=== PATIENT | male | born 1975 | race Caucasian/White ===

== ENCOUNTER 2016-09-10 09:03 | Emergency (ER) | payer SELFPAY ==
[~2016-09-10] VITALS: Ht 188 cm; Wt 107.1 kg
[~2016-09-10 09:03] MED LIST: CLIN150 PO; ULTR50TA PO
[2016-09-10 09:09] VITALS: BP 168/95; PULSE 66; RESP 18; TEMP 98; O2SAT 100
--- NOTE | 2016-09-10 09:29 | PD ---
HPI Chief Complaint: General Weakness Time Seen by Provider: 09:24 Travel History International Travel<30 days: No Contact w/Intl Traveler<30days: No Traveled to known affect area: No History of Present Illness HPI This 41-year-old male complaining of swelling of his feet. He says it developed over the last couple of days. This isn't the last 2 weeks or so he noted that he gets very tired easily and short of breath with exertion and he has a history of hemophilia with less than 1% factor. He gives himself factor one to 5 times at home. He has not had any recent bleeding. He has had a bleeding ulcer in the past. He has been checking his stools and does not think he's been leaving now. He has a history of hepatitis C. He has not had any chest pain. He does smoke. He was treated for an abscess of his tooth and had some bleeding from that site a week ago. PFSH Past Medical History Blood Disorders: Yes (hemophilia B) Social History Alcohol Use: Yes Tobacco Use: Yes (1 PPD) Substance Use: No Allergies-Medications (Allergen,Severity, Reaction): Coded Allergies: Amoxicillin (Verified Allergy, Severe, Hives, 09/10/16) Aspirin (Verified Allergy, Severe, 09/10/16) HEMOPHILIAC Reported Meds & Prescriptions Reported Meds & Active Scripts Active Reported [benfix] 3,000-5,000 IV DIRECTED Review of Systems General / Constitutional: No: Fever, Chills Eyes: No: Diploplia HENT: No: Headaches Cardiovascular: Positive: Edema, No: Chest Pain or Discomfort Respiratory: Positive: Shortness of Breath, No: Cough Gastrointestinal: No: Nausea, Vomiting Genitourinary: No: Urgency, Frequency Musculoskeletal: No: Myalgias, Arthralgias Neurologic: Positive: Weakness, No: Syncope Endocrine: No: Heat Intolerance Physical Exam Narrative GENERAL: Well-developed male SKIN: Warm and dry. HEAD: Atraumatic. Normocephalic. EYES: Pupils equal and round. No scleral icterus. No injection or drainage. ENT: No nasal bleeding or discharge. Mucous membranes pink and moist. NECK: Trachea midline. No JVD. CARDIOVASCULAR: Regular rate and rhythm. No murmur appreciated. RESPIRATORY: No accessory muscle use. Clear to auscultation. Breath sounds equal bilaterally. GASTROINTESTINAL: Abdomen soft, non-tender, nondistended. Hepatic and splenic margins not palpable. MUSCULOSKELETAL: No obvious deformities. No clubbing. No cyanosis. Bilateral pedal edema. NEUROLOGICAL: Awake and alert. No obvious cranial nerve deficits. Motor grossly within normal limits. Normal speech. PSYCHIATRIC: Appropriate mood and affect; insight and judgment normal. Data Data Last Documented VS Vital Signs Date Time Temp Pulse Resp B/P Pulse Ox O2 Delivery O2 Flow Rate FiO2 09/10/16 10:53 60 18 127/85 98 Room Air 09/10/16 09:09 98.0 Orders Electrocardiogram (09/10/16 09:24) Complete Blood Count With Diff (09/10/16:24) Comprehensive Metabolic Panel (09/10/16:24) B-Type Natriuretic Peptide (09/10/16:24) Urinalysis - C+S If Indicated (09/10/16 09:24) Chest, Single Ap (09/10/16 09:24) Labs Laboratory Tests Test 09/10/16 09/10/16 09:55 10:05 White Blood Count 6.2 TH/MM3 Red Blood Count 4.08 MIL/MM3 Hemoglobin 12.3 GM/DL Hematocrit 36.5 % Mean Corpuscular Volume 89.3 FL Mean Corpuscular Hemoglobin 30.2 PG Mean Corpuscular Hemoglobin 33.8 % Concent Red Cell Distribution Width 12.3 % Platelet Count 188 TH/MM3 Mean Platelet Volume 8.9 FL Neutrophils (%) (Auto) 48.8 % Lymphocytes (%) (Auto) 35.5 % Monocytes (%) (Auto) 11.0 % Eosinophils (%) (Auto) 4.2 % Basophils (%) (Auto) 0.5 % Neutrophils # (Auto) 3.0 TH/MM3 Lymphocytes # (Auto) 2.2 TH/MM3 Monocytes # (Auto) 0.7 TH/MM3 Eosinophils # (Auto) 0.3 TH/MM3 Basophils # (Auto) 0.0 TH/MM3 CBC Comment DIFF FINAL Differential Comment Sodium Level 144 MEQ/L Potassium Level 3.9 MEQ/L Chloride Level 104 MEQ/L Carbon Dioxide Level 31.3 MEQ/L Anion Gap 9 MEQ/L Blood Urea Nitrogen 6 MG/DL Creatinine 0.69 MG/DL Estimat Glomerular Filtration 128 ML/MIN Rate Random Glucose 123 MG/DL Calcium Level 8.1 MG/DL Total Bilirubin 0.3 MG/DL Aspartate Amino Transf 62 U/L (AST/SGOT) Alanine Aminotransferase 64 U/L (ALT/SGPT) Alkaline Phosphatase 105 U/L B-Type Natriuretic Peptide 318 PG/ML Total Protein 7.1 GM/DL Albumin 3.0 GM/DL Urine Collection Type CLEAN CATCH Urine Color STRAW Urine Turbidity CLEAR Urine pH 6.0 Urine Specific [place] 1.006 Urine Protein NEG mg/dL Urine Glucose (UA) NEG mg/dL Urine Ketones NEG mg/dL Urine Occult Blood NEG Urine Nitrite NEG Urine Bilirubin NEG Urine Leukocyte Esterase NEG Urine Squamous Epithelial 0-5 /hpf Cells Urine Amorphous Sediment FEW Microscopic Urinalysis Comment CULT NOT INDICATED Urine Collection Time 1005 MDM Medical Decision Making Medical Screen Exam Complete: Yes Emergency Medical Condition: Yes Medical Record Reviewed: Yes Differential Diagnosis Differential includes CHF, dependent edema, nephrotic syndrome, cirrhosis Narrative Course Chest x-ray shows borderline heart size but the lungs are clear. His BNP is 300. EKG shows normal sinus rhythm. Urine is negative for protein. He is albumin is low at 3.0 this may be part of the explanation. This could be secondary to his hepatitis C area he'll be prescribed hydrochlorothiazide 25 mg daily has been advised to keep his legs elevated Diagnosis Primary Impression: Pedal edema Additional Impression: Hypoalbuminemia Scripts Hydrochlorothiazide 25 Mg Tab25 Mg PO DAILY #30 TAB Ref 0 Prov:Baldomero Bush MD 09/10/16 Disposition: 01 DISCHARGE HOME Condition: Stable Baldomero Bush MD Sep 10, 2016 09:29
[2016-09-10] MEDS ORDERED: [UNRECOGNIZED DRUG - OTHER] IV (09:47)
[2016-09-10 10:02] LABS: BASOPHIL % 0.5 % (0.0-2.0); EOSINOPHIL # 0.3 TH/MM3 (0-0.4); EOSINOPHIL % 4.2 % (0.0-4.0); HEMATOCRIT 36.5 % (39.0-51.0); HEMO FLAGS DIFF FINAL; LYMPH % 35.5 % (9.0-44.0); LYMPHOCYTE # 2.2 TH/MM3 (1.0-4.8); MEAN CELL VOLUME 89.3 FL (80.0-100.0); MEAN CORPUSCULAR HEMOGLOBIN 30.2 PG (27.0-34.0); MEAN CORPUSCULAR HGB CONC 33.8 % (32.0-36.0); NEUT % 48.8 % (16.0-70.0); PLATELET COUNT 188 TH/MM3 (150-450); RED BLOOD COUNT 4.08 MIL/MM3 (4.50-5.90); RED CELL DISTRIBUTION WIDTH 12.3 % (11.6-17.2); WHITE BLOOD COUNT 6.2 TH/MM3 (4.0-11.0)
[2016-09-10 10:10] LABS: CHLORIDE 104 MEQ/L (98-107); POTASSIUM 3.9 MEQ/L (3.5-5.1); SODIUM (NA) 144 MEQ/L (136-145)
[2016-09-10 10:14] LABS: ANION GAP 9 MEQ/L (5-15); BICARBONATE 31.3 MEQ/L (21.0-32.0); BLOOD UREA NITROGEN 6 MG/DL (7-18)
[2016-09-10 10:17] LABS: ALT (GPT) 64 U/L (12-78); AST (GOT) 62 U/L (15-37); GLOMERULAR FILTRATION RATE 128 ML/MIN (>89)
[2016-09-10 10:17] LABS: BLOOD, URINE NEG (NEG); GLUCOSE,URINE NEG (NEG); KETONE, URINE NEG (NEG); NITRITE,URINE NEG (NEG)
[2016-09-10 10:19] LABS: TOTAL BILIRUBIN ADULT 0.3 MG/DL (0.2-1.0)
[2016-09-10 10:20] LABS: ALKALINE PHOSPHATASE 105 U/L (45-117)
[2016-09-10 10:21] LABS: METHOD OF COLLECTION CLEAN CATCH; URINE COLOR STRAW (YELLW/STRAW)
[2016-09-10 10:22] LABS: COMMENT (UR) CULT NOT INDICATED; CULTURE IF INDICATED CULT NOT INDICATED; SQUAMOUS EPITHELIAL CELL URINE 0-5 /hpf (0-5)
--- NOTE | 2016-09-10 10:32 | RADHPO ---
EXAM DATE/TIME: 09/10/2016 09:58 [facility] COMPARISON: No previous studies available for comparison. INDICATIONS: Short of breath, bilateral feet swelling. MEDICAL HISTORY: Hemophilia SURGICAL HISTORY: None. ENCOUNTER: Initial ACUITY: 2 days PAIN SCORE: 0/10 LOCATION: Bilateral chest FINDINGS: The heart is top normal in size. The pulmonary vascularity pattern is normal. The lungs are clear. CONCLUSION: 1. No acute cardiopulmonary disease. Harsha Cameron MD on September 10, 2016 at 10:22 Board Certified Radiologist. This report was verified electronically.
[2016-09-10 10:53] VITALS: BP 127/85; PULSE 60; RESP 18; O2SAT 98
[2016-09-10] MEDS ORDERED: HYDR25TA5 PO (11:00)
--- NOTE | 2016-09-11 13:57 | EKG ---
Date Performed: 09/10/2016 Time Performed: 09:24:18 PTAGE: 41 years EKG: Sinus bradycardia Prolonged QT interval Borderline ECG NO PREVIOUS TRACING DOCTOR: Carlos Manuel Caceres Interpretating Date/Time 09/11/2016 13:55:46
== END 2016-09-10 11:14 | disposition home or self-care (01) ==
LOC: PHED 09:03
DX: R60.0 Localized edema (principal); E88.09 Other disorders of plasma-protein metabolism, not elsewhere classified; R00.1 Bradycardia, unspecified; R06.02 Shortness of breath; R53.1 Weakness; B19.20 Unspecified viral hepatitis C without hepatic coma; D67 Hereditary factor IX deficiency; F17.210 Nicotine dependence, cigarettes, uncomplicated
CPT/HCPCS: 71010; 80053; 81001; 83880; 85025; 93005

== ENCOUNTER 2016-12-24 15:56 | Emergency (ER) | payer SELFPAY ==
[~2016-12-24] VITALS: Ht 188 cm; Wt 103.0 kg
[~2016-12-24 15:56] MED LIST changes: -CLIN150 PO; +HYDR25TA5 PO; -ULTR50TA PO; +[UNRECOGNIZED DRUG - OTHER] IV
[2016-12-24 16:01] VITALS: BP 162/121; PULSE 100; RESP 16; TEMP 98.6; O2SAT 98
--- NOTE | 2016-12-24 16:14 | PD ---
HPI Chief Complaint: Pain: Acute or Chronic Time Seen by Provider: 16:13 Travel History International Travel<30 days: No Contact w/Intl Traveler<30days: No Traveled to known affect area: No PFSH Past Medical History Blood Disorders: Yes (hemophilia B) Hepatitis: Yes (hep c) Past Surgical History Other Surgery: Yes (right knee, skin abscess removed to back) Social History Alcohol Use: No (denies) Tobacco Use: Yes (1 PPD) Substance Use: No Allergies-Medications (Allergen,Severity, Reaction): Coded Allergies: Amoxicillin (Verified Allergy, Severe, Hives, 12/24/16) Aspirin (Verified Allergy, Severe, 12/24/16) HEMOPHILIAC Reported Meds & Prescriptions Reported Meds & Active Scripts Active Hydrochlorothiazide 25 Mg Tab 25 Mg PO DAILY Reported [benfix] 3,000-5,000 IV DIRECTED Data Data Last Documented VS Vital Signs Date Time Temp Pulse Resp B/P Pulse Ox O2 Delivery O2 Flow Rate FiO2 12/24/16 16:01 98.6 100 16 162/121 98 Micha Gandhi Dec 24, 2016 16:13
[2016-12-24] MEDS ORDERED: FACTOR IX RECOMBINANT 2,000 UNIT VIAL IV ONE (16:30)
[2016-12-24] MEDS ORDERED: [UNRECOGNIZED DRUG - OTHER] IV (16:34)
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
[2016-12-24 18:25] VITALS: BP 171/106; PULSE 85; RESP 16; O2SAT 98
[2016-12-24] MEDS ORDERED: HYDROmorphone HCL PF 2 MG/ML VIAL IV PUSH ONE (18:30)
[2016-12-24] MEDS ORDERED: ONDANSETRON HCL 4 MG/2 ML VIAL IV PUSH ONE (18:30)
[2016-12-24 18:33] VITALS: BP 153/103; PULSE 78; RESP 16; O2SAT 98
[2016-12-24 18:40] VITALS: BP 162/104; PULSE 78; RESP 16; O2SAT 98
[2016-12-24 19:37] VITALS: BP 146/87
[2016-12-24 19:39] VITALS: RESP 16
== END 2016-12-24 19:37 | disposition home or self-care (01) ==
LOC: PHEFT 15:56
DX: D67 Hereditary factor IX deficiency (principal); R58 Hemorrhage, not elsewhere classified; F17.210 Nicotine dependence, cigarettes, uncomplicated
CPT/HCPCS: 96374; 96375; 99283; J1170; J2405; J7195

== ENCOUNTER 2017-02-11 11:01 | Emergency (ER) | payer SELFPAY ==
[~2017-02-11] VITALS: Ht 188 cm; Wt 105.0 kg
[~2017-02-11 11:01] MED LIST changes: -HYDR25TA5 PO
[2017-02-11 11:06] VITALS: BP 157/100; PULSE 68; RESP 18; TEMP 97.7; O2SAT 99
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
[2017-02-11] MEDS ORDERED: FACTOR IX RECOMBINANT 2,000 UNIT VIAL IV ONE (12:45)
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
[2017-02-11] MEDS ORDERED: MORPHINE SULFATE 4 MG/ML INJ IV PUSH ONE (14:45)
[2017-02-11 15:10] VITALS: BP 137/72; PULSE 59; RESP 14; O2SAT 96
== END 2017-02-11 16:45 | disposition home or self-care (01) ==
LOC: PHEFT 11:01
DX: S80.01XA Contusion of right knee, initial encounter (principal); D67 Hereditary factor IX deficiency; B19.20 Unspecified viral hepatitis C without hepatic coma; V18.0XXA Pedal cycle driver injured in noncollision transport accident in nontraffic accident, initial encounter; Y93.55 Activity, bike riding; Y92.9 Unspecified place or not applicable; Y99.8 Other external cause status
CPT/HCPCS: 73564; 96374; 96375; 99284; J2270; J7195

== ENCOUNTER 2017-02-24 16:11 | Emergency (ER) | payer SELFPAY ==
[~2017-02-24] VITALS: Ht 188 cm; Wt 106.0 kg
[2017-02-24 16:14] VITALS: BP 144/99; PULSE 70; RESP 16; TEMP 97.5; O2SAT 100
[2017-02-24] MEDS ORDERED: FACTOR IX RECOMBINANT 2,000 UNIT VIAL IV ONE (16:30)
[2017-02-24] MEDS ORDERED: MORPHINE SULFATE 4 MG/ML INJ IV PUSH ONE (16:30)
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
[2017-02-24 17:30] VITALS: BP 140/88; PULSE 63; RESP 16; O2SAT 96
[2017-02-24 18:23] VITALS: BP 149/98; PULSE 64; RESP 16; O2SAT 97
[2017-02-24] MEDS ORDERED: SODIUM CHLORIDE 0.9% FLUSH 10 ML FLUSH IVF PRN (19:00)
[2017-02-24 19:03] LABS: AUTOMATED NEUTROPHIL # 2.8 TH/MM3 (1.8-7.7); BASOPHIL # 0.1 TH/MM3 (0-0.2); BASOPHIL % 0.9 % (0.0-2.0); EOSINOPHIL # 0.2 TH/MM3 (0-0.4); EOSINOPHIL % 3.2 % (0.0-4.0); HEMATOCRIT 42.6 % (39.0-51.0); HEMO FLAGS DIFF FINAL; LYMPH % 43.1 % (9.0-44.0); LYMPHOCYTE # 2.9 TH/MM3 (1.0-4.8); MEAN CELL VOLUME 88.8 FL (80.0-100.0); MEAN CORPUSCULAR HEMOGLOBIN 29.4 PG (27.0-34.0); MEAN CORPUSCULAR HGB CONC 33.1 % (32.0-36.0); MONO % 12.8 % (0.0-8.0); PLATELET COUNT 166 TH/MM3 (150-450); RED BLOOD COUNT 4.79 MIL/MM3 (4.50-5.90); WHITE BLOOD COUNT 6.9 TH/MM3 (4.0-11.0)
[2017-02-24] MEDS ORDERED: HYDR-3533 PO (19:12)
[2017-02-24 19:13] LABS: POTASSIUM 4.2 MEQ/L (3.5-5.1)
[2017-02-24 19:16] LABS: BICARBONATE 31.1 MEQ/L (21.0-32.0)
[2017-02-24 19:20] LABS: APTT (PATIENT) 65.1 SEC (24.3-30.1); INTERNATIONAL NORMALIZED RATIO 1.1 RATIO; PROTHROMBIN TIME - PATIENT 11.7 SEC (9.8-11.6)
[2017-02-24 19:29] VITALS: BP 119/68
== END 2017-02-24 19:31 | disposition home or self-care (01) ==
LOC: PHEFT 16:11
DX: S80.12XA Contusion of left lower leg, initial encounter (principal); D67 Hereditary factor IX deficiency; W22.8XXA Striking against or struck by other objects, initial encounter
CPT/HCPCS: 20950; 80048; 85025; 85610; 85730; 96374; 96375; 99284; J2270; J7195

== ENCOUNTER 2017-05-16 13:49 | Emergency (ER) | payer SELFPAY ==
[~2017-05-16 13:49] MED LIST changes: +HYDR-3533 PO; -[UNRECOGNIZED DRUG - OTHER] IV
[2017-05-16 14:01] VITALS: BP 206/100; PULSE 40; RESP 20; TEMP 98.5; O2SAT 98
[2017-05-16 14:47] VITALS: BP 186/107; PULSE 62; RESP 18; O2SAT 98
[2017-05-16] MEDS ORDERED: FACTOR IX RECOMBINANT 2,000 UNIT VIAL IV ONE (15:00)
--- NOTE | 2017-05-16 15:07 | PD ---
HPI Chief Complaint: Musculoskeletal Complaint Time Seen by Provider: 14:42 Travel History International Travel<30 days: No Contact w/Intl Traveler<30days: No Traveled to known affect area: No History of Present Illness HPI This is a 41-year-old male who presents to the emergency department with a history of hemophilia B having stubbed his left great toe on a stair prior to arrival. He has a lot of pain at the joint the great toe, constant, moderate severity with some associated swelling. He doesn't carry factor with him. He doesn't think he broke his toe but has a lot of pain in the joint itself. 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) ) Diminished Hearing: No Hepatitis: Yes (C) Influenza Vaccination: No Past Surgical History Other Surgery: Yes (right knee, skin abscess removed to back) Social History Alcohol Use: No Tobacco Use: Yes (1 PPD) Substance Use: No Allergies-Medications (Allergen,Severity, Reaction): Coded Allergies: amoxicillin (Unverified Allergy, Severe, Hives, 04/16/17) aspirin (Unverified Adverse Reaction, Severe, Has hemophilia, 04/16/17) Reported Meds & Prescriptions Reported Meds & Active Scripts Active Review of Systems Except as stated in HPI: all other systems reviewed are Neg Physical Exam Narrative GENERAL:Well appearing, no acute distress SKIN: Focused skin assessment warm and dry. HEAD: Atraumatic. Normocephalic. EYES: Pupils equal and round. No injection or drainage. ENT: Moist mucous membranes NECK: Trachea midline. CARDIOVASCULAR: Regular rate and rhythm. No murmur appreciated. Normal capillary refill of the left great toe RESPIRATORY: Clear to auscultation. Breath sounds equal bilaterally. GASTROINTESTINAL: Abdomen soft, non-tender, nondistended. MUSCULOSKELETAL: Pain with movement at the interphalangeal joint of the left great toe with some swelling at the joint NEUROLOGICAL: Awake and alert. No obvious cranial nerve deficits. Moving all extremities. PSYCHIATRIC: Appropriate mood and affect; insight and judgment normal. Data Data Last Documented VS Vital Signs Date Time Temp Pulse Resp B/P (MAP) Pulse Ox O2 Delivery O2 Flow Rate FiO2 05/16/17 14:47 62 18 186/107 (133) 98 Room Air 05/16/17 14:01 98.5 Orders Orders Factor Ix (Recombinant) Inj (Benefix Inj (05/16/17 15:00) Acetamin-Hydrocod 325-5 Mg (Rich[place] 5-325 (05/16/17 15:30) MDM Medical Decision Making Medical Screen Exam Complete: Yes Emergency Medical Condition: Yes Interpretation(s) Afebrile, bradycardic, hypertensive Differential Diagnosis Hemarthrosis Narrative Course This is a 41-year-old male who presents to the emergency department with a history of hemophilia B having injured his left great toe. He has pain in his joint. The toe is well perfused. Patient was given his normal dose of factor IX. On reexam the toe continues to appear well perfused. I think Think he is appropriate for discharge. 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 Med/Other Pt SpecificInfo: No Change to Meds Disposition: 01 DISCHARGE HOME Condition: Stable Gabriela Vo MD May 16, 2017 15:07
[2017-05-16] MEDS ORDERED: ACETAMINOPHEN/HYDROcodone 325 MG/5 MG TAB PO ONE (15:30)
[2017-05-16 15:36] VITALS: BP 147/96; PULSE 54; RESP 16; O2SAT 98
[2017-05-16] MEDS ORDERED: HYDR-3533 PO (15:48)
[2017-05-16 16:00] VITALS: RESP 16
== END 2017-05-16 16:01 | disposition home or self-care (01) ==
LOC: PHED 13:49
DX: D67 Hereditary factor IX deficiency (principal); F17.200 Nicotine dependence, unspecified, uncomplicated
CPT/HCPCS: 96374; 99284; J7195

== ENCOUNTER 2017-06-01 09:30 | Inpatient (IN) | payer SELFPAY ==
[~2017-06-01] VITALS: Ht 188 cm; Wt 106.9 kg
[2017-06-01] VITALS (7 sets, daily range): BP systolic 137–159; BP diastolic 83–101; PULSE 55–81; RESP 16–18; TEMP 96.1–97.4; O2SAT 95–98
[2017-06-01] MEDS ORDERED: FACTOR IX IV ONE (10:45)
[2017-06-01] MEDS ORDERED: [UNRECOGNIZED DRUG - OTHER] IV ONE (10:45)
--- NOTE | 2017-06-01 10:57 | PD ---
HPI Chief Complaint: Musculoskeletal Complaint Time Seen by Provider: 10:32 Travel History International Travel<30 days: No Contact w/Intl Traveler<30days: No Traveled to known affect area: No History of Present Illness HPI 42-year-old male who states he does not have a local solvent mixer for factor on him resents with left elbow swelling since chest today when he was helping his neighbor move. He states the swelling has gotten worse and the pain got worse so he elected to come here. He denies any other complaint or significant trauma. He states in the past he's had 7000 units of factor IX when he gets this. Quality is swollen. Severity is progressive. 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) ) Diminished Hearing: No Hepatitis: Yes (C) Influenza Vaccination: No Past Surgical History Other Surgery: Yes (right knee, skin abscess removed to back) Social History Alcohol Use: No Tobacco Use: Yes (1 PPD) Substance Use: No Allergies-Medications (Allergen,Severity, Reaction): Coded Allergies: amoxicillin (Unverified Allergy, Severe, Hives, 04/16/17) aspirin (Unverified Adverse Reaction, Severe, Has hemophilia, 04/16/17) Reported Meds & Prescriptions Reported Meds & Active Scripts Active Lortab (Hydrocodone-Acetaminophen) 5-325 Mg Tab 1 Tab PO Q6H PRN Review of Systems Except as stated in HPI: all other systems reviewed are Neg Physical Exam Narrative GENERAL: Well-nourished, well-developed patient. SKIN: Warm and dry. HEAD: Normocephalic and atraumatic. EYES: No injection or drainage. ENT: No nasal drainage noted. NECK: Supple, trachea midline. CARDIOVASCULAR: Regular rate and rhythm RESPIRATORY: Breath sounds equal bilaterally. No accessory muscle use. GASTROINTESTINAL: Abdomen soft, non-tender, nondistended. EXTREMITIES: Pain with palpation of of left elbow with moderate size effusion without overlying cellulitis, no pain with other joints , neurovascularly intact , no lacerations over, compartments soft. NEUROLOGICAL: Awake and alert. Motor and sensory grossly within normal limits. Normal speech. Data Data Last Documented VS Vital Signs Date Time Temp Pulse Resp B/P (MAP) Pulse Ox O2 Delivery O2 Flow Rate FiO2 06/01/17 11:38 16 06/01/17 11:20 Room Air 06/01/17 11:15 67 97 06/01/17 09:37 97.4 Orders Orders Complete Blood Count With Diff (06/01/17 10:38) Basic Metabolic Panel (Bmp) (06/01/17 10:38) Act Partial Throm Time (Ptt) (06/01/17 10:38) Prothrombin Time / Inr (Pt) (06/01/17 10:38) Iv Access Insert/Monitor (06/01/17 10:38) Ecg Monitoring (06/01/17 10:38) Oximetry (06/01/17 10:38) Factor Ix (Human) Inj (Alphanine Sd Inj) (06/01/17 10:45) Morphine Inj (Morphine Inj) (06/01/17 11:15) Factor Ix (Recombinant) Inj (Benefix Inj (06/01/17 11:15) Elbow, Limited (Ap&Lat) (06/01/17 ) Ct Elbow W/O Contrast (06/01/17 ) Morphine Inj (Morphine Inj) (06/01/17 13:15) Admit Order (Ed Use Only) (06/01/17 13:16) Labs Laboratory Tests Test 06/01/17 10:57 White Blood Count 8.3 TH/MM3 Red Blood Count 4.83 MIL/MM3 Hemoglobin 14.2 GM/DL Hematocrit 42.5 % Mean Corpuscular Volume 87.9 FL Mean Corpuscular Hemoglobin 29.5 PG Mean Corpuscular Hemoglobin Concent 33.5 % Red Cell Distribution Width 13.8 % Platelet Count 173 TH/MM3 Mean Platelet Volume 9.3 FL Neutrophils (%) (Auto) 43.0 % Lymphocytes (%) (Auto) 41.4 % Monocytes (%) (Auto) 10.7 % Eosinophils (%) (Auto) 4.4 % Basophils (%) (Auto) 0.5 % Neutrophils # (Auto) 3.5 TH/MM3 Lymphocytes # (Auto) 3.4 TH/MM3 Monocytes # (Auto) 0.9 TH/MM3 Eosinophils # (Auto) 0.4 TH/MM3 Basophils # (Auto) 0.0 TH/MM3 CBC Comment DIFF FINAL Differential Comment Prothrombin Time 11.8 SEC Prothromb Time International Ratio 1.1 RATIO Activated Partial Thromboplast Time 65.5 SEC Blood Urea Nitrogen 14 MG/DL Creatinine 0.78 MG/DL Random Glucose 127 MG/DL Calcium Level 8.8 MG/DL Sodium Level 136 MEQ/L Potassium Level 3.8 MEQ/L Chloride Level 101 MEQ/L Carbon Dioxide Level 28.4 MEQ/L Anion Gap 7 MEQ/L Estimat Glomerular Filtration Rate 110 ML/MIN MDM Medical Decision Making Medical Screen Exam Complete: Yes Emergency Medical Condition: Yes Medical Record Reviewed: Yes (past history confirmed) Interpretation(s) CBC & BMP Diagram 06/01/17 10:57 Calcium Level 8.8 Last 24 hours Impressions Elbow X-Ray 06/01/17 0000 Signed Impressions: Service Date/Time: Saturday, June 01, 2017 12:08 - CONCLUSION: 1. Joint effusion with questionable radial head fracture. Please see above. 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
[2017-06-01 11:01] LABS: AUTOMATED NEUTROPHIL # 3.5 TH/MM3 (1.8-7.7); BASOPHIL % 0.5 % (0.0-2.0); EOSINOPHIL # 0.4 TH/MM3 (0-0.4); EOSINOPHIL % 4.4 % (0.0-4.0); HEMATOCRIT 42.5 % (39.0-51.0); HEMO FLAGS DIFF FINAL; LYMPH % 41.4 % (9.0-44.0); LYMPHOCYTE # 3.4 TH/MM3 (1.0-4.8); MEAN CELL VOLUME 87.9 FL (80.0-100.0); MEAN CORPUSCULAR HEMOGLOBIN 29.5 PG (27.0-34.0); MEAN CORPUSCULAR HGB CONC 33.5 % (32.0-36.0); MONO % 10.7 % (0.0-8.0); PLATELET COUNT 173 TH/MM3 (150-450); RED BLOOD COUNT 4.83 MIL/MM3 (4.50-5.90); RED CELL DISTRIBUTION WIDTH 13.8 % (11.6-17.2); WHITE BLOOD COUNT 8.3 TH/MM3 (4.0-11.0)
[2017-06-01 11:11] LABS: POTASSIUM 3.8 MEQ/L (3.5-5.1)
[2017-06-01 11:14] LABS: BICARBONATE 28.4 MEQ/L (21.0-32.0)
[2017-06-01] MEDS ORDERED: FACTOR IX RECOMBINANT 2,000 UNIT VIAL IV ONE (11:15)
[2017-06-01] MEDS ORDERED: MORPHINE SULFATE 4 MG/ML INJ IV PUSH ONE ×2 (11:15→13:15)
[2017-06-01 11:29] LABS: APTT (PATIENT) 65.5 SEC (24.3-30.1); INTERNATIONAL NORMALIZED RATIO 1.1 RATIO; PROTHROMBIN TIME - PATIENT 11.8 SEC (9.8-11.6)
--- NOTE | 2017-06-01 12:20 | RADRPT ---
EXAM DATE/TIME: 06/01/2017 12:08 [facility] COMPARISON: KNEE RIGHT COMPLETE (4VWS), February 11, 2017, 12:12. INDICATIONS : Pain in left elbow. MEDICAL HISTORY : None. SURGICAL HISTORY : None. ENCOUNTER: Initial ACUITY: 1 day PAIN SCORE: 10/10 LOCATION: Left Elbow FINDINGS: The exam demonstrates a moderate sized joint effusion. Subtle lucency through the radial head. Exam w ould raise concern for an occult radial head fracture. This is only seen in the single projection. CT imaging for more definitive assessment could be performed CONCLUSION: 1. Joint effusion with questionable radial head fracture. Please see above. Kumar Saleh MD on June 01, 2017 at 12:17 Board Certified Radiologist. This report was verified electronically.
--- NOTE | 2017-06-01 13:30 | RADRPT ---
EXAM DATE/TIME: 06/01/2017 12:55 [facility] COMPARISON: ELBOW LEFT LIMITED (AP & LAT), June 01, 2017, 12:08. INDICATIONS : Swelling. RADIATION DOSE: 12.97 CTDIvol (mGy) MEDICAL HISTORY : Hemophelia SURGICAL HISTORY : ENCOUNTER: Initial ACUITY: 1 day PAIN SCALE: 8/10 LOCATION: Left elbow TECHNIQUE: Volumetric scanning of the elbow was performed. Using automated exposure control and adjustment of t he mA and/or kV according to patient size, radiation dose was kept as low as reasonably achievable to obtain optimal diagnostic quality images. DICOM format image data is available electronically for r eview and comparison. FINDINGS: BONES: The osseous structures demonstrate normal alignment without evidence of acute fracture. There is a sm all millimeter osseous fragment identified along the volar aspect of the joint at the anterior aspect of the distal humerus. The other side is not seen. This is seen adjacent to the radial aspect of the joint. JOINTS: No evidence of joint narrowing or effusion. SOFT TISSUES: Muscles, tendons and neurovascular structures are grossly unremarkable. No evidence of mass, organize d fluid collection, or foreign body. CONCLUSION: Small free fragment measuring 3 mm identified within the volar radial aspect of the joint adjacent to the distal aspect of the humerus.. Kaykay Madrigal MD on June 01, 2017 at 13:21 Board Certified Radiologist. This report was verified electronically.
[2017-06-01] MEDS ORDERED: SODIUM CHLORIDE 0.9% FLUSH 10 ML FLUSH IV FLUSH PRN (13:45)
[2017-06-01] MEDS ORDERED: NALOXONE HCL 0.4 MG/ML AMP IV PUSH PRN (13:45)
[2017-06-01] MEDS ORDERED: SENNOSIDES 8.6 MG TAB PO PRN (13:45)
[2017-06-01] MEDS ORDERED: ACETAMINOPHEN/HYDROcodone 325 MG/5 MG TAB PO PRN (13:45)
[2017-06-01] MEDS ORDERED: ONDANSETRON HCL 4 MG/2 ML VIAL IVP PRN (13:45)
[2017-06-01] MEDS ORDERED: ACETAMINOPHEN/HYDROcodone 325 MG/10 MG TAB PO PRN (13:45)
--- NOTE | 2017-06-01 14:59 | HHI.HP ---
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 Alcala is a 42-year-old male. He has a history of hemophilia B. He also has hepatitis C secondary to transfusions when he was younger. He reports that he has problems with small joint effusions about every 1 to 3 months. His last large joint effusion was approximately 1.5 years ago at his left knee. She has had numerous large joint effusions in the past. Yesterday he helped a friend move furniture. He says by the end of the night she noticed a little bit of stiffness and swelling, but by this morning that had become quite prominent and painful. This feels like his previous hemarthrosis joints. In the past she has needed transfusion with BeneFix. X-ray showed evidence of effusion, CT does not show evidence of effusion. CT does show a 3 mm bony fragment, but based on history without trauma this is unlikely fracture. Patient denies any fevers. Review of Systems Constitutional: DENIES: Diaphoretic episodes, Fatigue, Fever, Chills Eyes: DENIES: Blurred vision, Diplopia, Eye inflammation Ears, nose, mouth, throat: DENIES: Tinnitus, Hearing loss, Vertigo Respiratory: DENIES: Apneas, Cough, Wheezing, Shortness of breath Cardiovascular: DENIES: Chest pain, Palpitations, Syncope Gastrointestinal: DENIES: Abdominal pain, Black stools, Bloody stools Musculoskeletal: COMPLAINS OF: Joint pain, Stiffness, Joint Swelling Integumentary: DENIES: Abnormal pigmentation, Nail changes, Pruritus, Rash Hematologic/lymphatic: DENIES: Bruising, Lymphadenopathy Immunologic/allergic: DENIES: Eczema, Urticaria Neurologic: DENIES: Abnormal gait, Headache, Paresthesias Psychiatric: DENIES: Anxiety, Confusion, Hallucinations Past Family Social History Past Medical History Hepatitis C Hemophilia B Past Surgical History Procedures related to hemarthrosis Reported Medications Reported Meds & Active Scripts Active Lortab (Hydrocodone-Acetaminophen) 5-325 Mg Tab 1 Tab PO Q6H PRN Allergies: Coded Allergies: amoxicillin (Unverified Allergy, Severe, Hives, 04/16/17) aspirin (Unverified Adverse Reaction, Severe, Has hemophilia, 04/16/17) Family History Nonspecified cancer in father Hypertension in mother Social History Patient smokes 1 pack per day No alcohol use No illicit drug abuse Physical Exam Vital Signs Vital Signs Date Time Temp Pulse Resp B/P (MAP) Pulse Ox O2 Delivery O2 Flow Rate FiO2 06/01/17 13:18 55 17 137/93 (108) 97 Room Air 06/01/17 11:38 16 06/01/17 11:20 Room Air 06/01/17 11:15 67 16 143/92 (109) 97 Room Air 06/01/17 09:37 97.4 81 16 157/101 (119) 96 Room Air Physical Exam GENERAL: NAD, A&Ox3 HEAD: Normocephalic. NECK: Supple, trachea midline. No lymphadenopathy. EYES: No scleral icterus. No injection or drainage. CARDIOVASCULAR: Regular rate and rhythm without murmurs, gallops, or rubs. RESPIRATORY: Breath sounds equal bilaterally. No accessory muscle use. GASTROINTESTINAL: Abdomen soft, non-tender, nondistended. MUSCULOSKELETAL: No cyanosis, or edema. Tender left elbow with limited range of motion. Some increase in swelling of left elbow compared to right. No skin discoloration. SKIN: Warm and dry. NEURO: No focal neurological deficitis. Laboratory Laboratory Tests Test 06/01/17 10:57 White Blood Count 8.3 Red Blood Count 4.83 Hemoglobin 14.2 Hematocrit 42.5 Mean Corpuscular Volume 87.9 Mean Corpuscular Hemoglobin 29.5 Mean Corpuscular Hemoglobin Concent 33.5 Red Cell Distribution Width 13.8 Platelet Count 173 Mean Platelet Volume 9.3 Neutrophils (%) (Auto) 43.0 Lymphocytes (%) (Auto) 41.4 Monocytes (%) (Auto) 10.7 Eosinophils (%) (Auto) 4.4 Basophils (%) (Auto) 0.5 Neutrophils # (Auto) 3.5 Lymphocytes # (Auto) 3.4 Monocytes # (Auto) 0.9 Eosinophils # (Auto) 0.4 Basophils # (Auto) 0.0 CBC Comment DIFF FINAL Differential Comment Prothrombin Time 11.8 Prothromb Time International Ratio 1.1 Activated Partial Thromboplast Time 65.5 Blood Urea Nitrogen 14 Creatinine 0.78 Random Glucose 127 Calcium Level 8.8 Sodium Level 136 Potassium Level 3.8 Chloride Level 101 Carbon Dioxide Level 28.4 Anion Gap 7 Estimat Glomerular Filtration Rate 110 Result Diagram: 06/01/17 1057 06/01/17 1057 Caprini VTE Risk Assessment Caprini VTE Risk Assessment: No/Low Risk (score <= 1) Caprini Risk Assessment Model Point Value = 1 Point Value = 2 Point Value = 3 Point Value = 5 Age 41-60 Minor surgery BMI > 25 kg/m2 Swollen legs Varicose veins or History of unexplained or recurrent spontaneous Oral contraceptives or hormone replacement Sepsis (< 1 month) Serious lung disease, including pneumonia (< 1 month) Abnormal pulmonary function Acute myocardial infarction Congestive heart failure (< 1 month) History of inflammatory bowel disease Medical patient at bed rest Age 61-74 Arthroscopic surgery Major open surgery (> 45 min) Laparoscopic surgery (> 45 min) Malignancy Confined to bed (> 72 hours) Immobilizing plaster cast Central venous access Age >= 75 History of VTE Family history of VTE Factor V Leiden Prothrombin [id number] Lupus anticoagulant Anticardiolipin antibodies Elevated serum homocysteine Heparin-induced thrombocytopenia Other congenital or acquired thrombophilia Stroke (< 1 month) Elective arthroplasty Hip, pelvis, or leg fracture Acute spinal cord injury (< 1 month) Prophylaxis Regimen Total Risk Factor Score Risk Level Prophylaxis Regimen 0-1 Low Early ambulation 2 Moderate Order ONE of the following: *Sequential Compression Device (SCD) *Heparin 5000 units SQ BID 3-4 Higher Order ONE of the following medications: *Heparin 5000 units SQ TID *Enoxaparin/Lovenox 40 mg SQ daily (WT < 150 kg, CrCl > 30 mL/min) *Enoxaparin/Lovenox 30 mg SQ daily (WT < 150 kg, CrCl > 10-29 mL/min) *Enoxaparin/Lovenox 30 mg SQ BID (WT < 150 kg, CrCl > 30 mL/min) AND/OR *Sequential Compression Device (SCD) 5 or more Highest Order ONE of the following medications: *Heparin 5000 units SQ TID (Preferred with Epidurals) *Enoxaparin/Lovenox 40 mg SQ daily (WT < 150 kg, CrCl > 30 mL/min) *Enoxaparin/Lovenox 30 mg SQ daily (WT < 150 kg, CrCl > 10-29 mL/min) *Enoxaparin/Lovenox 30 mg SQ BID (WT < 150 kg, CrCl > 30 mL/min) AND *Sequential Compression Device (SCD) Assessment and Plan Problem List: (1) 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 Status: Acute (2) Hemarthrosis involving elbow joint ICD Code: M25.029 - Hemarthrosis, unspecified elbow Status: Acute Assessment and Plan Assessment and plan 42-year-old male with hemophilia B admitted for suspected left elbow hemarthrosis Suspected left elbow hemarthrosis Left elbow pain Hemophilia B Admit and monitor for any progression Hematology consulted Orthopedics consulted Follow CBC As needed pain treatments Icepack to affected joint Hepatitis C Standard precautions DVT prophylaxis SCDs Problem Qualifiers (1) Hemarthrosis involving elbow joint: Qualified Codes: M25.022 - Hemarthrosis, left elbow Kumar Saldana MD Jun 01, 2017 14:59
[2017-06-01] MEDS ORDERED: oxyCODONE/ACETAMINOPHEN 5 MG/325 MG TAB PO PRN (18:15)
[2017-06-01] MEDS: HYDROmorphone HCL PF 1 MG/ML VIAL IV PUSH PRN ×2 (18:40→23:24)
[2017-06-01] MEDS: NICOTINE 21 MG/24 HR PATCH T-DERMAL SCH (18:40)
[2017-06-01] MEDS: SODIUM CHLORIDE 0.9% FLUSH 10 ML FLUSH IV FLUSH SCH (20:33)
[2017-06-01] MEDS: DOCUSATE SODIUM 50 MG/SENNA 8.6 MG TAB PO SCH (20:33)
[2017-06-01] MEDS: oxyCODONE/ACETAMINOPHEN 10 MG/325 MG TAB PO PRN (20:36)
--- NOTE | 2017-06-01 23:53 | PD.ONC.PN ---
Subjective Subjective Remarks Consult note Dictated Objective Data Date Time Temp Pulse Resp B/P (MAP) Pulse Ox O2 Delivery O2 Flow Rate FiO2 06/01/17 20:00 96.7 56 18 138/83 (101) 95 06/01/17 18:40 96.1 62 18 141/97 (112) 96 06/01/17 17:05 62 159/99 (119) 97 06/01/17 15:15 62 18 157/98 (117) 98 Room Air 06/01/17 13:19 16 06/01/17 13:18 55 17 137/93 (108) 97 Room Air 06/01/17 11:38 16 06/01/17 11:20 Room Air 06/01/17 11:15 67 16 143/92 (109) 97 Room Air 06/01/17 09:37 97.4 81 16 157/101 (119) 96 Room Air Result Diagram: 06/01/17 1057 06/01/17 1057 Laboratory Results Laboratory Tests Test 06/01/17 10:57 White Blood Count 8.3 TH/MM3 Red Blood Count 4.83 MIL/MM3 Hemoglobin 14.2 GM/DL Hematocrit 42.5 % Mean Corpuscular Volume 87.9 FL Mean Corpuscular Hemoglobin 29.5 PG Mean Corpuscular Hemoglobin Concent 33.5 % Red Cell Distribution Width 13.8 % Platelet Count 173 TH/MM3 Mean Platelet Volume 9.3 FL Neutrophils (%) (Auto) 43.0 % Lymphocytes (%) (Auto) 41.4 % Monocytes (%) (Auto) 10.7 % Eosinophils (%) (Auto) 4.4 % Basophils (%) (Auto) 0.5 % Neutrophils # (Auto) 3.5 TH/MM3 Lymphocytes # (Auto) 3.4 TH/MM3 Monocytes # (Auto) 0.9 TH/MM3 Eosinophils # (Auto) 0.4 TH/MM3 Basophils # (Auto) 0.0 TH/MM3 CBC Comment DIFF FINAL Differential Comment Prothrombin Time 11.8 SEC Prothromb Time International Ratio 1.1 RATIO Activated Partial Thromboplast Time 65.5 SEC Blood Urea Nitrogen 14 MG/DL Creatinine 0.78 MG/DL Random Glucose 127 MG/DL Calcium Level 8.8 MG/DL Sodium Level 136 MEQ/L Potassium Level 3.8 MEQ/L Chloride Level 101 MEQ/L Carbon Dioxide Level 28.4 MEQ/L Anion Gap 7 MEQ/L Estimat Glomerular Filtration Rate 110 ML/MIN Imaging Studies Last 24 hours Impressions Elbow X-Ray 06/01/17 0000 Signed Impressions: Service Date/Time: Thursday, June 01, 2017 12:08 - CONCLUSION: 1. Joint effusion with questionable radial head fracture. Please see above. Kumar Saleh MD Administered Medications Medications (Trade) Dose Ordered Sig/[place] Route PRN Reason Start Time Stop Time Status Last Admin Dose Admin Sodium Chloride (NS Flush) 2 ml BID IV FLUSH 06/01/17 21:00 06/01/17 20:33 Senna/Docusate Sodium (Lindy-Colace) 1 tab BID PO 06/01/17 21:00 06/01/17 20:33 Nicotine (Habitrol 21 Mg Patch.24 Hr) 1 patch DAILY T-DERMAL 06/01/17 18:30 06/01/17 18:40 Oxycodone/ Acetaminophen (Percocet 10-325 Mg) 1 tab Q4H PRN PO Pain 7 to 10 06/01/17 18:15 06/01/17 20:36 Hydromorphone HCl (Dilaudid Pf Inj) 0.5 mg Q4H PRN IV PUSH Breakthrough Pain 06/01/17 18:15 06/01/17 23:24 Objective Remarks GENERAL: nad SKIN: Warm and dry. HEAD: Normocephalic. EYES: No scleral icterus. No injection or drainage. NECK: Supple, trachea midline. No JVD or lymphadenopathy. LYMPHATIC: No adenopathy. CARDIOVASCULAR: Regular rate and rhythm without murmurs. RESPIRATORY: Breath sounds equal bilaterally. No accessory muscle use. GASTROINTESTINAL: Abdomen soft, non-tender, nondistended. EXTREMITIES: swollen elbow MUSCULOSKELETAL: Adequate muscle tone. NEUROLOGICAL: No obvious focal deficit. Awake, alert, and oriented x3. PSYCHIATRIC: Appropriate mood and affect; insight and judgment normal. 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 MD Jun 01, 2017 23:53
[2017-06-02] VITALS: BP 132/87; PULSE 56; RESP 18; TEMP 97.1; O2SAT 95
[2017-06-02] MEDS: oxyCODONE/ACETAMINOPHEN 10 MG/325 MG TAB PO PRN ×3 (00:54→09:08)
[2017-06-02] MEDS: HYDROmorphone HCL PF 1 MG/ML VIAL IV PUSH PRN ×5 (03:31→20:35)
[2017-06-02 05:51] VITALS: BP 128/86; PULSE 56; RESP 18; TEMP 96.3; O2SAT 96
[2017-06-02] MEDS: REMOVE OLD PATCH T-DERMAL SCH (07:57)
[2017-06-02] MEDS: SODIUM CHLORIDE 0.9% FLUSH 10 ML FLUSH IV FLUSH SCH ×2 (07:57→20:38)
[2017-06-02] MEDS: NICOTINE 21 MG/24 HR PATCH T-DERMAL SCH (07:57)
[2017-06-02 08:00] VITALS: BP 136/97; PULSE 50; RESP 18; TEMP 97.7; O2SAT 98
[2017-06-02] MEDS: DOCUSATE SODIUM 50 MG/SENNA 8.6 MG TAB PO SCH ×2 (08:29→20:38)
--- NOTE | 2017-06-02 08:32 | PD.ORT.PN ---
Subjective Subjective Remarks Left elbow bleed secondary to hemophilia Range of Motion Left elbow 0/55/65 degrees Right elbow 0/5/140 degrees Objective Vitals Vital Signs Date Time Temp Pulse Resp B/P (MAP) Pulse Ox O2 Delivery O2 Flow Rate FiO2 06/02/17 05:51 96.3 56 18 128/86 (100) 96 06/02/17 00:00 97.1 56 18 132/87 (102) 95 06/01/17 20:00 96.7 56 18 138/83 (101) 95 06/01/17 18:40 96.1 62 18 141/97 (112) 96 06/01/17 17:05 62 159/99 (119) 97 06/01/17 15:15 62 18 157/98 (117) 98 Room Air 06/01/17 13:19 16 06/01/17 13:18 55 17 137/93 (108) 97 Room Air 06/01/17 11:38 16 06/01/17 11:20 Room Air 06/01/17 11:15 67 16 143/92 (109) 97 Room Air 06/01/17 09:37 97.4 81 16 157/101 (119) 96 Room Air I/O 06/01/17 06/01/17 06/01/17 06/02/17 06/02/17 06/02/17 07:00 15:00 23:00 07:00 15:00 23:00 Intake Total 240 ml Balance 240 ml Intake Oral 240 ml # Voids 3 Result Diagram: 06/01/17 1057 06/01/17 1057 Other Results Laboratory Tests Test 06/01/17 10:57 Prothromb Time International Ratio 1.1 RATIO Prothrombin Time 11.8 SEC (9.8-11.6) Assessment & Plan Problem List: (1) Hemarthrosis involving elbow joint ICD Codes: M25.029 - Hemarthrosis, unspecified elbow Status: Acute Qualifiers: Qualified Codes: M25.022 - Hemarthrosis, left elbow Assessment and Plan Left Elbow hemarthrosis secondary to hemophilia No obvious acute fracture based on history and review of xrays Plan: Medical management to help with clotting Ice to elbow Patient to begin gentle range of motion exercises when the pain comes under better control He states that he has been through this many times before and does not require a therapist I will sign off at this time Ambrosio Walls MD Jun 02, 2017 08:32
--- NOTE | 2017-06-02 08:55 | MB ---
cc: JAYCE CHINO DATE OF CONSULTATION: 06/01/2017 REASON FOR CONSULTATION: Patient with a history of hemophilia who presents with elbow swelling. HISTORY OF PRESENT ILLNESS: This is a 42-year-old male who has a history of hemophilia B, who has had history of hemarthrosis in the past. He also has a history of Hepatitis C due to recurrent blood transfusions. He presents to the emergency department with left knee swelling. He develops the swelling with spontaneous effusions in his joints every one to three months. He has been treated with Factor IX in the past. He states that he was helping a neighbor move furniture yesterday. Subsequently he noticed stiffness and swelling which became painful. He presented to the emergency department. He had upper extremity CT of the left arm. There was a small free fragment measuring 3 mm identified in the volar radicle aspect of the joint adjacent to the distal aspect of the humerus. He also had x-ray of the right knee which showed that all osseous structures are intact and there was no significant joint effusion. An x-ray of the left elbow showed joint effusion with questionable right head fracture. I spoke with the emergency department physician, Dr. Singh, and the patient was given Factor IX injection at 7000 units x1. The patient usually received this dose when he develops hemarthrosis. He denies any other symptoms such as headaches or blurry vision, chest pain, shortness of breath, abdominal pain. No bright red blood per rectum or melena. REVIEW OF SYSTEMS A comprehensive 14-point review of systems was completed which is negative except as described in HPI. PAST MEDICAL HISTORY Hemophilia B. Hepatitis C. PAST SURGICAL HISTORY Orthopedic interventions due to hemarthrosis. MEDICATIONS: 1. Colace 1 tablet p.o. b.i.d. 2. Percocet 5/225 p.o. q.4 hours p.r.n. 3. Dilaudid 0.5 mg IV q.4 hours p.r.n. 4. Zofran 4 mg IV q.6 hours p.r.n. ALLERGIES ASPIRIN AMOXICILLIN FAMILY HISTORY: Family history was reviewed and is significant for hemophilia. SOCIAL HISTORY He smokes one-pack per day. No alcohol abuse or drug use. PHYSICAL EXAMINATION: Vital signs: Blood pressure is 138/83, pulse in the 50s, temperature is 96.7. General: No apparent distress. Alert and oriented x3. HEENT: Pupils are equal, round, react to light. EOMI. No thrush, no oral lesion. Neck: Supple. No JVD, no bruits. No lymphadenopathy. Chest: Chest is clear to auscultation bilaterally. Cardiac: S1-S2 regular rate and rhythm. Abdomen: Soft, nontender, nondistended. Bowel sounds are present. Extremities: Left elbow mild swelling. No discoloration, no erythema, no cyanosis. Good bilateral pulses upper and lower extremities 2+. Good capillary refill. Left elbow and right knee is somewhat tender. Skin: Without any petechiae, lesion or bruises. No focal no focal deficits. Psychiatric: Mood and affect is appropriate. LABORATORY DATA WBC 8.3, hemoglobin 14.2, platelet count 173. Serum chemistries show sodium of 136, potassium 3.8, chloride 101, CO2 28.4, BUN 14, GFR is 110. Coags PT is 11.8, INR is 1.1, PTT 65.5. ASSESSMENT/PLAN This is 42-year-old male with a history of hemophilia B and hepatitis C who was admitted with left elbow swelling. 1. Left elbow hemarthrosis. I agree with admitting this patient in the hospital for observation. He has been given Factor IX, 7000 units x1. I agree with orthopedic evaluation. Monitor CBC closely. If his elbow swelling or knee swelling worsens, we will have to give him additional Factor IX. Further recommendations will be made based on the clinical course. 2. History of hepatitis. Thank you for allowing me to participate in the care of this patient. I will continue to follow this patient along. MD FRANCISCO Scales/ELIAS /7:52 AM /8:35 AM ROBERT
[2017-06-02 09:54] LABS: AUTOMATED NEUTROPHIL # 2.5 TH/MM3 (1.8-7.7); BASOPHIL % 0.6 % (0.0-2.0); EOSINOPHIL # 0.3 TH/MM3 (0-0.4); EOSINOPHIL % 4.7 % (0.0-4.0); HEMATOCRIT 42.6 % (39.0-51.0); HEMO FLAGS DIFF FINAL; LYMPH % 46.7 % (9.0-44.0); LYMPHOCYTE # 2.9 TH/MM3 (1.0-4.8); MEAN CORPUSCULAR HEMOGLOBIN 30.1 PG (27.0-34.0); MEAN CORPUSCULAR HGB CONC 34.2 % (32.0-36.0); PLATELET COUNT 147 TH/MM3 (150-450); RED BLOOD COUNT 4.84 MIL/MM3 (4.50-5.90); RED CELL DISTRIBUTION WIDTH 13.9 % (11.6-17.2); WHITE BLOOD COUNT 6.3 TH/MM3 (4.0-11.0)
--- NOTE | 2017-06-02 09:55 | MB ---
cc: ANITA DAVISON M.D. DATE OF CONSULTATION: 06/02/2017 REASON FOR CONSULTATION Evaluate left elbow bleed secondary to hemophilia with question of fracture on CT scan. HISTORY OF PRESENT ILLNESS Titi Alcala is a 42-year-old male with a known history of hemophilia B, who has had multiple bleeds in small joints and large joints throughout his life. He has required infusion of clotting factors in the past. He states that he was helping a friend move furniture on 05/31/2017 and this was followed by worsening of stiffness and swelling in the elbow which he tried to treat with icing, with significant increase in the pain, he presented to [facility] and subsequently was transferred to [facility]. He had plain x-rays which were negative except for effusion and he had a CT scan that questioned the possibility of a fracture and consultation was requested with the undersigned. PAST MEDICAL HISTORY The patient's past medical history is significant for: 1. Hepatitis C. 2. Past history of multiple hemarthrosis secondary to hemophilia. PAST SURGICAL HISTORY None. MEDICATION Regular medications: Lortab. ALLERGIES AMOXICILLIN, ASPIRIN. SOCIAL HISTORY Social history is positive for daily tobacco use one-pack per day. Denies drug use. No alcohol use. PHYSICAL EXAMINATION The patient is alert, oriented, appropriate. His right upper extremity has nontender full range of motion shoulder, elbow, wrist with elbow range of motion 0/5/145 degrees. Left elbow shows a range of motion of 0/55/65 with tenderness on the extremes of motion. He basically has 10 degrees of motion of the left elbow. He has full motion of the wrist and the elbow and his supination and pronation is only moderately limited. His pulses are intact and sensation is intact. 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 His lower extremity is not involved. His skin is benign. He does have the swelling about the elbow and tenderness to direct palpation but no erythema. IMAGING STUDIES X-rays and CT scan are reviewed and there is a small bony dudley of bone which could represent capsular avulsion. He does not have an acute traumatic injury but rather just the over use of the furniture and therefore, this is not believed to be acute fracture. ASSESSMENT Left elbow acute hemarthrosis secondary to hemophilia B. MEDICAL DECISION MAKING His condition was discussed and the options of treatment were discussed. Recommendation is to proceed with medical management, ice pack to the elbow. I did talk to him about the option of attempting aspiration of the elbow but he states that this has been tried in the past and only made things worse, more bleeding. We talked also about once the bleeding is under control, then working on gentle range of motion, improving his range of motion and he states that he feels like he is well versed in this, says he has been through it many times before in many of his other joints. We talked about the option of supervised physical therapy and he does not believe that is necessary. I personally discussed with the nurse getting some ice to put around his elbow as this has not been done since his admission. Otherwise, I do not believe I have anything else to add at this time and I will therefore sign off. All the patient's questions were answered. MD BARTOLOME Rajan/BASIL /8:32 AM /9:37 AM
[2017-06-02 10:18] LABS: ANION GAP 8 MEQ/L (5-15); AST (GOT) 36 U/L (15-37); BICARBONATE 27.5 MEQ/L (21.0-32.0); BLOOD UREA NITROGEN 9 MG/DL (7-18); CHLORIDE 103 MEQ/L (98-107); GLOMERULAR FILTRATION RATE 100 ML/MIN (>89); SODIUM (NA) 138 MEQ/L (136-145)
--- NOTE | 2017-06-02 10:21 | PD.ONC.PN ---
Subjective Subjective Remarks Afebrile overnight. patient resting in bed in nad. Objective Data Date Time Temp Pulse Resp B/P (MAP) Pulse Ox O2 Delivery O2 Flow Rate FiO2 06/02/17 08:00 97.7 50 18 136/97 (110) 98 06/02/17 05:51 96.3 56 18 128/86 (100) 96 06/02/17 00:00 97.1 56 18 132/87 (102) 95 06/01/17 20:00 96.7 56 18 138/83 (101) 95 06/01/17 18:40 96.1 62 18 141/97 (112) 96 06/01/17 17:05 62 159/99 (119) 97 06/01/17 15:15 62 18 157/98 (117) 98 Room Air 06/01/17 13:19 16 06/01/17 13:18 55 17 137/93 (108) 97 Room Air 06/01/17 11:38 16 06/01/17 11:20 Room Air 06/01/17 11:15 67 16 143/92 (109) 97 Room Air 06/02/17 06/02/17 06/02/17 07:00 15:00 23:00 Intake Total 240 ml Balance 240 ml Result Diagram: 06/02/17 0923 06/01/17 1057 Laboratory Results Laboratory Tests Test 06/01/17 10:57 06/02/17 09:23 White Blood Count 8.3 TH/MM3 6.3 TH/MM3 Red Blood Count 4.83 MIL/MM3 4.84 MIL/MM3 Hemoglobin 14.2 GM/DL 14.6 GM/DL Hematocrit 42.5 % 42.6 % Mean Corpuscular Volume 87.9 FL 88.0 FL Mean Corpuscular Hemoglobin 29.5 PG 30.1 PG Mean Corpuscular Hemoglobin Concent 33.5 % 34.2 % Red Cell Distribution Width 13.8 % 13.9 % Platelet Count 173 TH/MM3 147 TH/MM3 Mean Platelet Volume 9.3 FL 9.8 FL Neutrophils (%) (Auto) 43.0 % 39.0 % Lymphocytes (%) (Auto) 41.4 % 46.7 % Monocytes (%) (Auto) 10.7 % 9.0 % Eosinophils (%) (Auto) 4.4 % 4.7 % Basophils (%) (Auto) 0.5 % 0.6 % Neutrophils # (Auto) 3.5 TH/MM3 2.5 TH/MM3 Lymphocytes # (Auto) 3.4 TH/MM3 2.9 TH/MM3 Monocytes # (Auto) 0.9 TH/MM3 0.6 TH/MM3 Eosinophils # (Auto) 0.4 TH/MM3 0.3 TH/MM3 Basophils # (Auto) 0.0 TH/MM3 0.0 TH/MM3 CBC Comment DIFF FINAL DIFF FINAL Differential Comment Prothrombin Time 11.8 SEC Prothromb Time International Ratio 1.1 RATIO Activated Partial Thromboplast Time 65.5 SEC Blood Urea Nitrogen 14 MG/DL Creatinine 0.78 MG/DL Random Glucose 127 MG/DL Calcium Level 8.8 MG/DL Sodium Level 136 MEQ/L Potassium Level 3.8 MEQ/L Chloride Level 101 MEQ/L Carbon Dioxide Level 28.4 MEQ/L Anion Gap 7 MEQ/L Estimat Glomerular Filtration Rate 110 ML/MIN Administered Medications Medications (Trade) Dose Ordered Sig/Hamlet Route PRN Reason Start Time Stop Time Status Last Admin Dose Admin Sodium Chloride (NS Flush) 2 ml BID IV FLUSH 06/01/17 21:00 06/02/17 07:57 Senna/Docusate Sodium (Lindy-Colace) 1 tab BID PO 06/01/17 21:00 06/01/17 20:33 Nicotine (Habitrol 21 Mg Patch.24 Hr) 1 patch DAILY T-DERMAL 06/01/17 18:30 06/02/17 07:57 Miscellaneous Information 1 DAILY T-DERMAL 06/02/17 09:00 06/02/17 07:57 Objective Remarks GENERAL: Middle aged male sitting up in bed in [facility]. SKIN: Warm and dry. HEAD: Normocephalic. EYES: No injection or drainage. NECK: Supple, trachea midline. CARDIOVASCULAR: Regular rate and rhythm RESPIRATORY: Breath sounds equal bilaterally. No accessory muscle use. GASTROINTESTINAL: Abdomen soft, non-tender, nondistended. EXTREMITIES: No cyanosis. left elbow swollen and fixed in flexed position. able to move about 5degrees in flexion or extension but complains of pain with movement beyond that. distal fingers warm and well perfused. no bruising visible. NEUROLOGICAL: No obvious focal deficit. Awake, alert, and oriented x3. 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 --has been treated with Factor IX in the past. Assessment 42y/o male with a history of hemophilia admitted with left elbow swelling. h/o Hemophilia B. Hepatitis C. Plan 1. monitor clinically. ice to left elbow 2. Factor IX injections as needed 3. Dilaudid 1mg IV q 4 hours for pain as needed 4. obtain Factor IX activity level as baseline 5. check coags today. Attending Statement The exam, history, and the medical decision-making described in the above note were completed with the assistance of the mid-level provider. I reviewed and agree with the findings presented. I attest that I had a [id number] encounter with the patient on the same day, and personally performed and documented my assessment and findings in the medical record. Pain management elbow swelling about the same Factor IX level pending X-ray left elbow tomorrow Will give additional factor replacement today d/w rn o/n events reviewed Problem Qualifiers (1) Hemarthrosis involving elbow joint: Qualified Codes: M25.022 - Hemarthrosis, left elbow Caitlin Erickson Jun 02, 2017 10:21 Carroll Ventura MD Jun 02, 2017 11:50
[2017-06-02 10:23] LABS: ALKALINE PHOSPHATASE 104 U/L (45-117); ALT (GPT) 50 U/L (12-78); TOTAL BILIRUBIN ADULT 0.3 MG/DL (0.2-1.0)
--- NOTE | 2017-06-02 10:36 | HHI.PR ---
Subjective Remarks Patient reports persistent left elbow pain. No fever or chills. Elbow swelling is about the same per his account. Not increased in size. Objective Vitals Vital Signs Date Time Temp Pulse Resp B/P (MAP) Pulse Ox O2 Delivery O2 Flow Rate FiO2 06/02/17 08:00 97.7 50 18 136/97 (110) 98 06/02/17 05:51 96.3 56 18 128/86 (100) 96 06/02/17 00:00 97.1 56 18 132/87 (102) 95 06/01/17 20:00 96.7 56 18 138/83 (101) 95 06/01/17 18:40 96.1 62 18 141/97 (112) 96 06/01/17 17:05 62 159/99 (119) 97 06/01/17 15:15 62 18 157/98 (117) 98 Room Air 06/01/17 13:19 16 06/01/17 13:18 55 17 137/93 (108) 97 Room Air 06/01/17 11:38 16 06/01/17 11:20 Room Air 06/01/17 11:15 67 16 143/92 (109) 97 Room Air I/O 06/01/17 06/01/17 06/01/17 06/02/17 06/02/17 06/02/17 07:00 15:00 23:00 07:00 15:00 23:00 Intake Total 240 ml Balance 240 ml Intake Oral 240 ml # Voids 3 Result Diagram: 06/02/1792206/02/17922 Objective Remarks GENERAL: This is a well-nourished, well-developed patient, in no apparent distress. CARDIOVASCULAR: Normal rate and regular rhythm without murmurs, gallops, or rubs. RESPIRATORY: Good respiratory efforts. Breath sounds equal and clear to auscultation bilaterally. GASTROINTESTINAL: Abdomen soft, non-tender, non-distended. Normal active bowel sounds MUSCULOSKELETAL: Apparent large effusion involving the left elbow joint. Very difficult exam as he is very painful with minimal range of motion. Neurovascularly intact at the fingers. NEURO: Alert & Oriented x4 to person, place, time, situation. Moves all ext x4 PSYCH: Appropriate mood and affect. 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 Left elbow hemarthrosis: There is a questionable small fracture on imaging. He has been seen by orthopedics who advised conservative measures with pain control , physical therapy, and ice. - Hematology following. Status post 1 dose of factor IX. - H&H stable. Continue to monitor closely. Patient offered formal physical therapy but he declined this. States he has had multiple episodes of joint hemarthrosis in the past and they usually resolve with factor IX and he does his own physical therapy. Hemophilia B: - Hematology following as above. Factor IX infusion as needed per hematology. GI prophylaxis: Stool softener PRN constipation. Problem Qualifiers (1) Hemarthrosis involving elbow joint: Qualified Codes: M25.022 - Hemarthrosis, left elbow Brigitte Lee MD Jun 02, 2017 10:36
[2017-06-02 12:00] VITALS: BP 134/80; PULSE 52; RESP 18; TEMP 97.1; O2SAT 97
[2017-06-02 13:15] LABS: PROTHROMBIN TIME - PATIENT 10.7 SEC (9.8-11.6)
[2017-06-02] MEDS: oxyCODONE/ACETAMINOPHEN 5 MG/325 MG TAB PO PRN ×3 (14:47→22:36)
[2017-06-02 16:00] VITALS: BP 139/87; PULSE 53; RESP 18; TEMP 97.8; O2SAT 98
[2017-06-02 20:35] VITALS: BP 150/103; PULSE 49; RESP 17; TEMP 96.4; O2SAT 98
[2017-06-02] MEDS ORDERED: FACTOR IX IV ONE (22:00)
[2017-06-02] MEDS ORDERED: [UNRECOGNIZED DRUG - OTHER] IV ONE (22:00)
[2017-06-02] MEDS ORDERED: FACTOR IX RECOMBINANT 2,000 UNIT VIAL IV ONE (22:15)
[2017-06-03] VITALS (7 sets, daily range): BP systolic 145–175; BP diastolic 88–115; PULSE 47–54; RESP 16–18; TEMP 96–96.6; O2SAT 98–100
[2017-06-03] MEDS: HYDROmorphone HCL PF 1 MG/ML VIAL IV PUSH PRN ×6 (00:38→21:41)
[2017-06-03] MEDS: oxyCODONE/ACETAMINOPHEN 5 MG/325 MG TAB PO PRN ×6 (02:34→23:00)
[2017-06-03] MEDS: NICOTINE 21 MG/24 HR PATCH T-DERMAL SCH (09:10)
[2017-06-03] MEDS: REMOVE OLD PATCH T-DERMAL SCH (09:10)
[2017-06-03] MEDS: DOCUSATE SODIUM 50 MG/SENNA 8.6 MG TAB PO SCH ×2 (09:14→21:41)
[2017-06-03] MEDS: SODIUM CHLORIDE 0.9% FLUSH 10 ML FLUSH IV FLUSH SCH ×2 (09:14→21:41)
[2017-06-03 10:08] LABS: AUTOMATED NEUTROPHIL # 2.8 TH/MM3 (1.8-7.7); BASOPHIL # 0.1 TH/MM3 (0-0.2); BASOPHIL % 0.9 % (0.0-2.0); EOSINOPHIL # 0.3 TH/MM3 (0-0.4); EOSINOPHIL % 4.5 % (0.0-4.0); HEMATOCRIT 46.5 % (39.0-51.0); HEMO FLAGS DIFF FINAL; LYMPH % 40.4 % (9.0-44.0); LYMPHOCYTE # 2.5 TH/MM3 (1.0-4.8); MEAN CELL VOLUME 87.8 FL (80.0-100.0); MEAN CORPUSCULAR HEMOGLOBIN 29.3 PG (27.0-34.0); MEAN CORPUSCULAR HGB CONC 33.4 % (32.0-36.0); MONO % 8.3 % (0.0-8.0); NEUT % 45.9 % (16.0-70.0); PLATELET COUNT 156 TH/MM3 (150-450); RED CELL DISTRIBUTION WIDTH 14.1 % (11.6-17.2); WHITE BLOOD COUNT 6.2 TH/MM3 (4.0-11.0)
--- NOTE | 2017-06-03 10:25 | RADRPT ---
EXAM DATE/TIME: 06/03/2017 09:44 [place] COMPARISON: No previous studies available for comparison. INDICATIONS : Left elbow pain and swelling. MEDICAL HISTORY : Hemophelia SURGICAL HISTORY : None. ENCOUNTER: Subsequent ACUITY: 3 days PAIN SCORE: 8/10 LOCATION: Left Elbow FINDINGS: Multiple view examination of the left elbow demonstrates no soft tissue swelling, joint effusion, or fracture. Small exostosis in the distal humerus. The osseous structures are in normal alignment. [place] mineralization is normal. CONCLUSION: 1. Probable small distal humeral exostosis. 2. No acute fracture or dislocation. Hollis Bhatt MD on June 03, 2017 at 10:20 Board Certified Radiologist. This report was verified electronically.
--- NOTE | 2017-06-03 10:27 | HHI.PR ---
Subjective Remarks Patient reports elbow stiffness and pain is slightly improved. Still have very limited ROM. He believes he needs a couple more doses of Factor IX. States usually it takes a few days for improvement. Objective Vitals Vital Signs Date Time Temp Pulse Resp B/P (MAP) Pulse Ox O2 Delivery O2 Flow Rate FiO2 06/03/17 09:14 16 06/03/17 08:00 96.5 54 16 175/115 (135) 100 06/03/17 04:35 96.1 54 17 154/101 (118) 99 06/03/17 00:35 96.6 47 18 155/104 (121) 98 06/02/17 20:35 96.4 49 17 150/103 (119) 98 06/02/17 16:00 97.8 53 18 139/87 (104) 98 06/02/17 12:00 97.1 52 18 134/80 (98) 97 I/O 06/02/17 06/02/17 06/02/17 06/03/17 06/03/17 06/03/17 07:00 15:00 23:00 07:00 15:00 23:00 Intake Total 240 ml 1440 ml 902 ml Balance 240 ml 1440 ml 902 ml Intake Oral 240 ml 1440 ml 902 ml # Voids 3 4 3 # Bowel Movements 1 Result Diagram: 06/03/17 0955 06/02/17 0923 Objective Remarks GENERAL: This is a well-nourished, well-developed patient, in no apparent distress. CARDIOVASCULAR: Normal rate and regular rhythm without murmurs, gallops, or rubs. RESPIRATORY: Good respiratory efforts. Breath sounds equal and clear to auscultation bilaterally. GASTROINTESTINAL: Abdomen soft, non-tender, non-distended. Normal active bowel sounds MUSCULOSKELETAL: Apparent large effusion involving the left elbow joint. Very difficult exam as he is very painful with minimal range of motion. Neurovascularly intact at the fingers. NEURO: Alert & Oriented x4 to person, place, time, situation. Moves all ext x4 PSYCH: Appropriate mood and affect. 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 Left elbow hemarthrosis: There is a questionable small fracture on imaging. He has been seen by orthopedics who advised conservative measures with pain control , physical therapy, and ice. - Hematology following. Ongoing Factor IX replacement per Hematology. - H&H stable. Continue to monitor. Patient offered formal physical therapy but he declined this. States he has had multiple episodes of joint hemarthrosis in the past and they usually resolve with factor IX and he does his own physical therapy. Hemophilia B: - Hematology following as above. Factor IX infusion as needed per hematology. GI prophylaxis: Stool softener PRN constipation. Problem Qualifiers (1) Hemarthrosis involving elbow joint: Qualified Codes: M25.022 - Hemarthrosis, left elbow Brigitte Lee MD Jun 03, 2017 10:27
--- NOTE | 2017-06-03 11:09 | PD.ONC.PN ---
Subjective Subjective Remarks Afebrile overnight. continuing to have pain in left elbow. states he has noticed some improvement. believes he needs more factor support tonight. Objective Data Date Time Temp Pulse Resp B/P (MAP) Pulse Ox O2 Delivery O2 Flow Rate FiO2 06/03/17 10:22 16 06/03/17 09:14 16 06/03/17 08:00 96.5 54 16 175/115 (135) 100 06/03/17 04:35 96.1 54 17 154/101 (118) 99 06/03/17 00:35 96.6 47 18 155/104 (121) 98 06/02/17 20:35 96.4 49 17 150/103 (119) 98 06/02/17 16:00 97.8 53 18 139/87 (104) 98 06/02/17 12:00 97.1 52 18 134/80 (98) 97 06/03/17 06/03/17 06/03/17 07:00 15:00 23:00 Intake Total 902 ml Balance 902 ml Result Diagram: 06/03/1755 06/02/17 0923 Laboratory Results Laboratory Tests Test 06/02/17 12:25 06/03/17 09:55 Prothrombin Time 10.7 SEC Prothromb Time International Ratio 1.0 RATIO Activated Partial Thromboplast Time 34.0 SEC White Blood Count 6.2 TH/MM3 Red Blood Count 5.30 MIL/MM3 Hemoglobin 15.5 GM/DL Hematocrit 46.5 % Mean Corpuscular Volume 87.8 FL Mean Corpuscular Hemoglobin 29.3 PG Mean Corpuscular Hemoglobin Concent 33.4 % Red Cell Distribution Width 14.1 % Platelet Count 156 TH/MM3 Mean Platelet Volume 9.4 FL Neutrophils (%) (Auto) 45.9 % Lymphocytes (%) (Auto) 40.4 % Monocytes (%) (Auto) 8.3 % Eosinophils (%) (Auto) 4.5 % Basophils (%) (Auto) 0.9 % Neutrophils # (Auto) 2.8 TH/MM3 Lymphocytes # (Auto) 2.5 TH/MM3 Monocytes # (Auto) 0.5 TH/MM3 Eosinophils # (Auto) 0.3 TH/MM3 Basophils # (Auto) 0.1 TH/MM3 CBC Comment DIFF FINAL Differential Comment Administered Medications Medications (Trade) Dose Ordered Sig/Hamlet Route PRN Reason Start Time Stop Time Status Last Admin Dose Admin Sodium Chloride (NS Flush) 2 ml BID IV FLUSH 06/01/17 21:00 06/03/17 09:14 Senna/Docusate Sodium (Lindy-Colace) 1 tab BID PO 06/01/17 21:00 06/01/17 20:33 Nicotine (Habitrol 21 Mg Patch.24 Hr) 1 patch DAILY T-DERMAL 06/01/17 18:30 06/03/17 09:10 Miscellaneous Information 1 DAILY T-DERMAL 06/02/17 09:00 06/03/17 09:10 Hydromorphone HCl (Dilaudid Pf Inj) 1 mg Q4H PRN IV PUSH Breakthrough Pain 06/02/17 10:15 06/03/17 09:10 Oxycodone/ Acetaminophen (Percocet 5-325 Mg) 1 tab Q4H PRN PO PAIN SCALE 1-10 06/02/17 14:45 06/03/17 10:22 Objective Remarks GENERAL: Middle aged male sitting up in bed in [facility]. SKIN: Warm and dry. HEAD: Normocephalic. EYES: No injection or drainage. NECK: Supple, trachea midline. CARDIOVASCULAR: Regular rate and rhythm RESPIRATORY: Breath sounds equal bilaterally. No accessory muscle use. GASTROINTESTINAL: Abdomen soft, non-tender, nondistended. EXTREMITIES: No cyanosis. left elbow is swollen and with limited ROM. able to flex/extend maybe 5degrees more than yesterday. NEUROLOGICAL: awake and alert, normal speech. moving all extremities. 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 --has been treated with Factor IX in the past. Assessment 42y/o male with a history of hemophilia admitted with left elbow swelling. h/o Hemophilia B. Hepatitis C. Plan 1. continue pain management 2. Factor IX injections PRN 3. supportive care Attending Statement The exam, history, and the medical decision-making described in the above note were completed with the assistance of the mid-level provider. I reviewed and agree with the findings presented. I attest that I had a [id number] encounter with the patient on the same day, and personally performed and documented my assessment and findings in the medical record. elbow swelling persists pain better controlled will give an additional 7000 units of recombinant Factor IX replacement Hb stable supportive care apply ice to the elbow d/w rn o/n events reviewed Problem Qualifiers (1) Hemarthrosis involving elbow joint: Qualified Codes: M25.022 - Hemarthrosis, left elbow Caitlin Erickson Jun 03, 2017 11:09 Carroll Ventura MD Jun 03, 2017 21:52
[2017-06-03] MEDS ORDERED: FACTOR IX RECOMBINANT 2,000 UNIT VIAL IV ONE (22:00)
[2017-06-04 00:30] VITALS: BP 136/105; PULSE 50; RESP 18; TEMP 96.9; O2SAT 97
[2017-06-04] MEDS: HYDROmorphone HCL PF 1 MG/ML VIAL IV PUSH PRN ×5 (03:22→21:27)
[2017-06-04 04:35] VITALS: BP 132/103; PULSE 55; RESP 17; TEMP 96.9; O2SAT 98
[2017-06-04] MEDS: oxyCODONE/ACETAMINOPHEN 5 MG/325 MG TAB PO PRN ×5 (06:51→22:56)
[2017-06-04 07:59] LABS: APTT (PATIENT) 31.4 SEC (24.3-30.1)
[2017-06-04 08:00] VITALS: BP 144/111; PULSE 53; RESP 16; TEMP 96.7; O2SAT 97
[2017-06-04] MEDS: NICOTINE 21 MG/24 HR PATCH T-DERMAL SCH (08:22)
[2017-06-04] MEDS: REMOVE OLD PATCH T-DERMAL SCH (08:22)
[2017-06-04] MEDS: DOCUSATE SODIUM 50 MG/SENNA 8.6 MG TAB PO SCH ×2 (08:24→21:23)
[2017-06-04] MEDS: SODIUM CHLORIDE 0.9% FLUSH 10 ML FLUSH IV FLUSH SCH ×2 (08:28→21:27)
--- NOTE | 2017-06-04 10:40 | HHI.PR ---
Subjective Remarks Patient reports left elbow pain is better. Better range of motion. He is hoping he will be able to go home tomorrow Objective Vitals Vital Signs Date Time Temp Pulse Resp B/P (MAP) Pulse Ox O2 Delivery O2 Flow Rate FiO2 06/04/17 08:27 16 06/04/17 08:00 96.7 53 16 144/111 (122) 97 06/04/17 04:35 96.9 55 17 132/103 (113) 98 06/04/17 03:52 16 06/04/17 00:30 96.9 50 18 136/105 (115) 97 06/03/17 20:45 96.0 51 18 145/105 (118) 99 06/03/17 17:36 147/88 (107) Automatic Cuff 06/03/17 16:00 96.3 51 18 148/105 (119) 99 06/03/17 12:00 96.3 52 16 152/109 (123) 99 I/O 06/03/17 06/03/17 06/03/17 06/04/17 06/04/17 06/04/17 07:00 15:00 23:00 07:00 15:00 23:00 Intake Total 902 ml 960 ml 906 ml Balance 902 ml 960 ml 906 ml Intake Oral 902 ml 960 ml 906 ml # Voids 3 3 2 # Bowel Movements 0 Result Diagram: 06/03/17 0955 06/02/17 0923 Objective Remarks GENERAL: This is a well-nourished, well-developed patient, in no apparent distress. CARDIOVASCULAR: Normal rate and regular rhythm without murmurs, gallops, or rubs. RESPIRATORY: Good respiratory efforts. Breath sounds equal and clear to auscultation bilaterally. GASTROINTESTINAL: Abdomen soft, non-tender, non-distended. Normal active bowel sounds MUSCULOSKELETAL: Effusion involving the left elbow joint. curing oven tender to palpation but range of motion improved. Neurovascularly intact at the fingers. NEURO: Alert & Oriented x4 to person, place, time, situation. Moves all ext x4 PSYCH: Appropriate mood and affect. 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 Left elbow hemarthrosis: There is a questionable small fracture on imaging. He has been seen by orthopedics who advised conservative measures with pain control , physical therapy, and ice. - Hematology following. Ongoing Factor IX replacement per Hematology. - H&H stable. Continue to monitor. Patient offered formal physical therapy but he declined this. States he has had multiple episodes of joint hemarthrosis in the past and they usually resolve with factor IX and he does his own physical therapy. - Improving. Hemophilia B: - Hematology following as above. Factor IX infusion as needed per hematology. GI prophylaxis: Stool softener PRN constipation. Discharge Planning Possible discharge tomorrow if okay with hematology. Problem Qualifiers (1) Hemarthrosis involving elbow joint: Qualified Codes: M25.022 - Hemarthrosis, left elbow Brigitte Lee MD Jun 04, 2017 10:40
[2017-06-04 13:00] VITALS: BP 156/116; PULSE 56; RESP 16; TEMP 96.5; O2SAT 96
--- NOTE | 2017-06-04 13:16 | PD.ONC.PN ---
Subjective Subjective Remarks Afebrile overnight. Patient resting in bed. States his elbow feels about 50% better. Hoping to get more factor support tonight and then go home tomorrow. Objective Data Date Time Temp Pulse Resp B/P (MAP) Pulse Ox O2 Delivery O2 Flow Rate FiO2 06/04/17 13:00 96.5 56 16 156/116 (129) 96 06/04/17 12:37 16 06/04/17 10:59 16 06/04/17 08:00 96.7 53 16 144/111 (122) 97 06/04/17 04:35 96.9 55 17 132/103 (113) 98 06/04/17 00:30 96.9 50 18 136/105 (115) 97 06/03/17 20:45 96.0 51 18 145/105 (118) 99 06/03/17 17:36 147/88 (107) Automatic Cuff 06/03/17 16:00 96.3 51 18 148/105 (119) 99 06/04/17 06/04/17 06/04/17 07:00 15:00 23:00 Intake Total 906 ml 800 ml Balance 906 ml 800 ml Result Diagram: 06/03/17 0955 06/02/17 0923 Laboratory Results Laboratory Tests Test 06/04/17 07:22 Activated Partial Thromboplast Time 31.4 SEC Administered Medications Medications (Trade) Dose Ordered Sig/Hamlet Route PRN Reason Start Time Stop Time Status Last Admin Dose Admin Sodium Chloride (NS Flush) 2 ml BID IV FLUSH 06/01/17 21:00 06/04/17 08:28 Senna/Docusate Sodium (Lindy-Colace) 1 tab BID PO 06/01/17 21:00 06/04/17 08:24 Nicotine (Habitrol 21 Mg Patch.24 Hr) 1 patch DAILY T-DERMAL 06/01/17 18:30 06/04/17 08:22 Miscellaneous Information 1 DAILY T-DERMAL 06/02/17 09:00 06/04/17 08:22 Hydromorphone HCl (Dilaudid Pf Inj) 1 mg Q4H PRN IV PUSH Breakthrough Pain 06/02/17 10:15 06/04/17 12:32 Oxycodone/ Acetaminophen (Percocet 5-325 Mg) 1 tab Q4H PRN PO PAIN SCALE 1-10 06/02/17 14:45 06/04/17 10:59 Objective Remarks GENERAL: Middle aged male upright in bed in nad. SKIN: Warm and dry. HEAD: Normocephalic. EYES: No injection or drainage. NECK: Supple, trachea midline. CARDIOVASCULAR: Regular rate and rhythm RESPIRATORY: Breath sounds equal bilaterally. No accessory muscle use. GASTROINTESTINAL: Abdomen soft, non-tender, nondistended. EXTREMITIES: No cyanosis. left elbow less swollen. ROM improved about 5 degrees. NEUROLOGICAL: awake and alert, moving extremities. normal speech. 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 --has been treated with Factor IX in the past. Assessment 42y/o male with a history of hemophilia admitted with left elbow swelling. h/o Hemophilia B. Hepatitis C. Plan 1. monitor PTT 2. Factor IX injections as needed 3. possible d/c tomorrow Attending Statement The exam, history, and the medical decision-making described in the above note were completed with the assistance of the mid-level provider. I reviewed and agree with the findings presented. I attest that I had a [id number] encounter with the patient on the same day, and personally performed and documented my assessment and findings in the medical record. Hemophilia B with hemarthrosis of elbow joint swelling is reduced stiffness persists but significantly better Additional 7000 units of recombinant factor IX will be given Factor IX activity levels still pending d/w rn o/n events reviewed Problem Qualifiers (1) Hemarthrosis involving elbow joint: Qualified Codes: M25.022 - Hemarthrosis, left elbow Caitlin Erickson Jun 04, 2017 13:16 Carroll Ventura MD Jun 04, 2017 20:21
[2017-06-04 16:00] VITALS: BP 141/95; PULSE 59; RESP 14; TEMP 98.2; O2SAT 98
[2017-06-04 20:00] VITALS: BP 128/90; PULSE 58; RESP 18; TEMP 97.3; O2SAT 97
[2017-06-04] MEDS ORDERED: FACTOR IX RECOMBINANT 2,000 UNIT VIAL IV ONE (21:00)
[2017-06-05 00:45] VITALS: BP 145/92; PULSE 50; RESP 17; TEMP 97.5; O2SAT 97
[2017-06-05] MEDS: HYDROmorphone HCL PF 1 MG/ML VIAL IV PUSH PRN ×3 (02:17→11:31)
[2017-06-05] MEDS: oxyCODONE/ACETAMINOPHEN 5 MG/325 MG TAB PO PRN ×3 (04:08→13:31)
[2017-06-05 04:40] VITALS: BP 137/91; PULSE 46; RESP 18; TEMP 96.3; O2SAT 98
[2017-06-05 08:00] VITALS: BP 148/87; PULSE 62; RESP 16; TEMP 96.8; O2SAT 97
[2017-06-05 08:08] LABS: APTT (PATIENT) 31.3 SEC (24.3-30.1)
[2017-06-05] MEDS: REMOVE OLD PATCH T-DERMAL SCH (09:00)
[2017-06-05] MEDS: NICOTINE 21 MG/24 HR PATCH T-DERMAL SCH (09:27)
[2017-06-05] MEDS: DOCUSATE SODIUM 50 MG/SENNA 8.6 MG TAB PO SCH (09:27)
[2017-06-05] MEDS: SODIUM CHLORIDE 0.9% FLUSH 10 ML FLUSH IV FLUSH SCH (09:28)
[2017-06-05] MEDS ORDERED: HYDR-3533 PO (10:40)
--- NOTE | 2017-06-05 10:40 | HHI.DCPOC ---
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 Avoid second hand smoke Call the 24-hour hour crisis hotline for domestic abuse at Brigitte Lee MD Jun 05, 2017 10:40
--- NOTE | 2017-06-05 10:41 | HHI.DS ---
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 Alcala is a 42-year-old male. He has a history of hemophilia B. He also has hepatitis C secondary to transfusions when he was younger. He reports that he has problems with small joint effusions about every 1 to 3 months. His last large joint effusion was approximately 1.5 years ago at his left knee. She has had numerous large joint effusions in the past. Yesterday he helped a friend move furniture. He says by the end of the night she noticed a little bit of stiffness and swelling, but by this morning that had become quite prominent and painful. This feels like his previous hemarthrosis joints. In the past she has needed transfusion with BeneFix. X-ray showed evidence of effusion, CT does not show evidence of effusion. CT does show a 3 mm bony fragment, but based on history without trauma this is unlikely fracture. Patient denies any fevers. CBC/BMP: 06/03/17 0955 06/02/17 0923 Significant Findings Laboratory Tests Test 06/02/17 12:25 06/03/17 09:55 06/04/17 07:22 06/05/17 07:38 Activated Partial Thromboplast Time 34.0 SEC (24.3-30.1) 31.4 SEC (24.3-30.1) 31.3 SEC (24.3-30.1) Monocytes (%) (Auto) 8.3 % (0.0-8.0) Eosinophils (%) (Auto) 4.5 % (0.0-4.0) Imaging Last Impressions Elbow X-Ray 06/03/17 0600 Signed Impressions: Service Date/Time: Saturday, June 03, 2017 09:44 - CONCLUSION: 1. Probable small distal humeral exostosis. 2. No acute fracture or dislocation. Hollis Bhatt MD Upper Extremity CT 06/01/17 0000 Signed Impressions: Service Date/Time: Thursday, June 01, 2017 12:55 - CONCLUSION: Small free fragment measuring 3 mm identified within the volar radial aspect of the joint adjacent to the distal aspect of the humerus.. Kaykay Madrigal MD PE at Discharge GENERAL: This is a well-nourished, well-developed patient, in no apparent distress. CARDIOVASCULAR: Normal rate and regular rhythm without murmurs, gallops, or rubs. RESPIRATORY: Good respiratory efforts. Breath sounds equal and clear to auscultation bilaterally. GASTROINTESTINAL: Abdomen soft, non-tender, non-distended. Normal active bowel sounds MUSCULOSKELETAL: Effusion involving the left elbow joint. backing in machine tender to palpation but range of motion improved. Neurovascularly intact at the fingers. NEURO: Alert & Oriented x4 to person, place, time, situation. Moves all ext x4 PSYCH: Appropriate mood and affect. Pt update on day of discharge Patient reports is feeling much better. Better range of motion of the elbow. Pain is controlled. Hospital Course 42-year-old male with hemophilia be admitted for left elbow hemarthrosis. Evaluation and treatment course detailed below: Left elbow hemarthrosis: There is a questionable small fracture on imaging. He has been seen by orthopedics who advised conservative measures with pain control , physical therapy, and ice. - Hematology followed the patient and he received Factor IX replacement per Hematology. - H&H remained stable. The patient has had multiple previous similar joint effusion. He was discharged home to continue with progressive range of motion. He is advised to follow-up outpatient with crm functional analyst. Hemophilia B: - Hematology followed as above. Patient received multiple factor IX replacement per hematology. He is advised to follow-up outpatient. Pt Condition on Discharge: Good Discharge Disposition: Discharge Home Discharge Time: <= 30 minutes Discharge Instructions DIET: Follow Instructions for: As Tolerated, No Restrictions Activities you can perform: Regular-No Restrictions Follow up Referrals: PCP Follow-up Continued Medications: Hydrocodone-Acetaminophen (Lortab) 5-325 Mg Tab 1 TAB PO Q6H PRN for PAIN, #20 TAB 0 Refills (This prescription has been renewed ) Brigitte Lee MD Jun 05, 2017 10:41
--- NOTE | 2017-06-05 11:51 | PD.ONC.PN ---
Subjective Subjective Remarks Afebrile overnight. Patient resting in room. States elbow is improved. Much better range of motion. Wants to go home. Objective Data Date Time Temp Pulse Resp B/P (MAP) Pulse Ox O2 Delivery O2 Flow Rate FiO2 06/05/17 10:30 16 06/05/17 08:00 96.8 62 16 148/87 (107) 97 06/05/17 07:17 16 06/05/17 04:40 96.3 46 18 137/91 (106) 98 06/05/17 00:45 97.5 50 17 145/92 (109) 97 06/04/17 20:00 97.3 58 18 128/90 (103) 97 06/04/17 16:00 98.2 59 14 141/95 (110) 98 06/04/17 13:00 96.5 56 16 156/116 (129) 96 06/05/17 06/05/17 06/05/17 07:00 15:00 23:00 Intake Total 666 ml Balance 666 ml Result Diagram: 06/03/1795406/02/1723 Laboratory Results Laboratory Tests Test 06/05/17 07:38 Activated Partial Thromboplast Time 31.3 SEC Administered Medications Medications (Trade) Dose Ordered Sig/Hamlet Route PRN Reason Start Time Stop Time Status Last Admin Dose Admin Sodium Chloride (NS Flush) 2 ml BID IV FLUSH 06/01/17 21:00 06/05/17 09:28 Senna/Docusate Sodium (Lindy-Colace) 1 tab BID PO 06/01/17 21:00 06/05/17 09:27 Nicotine (Habitrol 21 Mg Patch.24 Hr) 1 patch DAILY T-DERMAL 06/01/17 18:30 06/05/17 09:27 Miscellaneous Information 1 DAILY T-DERMAL 06/02/17 09:00 06/05/17 09:00 Hydromorphone HCl (Dilaudid Pf Inj) 1 mg Q4H PRN IV PUSH Breakthrough Pain 06/02/17 10:15 06/05/17 11:31 Oxycodone/ Acetaminophen (Percocet 5-325 Mg) 1 tab Q4H PRN PO PAIN SCALE 1-10 06/02/17 14:45 06/05/17 09:28 Objective Remarks GENERAL: Middle aged male upright in bed in nad. SKIN: Warm and dry. HEAD: Normocephalic. EYES: No injection or drainage. NECK: Supple, trachea midline. CARDIOVASCULAR: Regular rate and rhythm RESPIRATORY: Breath sounds equal bilaterally. No accessory muscle use. GASTROINTESTINAL: Abdomen soft, non-tender, nondistended. EXTREMITIES: No cyanosis. left elbow improved. less swelling. now able to extend about 170 degrees NEUROLOGICAL: awake and alert, normal speech. moving all extremities. 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 --has been treated with Factor IX in the past. Assessment 42y/o male with a history of hemophilia admitted with left elbow swelling. h/o Hemophilia B. Hepatitis C. Plan 1. monitor clinically for bleeding 2. recommend follow up with a inspector motor vehicles outpatient once discharged Attending Statement The exam, history, and the medical decision-making described in the above note were completed with the assistance of the mid-level provider. I reviewed and agree with the findings presented. I attest that I had a [id number] encounter with the patient on the same day, and personally performed and documented my assessment and findings in the medical record. Problem Qualifiers (1) Hemarthrosis involving elbow joint: Qualified Codes: M25.022 - Hemarthrosis, left elbow Caitlin Erickson Jun 05, 2017 11:51 Carroll Ventura MD Jun 24, 2017 20:53
[2017-06-05 12:00] VITALS: BP 128/87; PULSE 79; RESP 18; TEMP 96.5; O2SAT 97
== END 2017-06-05 13:53 | disposition home or self-care (01) | DRG 553 ==
LOC: PHED 09:30 → INTOOBSV 13:17 → PHEDA 13:17 → HOCB 17:51 → OBSVTOIN 06-03 10:27
PROVIDERS: ADMIT Family Medicine; ATTEND Family Medicine
DX: M25.022 Hemarthrosis, left elbow (principal); D67 Hereditary factor IX deficiency; B19.20 Unspecified viral hepatitis C without hepatic coma; F17.210 Nicotine dependence, cigarettes, uncomplicated
CPT/HCPCS: 73070; 73080; 73200; 80048; 80053; 85025; 85250; 85610; 85730; 96374; 96375; 96376; G0378; J1170; J2270; J7195

== ENCOUNTER 2018-01-02 10:00 | Emergency (ER) | payer SELFPAY ==
[2018-01-02 10:05] VITALS: BP 192/110; PULSE 91; RESP 16; TEMP 97.5; O2SAT 100
--- NOTE | 2018-01-02 10:48 | PD ---
HPI Chief Complaint: Bleeding Time Seen by Provider: 10:19 Travel History International Travel<30 days: No Contact w/Intl Traveler<30days: No Traveled to known affect area: No History of Present Illness HPI 42yo M with PMH of hemophilia B here with c/o bleeding from his tongue after he accidentally bit his tongue 2 days ago. Said it is still bleeding and he would wake up with blood clots in his mouth. Denies any other injuries. Denies any fever, chest pain, sob, n/v, abdominal pain, focal weakness or numbness. 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) ) Cancer: No Cardiovascular Problems: No Diminished Hearing: No Endocrine: No Gastrointestinal Disorders: Yes (HEPATITIS C) GERD: Yes Genitourinary: No Hepatitis: Yes (C) Immune Disorder: No Musculoskeletal: No Neurologic: No Psychiatric: No Reproductive: No Respiratory: No Past Surgical History Other Surgery: Yes (right knee, skin abscess removed to back) Social History Alcohol Use: No Tobacco Use: Yes (1 PPD) Substance Use: Yes (OCCASIONAL MARIJUANA) Allergies-Medications (Allergen,Severity, Reaction): Coded Allergies: amoxicillin (Unverified Allergy, Severe, Hives, 04/16/17) aspirin (Unverified Adverse Reaction, Severe, Has hemophilia, 04/16/17) Reported Meds & Prescriptions Reported Meds & Active Scripts Active Review of Systems Except as stated in HPI: all other systems reviewed are Neg Physical Exam Narrative GENERAL: 42yo M not in distress. SKIN: Focused skin assessment warm/dry. HEAD: Atraumatic. Normocephalic. EYES: Pupils equal and round. No scleral icterus. No injection or drainage. ENT: No nasal bleeding or discharge. Mucous membranes pink and moist. NECK: Trachea midline. No JVD. MOUTH: +Oozing right tip of tongue from small laceration from bite. No blood in posterior pharynx. Uvula midline and patent. CARDIOVASCULAR: Regular rate and rhythm. No murmur appreciated. RESPIRATORY: No accessory muscle use. Clear to auscultation. Breath sounds equal bilaterally. GASTROINTESTINAL: Abdomen soft, non-tender, nondistended. MUSCULOSKELETAL: No obvious deformities. No clubbing. No cyanosis. No edema. NEUROLOGICAL: Awake and alert. No obvious cranial nerve deficits. Motor grossly within normal limits. Normal speech. PSYCHIATRIC: Appropriate mood and affect; insight and judgment normal. Data Data Last Documented VS Vital Signs Date Time Temp Pulse Resp B/P (MAP) Pulse Ox O2 Delivery O2 Flow Rate FiO2 01/02/18 13:11 46 18 124/82 (96) 01/02/18 10:05 97.5 100 Orders Orders Factor Ix (Recombinant) Inj (Benefix Inj (01/02/18 11:45) Ed Discharge Order (01/02/18 13:15) MDM Medical Decision Making Medical Screen Exam Complete: Yes Emergency Medical Condition: Yes Differential Diagnosis Minor but persistent bleeding in hemophiliac B patient Narrative Course 42yo M with hemophiliac B here with persistent bleeding after biting his tongue 2 days ago. I called pharmacy about factor IX but was told that we do not have any factor IX. Since bleeding is minor, will do topical TXA in the mean time. I receive a call back from pharmacy and he said there is factor IX and that he will put in the appropriate dose for me. I cancelled the TXA since we do have factor IX and I would prefer factor IX. Pt observed in the ED and bleeding has stopped. Will have pt return if worsening bleeding or it returns. Tongue wound will heal on its own, no repair needed. Pt was initially hypertensive with BP 192/110 but repeat BP is 124/82 and pt has no history of HTN. Will have pt follow up with primary care. Diagnosis Primary Impression: Tongue laceration Qualified Codes: S01.512A - Laceration without foreign body of oral cavity, initial encounter Patient Instructions: General Instructions Departure Forms: Tests/Procedures Additional Instructions: Please return to the ED if bleeding returns. Please follow up with [facility] for blood pressure monitoring. Med/Other Pt SpecificInfo: No Change to Meds Disposition: 01 DISCHARGE HOME Condition: Stable Rocío Rahman DO January 02, 2018 10:48
[2018-01-02] MEDS ORDERED: TRANEXAMIC ACID 650 MG TAB PO ONE (11:00)
[2018-01-02] MEDS ORDERED: FACTOR IX RECOMBINANT 2,000 UNIT VIAL IV ONE (11:45)
[2018-01-02 13:11] VITALS: BP 124/82; PULSE 46; RESP 18
[2018-01-06] MEDS ORDERED: [UNRECOGNIZED DRUG - CODE] IV (12:56)
[2018-01-06] MEDS ORDERED: [UNRECOGNIZED DRUG - CODE] (12:56)
== END 2018-01-02 14:42 | disposition home or self-care (01) ==
LOC: NEPD 10:00
DX: S01.512A Laceration without foreign body of oral cavity, initial encounter (principal); D67 Hereditary factor IX deficiency; F12.90 Cannabis use, unspecified, uncomplicated; F17.200 Nicotine dependence, unspecified, uncomplicated; X58.XXXA Exposure to other specified factors, initial encounter
CPT/HCPCS: 96374; 99284; J7195

== ENCOUNTER 2018-01-06 12:25 | Emergency (ER) | payer SELFPAY ==
[2018-01-06] MEDS ORDERED: LEVOFLOXACIN 750 MG TAB PO (14:00)
[2018-01-06] MEDS: diphenhydrAMINE HCL 50 MG/ML VIAL IV PUSH (15:43)
[2018-01-06] MEDS: FACTOR IX RECOMBINANT 2,000 UNIT VIAL IV (15:46)
== END 2018-01-06 16:45 | disposition home or self-care (01) ==
LOC: PHEFT 12:25
DX: S01.552A Open bite of oral cavity, initial encounter (principal); X58.XXXA Exposure to other specified factors, initial encounter; D67 Hereditary factor IX deficiency; B19.20 Unspecified viral hepatitis C without hepatic coma; K21.9 Gastro-esophageal reflux disease without esophagitis; F17.200 Nicotine dependence, unspecified, uncomplicated; F12.90 Cannabis use, unspecified, uncomplicated
CPT/HCPCS: 96374; 96375; 99284-25

== ENCOUNTER 2018-03-25 11:27 | Observation (INO) ==
--- NOTE | 2018-03-25 12:40 | ED ---
HPI General Chief Complaint: Extremity Injury, Lower Stated Complaint: Right knee swelling Time Seen by Provider: 03/25/18 11:57 Source: patient Mode of arrival: ambulatory Limitations: physical limitation History of Present Illness HPI Narrative: 42-year-old male complains of pain and swelling the right knee. Patient struck his right knee against an object this morning. Patient states that he has increasing pain and swelling the right knee since then. Patient states the pain is sharp pain localized to the right knee. Patient denies any pain radiation. Patient states that the pain is worse with movement of the right knee joint. On a scale from 1-10 the pain is a 10. Patient has history of hemophiliac B patient also has history of hepatitis C. Patient received factor IX transfusion in the past for joint hemarthrosis. Patient does not have a local oracle programmer analyst for follow-up. MD complaint: knee injury Onset (ago): hour(s) Injury: Right: knee Type of Injury: blunt Place: street/outdoors Severity: severe Severity scale (1-10): 10 Relieving factors: nothing Exacerbating factors: weight bearing and movement Context: direct blow Associated symptoms: swelling Other symptoms: none Treatments prior to arrival: other Related Data Home Medications Medication Instructions Recorded Confirmed coagulation factor IX (recomb) See Label Instructions .ROUTE 03/04/18 03/25/18 [BeneFIX] .COMPLEX PRN methadone 190 mg PO DAILY 03/04/18 03/25/18 Allergies Allergy/AdvReac Type Severity Reaction Status Date / Time amoxicillin Allergy Severe Hives Verified 03/25/18 11:41 aspirin AdvReac Severe Has Verified 03/25/18 11:43 hemophilia Review of Systems Except as stated in HPI: all other systems reviewed are negative PMFSH Social History Social History Substance History: Past History Second Hand Smoke Exposure: Yes Smoking Status: Current every day smoker Tobacco Type: Cigarettes How Often Do You Have a Drink Containing Alcohol: Never Recent Travel in [facility] within the Last 8 Weeks: No Recent Out of Country Travel within the Last 8 Weeks: No Immunization History Tetanus Immunization: Unsure Hx Influenza Vaccine This Season: No Exam Narrative Exam Narrative: GENERAL: Well-nourished, well-developed patient. SKIN: Focused skin assessment warm/dry. HEAD: Normocephalic. EYES: No scleral icterus. No injection or drainage. NECK: Supple, trachea midline. No JVD or lymphadenopathy. CARDIOVASCULAR: Regular rate and rhythm without murmurs, gallops, or rubs. RESPIRATORY: Breath sounds equal bilaterally. No accessory muscle use. GASTROINTESTINAL: Abdomen soft, non-tender, nondistended. MUSCULOSKELETAL: Patient has soft tissue swelling with a large effusion to the right knee joint. Limited range of motion of the right knee secondary to pain. Diffuse moderate tenderness over the right knee joint. The joint stable. BACK: Nontender without obvious deformity. No CVA tenderness. Course Initial Documented Vital Signs Temperature 98.6 F 03/25/18 11:36 Pulse Rate 94 H 03/25/18 11:36 Respiratory Rate 18 03/25/18 11:36 Blood Pressure 134/87 03/25/18 11:36 Pulse Oximetry 95 03/25/18 11:36 Last Documented Vital Signs Temperature 98.6 F 03/25/18 11:36 Pulse Rate 70 03/25/18 13:00 Respiratory Rate 16 03/25/18 13:00 Blood Pressure 116/75 03/25/18 13:00 Pulse Oximetry 97 03/25/18 13:00 Medical Decision Making MDM Narrative Medical decision making narrative: 42-year-old male with pain and swelling right knee joint. History of hemophiliac B. X-ray show a small joint effusion. I spoke with Dr. Broderick, on-call oracle programmer analyst. Advised patient to be admitted, factor IX transfusion, and consulting Dr. Fragoso for further management. BeneFIX 2000 units IV given. Differential Diagnosis Differential Diagnosis: Differential diagnosis including hemarthrosis, fracture , dislocation. Lab Data Lab results reviewed: Yes I reviewed the patient's lab results. Result diagrams: 03/25/18 12:15 03/25/18 12:15 Lab Results 03/25/18 03/25/18 03/25/18 Range/Units 12:15 12:15 12:15 CBC w Diff WBC (4.0-11.0) th/mm3 RBC (4.50-5.90) mil/mm3 Hgb (13.0-17.0) gm/dL Hct (39.0-51.0) % MCV (80.0-100.0) fL MCH (27.0-34.0) pg MCHC (32.0-36.0) % RDW (11.6-17.2) % Plt Count (150-450) th/mm3 MPV (7.0-11.0) fL Neut % (Auto) (16.0-70.0) % Lymph % (Auto) (9.0-44.0) % [place] % (Auto) (0.0-8.0) % Eos % (Auto) (0.0-4.0) % Baso % (Auto) (0.0-2.0) % Neut # (Auto) (1.8-7.7) th/mm3 Lymph # (Auto) (1.0-4.8) th/mm3 [place] # (Auto) (0.0-0.9) th/mm3 Eos # (Auto) (0.0-0.4) th/mm3 Baso # (Auto) (0.0-0.2) th/mm3 WBC Differential Differential Comment PT 11.7 H (9.8-11.6) sec INR 1.2 Ratio APTT 77.0 H (24.3-30.1) sec Sodium 135 L (136-145) meq/L Potassium 3.5 (3.5-5.1) meq/L Chloride 99 (98-107) meq/L Carbon Dioxide 30.2 (21.0-32.0) meq/L Anion Gap 6 (5-15) meq/L BUN 12 (7-18) mg/dL Creatinine 0.93 (0.60-1.30) mg/dL Estimated GFR Greater than 89 (>89) mL/min Random Glucose 102 (74-106) mg/dL Calcium 8.4 L (8.5-10.1) mg/dL Blood Type O Positive Blood Type Recheck Required Antibody Screen Negative 03/25/18 Range/Units 12:15 CBC w Diff Auto diff final WBC 8.8 (4.0-11.0) th/mm3 RBC 5.01 (4.50-5.90) mil/mm3 Hgb 15.4 (13.0-17.0) gm/dL Hct 46.2 (39.0-51.0) % MCV 92.2 (80.0-100.0) fL MCH 30.8 (27.0-34.0) pg MCHC 33.4 (32.0-36.0) % RDW 12.3 (11.6-17.2) % Plt Count 209 D (150-450) th/mm3 MPV 10.4 (7.0-11.0) fL Neut % (Auto) 51.6 (16.0-70.0) % Lymph % (Auto) 35.4 (9.0-44.0) % [place] % (Auto) 8.5 H (0.0-8.0) % Eos % (Auto) 1.8 (0.0-4.0) % Baso % (Auto) 2.7 H (0.0-2.0) % Neut # (Auto) 4.6 (1.8-7.7) th/mm3 Lymph # (Auto) 3.1 (1.0-4.8) th/mm3 [place] # (Auto) 0.7 (0.0-0.9) th/mm3 Eos # (Auto) 0.2 (0.0-0.4) th/mm3 Baso # (Auto) 0.2 (0.0-0.2) th/mm3 WBC Differential . Differential Comment . PT (9.8-11.6) sec INR Ratio APTT (24.3-30.1) sec Sodium (136-145) meq/L Potassium (3.5-5.1) meq/L Chloride (98-107) meq/L Carbon Dioxide (21.0-32.0) meq/L Anion Gap (5-15) meq/L BUN (7-18) mg/dL Creatinine (0.60-1.30) mg/dL Estimated GFR (>89) mL/min Random Glucose (74-106) mg/dL Calcium (8.5-10.1) mg/dL Blood Type Blood Type Recheck Antibody Screen Imaging Data Radiologist's impression: Knee X-Ray 03/25/18 12:08 CONCLUSION: 1. No acute fracture or joint dislocation. 2. Small joint effusion. 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
--- NOTE | 2018-03-25 12:41 | XR ---
EXAM DATE: 03/25/2018 12:37 PM EDT AGE/SEX: 42 years / Male INDICATIONS: Right knee pain post hitting on a table CLINICAL DATA: This is the patient's initial encounter. Patient reports that signs and symptoms have been present for 1 day and indicates a pain score of 4/10. MEDICAL/SURGICAL HISTORY: None. . Right knee scope. COMPARISON: No prior exams available for comparison. FINDINGS: Bony structures are intact and in normal alignment. Joints are intact without dislocation or signifi cant arthropathy. Osseous density is normal. Soft tissues are unremarkable. No radiopaque foreign bodies seen. There is a small joint effusion. CONCLUSION: 1. No acute fracture or joint dislocation. 2. Small joint effusion. Electronically signed by: Sammy Kellogg MD 03/25/2018 12:40 PM EDT
[2018-03-25 12:54] LABS: Chloride 99 meq/L (98-107); Potassium 3.5 meq/L (3.5-5.1); Sodium 135 meq/L (136-145)
[2018-03-25 12:55] LABS: Baso # (Auto) 0.2 th/mm3 (0.0-0.2); Baso % (Auto) 2.7 % (0.0-2.0); Eos # (Auto) 0.2 th/mm3 (0.0-0.4); Eos % (Auto) 1.8 % (0.0-4.0); Hematocrit 46.2 % (39.0-51.0); Hemoglobin 15.4 gm/dL (13.0-17.0); Lymph # (Auto) 3.1 th/mm3 (1.0-4.8); Lymph % (Auto) 35.4 % (9.0-44.0); Mean Corpuscular HGB Conc 33.4 % (32.0-36.0); Mean Corpuscular Hemoglobin 30.8 pg (27.0-34.0); Mean Corpuscular Volume 92.2 fL (80.0-100.0); Mean Platelet Volume 10.4 fL (7.0-11.0); Mono # (Auto) 0.7 th/mm3 (0.0-0.9); Mono % (Auto) 8.5 % (0.0-8.0); Neut # (Auto) 4.6 th/mm3 (1.8-7.7); Neut % (Auto) 51.6 % (16.0-70.0); Platelet Count 209 th/mm3 (150-450); Red Blood Count 5.01 mil/mm3 (4.50-5.90); Red Cell Distribution Width 12.3 % (11.6-17.2); White Blood Count 8.8 th/mm3 (4.0-11.0)
[2018-03-25 12:56] LABS: Calcium 8.4 mg/dL (8.5-10.1)
[2018-03-25 12:57] LABS: Anion Gap 6 meq/L (5-15); Blood Urea Nitrogen 12 mg/dL (7-18); Carbon Dioxide 30.2 meq/L (21.0-32.0); Glucose,Random 102 mg/dL (74-106)
[2018-03-25 13:00] LABS: Glomerular Filtration Rate Greater Than 89 mL/min (>89)
[2018-03-25 13:01] LABS: INR 1.2 Ratio; Prothrombin Time 11.7 sec (9.8-11.6)
[2018-03-25] MEDS ORDERED: FACTOR IX COMPLEX HUMAN 2000 UNIT IV.PUSH ONE ×2 (14:54→19:00)
[2018-03-25] MEDS ORDERED: COAGULATION FACTOR IX ONE (16:24)
--- NOTE | 2018-03-25 16:44 | P.HP ---
History of Present Illness Primary Care Physician: No Primary Care Physician History of Present Illness: 42-year-old male with a history of hemophilia type B (factor IX deficiency) and hepatitis C presents to the ER after he bumped his right knee this morning on a bus. Over time following his injury the knee became more more swollen and tender. It is currently exquisitely tender showing ecchymotic change consultant the kneecap. He reports he acquired hepatitis C as a child after undergoing multiple blood transfusions for his disorder. A few years ago he was receiving factor IX via IV at home for episodes such as this. But after becoming incarcerated he has lost his Medicaid benefits and can no longer afford to have this transfusion at home due to cast pay status. The factor IX transfusion is named BeneFIX. Review of Systems Constitutional: Denies anorexia, Denies body ache(s), Denies chills, Denies daytime sleepiness, Denies excessive sweating, Denies fatigue, Denies fever(s), Denies headache(s), Denies increased appetite, Denies lack of energy, Denies malaise, Denies night sweats, Denies weakness, Denies weight gain, Denies weight loss, Denies other Eyes: Denies blind spots, Denies blurry vision, Denies bulging eyes, Denies change in vision, Denies double vision, Denies discharge, Denies dry eyes, Denies floaters, Denies irritation, Denies itchy eyes, Denies loss of vision, Denies pain, Denies requires corrective lenses, Denies sensitivity to light, Denies other Ears, Nose, Mouth, and Throat: Denies abnormal hearing, Denies bleeding gums, Denies bad breath, Denies change in voice, Denies dental pain, Denies difficulty swallowing, Denies dizziness, Denies dry mouth, Denies ear discharge , Denies ear pain, Denies facial pain, Denies headache(s), Denies hearing loss, Denies hoarseness, Denies lip swelling, Denies nosebleed, Denies mouth lesions, Denies mouth pain, Denies nasal congestion, Denies nasal discharge, Denies nasal obstruction, Denies nasal trauma, Denies neck lump, Denies neck pain, Denies nose pain, Denies pain with swallowing, Denies poor balance, Denies post nasal drip, Denies ringing in the ears, Denies sinus pain, Denies sinus pressure , Denies sore throat, Denies throat swelling, Denies tongue swelling, Denies other Cardiovascular: Denies chest pain, Denies chest pain at rest, Denies chest pain with activity, Denies excessive sweating, Denies fainting, Denies fast heart rate, Denies foot swelling, Denies generalized swelling, Denies irregular heart rhythm, Denies leg pain with activity, Denies leg sores, Denies leg swelling, Denies lightheadedness, Denies radiating jaw, neck or arm pain, Denies rapid, pounding, or irregular heartbeat, Denies shortness of breath, Denies shortness of breath with activity, Denies shortness of breath when lying down, Denies shortness of breath causing sudden awakening, Denies slow heart rate, Denies other Respiratory: Denies change in phlegm color, Denies chest congestion, Denies cough, Denies coughing up blood, Denies excessive phlegm production, Denies pain on inspiration, Denies pain with cough, Denies shortness of breath, Denies shortness of breath with activity, Denies snoring, Denies stridor, Denies wheezing, Denies other Gastrointestinal: Denies abdominal pain, Denies belching, Denies black, tarry stools, Denies bloating, Denies bright, red blood in stools, Denies change in bowel habits, Denies constant urge to pass stool, Denies change in stools, Denies coffee ground vomit, Denies constipation, Denies cramping, Denies difficulty swallowing, Denies excessive passing of gas, Denies feeling full early, Denies heartburn, Denies incontinent of stools, Denies loose stools, Denies nausea, Denies pain with swallowing, Denies vomiting, Denies vomiting blood, Denies other Genitourinary: Denies blood in semen, Denies blood in urine, Denies decreased urination, Denies difficulty urinating, Denies difficulty with ejaculations, Denies erectile dysfunction, Denies genital lesions, Denies genital pain, Denies painful urination, Denies side pain, Denies frequent nighttime urination , Denies painful ejaculations, Denies penile discharge, Denies scrotal swelling , Denies testicle lump, Denies testicle pain, Denies urinary frequency, Denies urinary hesitancy, Denies urinary incontinence, Denies urinary urgency, Denies other Musculoskeletal: Reports joint pain, Reports joint swelling, Reports limited joint movement Skin/Breast: Denies acne, Denies bleeding lesions, Denies boil, Denies breast swelling, Denies breast skin changes, Denies breast pain, Denies breast lump, Denies change in breast shape, Denies change in hair, Denies change in skin color, Denies changing lesions, Denies dry skin, Denies excessive hair growth, Denies hair loss, Denies itching, Denies lesions, Denies nail changes, Denies new lesions, Denies nipple discharge, Denies non-healing lesions, Denies redness , Denies sensitivity to light, Denies rash, Denies skin pain, Denies skin ulcer , Denies sores, Denies stretch [place], Denies unusual bruising, Denies wounds, Denies yellowing of the skin, Denies other Neurologic: Denies abnormal hearing, Denies abnormal movements, Denies abnormal speech, Denies abnormal walking, Denies behavioral changes, Denies burning sensations, Denies confusion, Denies dizziness, Denies fainting, Denies frequent falls, Denies headache(s), Denies lack of coordination, Denies localized weakness, Denies loss of vision, Denies memory loss, Denies numbness, Denies other visual disturbances, Denies radiating pain, Denies restless legs, Denies convulsions, Denies seizure-like activity, Denies sensory deficit, Denies tingling, Denies tingling/numbness/burning sensations, Denies tremor(s), Denies unsteadiness, Denies weakness, Denies other PMFSH - History History Provided By: Patient - Medical History Medical History: Medical History (Last Reviewed 03/25/18 @ 11:48 by Becka Beckwith RN) Factor IX hemophilia Hemophilia Hepatitis C Upper back pain - Surgical History Surgical History: Surgical History (Last Reviewed 03/25/18 @ 11:48 by Becka Beckwith RN) History of arthroscopy of right knee - Tobacco History Second Hand Smoke Exposure: Yes Tobacco Use In Past 30 Days: Yes Smoking Status: Current every day smoker Tobacco Type: Cigarettes - Alcohol History How Often Do You Have a Drink Containing Alcohol: Never - Substance Use History Substance History: Past History - Travel History Recent Travel in the [place] Within the Last 8 Weeks: No Recent Travel Out of the Country Within the Last 8 Weeks: No - Immunization History Tetanus Immunization: Unsure Hx Influenza Vaccine This Season: No Medications and Allergies Active Medications: Active Medications Hydromorphone HCl (Dilaudid Pf Inj) 1 mg IV.PUSH Q4H PRN PRN Reason: BREAKTHROUGH PAIN Non-Formulary Medication (Methadone [Methadone]) 190 mg PO DAILY NASIR Non-Formulary Medication (Coagulation Factor Ix (Recomb) [Benefix]) 2,000 units .ROUTE .COMPLEX ONE Stop: 03/25/18 16:25 Sodium Chloride (Ns Flush) 2 ml IV.FLUSH PRN PRN PRN Reason: FLUSH AFTER USING IV ACCESS Allergies Allergy/AdvReac Type Severity Reaction Status Date / Time amoxicillin Allergy Severe Hives Verified 03/25/18 11:41 aspirin AdvReac Severe Has Verified 03/25/18 11:43 hemophilia Home Medications Medication Instructions Recorded Confirmed Type coagulation factor IX (recomb) See Label Instructions .ROUTE 03/04/18 03/25/18 History [BeneFIX] .COMPLEX PRN methadone 190 mg PO DAILY 03/04/18 03/25/18 History Exam Vital signs: Vital Signs 03/25/18 11:36 03/25/18 12:10 03/25/18 13:00 Temperature 98.6 F Pulse Rate 94 H 83 70 Respiratory Rate 18 16 Blood Pressure 134/87 116/75 Pulse Oximetry 95 97 03/25/18 16:02 Temperature Pulse Rate 65 Respiratory Rate 18 Blood Pressure 127/84 Pulse Oximetry 95 Intake & Output 03/24/18 03/25/18 03/25/18 18:59 06:59 18:59 Weight 100.5 kg Narrative: GENERAL: Alert and oriented 3, in pain due to right knee swelling SKIN: Warm and dry. HEAD: Atraumatic. Normocephalic. Poor dentition, fractured teeth EYES: Pupils equal and round. No scleral icterus. No injection or drainage. ENT: No nasal bleeding or discharge. Mucous membranes pink and moist. NECK: Trachea midline. No JVD. CARDIOVASCULAR: Regular rate and rhythm. RESPIRATORY: No accessory muscle use. Clear to auscultation. Breath sounds equal bilaterally. GASTROINTESTINAL: Abdomen soft, non-tender, nondistended. Hepatic and splenic margins not palpable. MUSCULOSKELETAL: Right knee is swollen and tender, reduced range of motion, evidence of hemarthrosis with small areas of ecchymosis around knee cap NEUROLOGICAL: Awake and alert. No obvious cranial nerve deficits. Motor grossly within normal limits. Five out of 5 muscle strength in the arms and legs. Normal speech. PSYCHIATRIC: Appropriate mood and affect; insight and judgment normal. Results - Labs CBC & Chem 7: 03/25/18 12:15 03/25/18 12:15 Labs: Laboratory Results - last 24 hr 03/25/18 03/25/18 03/25/18 12:15 12:15 12:15 CBC w Diff WBC RBC Hgb Hct MCV MCH MCHC RDW Plt Count MPV Neut % (Auto) Lymph % (Auto) [place] % (Auto) Eos % (Auto) Baso % (Auto) Neut # (Auto) Lymph # (Auto) [place] # (Auto) Eos # (Auto) Baso # (Auto) WBC Differential Differential Comment PT 11.7 H INR 1.2 APTT 77.0 H Sodium 135 L Potassium 3.5 Chloride 99 Carbon Dioxide 30.2 Anion Gap 6 BUN 12 Creatinine 0.93 Estimated GFR Greater than 89 Random Glucose 102 Calcium 8.4 L Blood Type O Positive Blood Type Recheck Required Antibody Screen Negative 03/25/18 12:15 CBC w Diff Auto diff final WBC 8.8 RBC 5.01 Hgb 15.4 Hct 46.2 MCV 92.2 MCH 30.8 MCHC 33.4 RDW 12.3 Plt Count 209 D MPV 10.4 Neut % (Auto) 51.6 Lymph % (Auto) 35.4 [place] % (Auto) 8.5 H Eos % (Auto) 1.8 Baso % (Auto) 2.7 H Neut # (Auto) 4.6 Lymph # (Auto) 3.1 [place] # (Auto) 0.7 Eos # (Auto) 0.2 Baso # (Auto) 0.2 WBC Differential . Differential Comment . PT INR APTT Sodium Potassium Chloride Carbon Dioxide Anion Gap BUN Creatinine Estimated GFR Random Glucose Calcium Blood Type Blood Type Recheck Antibody Screen - Imaging Impressions Knee X-Ray 03/25/18 12:08 CONCLUSION: 1. No acute fracture or joint dislocation. 2. Small joint effusion. Caprini VTE Risk Assessment Caprini VTE Risk Assessment: No/Low Risk (score <= 1) Caprini Risk Assessment Model: Point Value = 1 Point Value = 2 Point Value = 3 Point Value = 5 Age 41-60 Minor surgery BMI > 25 kg/m2 Swollen legs Varicose veins or History of unexplained or recurrent spontaneous Oral contraceptives or hormone replacement Sepsis (< 1 month) Serious lung disease, including pneumonia (< 1 month) Abnormal pulmonary function Acute myocardial infarction Congestive heart failure (< 1 month) History of inflammatory bowel disease Medical patient at bed rest Age 61-74 Arthroscopic surgery Major open surgery (> 45 min) Laparoscopic surgery (> 45 min) Malignancy Confined to bed (> 72 hours) Immobilizing plaster cast Central venous access Age >= 75 History of VTE Family history of VTE Factor V Leiden Prothrombin [id number] Lupus anticoagulant Anticardiolipin antibodies Elevated serum homocysteine Heparin-induced thrombocytopenia Other congenital or acquired thrombophilia Stroke (< 1 month) Elective arthroplasty Hip, pelvis, or leg fracture Acute spinal cord injury (< 1 month) Prophylaxis Regimen: Total Risk Factor Score Risk Level Prophylaxis Regimen 0-1 Low Early ambulation 2 Moderate Order ONE of the following: *Sequential Compression Device (SCD) *Heparin 5000 units SQ BID 3-4 Higher Order ONE of the following medications: *Heparin 5000 units SQ TID *Enoxaparin/Lovenox 40 mg SQ daily (WT < 150 kg, CrCl > 30 mL/min) *Enoxaparin/Lovenox 30 mg SQ daily (WT < 150 kg, CrCl > 10-29 mL/min) *Enoxaparin/Lovenox 30 mg SQ BID (WT < 150 kg, CrCl > 30 mL/min) AND/OR *Sequential Compression Device (SCD) 5 or more Highest Order ONE of the following medications: *Heparin 5000 units SQ TID (Preferred with Epidurals) *Enoxaparin/Lovenox 40 mg SQ daily (WT < 150 kg, CrCl > 30 mL/min) *Enoxaparin/Lovenox 30 mg SQ daily (WT < 150 kg, CrCl > 10-29 mL/min) *Enoxaparin/Lovenox 30 mg SQ BID (WT < 150 kg, CrCl > 30 mL/min) AND *Sequential Compression Device (SCD) Assessment and Plan - Plan Hemarthrosis secondary to hemophilia B Hit his knee on a bus chair with subsequent swelling and exquisite tenderness History of BeneFIX 2000 unit IV infusions, medication delivered this afternoon ER physician spoke with Dr. Schulz who offered to follow patient h/o Hep C Acquired during blood transfusions in the 80s for hemophilia Outpatient follow up Chronic pain Patient has been on multiple pain meds throughout his life and is currently on methadone 190 g daily p.o. Dilaudid for breakthrough pain DVT prophylaxis Chemoprophylaxis held due to hemophilia and current bleeding, hemarthrosis
[2018-03-25] MEDS ORDERED: HYDROmorphone PF Inj 1 MG/ML Ampul IV.PUSH PRN (17:00)
[2018-03-25] MEDS ORDERED: HYDROmorphone PF Inj 2 MG/ML Vial IV.PUSH PRN (17:00)
--- NOTE | 2018-03-25 18:13 | MB ---
cc: Mariya Fragoso MD, Ruby Anne E MD Doan,Ramirez Ventura,Carroll Shi MD DATE: 03/25/2018 REFERRING PHYSICIAN: Ramirez Denis CHIEF COMPLAINT: Dr. Ramirez Denis requests a consultation for Mr. Alcala regarding hemophilia B with trauma and hemarthrosis of the right knee. HISTORY OF PRESENT ILLNESS: Mr. Alcala is a 42-year-old man with history of severe hemophilia B. His mother is a carrier. He has a less than 1% Factor levels. He has spontaneous joint bleeds and muscle bleeds. As a child, he was treated by Gunnar Scales at [facility]. His diagnosis of hemophilia B severe was established there. He was on primary prophylaxis as a child. He has no insurance at present and no means of obtaining his factors over the last several years. He reports avoiding bleeding by not doing very much. There is a history of incarceration. He has lost his insurance. He was seen by Dr. Ventura on 06/01/2017 for an elbow bleed. He has not followed up in hematology clinic. He also has history of hepatitis C, untreated. His status of hepatitis C is not known. He denies any other bleeding. No melena or bright red blood per rectum. Denies any headaches. No fevers, chills or night sweats. He has no shortness of breath or bleeding gums. He does not use any prophylaxis at present. He has no factors at home. He hurt his right knee and developed swelling consistent with his joint bleed from severe hemophilia B. The rest of his review of systems is negative. PAST MEDICAL HISTORY: Hemophiliac arthropathy, right knee target joint, severe hemophilia B, chronic active hepatitis C. PAST SURGICAL HISTORY: Right knee arthroscopic surgery. FAMILY HISTORY: Mother has carrier for hemophilia B. No other family members with hemophilia. He has a son that is unaffected. SOCIAL HISTORY: He smokes a pack a day. Denies any alcohol or illicit drug use. ALLERGIES: ASPIRIN AND AMOXICILLIN. CURRENT MEDICATIONS: 1. Methadone 190 mg daily. 2. Hydromorphone for breakthrough. 3. Nicotine patch. PHYSICAL EXAMINATION: VITAL SIGNS: Temperature afebrile, heart rate 65, respiratory rate 18, blood pressure 127/84, saturation 98%. GENERAL: Mr. Alcala is a well-developed, well-nourished man who looks his stated age. HEENT: His pupils are round, reactive to light and accommodation. Oropharynx with poor dentition. NECK: Supple. LUNGS: Clear. CARDIOVASCULAR: Reveals a normal rate and rhythm. ABDOMEN: Benign. LOWER EXTREMITIES: Lower extremity with mild swelling of the right knee joint, small amount of effusion. The left knee is negative. Good pulses bilaterally. No other signs of bleeding. Relatively good joints with preserved function. LABORATORY DATA: CBC is normal. PTT is prolonged 77 seconds. PT 11.7 seconds. Renal function is normal. Mr. Alcala's renal function is normal. Past Factor IX activity level 21% from 06/21/2017. This is a random draw. ASSESSMENT AND PLAN: Mr. Alcala is a 42-year-old man with severe hemophilia A by history. He was diagnosed and treated at [facility] as a child. He was on primary prophylaxis until adulthood. He is on demand therapy; however, he has no factor. We discussed the risk and benefit of Benefix. This is a factor he used as a child. He has never been exposed to the extended half life of factor IX products. We discussed plan to treat him acutely for the right knee hemophiliac arthropathy. I recommend elevation, ice and rest. Defer any orthopedic evaluation. I anticipate recovery with resolution of the joint bleed. In light of the severity of joint bleed, he will need a second dose in the morning. He is encouraged to followup with patient assistance application. He would be best served in an outpatient clinic. He may followup with Dr. Ventura or myself upon discharge. We can assist him with establishing on demand therapy with a long-acting factor IX products. Trough Factor IX activity level will be drawn in the morning prior to his next dose. His baseline factor dose is approximately 7000 units. We have a limited supply of benefix. He has received 2000 units already. I have ordered an additional 4 units. We will monitor his response. We will correct him to approximately 80%. He will continue treatment with another 6000 units in the morning. Pharmacy has available approximately 8000 units in the whole hospital. Mr. Alcala's questions were answered to his satisfaction. His case was discussed with the primary team. MD SAHRA Moore , 05:46 PM , 06:12 PM
[2018-03-25] MEDS: HYDROmorphone PF Inj 2 MG/ML Vial IV.PUSH PRN (21:06)
[2018-03-26] MEDS: HYDROmorphone PF Inj 2 MG/ML Vial IV.PUSH PRN ×6 (01:10→20:54)
[2018-03-26] MEDS ORDERED: FACTOR IX COMPLEX HUMAN 2000 UNIT IV.PUSH ONE (07:00)
[2018-03-26] MEDS: Methadone 10 MG Tablet PO SCH (08:09)
--- NOTE | 2018-03-26 13:46 | P.PN ---
Subjective Interval history: Patient states that he has had an increase in swelling of his right knee. He states pain is better controlled now that he has 2 mg of Dilaudid instead of 1. He is grateful for his care for the involvement of his central supply clerk. Physical Exam Vital signs: Vital Signs 03/25/18 16:02 03/25/18 20:00 03/26/18 00:00 Temperature 97 F L 97.1 F L Pulse Rate 65 68 64 Respiratory Rate 18 20 20 Blood Pressure 127/84 129/87 125/85 Pulse Oximetry 95 95 97 03/26/18 08:00 03/26/18 11:54 Temperature 97.5 F L 96.8 F L Pulse Rate 65 68 Respiratory Rate 18 18 Blood Pressure 139/86 151/67 H Pulse Oximetry 97 99 Intake & Output 03/25/18 03/26/18 03/26/18 18:59 06:59 18:59 Intake Total 220 / 220 320 / 320 Output Total 800 / 800 Balance 220 / 220 -480 / -480 Weight 101.5 kg 101.9 kg Intake: Oral 220 / 220 320 / 320 Output: Urine 800 / 800 Other: Weight On Admission 101.5 kg Narrative: GENERAL: Alert and oriented 3, no acute distress SKIN: Warm and dry. HEAD: Normocephalic. EYES: No scleral icterus. No injection or drainage. NECK: Supple, trachea midline. No JVD or lymphadenopathy. CARDIOVASCULAR: Regular rate and rhythm without murmurs, gallops, or rubs. RESPIRATORY: Breath sounds equal bilaterally. No accessory muscle use. GASTROINTESTINAL: Abdomen soft, non-tender, nondistended. MUSCULOSKELETAL: Right knee is swollen with reduced range of motion, redness, no warmth, ecchymosis is dissipated BACK: Nontender without obvious deformity. No CVA tenderness. Results - Labs CBC & Chem 7: 03/25/18 12:15 03/25/18 12:15 Laboratory Results - last 24 hr 03/25/18 12:15 Blood Type O Positive Blood Type Recheck Required Antibody Screen Negative Assessment and Plan - Plan Hemarthrosis secondary to hemophilia B Hit his knee on a bus chair with subsequent swelling and exquisite tenderness History of BeneFIX 2000 unit IV infusions, medication delivered this afternoon Patient will receive an additional 6000 units of BeneFIX infusion today Appreciate consult by Dr. Schulz, hematology h/o Hep C Acquired during blood transfusions in the 80s for hemophilia Outpatient follow up, we discussed option for cure with p.o. medication that is currently available Chronic pain Patient has been on multiple pain meds throughout his life and is currently on methadone 190 g daily p.o. Continue Dilaudid for breakthrough pain DVT prophylaxis Chemoprophylaxis held due to hemophilia and current bleeding, hemarthrosis
--- NOTE | 2018-03-27 00:51 | P.PNONC ---
Subjective Interval history: right knee still swollen received Beneifix 6000 units today \received 2000 unts last night additional Benefix not available in the hospital Factor IX levels pending pain under control Objective Vital Signs/Intake & Output: Vital Signs 03/26/18 08:00 03/26/18 11:54 03/26/18 16:00 Temperature 97.5 F L 96.8 F L 97.2 F L Pulse Rate 65 68 62 Respiratory Rate 18 18 18 Blood Pressure 139/86 151/67 H 131/87 Pulse Oximetry 97 99 95 03/26/18 20:00 03/27/18 00:00 Temperature 98.5 F 98.5 F Pulse Rate 74 65 Respiratory Rate 20 20 Blood Pressure 145/94 H 135/85 Pulse Oximetry 99 96 Intake & Output 03/26/18 03/26/18 03/27/18 06:59 18:59 06:59 Intake Total 320 / 320 Output Total 800 / 800 Balance -480 / -480 Weight 101.9 kg Intake: Oral 320 / 320 Output: Urine 800 / 800 Other: Date of Last Bowel Movement 03/25/18 Result Diagrams: 03/25/18 12:15 03/25/18 12:15 Laboratory Results: Vital Signs Temp Pulse Resp BP Pulse Ox 03/27/18 00:00 98.5 F 65 20 135/85 96 03/26/18 20:00 98.5 F 74 20 145/94 H 99 03/26/18 16:00 97.2 F L 62 18 131/87 95 03/26/18 11:54 96.8 F L 68 18 151/67 H 99 03/26/18 08:00 97.5 F L 65 18 139/86 97 Intake and Output 03/26/18 03/26/18 03/27/18 14:59 22:59 06:59 Other: Date of Last Bowel Movement 03/25/18 Laboratory Results - last 48 hr 03/25/18 03/25/18 03/25/18 12:15 12:15 12:15 CBC w Diff WBC RBC Hgb Hct MCV MCH MCHC RDW Plt Count MPV Neut % (Auto) Lymph % (Auto) [place] % (Auto) Eos % (Auto) Baso % (Auto) Neut # (Auto) Lymph # (Auto) [place] # (Auto) Eos # (Auto) Baso # (Auto) WBC Differential Differential Comment PT 11.7 H INR 1.2 APTT 77.0 H Sodium 135 L Potassium 3.5 Chloride 99 Carbon Dioxide 30.2 Anion Gap 6 BUN 12 Creatinine 0.93 Estimated GFR Greater than 89 Random Glucose 102 Calcium 8.4 L Blood Type O Positive Blood Type Recheck Required Antibody Screen Negative 03/25/18 12:15 CBC w Diff Auto diff final WBC 8.8 RBC 5.01 Hgb 15.4 Hct 46.2 MCV 92.2 MCH 30.8 MCHC 33.4 RDW 12.3 Plt Count 209 D MPV 10.4 Neut % (Auto) 51.6 Lymph % (Auto) 35.4 [place] % (Auto) 8.5 H Eos % (Auto) 1.8 Baso % (Auto) 2.7 H Neut # (Auto) 4.6 Lymph # (Auto) 3.1 [place] # (Auto) 0.7 Eos # (Auto) 0.2 Baso # (Auto) 0.2 WBC Differential . Differential Comment . PT INR APTT Sodium Potassium Chloride Carbon Dioxide Anion Gap BUN Creatinine Estimated GFR Random Glucose Calcium Blood Type Blood Type Recheck Antibody Screen Medications: Active Medications Generic Name Dose Route Start Last Admin Trade Name Freq PRN Reason Stop Dose Admin Hydromorphone HCl 2 mg 03/26/18 09:00 03/26/18 20:54 Dilaudid Pf Inj IV.PUSH 2 mg Q4H PRN Administration BREAKTHROUGH PAIN Methadone HCl 190 mg 03/26/18 09:00 03/26/18 08:09 Dolophine PO 190 mg DAILY NASIR Administration Nicotine 1 patch 03/25/18 18:00 03/26/18 08:08 Habitrol 21 Mg Patch.24 Hr T-DERMAL 1 patch DAILY NASIR Administration Objective Remarks: GENERAL: Well-nourished, well-developed patient. SKIN: Warm and dry. NECK: Supple, trachea midline. No JVD or lymphadenopathy. LYMPHATIC: No adenopathy. CARDIOVASCULAR: Regular rate and rhythm without murmurs. RESPIRATORY: Breath sounds equal bilaterally. No accessory muscle use. GASTROINTESTINAL: Abdomen soft, non-tender, nondistended. EXTREMITIES: right knee swelling, wrapped in cooling wrap MUSCULOSKELETAL: Adequate muscle tone. NEUROLOGICAL: No obvious focal deficit. Awake, alert, and oriented x3. PSYCHIATRIC: Appropriate mood and affect; insight and judgment normal. 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 Hemarthrosis with Hx of Hemophilia B - Has hx of less leoncio 1% activity, utilizes on-demand therapy. does not have an established cruise agent due to insurance issues. used to see Dr. Scales at [facility]. - Received a total of 7000 units. (6000 units given this am) - Factor IX activity level pending - Pharmacy to obtain additional Benfix , may need additional treatment - Check cbc in am - elevate leg, apply ice - continue pain control.
[2018-03-27] MEDS: HYDROmorphone PF Inj 2 MG/ML Vial IV.PUSH PRN ×4 (01:07→12:31)
[2018-03-27] MEDS: Methadone 10 MG Tablet PO SCH (08:52)
--- NOTE | 2018-03-27 13:39 | P.PNIM ---
Subjective Interval history: Patient seen and evaluated in follow-up for hemarthrosis. Patient with known hemophilia. Previously followed up at [facility] no new complaints today. Pain controlled on methadone until Physical Exam Vital signs: Vital Signs 03/26/18 16:00 03/26/18 20:00 03/27/18 00:00 Temperature 97.2 F L 98.5 F 98.5 F Pulse Rate 62 74 65 Respiratory Rate 18 20 20 Blood Pressure 131/87 145/94 H 135/85 Pulse Oximetry 95 99 96 03/27/18 07:35 03/27/18 09:25 03/27/18 11:43 Temperature 98 F 97.8 F Pulse Rate 62 67 Respiratory Rate 20 20 20 Blood Pressure 135/87 131/82 Pulse Oximetry 94 L 96 03/27/18 12:16 Temperature Pulse Rate Respiratory Rate 20 Blood Pressure Pulse Oximetry Intake & Output 03/26/18 03/27/18 03/27/18 18:59 06:59 18:59 Intake Total 300 / 300 60 / 60 Output Total 825 / 825 Balance -525 / -525 60 / 60 Weight 111.1 kg Intake: Oral 300 / 300 60 / 60 Output: Urine 825 / 825 Other: # Voids 1 Date of Last Bowel Movement 03/25/18 03/25/18 Narrative: GENERAL: Patient calm resting and without complaints SKIN: Warm and dry. No rashes or ecchymotic injuries EYES: Pupils equal and round. No scleral icterus. No injection or drainage. ENT: External ear exam normal. No acute nasal bleeding or discharge. Mucous membranes pink and moist. CARDIOVASCULAR: Regular rate and rhythm. No murmurs gallops or rubs appreciated RESPIRATORY: Good air flow and effort without accessory muscle use. Clear to auscultation. Breath sounds equal bilaterally. GASTROINTESTINAL: Abdomen soft, non-tender, nondistended. Hepatic and splenic margins not palpable. MUSCULOSKELETAL: Right knee iced, tender, otherwise other extremities without clubbing, cyanosis, or edema. No obvious deformities. NEUROLOGICAL: Awake and alert. No obvious cranial nerve deficits. Motor grossly within normal limits. Five out of 5 muscle strength in the arms and legs. Normal speech. 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
[2018-03-27] MEDS ORDERED: Acetaminophen 500 MG Tablet PO PRN (14:08)
[2018-03-27 14:22] LABS: Mean Corpuscular HGB Conc 33.4 % (32.0-36.0); Mean Platelet Volume 10.3 fL (7.0-11.0); Platelet Count 189 th/mm3 (150-450); Red Cell Distribution Width 12.1 % (11.6-17.2); White Blood Count 7.4 th/mm3 (4.0-11.0)
[2018-03-27 14:31] LABS: Chloride 101 meq/L (98-107); Sodium 137 meq/L (136-145)
[2018-03-27 14:34] LABS: Calcium 8.8 mg/dL (8.5-10.1)
[2018-03-27 14:35] LABS: Albumin 3.2 g/dL (3.4-5.0); Anion Gap 5 meq/L (5-15); Blood Urea Nitrogen 12 mg/dL (7-18); Carbon Dioxide 30.6 meq/L (21.0-32.0); Glucose,Random 106 mg/dL (74-106)
[2018-03-27 14:38] LABS: Alanine Aminotransferase 95 U/L (12-78); Aspartate Aminotransferase 92 U/L (15-37); Glomerular Filtration Rate Greater Than 89 mL/min (>89)
[2018-03-27 14:40] LABS: Total Protein 7.4 g/dL (6.4-8.2)
[2018-03-27 14:41] LABS: Alkaline Phosphatase 128 U/L (45-117)
--- NOTE | 2018-03-27 19:39 | P.PNONC ---
Subjective Interval history: Resting in bed. Reports that knee is improving slightly since hospital admission, however is still not back to his baseline. Objective Vital Signs/Intake & Output: Vital Signs 03/26/18 20:00 03/27/18 00:00 03/27/18 07:35 Temperature 98.5 F 98.5 F 98 F Pulse Rate 74 65 62 Respiratory Rate 20 20 20 Blood Pressure 145/94 H 135/85 135/87 Pulse Oximetry 99 96 94 L 03/27/18 09:25 03/27/18 11:43 03/27/18 12:16 Temperature 97.8 F Pulse Rate 67 Respiratory Rate 20 20 20 Blood Pressure 131/82 Pulse Oximetry 96 03/27/18 14:17 03/27/18 15:28 Temperature 98.3 F Pulse Rate 62 Respiratory Rate 20 20 Blood Pressure 132/85 Pulse Oximetry 95 Intake & Output 03/27/18 03/27/18 03/28/18 06:59 18:59 06:59 Intake Total 300 / 300 1140 / 1140 Output Total 825 / 825 1800 / 1800 Balance -525 / -525 -660 / -660 Weight 111.1 kg Intake: Oral 300 / 300 1140 / 1140 Output: Urine 825 / 825 1800 / 1800 Other: # Voids 1 Date of Last Bowel Movement 03/25/18 03/25/18 Result Diagrams: 03/27/18 13:59 03/27/18 13:59 Laboratory Results: Laboratory Results - last 24 hr 03/27/18 03/27/18 13:59 13:59 WBC 7.4 RBC 5.00 Hgb 15.0 Hct 45.0 MCV 90.0 MCH 30.0 MCHC 33.4 RDW 12.1 Plt Count 189 MPV 10.3 Sodium 137 Potassium 4.0 Chloride 101 Carbon Dioxide 30.6 Anion Gap 5 BUN 12 Creatinine 0.71 Estimated GFR Greater than 89 Random Glucose 106 Calcium 8.8 Total Bilirubin 0.4 AST 92 H ALT 95 H Alkaline Phosphatase 128 H Total Protein 7.4 Albumin 3.2 L Medications: Active Medications Generic Name Dose Route Start Last Admin Trade Name Freq PRN Reason Stop Dose Admin Methadone HCl 190 mg 03/26/18 09:00 03/27/18 08:52 Dolophine PO 190 mg DAILY NASIR Administration Nicotine 1 patch 03/25/18 18:00 03/27/18 08:54 Habitrol 21 Mg Patch.24 Hr T-DERMAL 1 patch DAILY NASIR Administration Objective Remarks: GENERAL: Well-nourished, well-developed patient. SKIN: Warm and dry. HEAD: Normocephalic. EYES: No scleral icterus. No injection or drainage. NECK: Supple, trachea midline. No JVD or lymphadenopathy. LYMPHATIC: No adenopathy. CARDIOVASCULAR: Regular rate and rhythm without murmurs. RESPIRATORY: Breath sounds equal bilaterally. No accessory muscle use. GASTROINTESTINAL: Abdomen soft, non-tender, nondistended. EXTREMITIES: No cyanosis, or edema. MUSCULOSKELETAL: right knee with ice pack and ki bandage wrapping. NEUROLOGICAL: No obvious focal deficit. Awake, alert, and oriented x3. PSYCHIATRIC: Appropriate mood and affect; insight and judgment normal. 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 He has received Benefix on 03/25 (2 doses of 2000 units) and 03/26 (one dose of 6000 units) initial factor ( level is pending. Will give repeat dose of benefix 2000 units. Discussed with pharmacy. 2. Hemophilia B: history of severe hemophilia. Previously followed with physician at [facility]. He has been unable to follow up due to insurance issues. Will need to have close follow up in oncolopgy clinic with Dr. Fragoso on hospital discharge.
[2018-03-27] MEDS ORDERED: FACTOR IX COMPLEX HUMAN 2000 UNIT IV.PUSH ONE (22:00)
[2018-03-28] MEDS: Methadone 10 MG Tablet PO SCH (08:22)
--- NOTE | 2018-03-28 11:52 | P.PNIM ---
Subjective Interval history: Patient seen and evaluated in follow-up for right knee hemarthrosis with patient known hemophilia B status. No new events overnight. Physical Exam Vital signs: Vital Signs 03/27/18 12:16 03/27/18 14:17 03/27/18 15:28 Temperature 98.3 F Pulse Rate 62 Respiratory Rate 20 20 20 Blood Pressure 132/85 Pulse Oximetry 95 03/27/18 20:00 03/28/18 00:00 03/28/18 04:00 Temperature 96.9 F L 97.6 F 96.8 F L Pulse Rate 74 67 53 L Respiratory Rate 20 20 20 Blood Pressure 123/91 H 151/96 H 128/86 Pulse Oximetry 96 97 97 03/28/18 08:00 03/28/18 08:52 Temperature 96.4 F L Pulse Rate 60 Respiratory Rate 16 18 Blood Pressure 144/96 H Pulse Oximetry 98 Intake & Output 03/27/18 03/28/18 03/28/18 18:59 06:59 18:59 Intake Total 1140 / 1140 600 / 600 300 / 300 Output Total 1800 / 1800 725 / 725 Balance -660 / -660 -125 / -125 300 / 300 Weight 111.7 kg Intake: Oral 1140 / 1140 600 / 600 300 / 300 Output: Urine 1800 / 1800 725 / 725 Other: # Voids 1 1 Date of Last Bowel Movement 03/25/18 03/28/18 # Bowel Movements 1 Narrative: GENERAL: Patient calm resting and without complaints SKIN: Warm and dry. No rashes or ecchymotic injuries EYES: Pupils equal and round. No scleral icterus. No injection or drainage. ENT: External ear exam normal. No acute nasal bleeding or discharge. Mucous membranes pink and moist. CARDIOVASCULAR: Regular rate and rhythm. No murmurs gallops or rubs appreciated RESPIRATORY: Good air flow and effort without accessory muscle use. Clear to auscultation. Breath sounds equal bilaterally. GASTROINTESTINAL: Abdomen soft, non-tender, nondistended. Hepatic and splenic margins not palpable. MUSCULOSKELETAL: Right knee iced, tender, otherwise other extremities without clubbing, cyanosis, or edema. No obvious deformities. NEUROLOGICAL: Awake and alert. No obvious cranial nerve deficits. Motor grossly within normal limits. Five out of 5 muscle strength in the arms and legs. Normal speech. Results - Labs CBC & Chem 7: 03/27/18 13:59 03/27/18 13:59 Laboratory Results - last 24 hr 03/27/18 03/27/18 13:59 13:59 WBC 7.4 RBC 5.00 Hgb 15.0 Hct 45.0 MCV 90.0 MCH 30.0 MCHC 33.4 RDW 12.1 Plt Count 189 MPV 10.3 Sodium 137 Potassium 4.0 Chloride 101 Carbon Dioxide 30.6 Anion Gap 5 BUN 12 Creatinine 0.71 Estimated GFR Greater than 89 Random Glucose 106 Calcium 8.8 Total Bilirubin 0.4 AST 92 H ALT 95 H Alkaline Phosphatase 128 H Total Protein 7.4 Albumin 3.2 L Assessment and Plan - Assessment (1) Hemarthrosis Code(s): M25.00 - Hemarthrosis, unspecified joint Status: Acute Plan: Continue current treatment plan, hematology following secondary to hemophilia B (2) Hemophilia B in male 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
--- NOTE | 2018-03-28 17:26 | P.PNONC ---
Subjective Interval history: Patient seen and examined, vital signs, labs, medications reviewed. Factor IX dosing schedule also reviewed. Subjective; patient reports continued pain and swelling of the right knee. He tells me he thinks the bleeding continues. Objective Vital Signs/Intake & Output: Vital Signs 03/27/18 20:00 03/28/18 00:00 03/28/18 04:00 Temperature 96.9 F L 97.6 F 96.8 F L Pulse Rate 74 67 53 L Respiratory Rate 20 20 20 Blood Pressure 123/91 H 151/96 H 128/86 Pulse Oximetry 96 97 97 03/28/18 08:00 03/28/18 08:52 03/28/18 12:00 Temperature 96.4 F L 97.1 F L Pulse Rate 60 59 L Respiratory Rate 16 18 17 Blood Pressure 144/96 H 134/91 H Pulse Oximetry 98 96 Intake & Output 03/27/18 03/28/18 03/28/18 18:59 06:59 18:59 Intake Total 1140 / 1140 600 / 600 300 / 300 Output Total 1800 / 1800 725 / 725 Balance -660 / -660 -125 / -125 300 / 300 Weight 111.7 kg Intake: Oral 1140 / 1140 600 / 600 300 / 300 Output: Urine 1800 / 1800 725 / 725 Other: # Voids 1 1 Date of Last Bowel Movement 03/25/18 03/28/18 # Bowel Movements 1 Result Diagrams: 03/27/18 13:59 03/27/18 13:59 Medications: Active Medications Generic Name Dose Route Start Last Admin Trade Name Freq PRN Reason Stop Dose Admin Methadone HCl 190 mg 03/26/18 09:00 03/28/18 08:22 Dolophine PO 190 mg DAILY NASIR Administration Nicotine 1 patch 03/25/18 18:00 03/28/18 08:22 Habitrol 21 Mg Patch.24 Hr T-DERMAL 1 patch DAILY NASIR Administration Objective Remarks: GENERAL: Young man, sitting up in bed, appears to be no acute distress, he is awake, alert and oriented.. SKIN: Warm and dry. Scattered bruising over the upper extremity. HEAD: Normocephalic. EYES: No scleral icterus. No injection or drainage. NECK: Supple, trachea midline. No JVD or lymphadenopathy. LYMPHATIC: No adenopathy. CARDIOVASCULAR: Regular rate and rhythm without murmurs. RESPIRATORY: Breath sounds equal bilaterally. No accessory muscle use. GASTROINTESTINAL: Abdomen soft, non-tender, nondistended. EXTREMITIES: Right knee is bandaged, has a cool compressive pack on the right knee. MUSCULOSKELETAL: Adequate muscle tone. NEUROLOGICAL: No obvious focal deficit. Awake, alert, and oriented x3. PSYCHIATRIC: Appropriate mood and affect; insight and judgment normal. 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 His mother tells me that at the age of 5 he developed a factor IX inhibitor and required bypassing agents. She tells me the inhibitor spontaneously resolved when he was about 8 years old. The patient had been on regular factor replacement until he lost his insurance, she tells me he got "in trouble "lost his insurance about 5 years ago. 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 Prior to this admission he bumped his right knee on a table and since then has had swelling and pain. Over the course of this hospitalization he has received BeneFIX dosing ranging from 6000 units 2000 units almost on a daily basis. 1. 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 He has received Benefix on 03/25 (2 doses of 2000 units) and 03/26 (one dose of 6000 units) initial factor ( level is pending. Will give repeat dose of benefix 2000 units. Spoke to the pharmacist in the [place] pharmacy at 5:23 PM, I have ordered BeneFIX 6000 units 1 tonight. Pharmacist has informed me the medication will be sent in from [facility] in [facility] and this may not be available until 7 PM. I will reevaluate the patient on 03/29/2018 to determine if he needs additional dosing. Subjectively; patient thinks he is getting a little bit better but still feels the bleeding continues. 2. Hemophilia B: history of severe hemophilia. Previously followed with physician at [facility]. He has been unable to follow up due to insurance issues. Will need to have close follow up in [facility] with Dr. Fragoso on hospital discharge.
[2018-03-28] MEDS ORDERED: FACTOR IX COMPLEX HUMAN 2000 UNIT IV.PUSH ONE (20:00)
--- NOTE | 2018-03-29 08:21 | P.PNONC ---
Subjective Interval history: Patient seen and examined, vital signs, labs, medications and overnight events reviewed. Patient received BeneFIX infusion last night, he tells me his right knee feels much improved. He tells me he feels close to being ready to go home, he thinks 1 additional dose of BeneFIX will help him. He is requesting crutches to help him ambulate. He also knows to contact our office early on in the week to establish outpatient follow-up. Objective Vital Signs/Intake & Output: Vital Signs 03/28/18 08:52 03/28/18 12:00 03/28/18 16:00 Temperature 97.1 F L 97.2 F L Pulse Rate 59 L 71 Respiratory Rate 18 17 17 Blood Pressure 134/91 H 137/91 H Pulse Oximetry 96 96 03/28/18 20:00 03/29/18 00:00 03/29/18 04:00 Temperature 97.4 F L 96.4 F L 96 F L Pulse Rate 62 54 L 52 L Respiratory Rate 20 20 18 Blood Pressure 132/86 135/93 H 107/63 Pulse Oximetry 98 97 96 Intake & Output 03/28/18 03/29/18 03/29/18 18:59 06:59 18:59 Intake Total 300 / 300 360 / 360 Output Total 175 / 175 Balance 300 / 300 185 / 185 Weight 112 kg Intake: Oral 300 / 300 360 / 360 Output: Urine 175 / 175 Other: # Voids 1 2 Date of Last Bowel Movement 03/28/18 # Bowel Movements 1 Result Diagrams: 03/27/18 13:59 03/27/18 13:59 Medications: Active Medications Generic Name Dose Route Start Last Admin Trade Name Marcia PRN Reason Stop Dose Admin Methadone HCl 190 mg 03/26/18 09:00 03/28/18 08:22 Dolophine PO 190 mg DAILY NASIR Administration Nicotine 1 patch 03/25/18 18:00 03/28/18 08:22 Habitrol 21 Mg Patch.24 Hr T-DERMAL 1 patch DAILY NASIR Administration Objective Remarks: GENERAL: Young man, sitting up in bed, appears to be no acute distress, he has finished eating breakfast.. SKIN: Warm and dry. HEAD: Normocephalic. EYES: No scleral icterus. No injection or drainage. NECK: Supple, trachea midline. No JVD or lymphadenopathy. LYMPHATIC: No adenopathy. CARDIOVASCULAR: Regular rate and rhythm without murmurs. RESPIRATORY: Breath sounds equal bilaterally. No accessory muscle use. GASTROINTESTINAL: Abdomen soft, non-tender, nondistended. EXTREMITIES: No cyanosis, or edema. MUSCULOSKELETAL: Right knee slightly swollen, slightly tender, in a circulating cooling pack, improved joint range of motion of the right knee. NEUROLOGICAL: No obvious focal deficit. Awake, alert, and oriented x3. PSYCHIATRIC: Appropriate mood and affect; insight and judgment normal. 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 His mother tells me that at the age of 5 he developed a factor IX inhibitor and required bypassing agents. She tells me the inhibitor spontaneously resolved when he was about 8 years old. The patient had been on regular factor replacement until he lost his insurance, she tells me he got "in trouble "lost his insurance about 5 years ago. Since then he has not been able to follow-up with a [employer] and has not had the insurance to cover the cost of factor replacement therapy. Prior to this admission he bumped his right knee on a table and since then has had swelling and pain. Over the course of this hospitalization he has received BeneFIX dosing ranging from 6000 units 2000 units almost on a daily basis. 1. Hemophilia B, factor IX level less than 1%. Had previously been on regular factor replacement but due to loss of insurance he had not been able to infuse factor. Had minor trauma to the right knee and subsequent hemarthrosis. Has been in the hospital receiving intravenous factor IX replacement. Clinically improved over the past 24 hours, he feels well enough to go home later today. He is requesting 1 additional dose of BeneFIX prior to being discharged. He is also requested crutches which I have ordered. Infuse BeneFIX 2000 units IV 1. Ordered. Crutches also ordered. Clear for discharge from hematology standpoint once he receives BeneFIX infusion today. Patient is to contact oncology office to establish outpatient follow-up with Dr. Fragoso.
[2018-03-29] MEDS: Methadone 10 MG Tablet PO SCH (08:27)
--- NOTE | 2018-03-29 12:15 | P.DS ---
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 Over time following his injury the knee became more more swollen and tender. It is currently exquisitely tender showing ecchymotic roll changer the kneecap. He reports he acquired hepatitis C as a child after undergoing multiple blood transfusions for his disorder. A few years ago he was receiving factor IX via IV at home for episodes such as this. But after becoming incarcerated he has lost his Medicaid benefits and can no longer afford to have this transfusion at home due to cast pay status. The factor IX transfusion is named BeneFIX. 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 Patient did improve and was discharged home. He was seen in consultation by hematology services recommended for outpatient follow-up which he had lacked since his insurance status changed. - Time Spent with Patient Total time spent providing and/or coordinating discharge services: Less than 30 minutes - Quality: VTE Deep Vein Thrombosis/Pulmonary Embolism Present on Admission: No Exam Vital signs: Vital Signs 03/28/18 16:00 03/28/18 20:00 03/29/18 00:00 Temperature 97.2 F L 97.4 F L 96.4 F L Pulse Rate 71 62 54 L Respiratory Rate 17 20 20 Blood Pressure 137/91 H 132/86 135/93 H Pulse Oximetry 96 98 97 03/29/18 04:00 03/29/18 08:00 Temperature 96 F L 97.2 F L Pulse Rate 52 L 68 Respiratory Rate 18 20 Blood Pressure 107/63 133/89 Pulse Oximetry 96 Intake & Output 03/28/18 03/29/18 03/29/18 18:59 06:59 18:59 Intake Total 300 / 300 360 / 360 Output Total 175 / 175 Balance 300 / 300 185 / 185 Weight 112 kg Intake: Oral 300 / 300 360 / 360 Output: Urine 175 / 175 Other: # Voids 1 2 Date of Last Bowel Movement 03/28/18 # Bowel Movements 1 Narrative: GENERAL: Patient calm resting and without complaints SKIN: Warm and dry. No rashes or ecchymotic injuries EYES: Pupils equal and round. No scleral icterus. No injection or drainage. ENT: External ear exam normal. No acute nasal bleeding or discharge. Mucous membranes pink and moist. CARDIOVASCULAR: Regular rate and rhythm. No murmurs gallops or rubs appreciated RESPIRATORY: Good air flow and effort without accessory muscle use. Clear to auscultation. Breath sounds equal bilaterally. GASTROINTESTINAL: Abdomen soft, non-tender, nondistended. Hepatic and splenic margins not palpable. MUSCULOSKELETAL: Right knee decreased swelling, other 3 extremities without clubbing, cyanosis, or edema. No obvious deformities. NEUROLOGICAL: Awake and alert. No obvious cranial nerve deficits. Motor grossly within normal limits. Five out of 5 muscle strength in the arms and legs. Normal speech. Results Procedures completed during hospitalization: None - Impressions ITS Impressions Knee X-Ray 03/25/18 12:08 CONCLUSION: 1. No acute fracture or joint dislocation. 2. Small joint effusion. Discharge Plan - Discharge Disposition Patient Disposition: 01 Discharge Home - Discharge Condition Condition: Stable - Discharge Order Discharge Orders: Discharge Order (Routine); Ordered 03/29/18 Ordered By: Leticia Childress - Discharge Details Anticipated Discharge Date: 03/29/18 Discharge Comment: after therapy completed - Physicians Team Primary Care Provider: Primary Care Physici,No Attending Provider: Leticia Childress Other Providers: Mariya Fragoso MD
[2018-03-29] MEDS ORDERED: FACTOR IX COMPLEX HUMAN 2000 UNIT IV.PUSH ONE (12:30)
== END 2018-03-29 13:03 | disposition home or self-care (01) ==
LOC: PHEDA 11:27 → PHED 11:27 → PH3 11:27
PROVIDERS: ADMIT Hospitalist; ATTEND Hospitalist

== ENCOUNTER 2018-04-08 16:29 | Inpatient (IN) ==
[2018-04-08] MEDS ORDERED: HYDROmorphone PF Inj 1 MG/ML Ampul IV.PUSH ONE (16:54)
[2018-04-08 17:20] LABS: Hematocrit 49.9 % (39.0-51.0); Hemoglobin 16.8 gm/dL (13.0-17.0); Mean Corpuscular HGB Conc 33.7 % (32.0-36.0); Mean Corpuscular Hemoglobin 30.6 pg (27.0-34.0); Mean Corpuscular Volume 90.9 fL (80.0-100.0); Mean Platelet Volume 9.8 fL (7.0-11.0); Platelet Count 223 th/mm3 (150-450); Red Blood Count 5.49 mil/mm3 (4.50-5.90); Red Cell Distribution Width 12.5 % (11.6-17.2); White Blood Count 15.2 th/mm3 (4.0-11.0)
[2018-04-08 17:28] LABS: Chloride 98 meq/L (98-107); Potassium 3.5 meq/L (3.5-5.1); Sodium 136 meq/L (136-145)
[2018-04-08 17:33] LABS: Activated Partial Thrombo Time 32.4 sec (24.3-30.1); INR 1.1 Ratio; Prothrombin Time 11.5 sec (9.8-11.6)
[2018-04-08 17:37] LABS: Alanine Aminotransferase 81 U/L (12-78); Albumin 4.2 g/dL (3.4-5.0); Anion Gap 9 meq/L (5-15); Aspartate Aminotransferase 73 U/L (15-37); Blood Urea Nitrogen 12 mg/dL (7-18); Calcium 9.9 mg/dL (8.5-10.1); Carbon Dioxide 28.7 meq/L (21.0-32.0); Glomerular Filtration Rate 67 mL/min (>89); Glucose,Random 140 mg/dL (74-106)
[2018-04-08] MEDS ORDERED: Vancomycin Inj 1,500 MG in Sodium Chlor 0.9% Inj 500 ML IV.SIG ONE (17:42)
[2018-04-08] MEDS ORDERED: HYDROmorphone PF Inj 2 MG/ML Vial IV.PUSH ONE ×3 (17:45→21:53)
[2018-04-08 17:48] LABS: Lymphocytes 24 % (9-44); Monocytes 11 % (0-8); RBC Morphology Normal (Normal)
[2018-04-08 17:49] LABS: Platelet Estimate Normal (Normal); Platelet Morphology Normal (Normal)
[2018-04-08 17:59] LABS: Alkaline Phosphatase 103 U/L (45-117); Total Protein 9.4 g/dL (6.4-8.2)
[2018-04-08 18:09] LABS: Bilirubin,Urine Negative (Negative); Clarity,Urine Clear (Clear); Glucose,Urine (UA) Negative (Negative); Leukocyte Esterase,Urine Trace (Negative); Nitrite,Urine Positive (Negative)
[2018-04-08 18:10] LABS: Color,Urine Orange (Yellw/Straw)
[2018-04-08 18:18] LABS: Hyaline Casts,Urine 0-3 /lpf (0-3)
[2018-04-08 18:48] LABS: Amphetamine Screen,Urine Neg (Neg); Barbiturate Screen,Urine Neg (Neg)
[2018-04-08 18:49] LABS: Cannabinoid Screen,Urine Pos (Neg); Cocaine Screen,Urine Neg (Neg)
[2018-04-08 18:58] LABS: Opiate Screen,Urine Neg (Neg)
--- NOTE | 2018-04-08 19:11 | ED ---
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 He was seen here 2 days ago with a complaint of right elbow pain and swelling. Hemarthrosis in the past effectively responded to BeneFIX and he received BeneFIX two days prior in the ED and he has no elbow related complaints today. During that evaluation however the patient developed pain in the lower thoracic back fairly abruptly. He had not experienced similar pain previously. Patient became somewhat restless and after multiple doses of IV hydromorphone the pain was controlled. Imaging was added on and blood work at that time was grossly unremarkable. There was no fecal or urinary incontinence or numbness or tingling in the saddle distribution. Patient remained ambulatory throughout his stay then. He returns today with urinary retention and severe lower thoracic back pain. Inability to urinate first noted yesterday evening and has been constant since. Laying flat worsens pain. No LOC or headache. No numbness/ tingling/weakness. Complaint: other (inability to urinate) Onset (ago): day(s) (1) Duration: constant Location: abdomen (pelvis distribution) Severity: moderate Relieving factors: none Exacerbating factors: movement other (hx hemophilia) Related Data Home Medications Medication Instructions Recorded Confirmed methadone 190 mg PO DAILY 04/08/18 04/08/18 Allergies Allergy/AdvReac Type Severity Reaction Status Date / Time amoxicillin Allergy Severe Hives Verified 04/08/18 16:39 aspirin AdvReac Severe Has Verified 04/08/18 16:39 hemophilia Review of Systems ROS: all other systems reviewed are negative (unless otherwise documented in HPI ) PMFSH Social History Social History Substance History: No History of Abuse Second Hand Smoke Exposure: Yes Smoking Status: Current every day smoker Tobacco Type: Cigarettes How Often Do You Have a Drink Containing Alcohol: Never Recent Travel in [facility] within the Last 8 Weeks: No Recent Out of Country Travel within the Last 8 Weeks: No Exam Narrative Exam Narrative: GENERAL: 42-year-old male, well-nourished well-developed, moderate distress secondary to pain SKIN: Focused skin assessment warm/dry. HEAD: Atraumatic. Normocephalic. EYES: Pupils equal and round. No scleral icterus. No injection or drainage. ENT: No nasal bleeding or discharge. Mucous membranes pink and moist. NECK: Trachea midline. No JVD. CARDIOVASCULAR: Regular rate and rhythm. No murmur appreciated. RESPIRATORY: No accessory muscle use. Clear to auscultation. Breath sounds equal bilaterally. GASTROINTESTINAL: There is suprapubic fullness consistent with retained urine. MUSCULOSKELETAL: There is tenderness in the parathoracic musculature. There is no focal spinal tenderness. The patient is ambulatory. No gross deformity. No evidence of hemarthrosis. NEUROLOGICAL: The patient is ambulatory here. Lower extremity motor function active is normal. PSYCHIATRIC: Appropriate mood and affect; insight and judgment normal. Course Initial Documented Vital Signs Temperature 98.2 F 04/08/18 16:36 Pulse Rate 75 04/08/18 16:36 Respiratory Rate 20 04/08/18 16:36 Blood Pressure 178/95 H 04/08/18 16:36 Pulse Oximetry 97 04/08/18 16:36 Last Documented Vital Signs Temperature 99.4 F 04/13/18 04:00 Pulse Rate 53 L 04/13/18 04:00 Respiratory Rate 18 04/13/18 09:30 Blood Pressure 147/82 H 04/13/18 04:00 Pulse Oximetry 96 04/13/18 07:00 Critical Care Time Critical Care Time: Yes Total Critical Care Time: 45 Attestation: Aggregate critical care time was 45 minutes. Time to perform other separately billable procedures was not included in the critical care time. My time did not include minutes spent treating any other patients simultaneously or on activities that did not directly contribute to the patient's treatment. The services I provided to this patient were to treat and/or prevent clinically significant deterioration that could result in: [Permanent disability and or -] I provided critical care services requiring my management, as noted below: Chart data review, documentation time, medication orders and management, vital sign assessments/reviewing monitor data, ordering and reviewing lab tests, ordering and interpreting/reviewing x-rays and diagnostic studies, care of the patient and discussion of the patient with the admitting physicians. Case discussed in detail with neurosurgeon Dr. Varela, employee development specialist Dr. Marroquin, transferred emergently, benefix ordered and blood bank called to ensure its transfusion beau Sign Out Sign Out Data: Patient Sign Out occurred on 04/08/18 at 19:05. Patient's care was discussed, and care was transferred from Kumar Black MD to Allen Perez. 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 He was seen here 2 days ago with a complaint of right elbow pain and swelling. Hemarthrosis in the past effectively responded to BeneFIX and he received BeneFIX then and he has no elbow related complaints today. During that evaluation however the patient developed pain in the lower thoracic back fairly abruptly. He had not experienced similar pain previously. Patient became somewhat restless and after multiple doses of IV hydromorphone the pain was controlled. Imaging was added on and blood work at that time was grossly unremarkable. There was no fecal urinary incontinence or numbness or tingling in the saddle distribution. Patient remained ambulatory throughout his stay then. He returns today with urinary retention and severe lower thoracic back pain. On exam the tenderness is in the parathoracic musculature bilaterally. Patient remains ambulatory there is no focal neurologic deficit. We see a leukocytosis which is new and there is a mild elevation in CRP. UTI is also present. Rocephin and Vanco started. Blood cultures drawn. MR studies of the cervical thoracic and lumbar spine ordered with and without contrast. There is concern for epidural abscess, hematoma or a nonspecific cord compromise. The patient has required multiple doses of IV hydromorphone here. He takes 190 mg of methadone daily. He has been taking his methadone over the past few days as he normally does. Disposition pending MR imaging with low threshold to admit per your discretion. Call me if you have any questions. Thank you Last updated by Kumar Black MD at 04/08/18 18:51 Post-Handoff Eval: On evaluation and interpretation of the CBC there is leukocytosis of 15,000 normal platelet count no anemia currently a manual differential is pending... At 2035 after reviewing the differential there was no left shift, therefore this leukocytosis is most likely reactive in nature rather than secondary to an infection. Patient's coagulation has some APTT that is slightly elevated at 32 but this is expected with the patient's baseline disease Electrolytes are within normal limits with the exception of a slightly elevated random glucose of 140, there is also slight elevation of the C-reactive protein not truly significant based on value as it is only 0.31. LFTs AST of 73 ALT of 81 but with normal alk phos. On review CT abdomen pelvis done and read by radiologist on April 06 just 2 days ago it was read as no acute findings, 1.5 cm left adrenal adenoma, small fat-containing umbilical hernia, no bowel obstruction free fluid or free air. Tox screen is positive for marijuana and benzo use Currently the patient is awaiting his MRI of spine---at 0: MRI cervical spine read as entire intact cervical spinal epidural hematoma minimal degenerative changes no foraminal or spinal stenosis per radiology report MRI thoracic read by radiologist as a mass present in the anterior aspect of the epidural space from T5-T9 masses 0.8 x 1.6 cm in greatest transaxial dimension and 8.8 cm in length there is associated moderate severity spinal stenosis. MRI lumbar a reported by radiologist as intact lumbar spine no epidural hematoma mild degenerative changes at L3-L4 L4-L5 as described. Discharge Plan Discharge Disposition Patient Disposition: 30 Still Patient Discharge Condition Condition: Fair Discharge Details Diagnosis: Factor IX hemophilia, Epidural hematoma Physicians Team ED Provider: Allen Perez Primary Care Provider: Primary Care Patricia Vicente Attending Provider: Chiki Sierra Other Providers: Jassi Varela ; Mariya Fragoso Status ED Status: Left Department Discharge Information Discharge Date/Time: 04/08/18 23:31 Medical Decision Making Lab Data Lab results reviewed: Yes I reviewed the patient's lab results. Result diagrams: 04/13/18 04:15 04/13/18 04:15 Lab Results 04/08/18 04/08/18 04/08/18 Range/Units 17:05 17:05 17:05 CBC w Diff Manual diff required WBC 15.2 H (4.0-11.0) th/mm3 RBC 5.49 (4.50-5.90) mil/mm3 Hgb 16.8 (13.0-17.0) gm/dL Hct 49.9 (39.0-51.0) % MCV 90.9 (80.0-100.0) fL MCH 30.6 (27.0-34.0) pg MCHC 33.7 (32.0-36.0) % RDW 12.5 (11.6-17.2) % Plt Count 223 D (150-450) th/mm3 MPV 9.8 (7.0-11.0) fL Neut % (Auto) (16.0-70.0) % Lymph % (Auto) (9.0-44.0) % [place] % (Auto) (0.0-8.0) % Eos % (Auto) (0.0-4.0) % Baso % (Auto) (0.0-2.0) % Neut # (Auto) (1.8-7.7) th/mm3 Lymph # (Auto) (1.0-4.8) th/mm3 [place] # (Auto) (0.0-0.9) th/mm3 Eos # (Auto) (0.0-0.4) th/mm3 Baso # (Auto) (0.0-0.2) th/mm3 WBC Differential Manual diff final Seg Neuts % (Manual) 63 (16-70) % Lymphocytes % (Manual) 24 (9-44) % Monocytes % (Manual) 11 H (0-8) % Basophils % (Manual) 2 (0-2) % Abs Neuts (Manual) 9.6 H (1.8-7.7) th/mm3 Differential Comment . Platelet Estimate Normal (Normal) Platelet Morphology Normal (Normal) RBC Morphology Normal (Normal) ESR (0-15) mm/hr PT (9.8-11.6) sec INR Ratio APTT (24.3-30.1) sec Factor Inhibitor Screen Puncture Site Patient Temperature O2 Saturation (90-100) % ABG pH (7.380-7.420) ABG pCO2 (38-42) mmHg ABG pO2 (61-120) mmHG ABG HCO3 (22-26) mmol/L ABG O2 Content (12.0-20.0) Vol % ABG Base Excess (-2-2) mmol/L ABG Methemoglobin (0-2) % Hemoglobin (12.0-16.0) G/DL Carboxyhemoglobin (0-4) % O2 Delivery Device Vent Setting Inspired O2 % Critical Value Sodium 136 (136-145) meq/L Potassium 3.5 (3.5-5.1) meq/L Chloride 98 (98-107) meq/L Carbon Dioxide 28.7 (21.0-32.0) meq/L Anion Gap 9 (5-15) meq/L BUN 12 (7-18) mg/dL Creatinine 1.20 (0.60-1.30) mg/dL Estimated GFR 67 L (>89) mL/min Random Glucose 140 H (74-106) mg/dL Calcium 9.9 (8.5-10.1) mg/dL Phosphorus (2.5-4.9) mg/dL Magnesium (1.5-2.5) mg/dL Total Bilirubin 1.2 H (0.2-1.0) mg/dL Direct Bilirubin (0.0-0.2) mg/dL Indirect Bilirubin (0.0-0.8) mg/dL AST 73 H (15-37) U/L ALT 81 H (12-78) U/L Alkaline Phosphatase 103 (45-117) U/L C-Reactive Protein 0.31 H (0.00-0.30) mg/dL Total Protein 9.4 H (6.4-8.2) g/dL Albumin 4.2 (3.4-5.0) g/dL Urine Color (Yellw/Straw) Urine Clarity (Clear) Urine pH (5.0-8.5) Ur Specific [place] (1.002-1.035) Urine Protein (Neg-Trace) mg/dL Urine Glucose (UA) (Negative) mg/dL Urine Ketones (Negative) mg/dL Urine Occult Blood (Negative) Urine Nitrate (Negative) Urine Bilirubin (Negative) Urine Urobilinogen (Less than 2) mg/dL Ur Leukocyte Esterase (Negative) Urine RBC (0-3) /hpf Urine WBC (0-5) /hpf Hyaline Casts (0-3) /lpf Micro UA Comment Urine Culture Comments Nasal Screen MRSA (PCR) (Negative) Urine Opiates Screen (Neg) Ur Barbiturates Screen (Neg) Ur Amphetamines Screen (Neg) U Benzodiazepines Scrn (Neg) Urine Cocaine Screen (Neg) U Cannabinoids Screen (Neg) Blood Type Blood Type Recheck Antibody Screen MTS Gel Crossmatch 04/08/18 04/08/18 04/08/18 Range/Units 17:05 18:06 18:06 CBC w Diff WBC (4.0-11.0) th/mm3 RBC (4.50-5.90) mil/mm3 Hgb (13.0-17.0) gm/dL Hct (39.0-51.0) % MCV (80.0-100.0) fL MCH (27.0-34.0) pg MCHC (32.0-36.0) % RDW (11.6-17.2) % Plt Count (150-450) th/mm3 MPV (7.0-11.0) fL Neut % (Auto) (16.0-70.0) % Lymph % (Auto) (9.0-44.0) % [place] % (Auto) (0.0-8.0) % Eos % (Auto) (0.0-4.0) % Baso % (Auto) (0.0-2.0) % Neut # (Auto) (1.8-7.7) th/mm3 Lymph # (Auto) (1.0-4.8) th/mm3 [place] # (Auto) (0.0-0.9) th/mm3 Eos # (Auto) (0.0-0.4) th/mm3 Baso # (Auto) (0.0-0.2) th/mm3 WBC Differential Seg Neuts % (Manual) (16-70) % Lymphocytes % (Manual) (9-44) % Monocytes % (Manual) (0-8) % Basophils % (Manual) (0-2) % Abs Neuts (Manual) (1.8-7.7) th/mm3 Differential Comment Platelet Estimate (Normal) Platelet Morphology (Normal) RBC Morphology (Normal) ESR (0-15) mm/hr PT 11.5 (9.8-11.6) sec INR 1.1 Ratio APTT 32.4 H (24.3-30.1) sec Factor Inhibitor Screen Puncture Site Patient Temperature O2 Saturation (90-100) % ABG pH (7.380-7.420) ABG pCO2 (38-42) mmHg ABG pO2 (61-120) mmHG ABG HCO3 (22-26) mmol/L ABG O2 Content (12.0-20.0) Vol % ABG Base Excess (-2-2) mmol/L ABG Methemoglobin (0-2) % Hemoglobin (12.0-16.0) G/DL Carboxyhemoglobin (0-4) % O2 Delivery Device Vent Setting Inspired O2 % Critical Value Sodium (136-145) meq/L Potassium (3.5-5.1) meq/L Chloride (98-107) meq/L Carbon Dioxide (21.0-32.0) meq/L Anion Gap (5-15) meq/L BUN (7-18) mg/dL Creatinine (0.60-1.30) mg/dL Estimated GFR (>89) mL/min Random Glucose (74-106) mg/dL Calcium (8.5-10.1) mg/dL Phosphorus (2.5-4.9) mg/dL Magnesium (1.5-2.5) mg/dL Total Bilirubin (0.2-1.0) mg/dL Direct Bilirubin (0.0-0.2) mg/dL Indirect Bilirubin (0.0-0.8) mg/dL AST (15-37) U/L ALT (12-78) U/L Alkaline Phosphatase (45-117) U/L C-Reactive Protein (0.00-0.30) mg/dL Total Protein (6.4-8.2) g/dL Albumin (3.4-5.0) g/dL Urine Color [place] H (Yellw/Straw) Urine Clarity Clear (Clear) Urine pH 6.0 (5.0-8.5) Ur Specific [place] 1.010 (1.002-1.035) Urine Protein 30 H (Neg-Trace) mg/dL Urine Glucose (UA) Negative (Negative) mg/dL Urine Ketones Negative (Negative) mg/dL Urine Occult Blood Negative (Negative) Urine Nitrate Positive H (Negative) Urine Bilirubin Negative (Negative) Urine Urobilinogen 1.0 (Less than 2) mg/dL Ur Leukocyte Esterase Trace H (Negative) Urine RBC 4-15 H (0-3) /hpf Urine WBC 6-8 H (0-5) /hpf Hyaline Casts 0-3 (0-3) /lpf Micro UA Comment Culture indicated Urine Culture Comments Culture indicated Nasal Screen MRSA (PCR) (Negative) Urine Opiates Screen Neg (Neg) Ur Barbiturates Screen Neg (Neg) Ur Amphetamines Screen Neg (Neg) U Benzodiazepines Scrn Pos H (Neg) Urine Cocaine Screen Neg (Neg) U Cannabinoids Screen Pos H (Neg) Blood Type Blood Type Recheck Antibody Screen MTS Gel Crossmatch 04/08/18 04/09/18 04/09/18 Range/Units 22:25 00:08 01:45 CBC w Diff WBC (4.0-11.0) th/mm3 RBC (4.50-5.90) mil/mm3 Hgb (13.0-17.0) gm/dL Hct (39.0-51.0) % MCV (80.0-100.0) fL MCH (27.0-34.0) pg MCHC (32.0-36.0) % RDW (11.6-17.2) % Plt Count (150-450) th/mm3 MPV (7.0-11.0) fL Neut % (Auto) (16.0-70.0) % Lymph % (Auto) (9.0-44.0) % [place] % (Auto) (0.0-8.0) % Eos % (Auto) (0.0-4.0) % Baso % (Auto) (0.0-2.0) % Neut # (Auto) (1.8-7.7) th/mm3 Lymph # (Auto) (1.0-4.8) th/mm3 [place] # (Auto) (0.0-0.9) th/mm3 Eos # (Auto) (0.0-0.4) th/mm3 Baso # (Auto) (0.0-0.2) th/mm3 WBC Differential Seg Neuts % (Manual) (16-70) % Lymphocytes % (Manual) (9-44) % Monocytes % (Manual) (0-8) % Basophils % (Manual) (0-2) % Abs Neuts (Manual) (1.8-7.7) th/mm3 Differential Comment Platelet Estimate (Normal) Platelet Morphology (Normal) RBC Morphology (Normal) ESR 4 (0-15) mm/hr PT 12.0 H (9.8-11.6) sec INR 1.2 Ratio APTT 28.5 (24.3-30.1) sec Factor Inhibitor Screen Puncture Site Patient Temperature O2 Saturation (90-100) % ABG pH (7.380-7.420) ABG pCO2 (38-42) mmHg ABG pO2 (61-120) mmHG ABG HCO3 (22-26) mmol/L ABG O2 Content (12.0-20.0) Vol % ABG Base Excess (-2-2) mmol/L ABG Methemoglobin (0-2) % Hemoglobin (12.0-16.0) G/DL Carboxyhemoglobin (0-4) % O2 Delivery Device Vent Setting Inspired O2 % Critical Value Sodium (136-145) meq/L Potassium (3.5-5.1) meq/L Chloride (98-107) meq/L Carbon Dioxide (21.0-32.0) meq/L Anion Gap (5-15) meq/L BUN (7-18) mg/dL Creatinine (0.60-1.30) mg/dL Estimated GFR (>89) mL/min Random Glucose (74-106) mg/dL Calcium (8.5-10.1) mg/dL Phosphorus (2.5-4.9) mg/dL Magnesium (1.5-2.5) mg/dL Total Bilirubin (0.2-1.0) mg/dL Direct Bilirubin (0.0-0.2) mg/dL Indirect Bilirubin (0.0-0.8) mg/dL AST (15-37) U/L ALT (12-78) U/L Alkaline Phosphatase (45-117) U/L C-Reactive Protein (0.00-0.30) mg/dL Total Protein (6.4-8.2) g/dL Albumin (3.4-5.0) g/dL Urine Color (Yellw/Straw) Urine Clarity (Clear) Urine pH (5.0-8.5) Ur Specific [place] (1.002-1.035) Urine Protein (Neg-Trace) mg/dL Urine Glucose (UA) (Negative) mg/dL Urine Ketones (Negative) mg/dL Urine Occult Blood (Negative) Urine Nitrate (Negative) Urine Bilirubin (Negative) Urine Urobilinogen (Less than 2) mg/dL Ur Leukocyte Esterase (Negative) Urine RBC (0-3) /hpf Urine WBC (0-5) /hpf Hyaline Casts (0-3) /lpf Micro UA Comment Urine Culture Comments Nasal Screen MRSA (PCR) Not detected (Negative) Urine Opiates Screen (Neg) Ur Barbiturates Screen (Neg) Ur Amphetamines Screen (Neg) U Benzodiazepines Scrn (Neg) Urine Cocaine Screen (Neg) U Cannabinoids Screen (Neg) Blood Type Blood Type Recheck Antibody Screen MTS Gel Crossmatch 04/09/18 04/09/18 04/09/18 Range/Units 01:45 01:45 14:23 CBC w Diff WBC 12.0 H (4.0-11.0) th/mm3 RBC 5.05 (4.50-5.90) mil/mm3 Hgb 15.6 (13.0-17.0) gm/dL Hct 45.4 (39.0-51.0) % MCV 89.9 (80.0-100.0) fL MCH 30.8 (27.0-34.0) pg MCHC 34.3 (32.0-36.0) % RDW 13.4 (11.6-17.2) % Plt Count 179 (150-450) th/mm3 MPV 9.9 (7.0-11.0) fL Neut % (Auto) 61.1 (16.0-70.0) % Lymph % (Auto) 27.1 (9.0-44.0) % [place] % (Auto) 10.7 H (0.0-8.0) % Eos % (Auto) 0.2 (0.0-4.0) % Baso % (Auto) 0.9 (0.0-2.0) % Neut # (Auto) 7.4 (1.8-7.7) th/mm3 Lymph # (Auto) 3.3 (1.0-4.8) th/mm3 [place] # (Auto) 1.3 H (0.0-0.9) th/mm3 Eos # (Auto) 0.0 (0.0-0.4) th/mm3 Baso # (Auto) 0.1 (0.0-0.2) th/mm3 WBC Differential . Seg Neuts % (Manual) (16-70) % Lymphocytes % (Manual) (9-44) % Monocytes % (Manual) (0-8) % Basophils % (Manual) (0-2) % Abs Neuts (Manual) (1.8-7.7) th/mm3 Differential Comment Auto diff final Platelet Estimate (Normal) Platelet Morphology (Normal) RBC Morphology (Normal) ESR (0-15) mm/hr PT (9.8-11.6) sec INR Ratio APTT (24.3-30.1) sec Factor Inhibitor Screen Puncture Site Art line Patient Temperature 98.6 O2 Saturation 96 (90-100) % ABG pH 7.47 H (7.380-7.420) ABG pCO2 32 L (38-42) mmHg ABG pO2 206 H (61-120) mmHG ABG HCO3 23 (22-26) mmol/L ABG O2 Content 17.4 (12.0-20.0) Vol % ABG Base Excess 0.0 (-2-2) mmol/L ABG Methemoglobin 1.5 (0-2) % Hemoglobin 12.5 (12.0-16.0) G/DL Carboxyhemoglobin 1.5 (0-4) % O2 Delivery Device Ventilator Vent Setting See or chart Inspired O2 50 % Critical Value No Sodium 141 (136-145) meq/L Potassium 3.2 L (3.5-5.1) meq/L Chloride 105 (98-107) meq/L Carbon Dioxide 28.0 (21.0-32.0) meq/L Anion Gap 8 (5-15) meq/L BUN 12 (7-18) mg/dL Creatinine 0.99 (0.60-1.30) mg/dL Estimated GFR 84 L (>89) mL/min Random Glucose 100 (74-106) mg/dL Calcium 9.3 (8.5-10.1) mg/dL Phosphorus 2.8 (2.5-4.9) mg/dL Magnesium 1.6 (1.5-2.5) mg/dL Total Bilirubin 1.7 H (0.2-1.0) mg/dL Direct Bilirubin (0.0-0.2) mg/dL Indirect Bilirubin (0.0-0.8) mg/dL AST 67 H (15-37) U/L ALT 70 (12-78) U/L Alkaline Phosphatase 88 (45-117) U/L C-Reactive Protein (0.00-0.30) mg/dL Total Protein 8.2 D (6.4-8.2) g/dL Albumin 3.7 (3.4-5.0) g/dL Urine Color (Yellw/Straw) Urine Clarity (Clear) Urine pH (5.0-8.5) Ur Specific [place] (1.002-1.035) Urine Protein (Neg-Trace) mg/dL Urine Glucose (UA) (Negative) mg/dL Urine Ketones (Negative) mg/dL Urine Occult Blood (Negative) Urine Nitrate (Negative) Urine Bilirubin (Negative) Urine Urobilinogen (Less than 2) mg/dL Ur Leukocyte Esterase (Negative) Urine RBC (0-3) /hpf Urine WBC (0-5) /hpf Hyaline Casts (0-3) /lpf Micro UA Comment Urine Culture Comments Nasal Screen MRSA (PCR) (Negative) Urine Opiates Screen (Neg) Ur Barbiturates Screen (Neg) Ur Amphetamines Screen (Neg) U Benzodiazepines Scrn (Neg) Urine Cocaine Screen (Neg) U Cannabinoids Screen (Neg) Blood Type Blood Type Recheck Antibody Screen MTS Gel Crossmatch 04/09/18 04/09/18 04/10/18 Range/Units 14:32 18:50 06:22 CBC w Diff WBC (4.0-11.0) th/mm3 RBC (4.50-5.90) mil/mm3 Hgb (13.0-17.0) gm/dL Hct (39.0-51.0) % MCV (80.0-100.0) fL MCH (27.0-34.0) pg MCHC (32.0-36.0) % RDW (11.6-17.2) % Plt Count (150-450) th/mm3 MPV (7.0-11.0) fL Neut % (Auto) (16.0-70.0) % Lymph % (Auto) (9.0-44.0) % [place] % (Auto) (0.0-8.0) % Eos % (Auto) (0.0-4.0) % Baso % (Auto) (0.0-2.0) % Neut # (Auto) (1.8-7.7) th/mm3 Lymph # (Auto) (1.0-4.8) th/mm3 [place] # (Auto) (0.0-0.9) th/mm3 Eos # (Auto) (0.0-0.4) th/mm3 Baso # (Auto) (0.0-0.2) th/mm3 WBC Differential Seg Neuts % (Manual) (16-70) % Lymphocytes % (Manual) (9-44) % Monocytes % (Manual) (0-8) % Basophils % (Manual) (0-2) % Abs Neuts (Manual) (1.8-7.7) th/mm3 Differential Comment Platelet Estimate (Normal) Platelet Morphology (Normal) RBC Morphology (Normal) ESR (0-15) mm/hr PT (9.8-11.6) sec INR Ratio APTT (24.3-30.1) sec Factor Inhibitor Screen Puncture Site Patient Temperature O2 Saturation (90-100) % ABG pH (7.380-7.420) ABG pCO2 (38-42) mmHg ABG pO2 (61-120) mmHG ABG HCO3 (22-26) mmol/L ABG O2 Content (12.0-20.0) Vol % ABG Base Excess (-2-2) mmol/L ABG Methemoglobin (0-2) % Hemoglobin (12.0-16.0) G/DL Carboxyhemoglobin (0-4) % O2 Delivery Device Vent Setting Inspired O2 % Critical Value Sodium (136-145) meq/L Potassium 3.9 (3.5-5.1) meq/L Chloride (98-107) meq/L Carbon Dioxide (21.0-32.0) meq/L Anion Gap (5-15) meq/L BUN (7-18) mg/dL Creatinine (0.60-1.30) mg/dL Estimated GFR (>89) mL/min Random Glucose (74-106) mg/dL Calcium (8.5-10.1) mg/dL Phosphorus (2.5-4.9) mg/dL Magnesium (1.5-2.5) mg/dL Total Bilirubin (0.2-1.0) mg/dL Direct Bilirubin (0.0-0.2) mg/dL Indirect Bilirubin (0.0-0.8) mg/dL AST (15-37) U/L ALT (12-78) U/L Alkaline Phosphatase (45-117) U/L C-Reactive Protein (0.00-0.30) mg/dL Total Protein (6.4-8.2) g/dL Albumin (3.4-5.0) g/dL Urine Color (Yellw/Straw) Urine Clarity (Clear) Urine pH (5.0-8.5) Ur Specific [place] (1.002-1.035) Urine Protein (Neg-Trace) mg/dL Urine Glucose (UA) (Negative) mg/dL Urine Ketones (Negative) mg/dL Urine Occult Blood (Negative) Urine Nitrate (Negative) Urine Bilirubin (Negative) Urine Urobilinogen (Less than 2) mg/dL Ur Leukocyte Esterase (Negative) Urine RBC (0-3) /hpf Urine WBC (0-5) /hpf Hyaline Casts (0-3) /lpf Micro UA Comment Urine Culture Comments Nasal Screen MRSA (PCR) (Negative) Urine Opiates Screen (Neg) Ur Barbiturates Screen (Neg) Ur Amphetamines Screen (Neg) U Benzodiazepines Scrn (Neg) Urine Cocaine Screen (Neg) U Cannabinoids Screen (Neg) Blood Type O Positive Blood Type Recheck Not needed Antibody Screen Negative MTS Gel Crossmatch See Detail 04/10/18 04/10/18 04/11/18 Range/Units 06:22 06:22 15:17 CBC w Diff WBC 11.1 H 9.5 (4.0-11.0) th/mm3 RBC 3.44 L 3.46 L (4.50-5.90) mil/mm3 Hgb 10.8 L D 11.1 L (13.0-17.0) gm/dL Hct 31.3 L 31.0 L (39.0-51.0) % MCV 90.8 89.5 (80.0-100.0) fL MCH 31.3 32.0 (27.0-34.0) pg MCHC 34.5 35.7 (32.0-36.0) % RDW 13.1 13.2 (11.6-17.2) % Plt Count 126 L 141 L (150-450) th/mm3 MPV 10.4 10.4 (7.0-11.0) fL Neut % (Auto) 67.4 57.1 (16.0-70.0) % Lymph % (Auto) 20.3 28.4 (9.0-44.0) % [place] % (Auto) 12.0 H 12.9 H (0.0-8.0) % Eos % (Auto) 0.1 1.2 (0.0-4.0) % Baso % (Auto) 0.2 0.4 (0.0-2.0) % Neut # (Auto) 7.5 5.4 (1.8-7.7) th/mm3 Lymph # (Auto) 2.2 2.7 (1.0-4.8) th/mm3 [place] # (Auto) 1.3 H 1.2 H (0.0-0.9) th/mm3 Eos # (Auto) 0.0 0.1 (0.0-0.4) th/mm3 Baso # (Auto) 0.0 0.0 (0.0-0.2) th/mm3 WBC Differential . . Seg Neuts % (Manual) (16-70) % Lymphocytes % (Manual) (9-44) % Monocytes % (Manual) (0-8) % Basophils % (Manual) (0-2) % Abs Neuts (Manual) (1.8-7.7) th/mm3 Differential Comment Auto diff final Auto diff final Platelet Estimate (Normal) Platelet Morphology (Normal) RBC Morphology (Normal) ESR (0-15) mm/hr PT (9.8-11.6) sec INR Ratio APTT (24.3-30.1) sec Factor Inhibitor Screen Puncture Site Patient Temperature O2 Saturation (90-100) % ABG pH (7.380-7.420) ABG pCO2 (38-42) mmHg ABG pO2 (61-120) mmHG ABG HCO3 (22-26) mmol/L ABG O2 Content (12.0-20.0) Vol % ABG Base Excess (-2-2) mmol/L ABG Methemoglobin (0-2) % Hemoglobin (12.0-16.0) G/DL Carboxyhemoglobin (0-4) % O2 Delivery Device Vent Setting Inspired O2 % Critical Value Sodium 137 (136-145) meq/L Potassium 3.8 (3.5-5.1) meq/L Chloride 102 (98-107) meq/L Carbon Dioxide 28.2 (21.0-32.0) meq/L Anion Gap 7 (5-15) meq/L BUN 12 (7-18) mg/dL Creatinine 0.70 (0.60-1.30) mg/dL Estimated GFR Greater than 89 (>89) mL/min Random Glucose 83 (74-106) mg/dL Calcium 8.1 L D (8.5-10.1) mg/dL Phosphorus (2.5-4.9) mg/dL Magnesium 1.9 (1.5-2.5) mg/dL Total Bilirubin 2.1 H (0.2-1.0) mg/dL Direct Bilirubin (0.0-0.2) mg/dL Indirect Bilirubin (0.0-0.8) mg/dL AST 63 H (15-37) U/L ALT 57 (12-78) U/L Alkaline Phosphatase 62 (45-117) U/L C-Reactive Protein (0.00-0.30) mg/dL Total Protein 6.1 L D (6.4-8.2) g/dL Albumin 2.9 L D (3.4-5.0) g/dL Urine Color (Yellw/Straw) Urine Clarity (Clear) Urine pH (5.0-8.5) Ur Specific [place] (1.002-1.035) Urine Protein (Neg-Trace) mg/dL Urine Glucose (UA) (Negative) mg/dL Urine Ketones (Negative) mg/dL Urine Occult Blood (Negative) Urine Nitrate (Negative) Urine Bilirubin (Negative) Urine Urobilinogen (Less than 2) mg/dL Ur Leukocyte Esterase (Negative) Urine RBC (0-3) /hpf Urine WBC (0-5) /hpf Hyaline Casts (0-3) /lpf Micro UA Comment Urine Culture Comments Nasal Screen MRSA (PCR) (Negative) Urine Opiates Screen (Neg) Ur Barbiturates Screen (Neg) Ur Amphetamines Screen (Neg) U Benzodiazepines Scrn (Neg) Urine Cocaine Screen (Neg) U Cannabinoids Screen (Neg) Blood Type Blood Type Recheck Antibody Screen MTS Gel Crossmatch 04/13/18 04/13/18 Range/Units 04:15 04:15 CBC w Diff WBC 8.5 (4.0-11.0) th/mm3 RBC 3.46 L (4.50-5.90) mil/mm3 Hgb 11.0 L (13.0-17.0) gm/dL Hct 31.5 L (39.0-51.0) % MCV 90.9 (80.0-100.0) fL MCH 31.7 (27.0-34.0) pg MCHC 34.8 (32.0-36.0) % RDW 13.0 (11.6-17.2) % Plt Count 152 (150-450) th/mm3 MPV 10.5 (7.0-11.0) fL Neut % (Auto) 58.1 (16.0-70.0) % Lymph % (Auto) 26.0 (9.0-44.0) % [place] % (Auto) 11.9 H (0.0-8.0) % Eos % (Auto) 3.3 (0.0-4.0) % Baso % (Auto) 0.7 (0.0-2.0) % Neut # (Auto) 4.9 (1.8-7.7) th/mm3 Lymph # (Auto) 2.2 (1.0-4.8) th/mm3 [place] # (Auto) 1.0 H (0.0-0.9) th/mm3 Eos # (Auto) 0.3 (0.0-0.4) th/mm3 Baso # (Auto) 0.1 (0.0-0.2) th/mm3 WBC Differential . Seg Neuts % (Manual) (16-70) % Lymphocytes % (Manual) (9-44) % Monocytes % (Manual) (0-8) % Basophils % (Manual) (0-2) % Abs Neuts (Manual) (1.8-7.7) th/mm3 Differential Comment Auto diff final Platelet Estimate (Normal) Platelet Morphology (Normal) RBC Morphology (Normal) ESR (0-15) mm/hr PT (9.8-11.6) sec INR Ratio APTT (24.3-30.1) sec Factor Inhibitor Screen Puncture Site Patient Temperature O2 Saturation (90-100) % ABG pH (7.380-7.420) ABG pCO2 (38-42) mmHg ABG pO2 (61-120) mmHG ABG HCO3 (22-26) mmol/L ABG O2 Content (12.0-20.0) Vol % ABG Base Excess (-2-2) mmol/L ABG Methemoglobin (0-2) % Hemoglobin (12.0-16.0) G/DL Carboxyhemoglobin (0-4) % O2 Delivery Device Vent Setting Inspired O2 % Critical Value Sodium 137 (136-145) meq/L Potassium 4.0 (3.5-5.1) meq/L Chloride 103 (98-107) meq/L Carbon Dioxide 26.2 (21.0-32.0) meq/L Anion Gap 8 (5-15) meq/L BUN 16 (7-18) mg/dL Creatinine 0.88 (0.60-1.30) mg/dL Estimated GFR Greater than 89 (>89) mL/min Random Glucose 87 (74-106) mg/dL Calcium 8.3 L (8.5-10.1) mg/dL Phosphorus (2.5-4.9) mg/dL Magnesium 1.8 (1.5-2.5) mg/dL Total Bilirubin 0.8 (0.2-1.0) mg/dL Direct Bilirubin 0.4 H (0.0-0.2) mg/dL Indirect Bilirubin 0.4 (0.0-0.8) mg/dL AST 154 H (15-37) U/L ALT 111 H (12-78) U/L Alkaline Phosphatase 70 (45-117) U/L C-Reactive Protein (0.00-0.30) mg/dL Total Protein 6.7 D (6.4-8.2) g/dL Albumin 2.8 L (3.4-5.0) g/dL Urine Color (Yellw/Straw) Urine Clarity (Clear) Urine pH (5.0-8.5) Ur Specific [place] (1.002-1.035) Urine Protein (Neg-Trace) mg/dL Urine Glucose (UA) (Negative) mg/dL Urine Ketones (Negative) mg/dL Urine Occult Blood (Negative) Urine Nitrate (Negative) Urine Bilirubin (Negative) Urine Urobilinogen (Less than 2) mg/dL Ur Leukocyte Esterase (Negative) Urine RBC (0-3) /hpf Urine WBC (0-5) /hpf Hyaline Casts (0-3) /lpf Micro UA Comment Urine Culture Comments Nasal Screen MRSA (PCR) (Negative) Urine Opiates Screen (Neg) Ur Barbiturates Screen (Neg) Ur Amphetamines Screen (Neg) U Benzodiazepines Scrn (Neg) Urine Cocaine Screen (Neg) U Cannabinoids Screen (Neg) Blood Type Blood Type Recheck Antibody Screen MTS Gel Crossmatch Imaging Data My impression: Please note that the time stamp is when the MRI was ordered. Radiologist's impression: Cervical Spine MRI 04/08/18 17:31 CONCLUSION: 1. Intact cervical spine. No epidural hematoma. 2. Minimal degenerative changes. No foraminal or spinal stenosis. Lumbar Spine MRI 04/08/18 17:31 CONCLUSION: 1. Intact lumbar spine. No epidural hematoma. 2. Mild degenerative changes at L3/L4 and L4/L5 as described. Thoracic Spine MRI 04/08/18 17:32 CONCLUSION: Elongated mass in the anterior aspect of the epidural space from T5 to T9 as described and most likely an acute or subacute epidural hematoma. There is moderate spinal stenosis without cord compression or cord signal abnormality. Thoracic Spine X-Ray 04/09/18 00:00 CONCLUSION: Limited localization study as described. Chest X-Ray 04/10/18 06:00 CONCLUSION: Clear lungs.
[2018-04-08] MEDS ORDERED: levoFLOXacin 750 MG Tablet PO ONE (19:12)
[2018-04-08] MEDS ORDERED: Gadobutrol PF 10 MMOL/10 ML Vial (for RAD) IV.SIG ONE (20:01)
--- NOTE | 2018-04-08 21:24 | MR ---
EXAM DATE: 04/08/2018 8:40 PM EDT AGE/SEX: 42 years / Male INDICATIONS: Hematoma. CLINICAL DATA: This is the patient's initial encounter. Patient reports that signs and symptoms have been present for 4 - 6 days and indicates a pain score of 10/10. MEDICAL/SURGICAL HISTORY: . Hemophiliac B-9 . Rt knee sx. COMPARISON: No prior exams available for comparison. TECHNIQUE: Multiplanar, multisequence MRI examination of the lumbar spine was performed without and with 10 ml Gadavist (gadobutrol) contrast as a single exam dose. FINDINGS: The most caudal-appearing lumbar vertebra is numbered as L5. Vertebra: Subcentimeter hemangioma L1 vertebral body. Homogeneous signal otherwise. Normal alignmen t. Conus: Normal level and configuration. Post Contrast: No abnormal areas of contrast enhancement are seen. T12-L1: The thecal sac has a normal diameter. No evidence of disc bulge or protrusion. The neural foramina are patent bilaterally. L1-L2: The thecal sac has a normal diameter. No evidence of disc bulge or protrusion. The neural foramina are patent bilaterally. L2-L3: The thecal sac has a normal diameter. No evidence of disc bulge or protrusion. The neural foramina are patent bilaterally. L3-L4: The disc is slightly desiccated. No significant loss of height. There is bulging of the disc annulus and mild bilateral facet osteoarthritis. Mild foraminal encroachment on the right. L4-L5: The disc is desiccated and has mild loss of height. Small, broad/diffuse but especially left paracentral and foraminal disc protrusion present. There is mild bilateral facet osteoarthritis. The re is mild left foraminal stenosis. L5-S1: The thecal sac has a normal diameter. No evidence of disc bulge or protrusion. The neural foramina are patent bilaterally. No abnormal enhancement. CONCLUSION: 1. Intact lumbar spine. No epidural hematoma. 2. Mild degenerative changes at L3/L4 and L4/L5 as described. Electronically signed by: Anatoly Whiting MD 04/08/2018 9:22 PM EDT
--- NOTE | 2018-04-08 21:25 | MR ---
EXAM DATE: 04/08/2018 8:37 PM EDT AGE/SEX: 42 years / Male INDICATIONS: Hematoma. CLINICAL DATA: This is the patient's initial encounter. Patient reports that signs and symptoms have been present for 4 - 6 days and indicates a pain score of 10/10. MEDICAL/SURGICAL HISTORY: . Hemophiliac B-9 . Right knee sx. COMPARISON: . TECHNIQUE: Multiplanar, multisequence MRI examination of the cervical spine was performed without an d with 10 ml Gadavist (gadobutrol) contrast as a single exam dose. FINDINGS: Vertebrae: Normal vertebral body height. Homogeneous marrow signal. Alignment: Normal. Cord: Normal configuration and signal. Post Fossa: The cerebellar tonsils are normal in position. Post Contrast: No abnormal areas of enhancement are seen. C2-C3: The thecal sac has a normal configuration. There is no evidence of disc herniation or spinal canal stenosis. The neural foramina are patent bilaterally. C3-C4: The thecal sac has a normal configuration. There is no evidence of disc herniation or spinal canal stenosis. The neural foramina are patent bilaterally. C4-C5: The disc is mildly desiccated. No significant loss of height. There is mild uncovertebral and facet osteoarthritis, mostly on the left. C5-C6: The thecal sac has a normal configuration. There is no evidence of disc herniation or spinal canal stenosis. The neural foramina are patent bilaterally. C6-C7: The thecal sac has a normal configuration. There is no evidence of disc herniation or spinal canal stenosis. The neural foramina are patent bilaterally. C7-T1: No epidural impressions seen. CONCLUSION: 1. Intact cervical spine. No epidural hematoma. 2. Minimal degenerative changes. No foraminal or spinal stenosis. Electronically signed by: Anatoly Whiting MD 04/08/2018 9:24 PM EDT
--- NOTE | 2018-04-08 21:30 | MR ---
EXAM DATE: 04/08/2018 8:44 PM EDT AGE/SEX: 42 years / Male INDICATIONS: Hematoma. CLINICAL DATA: This is the patient's initial encounter. Patient reports that signs and symptoms have been present for 4 - 6 days and indicates a pain score of 10/10. MEDICAL/SURGICAL HISTORY: . Hemophiliac B-9 . Rt knee sx. COMPARISON: . TECHNIQUE: Multiplanar, multisequence MRI of the thoracic spine was performed without and with 10 ml Gadavist (gadobutrol) contrast as a single exam dose. FINDINGS: There is a mass present in the anterior aspect of the epidural space from T5 to T9. The mass is appro ximately 0.8 x 1.6 cm in greatest transaxial dimension and 8.8 cm in length. There is associated mode rate severity spinal stenosis. The thecal sac is attenuated but there is some fat in the epidural spa ce posterior to the cord. No cord signal abnormality is demonstrated. No fractures or subluxations of the thoracic spine. No significant disc space narrowing. No bulges or protrusions are demonstrated. There is no foraminal stenosis throughout. CONCLUSION: Elongated mass in the anterior aspect of the epidural space from T5 to T9 as described an d most likely an acute or subacute epidural hematoma. There is moderate spinal stenosis without cord compression or cord signal abnormality. Electronically signed by: Anatoly Whiting MD 04/08/2018 9:28 PM EDT
[2018-04-08] MEDS ORDERED: FACTOR IX COMPLEX HUMAN 2000 UNIT IV.PUSH ONE (21:44)
--- NOTE | 2018-04-08 23:02 | P.HPCC ---
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 Hemarthrosis in the past effectively responded to BeneFIX and he received BeneFIX then and he has no elbow related complaints today. During that evaluation however the patient developed pain in the lower thoracic back fairly abruptly. He had not experienced similar pain previously. Patient became somewhat restless and after multiple doses of IV hydromorphone the pain was controlled. Imaging was added on and blood work at that time was grossly unremarkable. There was no fecal urinary incontinence or numbness or tingling in the saddle distribution. Patient remained ambulatory throughout his stay then. He returns today with urinary retention and severe lower thoracic back pain. Patient still remains ambulatory and there is no focal neurologic deficit. MR studies of the cervical thoracic and lumbar spine shows subacute/acute epidural hematoma. Patient has received broad-spectrum antibiotics in the emergency department due to leukocytosis, and is receiving factor IX infusion now. Neurosurgery was consulted by ED attending and recommended to admit patient to [facility] at the [facility]. Inpatient Certification: I certify that the inpatient services were ordered in accordance with Medicare regulations governing the order. This includes certification that hospital inpatient services are reasonable and necessary and in the case of services not specified as inpatient-only under 42 CFR 419.22(n), that they are appropriately provided as inpatient services in accordance to with the 2-midnight benchmark under 43 CFR 412.3(e) Review of Systems All other systems reviewed negative except as stated in [facility] - History History Provided By: Patient - Medical History Medical History: Medical History (Last Reviewed 04/08/18 @ 16:49 by Lisa Yuan RN) Upper back pain (Acute) Hepatitis C (Acute) Factor IX hemophilia (Acute) Hemophilia (Acute) - Surgical History Surgical History: Surgical History (Last Reviewed 04/08/18 @ 16:49 by Lisa Yuan RN) History of arthroscopy of right knee (Acute) - Tobacco History Second Hand Smoke Exposure: Yes Tobacco Use In Past 30 Days: Yes Smoking Status: Heavy tobacco smoker Tobacco Type: Cigarettes - Alcohol History How Often Do You Have a Drink Containing Alcohol: Never - Substance Use History Substance History: Past History - Travel History Recent Travel in the [place] Within the Last 8 Weeks: No Recent Travel Out of the Country Within the Last 8 Weeks: No - Immunization History Tetanus Immunization: Unsure Hx Influenza Vaccine This Season: No Medications and Allergies Active Medications: Active Medications Sodium Chloride (Ns Flush) 2 ml IV.FLUSH PRN PRN PRN Reason: FLUSH AFTER USING IV ACCESS Last Admin: 04/08/18 22:12 Dose: 2 ml Active Medications Acetaminophen (Tylenol) 650 mg PO Q6H PRN PRN Reason: PAIN 1-10 AND/OR FEVER >101F Al Hydroxide/Mg Hydroxide (Milk Of Magnesia Liq) 30 ml PO Q12H PRN PRN Reason: Mild Constipation Albuterol (Duoneb Neb (Prn)) 1 ampul NEB Q2HR NEB PRN PRN Reason: WHEEZING Bisacodyl (Dulcolax Supp) 10 mg RECTAL DAILY PRN PRN Reason: SEVERE CONSITIPATION Chlorhexidine Gluconate (Chlorhexidine 2% Cloth) 3 pack TOPICAL DAILY@0400 NASIR Stop: 04/14/18 03:59 Chlorhexidine Gluconate (Chlorhexidine 2% Cloth) 3 pack TOPICAL DAILY@0400 PRN PRN Reason: Extra cloth needed Stop: 04/14/18 03:59 Famotidine (Pepcid Pf Inj) 20 mg IV.PUSH Q12HR [facility] Hydromorphone HCl (Dilaudid Pf Inj) 2 mg IV.PUSH Q4H PRN PRN Reason: pain 8-10 Sodium Chloride (Ns Inj) 1,000 mls @ 84 mls/hr IV.CONT .[id number] [facility] Last Admin: 04/09/18 00:30 Dose: 84 mls/hr Labetalol HCl (Trandate Inj) 10 mg IV.PUSH Q3H PRN PRN Reason: SBP>160, DBP> 90 Lactulose (Lactulose Liq) 30 ml PO DAILY PRN PRN Reason: SEVERE CONSITIPATION Methadone HCl (Dolophine) 190 mg PO DAILY [facility] Metoclopramide HCl (Reglan Inj) 5 mg IV.PUSH Q6HR NASIR; Protocol Last Admin: 04/09/18 00:30 Dose: 5 mg Morphine Sulfate (Morphine Inj) 2 mg IV.PUSH Q2H PRN PRN Reason: PAIN SCALE 6 TO 10 Ondansetron HCl (Zofran Inj) 4 mg IV.PUSH Q6H PRN PRN Reason: NAUSEA OR VOMITING Senna/Docusate Sodium (Lindy-Colace) 1 tab PO BID NASIR Sennosides (Senokot) 17.2 mg PO Q12H PRN PRN Reason: Moderate Constipation Sodium Chloride (Ns Flush) 2 ml IV.FLUSH BID NASIR Sodium Chloride (Ns Flush) 2 ml IV.FLUSH PRN PRN PRN Reason: FLUSH AFTER USING IV ACCESS Temazepam (Restoril) 15 mg PO HS PRN PRN Reason: INSOMNIA Allergies Allergy/AdvReac Type Severity Reaction Status Date / Time amoxicillin Allergy Severe Hives Verified 04/08/18 16:39 aspirin AdvReac Severe Has Verified 04/08/18 16:39 hemophilia Home Medications Medication Instructions Recorded Confirmed Type methadone 190 mg PO DAILY 04/08/18 04/08/18 History Results - Labs CBC & Chem 7: 04/08/18 17:05 04/08/18 17:05 Labs: Short CBC 04/08/18 Range/Units 17:05 WBC 15.2 H (4.0-11.0) th/mm3 Hgb 16.8 (13.0-17.0) gm/dL Hct 49.9 (39.0-51.0) % Plt Count 223 D (150-450) th/mm3 BMP 04/08/18 17:05 Sodium 136 Potassium 3.5 Chloride 98 Carbon Dioxide 28.7 BUN 12 Creatinine 1.20 Calcium 9.9 Liver Function 04/08/18 Range/Units 17:05 Total Bilirubin 1.2 H (0.2-1.0) mg/dL AST 73 H (15-37) U/L ALT 81 H (12-78) U/L Alkaline Phosphatase 103 (45-117) U/L Albumin 4.2 (3.4-5.0) g/dL Urine 04/08/18 Range/Units 18:06 Urine Color [place] H (Yellw/Straw) Urine Clarity Clear (Clear) Urine pH 6.0 (5.0-8.5) Ur Specific [place] 1.010 (1.002-1.035) Urine Protein 30 H (Neg-Trace) mg/dL Urine Glucose (UA) Negative (Negative) mg/dL - Imaging Impressions Cervical Spine MRI 04/08/18 17:31 CONCLUSION: 1. Intact cervical spine. No epidural hematoma. 2. Minimal degenerative changes. No foraminal or spinal stenosis. Lumbar Spine MRI 04/08/18 17:31 CONCLUSION: 1. Intact lumbar spine. No epidural hematoma. 2. Mild degenerative changes at L3/L4 and L4/L5 as described. Thoracic Spine MRI 04/08/18 17:32 CONCLUSION: Elongated mass in the anterior aspect of the epidural space from T5 to T9 as described and most likely an acute or subacute epidural hematoma. There is moderate spinal stenosis without cord compression or cord signal abnormality. Exam Vital signs: Vital Signs 04/08/18 16:36 04/08/18 20:45 04/08/18 22:02 Temperature 98.2 F 98.0 F Pulse Rate 75 63 Respiratory Rate 20 18 Blood Pressure 178/95 H 156/100 H Pulse Oximetry 97 96 96 04/08/18 22:28 Temperature 99.1 F Pulse Rate 67 Respiratory Rate Blood Pressure 170/97 H Pulse Oximetry 98 Intake & Output 04/08/18 04/08/18 04/09/18 06:59 18:59 06:59 Weight 100.2 kg - Constitutional severe distress - Routine HEENT Exam Head: Present: normocephalic, atraumatic Eye: Present: PERRL ENT: Present: mucous membranes moist - Routine Neck Exam Present: supple, full ROM. Absent: JVD, carotid bruit - Routine Respiratory Exam Absent: accessory muscle use, rhonchi, stridor, wheezes - Routine Cardiovascular Exam Present: RRR, S1, S2, irregular rhythm - Routine Abdominal Exam Present: soft, normoactive bowel sounds. Absent: tenderness, distended - Routine Extremities Exam Present: clubbing, edema. Absent: cyanosis - Routine Skin Exam Present: intact. Absent: cyanosis, erythema - Routine Neurological Exam Present: alert, oriented X3, normal reflexes On exam the tenderness is in the parathoracic musculature bilaterally. Septic Shock Reassessment Septic shock perfusion: reassessment completed Caprini VTE Risk Assessment Caprini VTE Risk Assessment: Moderate/High Risk (score >= 2) VTE Pharmacological Exception Reason: Hemorrhage Caprini Risk Assessment Model: Point Value = 1 Point Value = 2 Point Value = 3 Point Value = 5 Age 41-60 Minor surgery BMI > 25 kg/m2 Swollen legs Varicose veins or History of unexplained or recurrent spontaneous Oral contraceptives or hormone replacement Sepsis (< 1 month) Serious lung disease, including pneumonia (< 1 month) Abnormal pulmonary function Acute myocardial infarction Congestive heart failure (< 1 month) History of inflammatory bowel disease Medical patient at bed rest Age 61-74 Arthroscopic surgery Major open surgery (> 45 min) Laparoscopic surgery (> 45 min) Malignancy Confined to bed (> 72 hours) Immobilizing plaster cast Central venous access Age >= 75 History of VTE Family history of VTE Factor V Leiden Prothrombin [id number] Lupus anticoagulant Anticardiolipin antibodies Elevated serum homocysteine Heparin-induced thrombocytopenia Other congenital or acquired thrombophilia Stroke (< 1 month) Elective arthroplasty Hip, pelvis, or leg fracture Acute spinal cord injury (< 1 month) Prophylaxis Regimen: Total Risk Factor Score Risk Level Prophylaxis Regimen 0-1 Low Early ambulation 2 Moderate Order ONE of the following: *Sequential Compression Device (SCD) *Heparin 5000 units SQ BID 3-4 Higher Order ONE of the following medications: *Heparin 5000 units SQ TID *Enoxaparin/Lovenox 40 mg SQ daily (WT < 150 kg, CrCl > 30 mL/min) *Enoxaparin/Lovenox 30 mg SQ daily (WT < 150 kg, CrCl > 10-29 mL/min) *Enoxaparin/Lovenox 30 mg SQ BID (WT < 150 kg, CrCl > 30 mL/min) AND/OR *Sequential Compression Device (SCD) 5 or more Highest Order ONE of the following medications: *Heparin 5000 units SQ TID (Preferred with Epidurals) *Enoxaparin/Lovenox 40 mg SQ daily (WT < 150 kg, CrCl > 30 mL/min) *Enoxaparin/Lovenox 30 mg SQ daily (WT < 150 kg, CrCl > 10-29 mL/min) *Enoxaparin/Lovenox 30 mg SQ BID (WT < 150 kg, CrCl > 30 mL/min) AND *Sequential Compression Device (SCD) Assessment and Plan - Assessment and Plan Plan: Spinal epidural hematoma -Underlying hemophilia B -Factor IX per pharmacy dosing -Rocephin/vancomycin due to leukocytosis and low-grade fever -Follow-up blood cultures -Neurosurgical consultation -Hematology consultation Hemophilia B -Factor IX infusion -Further per hematology Leukocytosis -Broad-spectrum antibiotic -High risk for epidural abscess formation in hematoma -Follow-up blood cultures Acute renal failure -Dehydration -Aggressive IV fluid resuscitation -Strict I's and O's -Monitor trend -Electrolyte replacement per ICU protocol Critical Care: The total critical care time was 35 minutes. Time to perform other separately billable procedures was not included in the critical care time.
[2018-04-08] MEDS ORDERED: Temazepam 15 MG Capsule PO PRN (23:50)
[2018-04-08] MEDS ORDERED: Bisacodyl 10 MG Supp RECTAL PRN (23:50)
[2018-04-08] MEDS ORDERED: Acetaminophen 325 MG Tablet PO PRN (23:50)
[2018-04-09] MEDS: Sod Chloride 0.9% Inj 1,000 ML IV.CONT SCH ×2 (00:30→17:23)
[2018-04-09] MEDS: HYDROmorphone PF Inj 2 MG/ML Vial IV.PUSH PRN ×7 (00:59→22:55)
[2018-04-09 02:20] LABS: Baso # (Auto) 0.1 th/mm3 (0.0-0.2); Baso % (Auto) 0.9 % (0.0-2.0); Eos % (Auto) 0.2 % (0.0-4.0); Hematocrit 45.4 % (39.0-51.0); Hemoglobin 15.6 gm/dL (13.0-17.0); Lymph # (Auto) 3.3 th/mm3 (1.0-4.8); Lymph % (Auto) 27.1 % (9.0-44.0); Mean Corpuscular HGB Conc 34.3 % (32.0-36.0); Mean Corpuscular Hemoglobin 30.8 pg (27.0-34.0); Mean Corpuscular Volume 89.9 fL (80.0-100.0); Mean Platelet Volume 9.9 fL (7.0-11.0); Mono # (Auto) 1.3 th/mm3 (0.0-0.9); Mono % (Auto) 10.7 % (0.0-8.0); Neut # (Auto) 7.4 th/mm3 (1.8-7.7); Neut % (Auto) 61.1 % (16.0-70.0); Platelet Count 179 th/mm3 (150-450); Red Blood Count 5.05 mil/mm3 (4.50-5.90); Red Cell Distribution Width 13.4 % (11.6-17.2)
[2018-04-09 02:32] LABS: Activated Partial Thrombo Time 28.5 sec (24.3-30.1); INR 1.2 Ratio
[2018-04-09 02:36] LABS: Alanine Aminotransferase 70 U/L (12-78); Albumin 3.7 g/dL (3.4-5.0); Anion Gap 8 meq/L (5-15); Aspartate Aminotransferase 67 U/L (15-37); Blood Urea Nitrogen 12 mg/dL (7-18); Calcium 9.3 mg/dL (8.5-10.1); Chloride 105 meq/L (98-107); Glomerular Filtration Rate 84 mL/min (>89); Glucose,Random 100 mg/dL (74-106); Magnesium 1.6 mg/dL (1.5-2.5); Phosphorus 2.8 mg/dL (2.5-4.9); Potassium 3.2 meq/L (3.5-5.1); Sodium 141 meq/L (136-145)
[2018-04-09 02:38] LABS: Alkaline Phosphatase 88 U/L (45-117); Total Protein 8.2 g/dL (6.4-8.2)
[2018-04-09] MEDS: Morphine Inj 4 MG/ML Vial IV.PUSH PRN ×2 (02:42→07:51)
[2018-04-09] MEDS ORDERED: Chlorhexidine Gluconate 2% 1 Pack (2 Cloths) TOPICAL PRN (04:00)
[2018-04-09] MEDS: Chlorhexidine Gluconate 2% 1 Pack (2 Cloths) TOPICAL SCH (05:20)
[2018-04-09] MEDS: [UNRECOGNIZED DRUG - OTHER] IV.PUSH SCH ×2 (05:29→11:01)
[2018-04-09] MEDS: Senna/Docusate Sodium 8.6/50 MG Tablet PO SCH ×3 (08:58→21:29)
[2018-04-09] MEDS: Famotidine PF Inj 20 MG/2 ML Vial IV.PUSH SCH ×2 (08:58→21:30)
[2018-04-09] MEDS: Labetalol HCl Inj 100 MG/20 ML Vial IV.PUSH PRN (08:59)
[2018-04-09] MEDS ORDERED: Potassium Chlor 40 mEq Premix 40 MEQ/100 ML PIGGYBACK IV.SIG PRN ×2 (09:00)
[2018-04-09] MEDS ORDERED: Potassium Phosphate Inj 30 MMOL in Sodium Chlor 0.9% Inj 250 ML IV.SIG PRN (09:00)
[2018-04-09] MEDS ORDERED: Potassium Chloride 25 MEQ Effervescent Tablet PO PRN (09:00)
[2018-04-09] MEDS ORDERED: Magnesium Oxide 400 MG Tablet PO PRN (09:00)
[2018-04-09] MEDS ORDERED: Magnesium Sulfate Inj 4 GM in Sodium Chlor 0.9% Inj 92 ML IV.SIG PRN (09:00)
[2018-04-09] MEDS ORDERED: Potassium Phosphate 500 MG Soluble Tablet PO PRN ×2 (09:00)
[2018-04-09] MEDS ORDERED: Sodium Phosphate Inj 30 MMOL in Sodium Chlor 0.9% Inj 250 ML IV.SIG PRN (09:00)
[2018-04-09] MEDS ORDERED: Magnesium Sulfate Inj 2 GM in Sodium Chlor 0.9% Inj 96 ML IV.SIG PRN (09:00)
[2018-04-09] MEDS ORDERED: Potassium Chlor 20 mEq Premix 20 MEQ/100 ML PIGGYBACK IV.SIG PRN ×2 (09:00)
--- NOTE | 2018-04-09 09:02 | P.PNCC ---
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 Hemarthrosis in the past effectively responded to BeneFIX and he received BeneFIX then and he has no elbow related complaints today. During that evaluation however the patient developed pain in the lower thoracic back fairly abruptly. He had not experienced similar pain previously. Patient became somewhat restless and after multiple doses of IV hydromorphone the pain was controlled. Imaging was added on and blood work at that time was grossly unremarkable. There was no fecal urinary incontinence or numbness or tingling in the saddle distribution. Patient remained ambulatory throughout his stay then. He returns today with urinary retention and severe lower thoracic back pain. Patient still remains ambulatory and there is no focal neurologic deficit. MR studies of the cervical thoracic and lumbar spine shows subacute/acute epidural hematoma. Patient has received broad-spectrum antibiotics in the emergency department due to leukocytosis, and is receiving factor IX infusion now. Neurosurgery was consulted by ED attending and recommended to admit patient to [facility] at the [facility]. SUBJ 04/09/18: Patient lying in bed still complains about back pain in the thoracic region. LE power 4/5, Knee jerk brisk on Left side. Also patient has urinary retention for last few days. I discussed clinical concern of spinal cord compression with Dr. Varela. He will plan for emergency surgical decompression of ventral thoracic epidural hematoma. Received factor IX infusion. Hematology consult is pending at this time, but I discussed with electrical linesworker Dr. Fragoso. Patient received 3000 units of factor IX today a.m. at 5, give additional 3000 unit now immediately prior to surgery Objective Vital Signs / I&O: Vital Signs 04/08/18 16:36 04/08/18 20:45 04/08/18 22:02 Temperature 98.2 F 98.0 F Pulse Rate 75 63 Respiratory Rate 20 18 Blood Pressure 178/95 H 156/100 H Pulse Oximetry 97 96 96 04/08/18 22:28 04/09/18 00:00 04/09/18 01:52 Temperature 99.1 F 99.6 F Pulse Rate 67 80 Respiratory Rate 35 H 12 Blood Pressure 170/97 H 206/95 H Pulse Oximetry 98 95 04/09/18 02:00 04/09/18 04:00 04/09/18 04:20 Temperature 98.4 F Pulse Rate 54 L 56 L Respiratory Rate 13 14 Blood Pressure 156/97 H Pulse Oximetry 97 04/09/18 06:00 04/09/18 06:38 04/09/18 08:06 Temperature Pulse Rate 52 L Respiratory Rate 15 Blood Pressure Pulse Oximetry 97 Intake & Output 04/08/18 04/09/18 04/09/18 18:59 06:59 18:59 Output Total 1750 / 1750 Balance -1750 / -1750 Weight 100.2 kg 99.2 kg Output: Urine Amount (Catheter) 1750 / 1750 Indwelling Urethral Catheter 1750 / 175 Result Diagrams: 04/09/18 01:45 04/09/18 01:45 Objective Remarks: - Constitutional Mild distress due to back pain - Routine HEENT Exam Head: normocephalic, atraumatic Eye: PERRL ENT: Mucous membranes moist - Routine Neck Exam Supple, full ROM. No JVD, carotid bruit - Routine Respiratory Exam No accessory muscle use, rhonchi, stridor, wheezes - Routine Cardiovascular Exam RRR, S1, S2, no murmur - Routine Abdominal Exam Soft, normoactive bowel sounds. Tenderness, distended - Routine Extremities Exam Clubbing, edema. No cyanosis - Routine Skin Exam Intact. Absent: cyanosis, erythema - Routine Neurological Exam Present: alert, oriented X3, 4/5 power bilateral LE. Knee jerk brisk on L side Tenderness is in the parathoracic musculature bilaterally. Assessment and Plan - Assessment and Plan Plan: NEURO: Acute Spinal cord compression Thoracic spinal epidural hematoma -4/5 lower extremity strength with brisk knee jerk on the left side, urinary retention -Concern for acute spinal cord compression, discussed with Dr. Varela -OR emergently for spinal cord decompression -Underlying hemophilia B, received 3000 units factor IX today give additional 2000 units stat -Discussed with Dr. Fragoso -Pain controlled now with IV Dilaudid as needed -Hold all p.o. opiates and methadone RESP: -DuoNeb PRN, aggressive pulmonary toilet CVS: -Continue maintenance IV fluids -Target systolic blood pressure 140-160 to ensure spinal cord perfusion HEME: Hemophilia B -Factor IX infusion -Further recs per hematology/Dr. Fragoso : Acute renal failure -Dehydration -Aggressive IV fluid resuscitation -Strict I's and O's -Monitor trend -Electrolyte replacement per ICU protocol GI: -NPO, IV Famotidine ID: Leukocytosis -Broad-spectrum antibiotic -High risk for epidural abscess formation in hematoma -Follow-up blood cultures ENDO: Hypokalemia -Electrolyte replacement per protocol PROPH: -SCDs/Gerry. IV famotidine -Chemical DVT prophylaxis is contraindicated Critical Care: The total critical care time was 35 minutes. Time to perform other separately billable procedures was not included in the critical care time. Code Status: Full
[2018-04-09] MEDS: Methadone 10 MG Tablet PO SCH (09:27)
[2018-04-09] MEDS ORDERED: FACTOR IX COMPLEX HUMAN 2000 UNIT IV.PUSH ONE ×2 (10:15→14:15)
[2018-04-09] MEDS ORDERED: Propofol Inj 500 MG/50 ML Vial ONE (10:57)
--- NOTE | 2018-04-09 11:21 | P.CONNS ---
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 States that approximately 5 days ago he developed rapid onset of pain in the midthoracic region with radiation around the chest wall. He states the pain became progressively worse over the past few days. He states he presented to the emergency room a couple days ago. He returned yesterday afternoon due to persistent pain and some difficulty with urination. He states he has not had any numbness or weakness in the lower extremities or difficulty with bowel control. No saddle anesthesia. No pain weakness numbness in the upper extremities. He has a chronic area of numbness over the left lower abdomen. No spasms in the lower extremities reported. Patient discussed with emergency room physician on the evening of 04/08/2018 and undersigned was advised that the patient had no lower extremity neurologic deficit and no bowel or bladder dysfunction. Patient has no complaint of headache blurred vision. No neck pain. Review of Systems Constitutional: Denies chills, Denies fever(s), Denies headache(s) Eyes: Denies blurry vision Cardiovascular: Reports chest pain (Chest wall discomfort), Denies shortness of breath with activity Respiratory: Denies shortness of breath Gastrointestinal: Denies abdominal pain Genitourinary: Reports difficulty urinating Musculoskeletal: Reports joint pain, Denies abnormal walking, Denies back pain Neurologic: Denies dizziness, Denies localized weakness, Denies loss of vision Hematologic/Lymphatic: Reports easy bleeding PMFSH - History History Provided By: Patient - Medical History Medical History: Medical History (Last Reviewed 04/09/18 @ 07:50 by Chiki Box) Upper back pain (Acute) Hepatitis C (Acute) Factor IX hemophilia (Acute) Hemophilia (Acute) - Surgical History Surgical History: Surgical History (Last Reviewed 04/09/18 @ 07:50 by Chiki Box) History of arthroscopy of right knee (Acute) - Tobacco History Second Hand Smoke Exposure: Yes Tobacco Use In Past 30 Days: Yes Smoking Status: Current every day smoker Tobacco Type: Cigarettes - Alcohol History How Often Do You Have a Drink Containing Alcohol: Never - Substance Use History Substance History: No History of Abuse - Travel History Recent Travel in the [place] Within the Last 8 Weeks: No Recent Travel Out of the Country Within the Last 8 Weeks: No - Immunization History Tetanus Immunization: Unsure Hx Influenza Vaccine This Season: No Medications and Allergies Active Medications: Active Medications Acetaminophen (Tylenol) 650 mg PO Q6H PRN PRN Reason: PAIN 1-10 AND/OR FEVER >101F Al Hydroxide/Mg Hydroxide (Milk Of Eber Liq) 30 ml PO Q12H PRN PRN Reason: Mild Constipation Albuterol (Duoneb Neb (Prn)) 1 ampul NEB Q2HR NEB PRN PRN Reason: WHEEZING Bisacodyl (Dulcolax Supp) 10 mg RECTAL DAILY PRN PRN Reason: SEVERE CONSITIPATION Chlorhexidine Gluconate (Chlorhexidine 2% Cloth) 3 pack TOPICAL DAILY@0400 [facility] Stop: 04/14/18 03:59 Last Admin: 04/09/18 05:20 Dose: 3 pack Chlorhexidine Gluconate (Chlorhexidine 2% Cloth) 3 pack TOPICAL DAILY@0400 PRN PRN Reason: Extra cloth needed Stop: 04/14/18 03:59 Factor IX Complex Human (Benefix Inj) 6,000 unit IV.PUSH Q12HR [facility] Stop: 04/10/18 08:54 Famotidine (Pepcid Pf Inj) 20 mg IV.PUSH Q12HR [facility] Last Admin: 04/09/18 08:58 Dose: 20 mg Hydromorphone HCl (Dilaudid Pf Inj) 2 mg IV.PUSH Q4H PRN PRN Reason: pain 8-10 Last Admin: 04/09/18 08:57 Dose: 2 mg Sodium Chloride (Ns Inj) 1,000 mls @ 84 mls/hr IV.CONT .[id number] [facility] Last Admin: 04/09/18 00:30 Dose: 84 mls/hr Magnesium Sulfate Inj 4 gm/ (Sodium Chloride) 100 mls @ 50 mls/hr IV.SIG UNSCH PRN PRN Reason: For Magnesium 0.9 - 1.1 mg/dL Potassium Chloride (Kcl 40 Meq Premix Inj) 40 meq in 100 mls @ 25 mls/hr IV.SIG Q2H PRN PRN Reason: For Potassium 2.8 - 3.2 mEq/L Potassium Chloride (Kcl 20 Meq Premix Inj) 20 meq in 100 mls @ 50 mls/hr IV.SIG Q2H PRN PRN Reason: For Potassium 3.3 - 3.5 mEq/L Potassium Chloride (Kcl 40 Meq Premix Inj) 40 meq in 100 mls @ 25 mls/hr IV.SIG UNSCH PRN PRN Reason: For Potassium 3.3 - 3.5 mEq/L Potassium Chloride (Kcl 20 Meq Premix Inj) 20 meq in 100 mls @ 50 mls/hr IV.SIG Q2H PRN PRN Reason: For Potassium 2.8 - 3.2 mEq/L Potassium Phosphate 30 mmol/ (Sodium Chloride) 260 mls @ 42 mls/hr IV.SIG UNSCH PRN PRN Reason: SEE LABEL COMMENTS Sodium Phosphate 30 mmol/ (Sodium Chloride) 260 mls @ 42 mls/hr IV.SIG UNSCH PRN PRN Reason: For Phosphorus < 2.5 mg/dL Magnesium Sulfate Inj 2 gm/ (Sodium Chloride) 100 mls @ 50 mls/hr IV.SIG UNSCH PRN PRN Reason: For Magnesium 1.2 - 1.6 mg/dL Potassium Chloride (Kcl 10 Meq Premix Inj) 10 meq in 100 mls @ 100 mls/hr IV.SIG Q1H [facility] Stop: 04/09/18 19:14 Labetalol HCl (Trandate Inj) 10 mg IV.PUSH Q3H PRN PRN Reason: SBP>160, DBP> 90 Last Admin: 04/09/18 08:59 Dose: 10 mg Lactulose (Lactulose Liq) 30 ml PO DAILY PRN PRN Reason: SEVERE CONSITIPATION Magnesium Oxide (Mag-Ox) 800 mg PO UNSCH PRN PRN Reason: For Magnesium 1.2 - 1.6 mg/dL Methadone HCl (Dolophine) 190 mg PO DAILY [facility] Last Admin: 04/09/18 09:27 Dose: 190 mg Metoclopramide HCl (Reglan Inj) 5 mg IV.PUSH Q6HR NASIR; Protocol Last Admin: 04/09/18 05:20 Dose: 5 mg Morphine Sulfate (Morphine Inj) 2 mg IV.PUSH Q2H PRN PRN Reason: PAIN SCALE 6 TO 10 Last Admin: 04/09/18 07:51 Dose: 2 mg Nicotine (Habitrol 14 Mg Patch.24 Hr) 1 patch T-DERMAL DAILY [facility] Ondansetron HCl (Zofran Inj) 4 mg IV.PUSH Q6H PRN PRN Reason: NAUSEA OR VOMITING Potassium Bicarb/Potassium Chloride (K-Lyte Cl Eff) 50 meq PO UNSCH PRN PRN Reason: For Potassium 3.3 - 3.5 mEq/L Potassium Phosphate (K-Phos Original) 2,000 mg PO Q4H PRN PRN Reason: Phosphorus Less Than 2.5 mg/dL Potassium Phosphate (K-Phos Original) 2,000 mg PO UNSCH PRN PRN Reason: SEE LABEL COMMENTS Senna/Docusate Sodium (Lindy-Colace) 1 tab PO BID [facility] Last Admin: 04/09/18 08:58 Dose: 1 tab Sennosides (Senokot) 17.2 mg PO Q12H PRN PRN Reason: Moderate Constipation Sodium Chloride (Ns Flush) 2 ml IV.FLUSH BID [facility] Last Admin: 04/09/18 08:59 Dose: Not Given Sodium Chloride (Ns Flush) 2 ml IV.FLUSH PRN PRN PRN Reason: FLUSH AFTER USING IV ACCESS Temazepam (Restoril) 15 mg PO HS PRN PRN Reason: INSOMNIA Last Admin: 04/09/18 01:24 Dose: 15 mg Allergies Allergy/AdvReac Type Severity Reaction Status Date / Time amoxicillin Allergy Severe Hives Verified 04/08/18 16:39 aspirin AdvReac Severe Has Verified 04/08/18 16:39 hemophilia Home Medications Medication Instructions Recorded Confirmed Type methadone 190 mg PO DAILY 04/08/18 04/08/18 History Exam Vital signs: Vital Signs 04/08/18 16:36 04/08/18 20:45 04/08/18 22:02 Temperature 98.2 F 98.0 F Pulse Rate 75 63 Respiratory Rate 20 18 Blood Pressure 178/95 H 156/100 H Pulse Oximetry 97 96 96 04/08/18 22:28 04/09/18 00:00 04/09/18 01:52 Temperature 99.1 F 99.6 F Pulse Rate 67 80 Respiratory Rate 35 H 12 Blood Pressure 170/97 H 206/95 H Pulse Oximetry 98 95 04/09/18 02:00 04/09/18 04:00 04/09/18 04:20 Temperature 98.4 F Pulse Rate 54 L 56 L Respiratory Rate 13 14 Blood Pressure 156/97 H Pulse Oximetry 97 04/09/18 06:00 04/09/18 06:38 04/09/18 08:06 Temperature Pulse Rate 52 L Respiratory Rate 15 Blood Pressure Pulse Oximetry 97 Intake & Output 04/08/18 04/09/18 04/09/18 18:59 06:59 18:59 Output Total 1750 / 1750 Balance -1750 / -1750 Weight 100.2 kg 99.2 kg Output: Urine Amount (Catheter) 1750 / 1750 Indwelling Urethral Catheter 1750 / 1750 Narrative: GENERAL: This is a well-nourished, well-developed patient, no apparent distress. SKIN: No abrasions, contusion, rash noted. Skin warm and dry. HEAD: Atraumatic. Normocephalic. No temporal or scalp tenderness. EYES: Sclerae are clear and nonicteric ENT: No facial edema or ecchymosis. No periorbital edema. NECK: Trachea midline. No cervical spine tenderness. CARDIOVASCULAR: Regular rate and rhythm RESPIRATORY: Clear, nonlabored GASTROINTESTINAL: Abdomen soft, non-tender, nondistended. No hepato-splenomegaly , or palpable masses. No guarding. MUSCULOSKELETAL: Extremities without cyanosis, or edema. No joint tenderness, or edema noted. No calf tenderness. Dorsalis pedis pulses 2+ bilateral NEUROLOGICAL: Awake and alert Oriented X 3 Speech is clear Conversant and appropriate Follow simple commands well Answers questions appropriately Reasonable judgment and insight Recent and remote memory are intact No evidence of anxiety or depression Pupils are equal and reactive to accommodation. Extra-ocular movements, visual shepard to confrontation, facial sensorimotor, tongue, palate, sternocleidomastoid testing, hearing to finger rub testing, and bilateral shoulder shrug are all intact. Sensation is intact to light touch in all extremities Strength normal major flexion and extension groups all extremities. He has some shaking in this extremity with proximal lower extremity motor testing, with complaint of thoracic region pain with this movement, but with encouragement is able to maintain 5/5 strength in the lower extremity major flexion-extension groups. Reflexes 2 right 3 left patellar, 1 right and left Achilles. Jourdan's absent bilaterally No ankle clonus Plantar responses flexor bilateral Fine motor movements intact upper extremities Results - Laboratory Findings CBC and BMP: 04/09/18 01:45 04/09/18 01:45 Abnormal lab findings: Abnormal Labs 04/08/18 04/08/18 04/08/18 17:05 17:05 17:05 WBC 15.2 H Coleman % (Auto) Coleman # (Auto) Monocytes % (Manual) 11 H Abs Neuts (Manual) 9.6 H PT APTT Potassium Estimated GFR 67 L Random Glucose 140 H Total Bilirubin 1.2 H AST 73 H ALT 81 H C-Reactive Protein 0.31 H Total Protein 9.4 H Urine Color Urine Protein Urine Nitrate Ur Leukocyte Esterase Urine RBC Urine WBC U Benzodiazepines Scrn U Cannabinoids Screen 04/08/18 04/08/18 04/08/18 17:05 18:06 18:06 WBC Coleman % (Auto) Coleman # (Auto) Monocytes % (Manual) Abs Neuts (Manual) PT APTT 32.4 H Potassium Estimated GFR Random Glucose Total Bilirubin AST ALT C-Reactive Protein Total Protein Urine Color [place] H Urine Protein 30 H Urine Nitrate Positive H Ur Leukocyte Esterase Trace H Urine RBC 4-15 H Urine WBC 6-8 H U Benzodiazepines Scrn Pos H U Cannabinoids Screen Pos H 04/09/18 04/09/18 04/09/18 01:45 01:45 01:45 WBC 12.0 H Coleman % (Auto) 10.7 H Coleman # (Auto) 1.3 H Monocytes % (Manual) Abs Neuts (Manual) PT 12.0 H APTT Potassium 3.2 L Estimated GFR 84 L Random Glucose Total Bilirubin 1.7 H AST 67 H ALT C-Reactive Protein Total Protein Urine Color Urine Protein Urine Nitrate Ur Leukocyte Esterase Urine RBC Urine WBC U Benzodiazepines Scrn U Cannabinoids Screen - Diagnostic Findings Additional findings: 04/08/2018 MRI thoracic spine reveals findings consistent with ventral epidural hematoma at the T4-T8 levels with posterior displacement of the cord. There appears to be mild to moderate anterior cord compression. Assessment and Plan - Plan Impression: 1. 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 Plan: Findings were discussed with the patient. It is advised that he proceed to surgery for evacuation of the ventral epidural hematoma. Risks of the surgical procedure have been fully discussed during the risk of anesthesia, infection, spinal fluid leak, spinal cord damage, pain weakness numbness paralysis, loss of bowel or bladder function, recurrent hematoma. Possibility of needing section of thoracic nerve roots for evacuation of the hematoma as well as possible costotransversectomy for adequate access to the hematoma has been discussed with possibility of requiring posterior fusion with instrumentation. Consents reviewed with the patient signed and witnessed. All questions answered. He appears to understand the above and wishes to proceed with surgery..
[2018-04-09] MEDS ORDERED: Thrombin Topical Soln 5,000 UNIT Vial TOPICAL ONE (11:29)
[2018-04-09] MEDS ORDERED: Lidocaine 1%/Epinephrine 1:100,000 Inj 20 ML Vial ONE ×2 (11:29→12:48)
[2018-04-09] MEDS ORDERED: Gelatin Size 100 Topical Foam ONE (11:29)
[2018-04-09] MEDS ORDERED: Clindamycin Inj 600 MG/4 ML Vial ONE (11:29)
[2018-04-09] MEDS ORDERED: Ketamine Inj 500 MG/10 ML Vial ONE (11:47)
[2018-04-09] MEDS ORDERED: Lidocaine PF 1% Inj 5 ML Syringe INFILTRATN ONE (12:00)
[2018-04-09] MEDS ORDERED: Succinylcholine Inj 100 MG/5 ML Syringe IV.PUSH ONE (12:00)
[2018-04-09] MEDS ORDERED: Phenylephrine/NS 1000 MCG/10ML Syringe IV.PUSH ONE (12:00)
[2018-04-09] MEDS ORDERED: Glycopyrrolate Inj 1 MG/5 ML Syringe IV.PUSH ONE (12:00)
[2018-04-09 14:40] LABS: ABG PCO2 32 mmHg (38-42); ABG PO2 206 mmHG (61-120)
[2018-04-09] MEDS ORDERED: fentaNYL Citrate Inj 100 MCG/2 ML Ampul ONE (16:00)
[2018-04-09] MEDS ORDERED: *morphine SULFATE 4 MG/ML PERIprocedure ONLY ONE (16:03)
[2018-04-09] MEDS ORDERED: HYDROmorphone PF Inj 2 MG/ML Vial ONE ×3 (16:13→17:34)
--- NOTE | 2018-04-09 16:54 | XR ---
EXAM DATE: 04/09/2018 3:56 PM EDT AGE/SEX: 42 years / Male INDICATIONS: Level localization T4 to T7 for laminectomy for epidural hematoma. CLINICAL DATA: This is the patient's subsequent encounter. Patient reports that signs and symptoms h ave been present for 3 days and indicates a pain score of Nonresponsive. MEDICAL/SURGICAL HISTORY: None. None. COMPARISON: No prior exams available for comparison. FINDINGS: Single coned-down view of the upper thoracic spine was obtained intraoperatively. This demonstrates a n endotracheal tube in place. There is a metal probe in place projected over the T4-5 interspace. The re is a metal clamp projected over the T4 vertebral body. CONCLUSION: Limited localization study as described. Electronically signed by: Chiki Lazcano MD 04/09/2018 4:53 PM EDT
[2018-04-09] MEDS ORDERED: Bisacodyl 10 MG Supp RECTAL PRN (17:11)
[2018-04-09] MEDS: Potassium Chlor 10 mEq Premix 10 MEQ/100 ML PIGGYBACK IV.SIG SCH ×5 (17:30→20:07)
--- NOTE | 2018-04-09 17:34 | P.OP ---
Date of procedure: 04/09/18 Procedure: Left T4 through 7 complete , and right T4 through 7 partial decompressive laminectomy, evacuation spontaneous epidural hematoma Anesthesia: JACOBA Surgeon: Jassi Varela MD Mold Breaker: Fernando Romero Estimated blood loss (mL): 1,800 Pathology: none sent Operation and Findings: Indications: 42-year-old male with hemophilia with 5 days of thoracic pain. Developed bladder dysfunction. 718. Preoperative imaging study reveals probable epidural hematoma ventral to thecal sac at the T4-8 levels. Findings: Ventral liquefied epidural hematoma T4-8 levels. Procedure in detail: The patient was brought into the operating room and general endotracheal anesthesia induced without difficulty. COREY hose and sequential compression devices were placed. Lines were established by anesthesia. The patient was positioned on the concentric Red table with the side bolsters and all extremities appropriately padded. Appropriate time-out procedure was performed with all personnel present and in agreement. The intraoperative C-arm in AP and lateral views was used to carefully determine the T4, T5, T6, T7, and T8 levels 1% Xylocaine with epinephrine was used for local infiltration over the incision site which was made at the midline T4-T8 level. The incision was carried sharply down to the lumbodorsal fascia which was incised adjacent to the spinous processes on the left side. Ornelas elevator was used for subperiosteal elevation of paraspinous musculature and fascia away from the lamina and spinous process of T4, T5, T6, T7, T8 on the left side. Initial exposure was limited to release of the muscles and ligaments on the left side in order to reduce intraoperative and postoperative bleeding. The deep self-retaining retractor was placed. The appropriate levels were verified with intraoperative C-arm. Microscope was moved into place and used for the remainder of the procedure including the closure. At the T4 through T7 level starting on the left side and then working across the midline to the opposite side, the TPS drill with a 5 mm bone bur followed by the 4 mm john bur was used to remove the entire left lamina and ventral aspect of the right lamina at these levels, along with a moderate amount of the bilateral medial facet, taking care not to disrupt the integrity of the facet or pars intra-articularis. The ligamentum flavum at each level was elevated away from the thecal sac with the thin ligament dissector and resected with the 15 blade knife and the Kerrison rongeur . Epidural adipose tissue was gently elevated away from the thecal sac. Copious bleeding from the epidural venous plexus was controlled with a bipolar forceps and temporary application of small amounts of Gelfoam and thrombin as well as FloSeal. Control of the bleeding along the epidural space was very difficult. This was discussed with hematology intraoperatively, and additional factor IX was administered. Moderate amount of liquefied epidural hematoma was evacuated from the ventral aspect of the thecal sac. Epidural veins and adipose tissue at the ventral epidural space were carefully cauterized with the bipolar. There was no significant bleeding at the time of closure. The thecal sac and spinal canal appeared well decompressed at the end of the procedure. The ventral epidural space towards the T8 level was directly visualized and probed with the thin nerve block and there was not felt to be any residual hematoma in this region. No spinal fluid leakage was encountered. A 7 mm Red-Bejarano drain [address] at the operative site and brought out through an incision in the mid and upper thoracic region and secured to the skin with nylon suture and attached to a bulb suction. The closure was performed with 0 Vicryl interrupted for the deep and superficial fascia, with 3-0 Vicryl interrupted subcutaneous closure, and 4-0 Vicryl running subcuticular closure. A dressing of sterile Mastisol, Steri- Strips, and Primapore was placed. The patient was taken to recovery room in stable condition. All counts were correct at the end of the case. Estimated blood loss was 1800 cc.
[2018-04-09] MEDS ORDERED: FACTOR IX COMPLEX HUMAN 2000 UNIT IV.PUSH SCH (21:00)
--- NOTE | 2018-04-09 21:24 | MB ---
cc: Mariya Fragoso MD, Daniel C MD DATE: 04/09/2018 REFERRING PHYSICIAN: Dr. Kumar Black CHIEF COMPLAINT: Dr. Black requests a consultation for Mr. Alcala regarding back pain associated with epidural hematoma in a severe hemophilia B patient. HISTORY OF PRESENT ILLNESS: Mr. 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 His baseline factor IX activity level is less than 1%. He was diagnosed by Dr. Elias at [facility]. He has had a history of inhibitors as a child. He was incarcerated and does not have insurance at present. He has not been under the care of rod buster after moving to the [facility]. He is well known for an inpatient consultation on 03/25/2018, when he presented with unprovoked right knee hemarthrosis. He reports that his knee is a target joint. He had significant pain and swelling of the right knee. He is well known from inpatient consultation for a trauma to the right knee. He subsequently developed a significant right joint bleed. He has no factors at home. He was admitted to the hospital and was started on BeneFIX. His symptoms improved. He was actually with resolution of the hemarthrosis after multiple factor product replacement. He was subsequently discharged home. He was advised to followup in the outpatient setting. He reports calling our oncology clinic once in followup. He did not have an appointment. He presented with back pain symptoms and on the morning of his presentation could not urinate. He was seen in the hospital by Dr. Kumar Black. He complained initially of his right elbow bruising secondary to trauma. He reported having back pain them which turn to severe back pain. He was seen at 1450. He developed worsening of the back pain in a course of 2-3 hours. At 1700, radiographic findings, showed the cervical spine intact, with no epidural hematoma. The lumbar spine was intact, with no epidural hematoma. The thoracic spine showed a mass approximately 0.8 x 1.6 cm and 8.8 cm in length, associated with severe spinal stenosis. This is most likely an acute to subacute epidural hematoma that appeared to manifest itself during his ER evaluation. His first dose of BeneFIX was ordered at 2144 on 04/08/2018. He was given 6000 units administered at 04/09/2018 at 0036 hours. He reports no benefit from the factor infusion. In the morning, post his admission to the hospital, he could not urinate. He received another 3000 units at 500 a.m. By 1100 a.m., because of lack of improvement in his neurologic symptoms, take up supervisor and neurosurgery have decided to take him in for decompression. Prior to his surgery, he was given another 3000 units of factor IX. Intraoperative, he was given a third 3000 units of factor IX. He had a total of 9000 units of BeneFIX administered between 500 a.m. and 1400. Postoperatively, his drains are bloody. He has complained of back pain. He has resolution of the hemarthrosis of the right knee and the right elbow. The case was discussed with pharmacy to keep his factor IX replacement going. He has a dose tonight at 2100. PAST MEDICAL HISTORY: Hemophilia arthropathy, right knee target joint, epidural hematoma, severe hemophilia B, chronic active hepatitis C, chronic pain. PAST SURGICAL HISTORY: Right knee arthroscopic surgery, decompression surgery. FAMILY HISTORY: Mother is a carrier for hemophilia B, with baseline factor IX activity level in the 20% range. SOCIAL HISTORY: He smokes a pack a day. Denies any alcohol, illicit drug use. ALLERGIES: ASPIRIN AND AMOXICILLIN. MEDICATIONS: Current medications includes BeneFix, chlorhexidine, Dilaudid, methadone 190 mg daily, Dulcolax, albuterol, nicotine, potassium chloride, lactulose, magnesium oxide, morphine, fentanyl, Lindy-Colace, Restoril, Zofran p.r.n., labetalol p.r.n. PHYSICAL EXAMINATION: VITAL SIGNS: Temperature 97.5, heart rate 64, respiratory rate 12, blood pressure 130/83, saturation 99%. GENERAL: Mr. Alcala is a well-developed, well-nourished, heavyset man with poor dentition. HEENT: His pupils are round, reactive to light and accommodation. He is uncomfortable from his recent back surgeries. Oropharynx is dry. NECK: Supple. LUNGS: Clear anteriorly. CARDIOVASCULAR: Reveals normal rate and rhythm. ABDOMEN: Large and benign. EXTREMITIES: With osteoarthritic joints/changes from hemarthrosis. Good pulses. LABORATORY DATA: Hemoglobin 15.6, platelet count is normal. White blood cell count is 12.0. PT 12.0, PTT 28.5 after BeneFIX. RADIOGRAPHIC EVALUATION: Described above. ASSESSMENT AND PLAN: Mr. 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 He has had a history of inhibitor as a child. He has had no inhibitor recently. He responded to his factor IX dose and his recent admission to the hospital. We discussed the need to continue his dose of BeneFIX every 12 hours given his epidural hematoma and recent decompression surgery. He is able to move his legs. He is suffering from back pain. Defer to primary team for management of that. We discussed checking for an inhibitor. Given that his PTT corrects with infusion of BeneFIX, it is unlikely that he has an inhibitor. We will monitor closely his factor IX activity level in order to dose his treatment better. The case was discussed with pharmacy. We need to have readily available factor IX products for him without cessation in the next 3-7 days in light of his recent neurologic surgery. I discussed with Mr. Alcala and his mother present at the consultation the need to establish him in an outpatient setting. He has had very spontaneous bleeding. Now, recently, his right knee, his elbow and now epidural hematoma. He would benefit from secondary prophylaxis with the long-acting factor IX product. His questions were answered to his satisfaction. We will monitor closely for bleeding. MD AMERICA Moore/LORY , 08:24 PM , 08:41 PM ROBERT
[2018-04-09] MEDS: [UNRECOGNIZED DRUG - MIXTURE] IV.PUSH SCH (21:28)
--- NOTE | 2018-04-09 22:17 | ECG ---
Date Performed: 04/09/2018 Time Performed: 00:09:06 PTAGE: 42 years EKG: Sinus rhythm with bigeminal PVCs. Lead(s) unsuitable for analysis: V5 Extensive ST-T changes may be due to myocar dial ischemia Abnormal ECG PREVIOUS TRACING : 09/10/2016 09.24 Compared to previous tracing, PVCs are new DOCTOR: Fan Ochoa Interpretating Date/Time 04/09/2018 22:13:26
[2018-04-10] MEDS: Sod Chloride 0.9% Inj 1,000 ML IV.CONT SCH ×2 (00:29→12:25)
[2018-04-10] MEDS: HYDROmorphone PF Inj 2 MG/ML Vial IV.PUSH PRN ×12 (00:48→23:56)
[2018-04-10] MEDS: Chlorhexidine Gluconate 2% 1 Pack (2 Cloths) TOPICAL SCH (05:26)
--- NOTE | 2018-04-10 05:27 | XR ---
EXAM DATE: 04/10/2018 4:53 AM EDT AGE/SEX: 42 years / Male INDICATIONS: Short of breath. CLINICAL DATA: This is the patient's subsequent encounter. Patient reports that signs and symptoms h ave been present for 1 week and indicates a pain score of 0/10. MEDICAL/SURGICAL HISTORY: Hepatitis C. hemophilia . None. COMPARISON: HPO, CHEST 1V SINGLE AP, 03/04/2018. . FINDINGS: Midline skin adam, and presumed enteric tube identified and the tip terminates overlying the expec vicente location of the distal esophagus. Lungs are clear. Cardiomegaly. CONCLUSION: Clear lungs. Electronically signed by: Gunnar Thompson MD 04/10/2018 5:26 AM EDT
[2018-04-10 08:06] LABS: Baso % (Auto) 0.2 % (0.0-2.0); Eos % (Auto) 0.1 % (0.0-4.0); Hematocrit 31.3 % (39.0-51.0); Hemoglobin 10.8 gm/dL (13.0-17.0); Lymph # (Auto) 2.2 th/mm3 (1.0-4.8); Lymph % (Auto) 20.3 % (9.0-44.0); Mean Corpuscular HGB Conc 34.5 % (32.0-36.0); Mean Corpuscular Hemoglobin 31.3 pg (27.0-34.0); Mean Corpuscular Volume 90.8 fL (80.0-100.0); Mean Platelet Volume 10.4 fL (7.0-11.0); Mono # (Auto) 1.3 th/mm3 (0.0-0.9); Neut # (Auto) 7.5 th/mm3 (1.8-7.7); Neut % (Auto) 67.4 % (16.0-70.0); Platelet Count 126 th/mm3 (150-450); Red Blood Count 3.44 mil/mm3 (4.50-5.90); Red Cell Distribution Width 13.1 % (11.6-17.2); White Blood Count 11.1 th/mm3 (4.0-11.0)
[2018-04-10 08:34] LABS: Alanine Aminotransferase 57 U/L (12-78); Albumin 2.9 g/dL (3.4-5.0); Alkaline Phosphatase 62 U/L (45-117); Anion Gap 7 meq/L (5-15); Aspartate Aminotransferase 63 U/L (15-37); Blood Urea Nitrogen 12 mg/dL (7-18); Calcium 8.1 mg/dL (8.5-10.1); Carbon Dioxide 28.2 meq/L (21.0-32.0); Chloride 102 meq/L (98-107); Glomerular Filtration Rate Greater Than 89 mL/min (>89); Glucose,Random 83 mg/dL (74-106); Magnesium 1.9 mg/dL (1.5-2.5); Potassium 3.8 meq/L (3.5-5.1); Sodium 137 meq/L (136-145); Total Protein 6.1 g/dL (6.4-8.2)
--- NOTE | 2018-04-10 08:44 | P.PNCC ---
Subjective Subjective Remarks/Hospital Course: 42-year-old male with hemophilia B was seen at [facility] 2 days ago with a complaint of right elbow pain and swelling. Hemarthrosis in the past effectively responded to BeneFIX and he received BeneFIX then and he has no elbow related complaints today. During that evaluation however the patient developed pain in the lower thoracic back fairly abruptly. He had not experienced similar pain previously. Patient became somewhat restless and after multiple doses of IV hydromorphone the pain was controlled. Imaging was added on and blood work at that time was grossly unremarkable. There was no fecal urinary incontinence or numbness or tingling in the saddle distribution. Patient remained ambulatory throughout his stay then. He returns today with urinary retention and severe lower thoracic back pain. Patient still remains ambulatory and there is no focal neurologic deficit. MR studies of the cervical thoracic and lumbar spine shows subacute/acute epidural hematoma. Patient has received broad-spectrum antibiotics in the emergency department due to leukocytosis, and is receiving factor IX infusion now. Neurosurgery was consulted by ED attending and recommended to admit patient to [facility] at the [facility]. SUBJ 04/09/18: Patient lying in bed still complains about back pain in the thoracic region. LE power 4/5, Knee jerk brisk on Left side. Also patient has urinary retention for last few days. I discussed clinical concern of spinal cord compression with Dr. Varela. He will plan for emergency surgical decompression of ventral thoracic epidural hematoma. Received factor IX infusion. Hematology consult is pending at this time, but I discussed with grounds foreman Dr. Fragoso. Patient received 3000 units of factor IX today a.m. at 5, give additional 3000 unit now immediately prior to surgery 04/10/18: Patient underwent left T4 through 7 complete , and right T4 through 7 partial decompressive laminectomy, and evacuation spontaneous epidural hematoma for spinal cord compression. Intraoperatively difficulty controlling bleeding due to hemophilia. Hematology was consulted additional factor IX administered in the OR. Objective Vital Signs / I&O: Vital Signs 04/09/18 15:48 04/09/18 16:00 04/09/18 16:15 Temperature 97.3 F L Pulse Rate 69 70 64 Respiratory Rate 12 14 14 Blood Pressure 116/65 122/68 125/74 Pulse Oximetry 96 98 97 04/09/18 16:30 04/09/18 16:45 04/09/18 17:00 Temperature 97.5 F L Pulse Rate 59 L 56 L 58 L Respiratory Rate 14 11 L 12 Blood Pressure 124/76 126/78 125/79 Pulse Oximetry 99 97 99 04/09/18 17:30 04/09/18 19:00 04/09/18 20:00 Temperature 97.2 F L 97.2 F L Pulse Rate 64 61 61 Respiratory Rate 12 19 19 Blood Pressure 130/83 167/81 H 167/81 H Pulse Oximetry 99 98 98 04/09/18 21:44 04/09/18 22:54 04/10/18 00:00 Temperature 98.5 F Pulse Rate 56 L Respiratory Rate 20 26 H 13 Blood Pressure 138/70 Pulse Oximetry 96 04/10/18 00:28 04/10/18 01:47 04/10/18 03:43 Temperature Pulse Rate Respiratory Rate 13 29 H 29 H Blood Pressure Pulse Oximetry 04/10/18 04:00 04/10/18 04:53 04/10/18 07:48 Temperature 97.6 F Pulse Rate 61 62 Respiratory Rate 16 18 13 Blood Pressure 158/103 H Pulse Oximetry 97 Intake & Output 04/09/18 04/10/18 04/10/18 18:59 06:59 18:59 Intake Total 4300 / 4300 1035 / 1035 1100 / 1100 Output Total 3195 / 3195 2280 / 2280 Balance 1105 / 1105 -1245 / -1245 1100 / 1100 Weight 103.6 kg Intake: IV 1035 / 1035 1100 / 1100 NS + KCl 20 mEq Inj 1,000 ML @ 1000 / 1000 100 mls/hr IV.CONT .Q10H [facility] Rx #:[id number] NS Inj 1,000 ML @ 84 mls/hr IV. 1000 / 1000 CONT .[id number] [facility] Rx#:[id number] BeneFIX Inj 6,000 UNIT In Bag/ 35 / 35 Syringe 1 EACH @ 70 mls/hr IV. PUSH Q12H [facility] Rx#:[id number] Anesthesia Amount 4300 / 4300 Output: Stool 0 / 0 Estimated Blood Loss 1800 / 1800 Urine Amount (Catheter) 1350 / 1350 2200 / 2200 Indwelling Urethral Catheter 1350 / 1350 2200 / 2200 Wound Drainage 45 / 45 80 / 80 # 1 Upper Back JOSE Drain 30 / 30 50 / 50 # 2 Lower Back JOSE Drain 15 / 15 30 / 30 Result Diagrams: 04/10/18 06:22 04/10/18 06:22 Objective Remarks: - Constitutional Mild distress due to back pain, otherwise doing better - Routine HEENT Exam Head: normocephalic, atraumatic Eye: PERRL ENT: Mucous membranes moist - Routine Neck Exam Supple, full ROM. No JVD, carotid bruit - Routine Respiratory Exam No accessory muscle use, rhonchi, stridor, wheezes - Routine Cardiovascular Exam RRR, S1, S2, no murmur - Routine Abdominal Exam Soft, normoactive bowel sounds. Tenderness, distended. Diaz in place - Routine Extremities Exam Clubbing, edema. No cyanosis - Routine Skin Exam Intact. No cyanosis, erythema - Routine Neurological Exam Present: alert, oriented X3, 4/5 power bilateral LE. Knee jerk brisk on L side, normal on right. JOES drain x2 in the back with SS drainage Assessment and Plan - Assessment and Plan Plan: NEURO: Acute Spinal cord compression Thoracic spinal epidural hematoma -s/p Complete Left T4 - 7 complete , and partial right T4 through 7 decompressive laminectomy, evacuation spontaneous epidural hematoma -Intraoperative bleeding controlled with additional factor IX infusion. -Underlying hemophilia B, continue factor per Dr. Fragoso, check factor IX activity -Discussed with Dr. Fragoso -Pain controlled now with IV Dilaudid as needed -Confirmed methadone dose with the methadone clinic. We will see him today RESP: -DuoNeb PRN, aggressive pulmonary toilet CVS: -Continue maintenance IV fluids -Target systolic blood pressure 130-160 to ensure spinal cord perfusion HEME: Hemophilia B -Factor IX infusion as ordered per hematology -Check factor IX activity -Further recs per hematology/Dr. Fragoso : Acute renal failure -Aggressive IV fluid resuscitation -Strict I's and O's -Monitor trend -Electrolyte replacement per ICU protocol GI: -NPO, start diet when cleared by neurosurgery, IV Famotidine ID: Leukocytosis -Culture negative to date -High risk for epidural abscess formation in hematoma -Follow-up blood cultures ENDO: Hypokalemia -Electrolyte replacement per protocol PROPH: -SCDs/Gerry. IV famotidine -Chemical DVT prophylaxis is contraindicated Critical Care: Level 3 PT per N/S recs. Code Status: Full Discussed Condition With: Neurosurgery
[2018-04-10] MEDS: Methadone 10 MG Tablet PO SCH (09:14)
[2018-04-10] MEDS: Famotidine PF Inj 20 MG/2 ML Vial IV.PUSH SCH ×2 (09:15→20:36)
[2018-04-10] MEDS: Senna/Docusate Sodium 8.6/50 MG Tablet PO SCH ×4 (09:15→20:37)
[2018-04-10] MEDS: [UNRECOGNIZED DRUG - MIXTURE] IV.PUSH SCH ×2 (09:25→21:09)
--- NOTE | 2018-04-10 10:01 | P.PNONC ---
Subjective Interval history: Afebrile Patient resting in bed in no obvious distress States "I feel like I got kicked by a horse in my back" HYDRAMATIC SPECIALIST at bedside said no overt bleeding from drains Objective Vital Signs/Intake & Output: Vital Signs 04/09/18 15:48 04/09/18 16:00 04/09/18 16:15 Temperature 97.3 F L Pulse Rate 69 70 64 Respiratory Rate 12 14 14 Blood Pressure 116/65 122/68 125/74 Pulse Oximetry 96 98 97 04/09/18 16:30 04/09/18 16:45 04/09/18 17:00 Temperature 97.5 F L Pulse Rate 59 L 56 L 58 L Respiratory Rate 14 11 L 12 Blood Pressure 124/76 126/78 125/79 Pulse Oximetry 99 97 99 04/09/18 17:30 04/09/18 19:00 04/09/18 20:00 Temperature 97.2 F L 97.2 F L Pulse Rate 64 61 61 Respiratory Rate 12 19 19 Blood Pressure 130/83 167/81 H 167/81 H Pulse Oximetry 99 98 98 04/09/18 21:44 04/09/18 22:54 04/10/18 00:00 Temperature 98.5 F Pulse Rate 56 L Respiratory Rate 20 26 H 13 Blood Pressure 138/70 Pulse Oximetry 96 04/10/18 00:28 04/10/18 01:47 04/10/18 03:43 Temperature Pulse Rate Respiratory Rate 13 29 H 29 H Blood Pressure Pulse Oximetry 04/10/18 04:00 04/10/18 04:53 04/10/18 07:48 Temperature 97.6 F Pulse Rate 61 62 Respiratory Rate 16 18 13 Blood Pressure 158/103 H Pulse Oximetry 97 Intake & Output 04/09/18 04/10/18 04/10/18 18:59 06:59 18:59 Intake Total 4300 / 4300 1035 / 1035 1100 / 1100 Output Total 3195 / 3195 2280 / 2280 Balance 1105 / 1105 -1245 / -1245 1100 / 1100 Weight 228 lb 6.382 oz Intake: IV 1035 / 1035 1100 / 1100 NS + KCl 20 mEq Inj 1,000 ML @ 1000 / 1000 100 mls/hr IV.CONT .Q10H [facility] Rx #:[id number] NS Inj 1,000 ML @ 84 mls/hr IV. 1000 / 1000 CONT .[id number] [facility] Rx#:[id number] BeneFIX Inj 6,000 UNIT In Bag/ 35 / 35 Syringe 1 EACH @ 70 mls/hr IV. PUSH Q12H [facility] Rx#:[id number] Anesthesia Amount 4300 / 4300 Output: Stool 0 / 0 Estimated Blood Loss 1800 / 1800 Urine Amount (Catheter) 1350 / 1350 2200 / 2200 Indwelling Urethral Catheter 1350 / 1350 2200 / 2200 Wound Drainage 45 / 45 80 / 80 # 1 Upper Back JOSE Drain 30 50 / 50 # 2 Lower Back JOSE Drain Result Diagrams: 04/10/18 06:22 04/10/18 06:22 Laboratory Results: Laboratory Results - last 24 hr 04/09/18 04/09/18 04/09/18 14:23 14:32 18:50 WBC RBC Hgb Hct MCV MCH MCHC RDW Plt Count MPV Neut % (Auto) Lymph % (Auto) Mills % (Auto) Eos % (Auto) Baso % (Auto) Neut # (Auto) Lymph # (Auto) Mills # (Auto) Eos # (Auto) Baso # (Auto) WBC Differential Differential Comment Factor Inhibitor Screen Puncture Site Art line Patient Temperature 98.6 O2 Saturation 96 ABG pH 7.47 H ABG pCO2 32 L ABG pO2 206 H ABG HCO3 23 ABG O2 Content 17.4 ABG Base Excess 0.0 ABG Methemoglobin 1.5 Hemoglobin 12.5 Carboxyhemoglobin 1.5 O2 Delivery Device Ventilator Vent Setting See or chart Inspired O2 50 Critical Value No Sodium Potassium 3.9 Chloride Carbon Dioxide Anion Gap BUN Creatinine Estimated GFR Random Glucose Calcium Magnesium Total Bilirubin AST ALT Alkaline Phosphatase Total Protein Albumin Blood Type O Positive Blood Type Recheck Not needed Antibody Screen Negative MTS Gel Crossmatch See Detail 04/10/18 04/10/18 04/10/18 06:22 06:22 06:22 WBC 11.1 H RBC 3.44 L Hgb 10.8 L D Hct 31.3 L MCV 90.8 MCH 31.3 MCHC 34.5 RDW 13.1 Plt Count 126 L MPV 10.4 Neut % (Auto) 67.4 Lymph % (Auto) 20.3 Mills % (Auto) 12.0 H Eos % (Auto) 0.1 Baso % (Auto) 0.2 Neut # (Auto) 7.5 Lymph # (Auto) 2.2 Mills # (Auto) 1.3 H Eos # (Auto) 0.0 Baso # (Auto) 0.0 WBC Differential . Differential Comment Auto diff final Factor Inhibitor Screen Puncture Site Patient Temperature O2 Saturation ABG pH ABG pCO2 ABG pO2 ABG HCO3 ABG O2 Content ABG Base Excess ABG Methemoglobin Hemoglobin Carboxyhemoglobin O2 Delivery Device Vent Setting Inspired O2 Critical Value Sodium 137 Potassium 3.8 Chloride 102 Carbon Dioxide 28.2 Anion Gap 7 BUN 12 Creatinine 0.70 Estimated GFR Greater than 89 Random Glucose 83 Calcium 8.1 L D Magnesium 1.9 Total Bilirubin 2.1 H AST 63 H ALT 57 Alkaline Phosphatase 62 Total Protein 6.1 L D Albumin 2.9 L D Blood Type Blood Type Recheck Antibody Screen MTS Gel Crossmatch Culture Results: Microbiology 04/08/18 18:06 Urine Culture - Final Catheterized Urine No growth in 48 hours 04/08/18 17:55 Aerobic Blood Culture - Preliminary Blood - Peripheral No growth in 1 day Anaerobic Blood Culture - Preliminary No growth in 1 day 04/08/18 18:00 Aerobic Blood Culture - Preliminary Blood - Peripheral No growth in 1 day Anaerobic Blood Culture - Preliminary No growth in 1 day Imaging Studies: Impressions Thoracic Spine X-Ray 04/09/18 00:00 CONCLUSION: Limited localization study as described. Chest X-Ray 04/10/18 06:00 CONCLUSION: Clear lungs. Medications: Active Medications Generic Name Dose Route Start Last Admin Trade Name Freq PRN Reason Stop Dose Admin Albuterol 1 ampul 04/08/18 23:50 04/10/18 04:50 Duoneb Neb (Prn) NEB 1 ampul Q2HR NEB PRN Administration WHEEZING Chlorhexidine Gluconate 3 pack 04/09/18 04:00 04/10/18 05:26 Chlorhexidine 2% Cloth TOPICAL 04/14/18 03:59 3 pack DAILY@0400 NASIR Administration Famotidine 20 mg 04/09/18 09:00 04/10/18 09:15 Pepcid Pf Inj IV.PUSH 20 mg Q12HR [facility] Administration Hydromorphone HCl 2 mg 04/09/18 20:19 04/10/18 06:33 Dilaudid Pf Inj IV.PUSH 2 mg Q2H PRN Administration pain 8-10 Hydromorphone HCl 2 mg 08/08/18 20:19 04/10/18 04:37 Dilaudid Pf Inj IV.PUSH 2 mg Q2H PRN Administration BREAKTHROUGH PAIN Sodium Chloride 1,000 mls @ 84 mls/hr 04/08/18 23:45 04/10/18 07:27 Ns Inj IV.CONT Infused .[id number] [facility] Infusion Potassium Chloride/Sodium Chloride 1,000 mls @ 100 mls/hr 04/09/18 17:15 05/20 03:49 Ns + Kcl 20 Meq Inj IV.CONT 100 mls/hr .Q10H [facility] Administration Factor IX Complex Human 6,000 35 mls @ 70 mls/hr 04/09/18 21:00 04/10/18 01: 47 unit/ Syringe/Bag IV.PUSH 04/12/18 09:29 Infused Q12H [facility] Infusion Labetalol HCl 10 mg 04/09/18 00:45 04/09/18 08:59 Trandate Inj IV.PUSH 10 mg Q3H PRN Administration SBP>160, DBP> 90 Methadone HCl 190 mg 04/09/18 09:00 04/10/18 09:14 Dolophine PO 190 mg DAILY NASIR Administration Metoclopramide HCl 5 mg 04/09/18 00:00 04/10/18 05:27 Reglan Inj IV.PUSH 5 mg Q6HR NASIR Administration Protocol Morphine Sulfate 2 mg 04/08/18 23:50 04/09/18 07:51 Morphine Inj IV.PUSH 2 mg Q2H PRN Administration PAIN SCALE 6 TO 10 Nicotine 1 patch 04/09/18 10:00 04/10/18 09:15 Habitrol 14 Mg Patch.24 Hr T-DERMAL 1 patch DAILY NASIR Administration Senna/Docusate Sodium 1 tab 04/09/18 09:00 04/10/18 09:15 Lindy-Colace PO 1 tab BID NASIR Administration Senna/Docusate Sodium 1 tab 04/09/18 21:00 04/10/18 09:15 Lindy-Colace PO Not Given BID NASIR Sodium Chloride 2 ml 04/09/18 09:00 04/10/18 09:15 Ns Flush IV.FLUSH 2 ml BID NASIR Administration Temazepam 15 mg 04/08/18 23:50 04/09/18 01:24 Restoril PO 15 mg HS PRN Administration INSOMNIA Objective Remarks: GENERAL: Young male resting in bed in no obvious distress SKIN: Warm and dry. 2 midline dressings to back dry and intact. Drains with moderate amount sanguinous fluid noted HEAD: Normocephalic. EYES: No scleral icterus. No injection or drainage. NECK: Supple, trachea midline. No JVD or lymphadenopathy. CARDIOVASCULAR: Regular rate and rhythm without murmurs. RESPIRATORY: Breath sounds equal bilaterally. No accessory muscle use. GASTROINTESTINAL: Abdomen soft, non-tender, nondistended. EXTREMITIES: No cyanosis, or edema. MUSCULOSKELETAL: Adequate muscle tone. NEUROLOGICAL: No obvious focal deficit. Awake, alert, and oriented x3. 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 His baseline factor IX activity is less than 1%. 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 Unfortunately he has no factors at home as he does not have insurance. Follow-up in our clinic has been difficult. He presented with back pain symptoms and trouble urinating. Thoracic spine MRI shows elongated mass in the anterior aspect of the epidural space from T5-T9 with moderate spinal stenosis. The patient had decompression surgery by Dr. Varela on 04/09. 1. Factor IX activity level is pending. We attempted to order an inhibitor screen however the patient has normal APTT levels. 2. Continue BeneFIX 6000 units every 12 hours. 3. Monitor CBC, monitor for bleeding. 4. Noted drop in hemoglobin after spinal decompression. Patient is normotensive. He is asymptomatic. Continue to watch. 5. Appreciate case management in getting patient insurance as he will need long -acting factor once discharged to prevent further unprovoked bleeds. - Attending Statement The exam, history, and the medical decision-making described in the above note were completed with the assistance of the mid-level provider. I reviewed and agree with the findings presented. I attest that I had a [id number] encounter with the patient on the same day, and personally performed and documented my assessment and findings in the medical record. Patient seen and examined. He has pain in the back. He reports some pain in his legs. He has a Diaz still in place. He feels that he could sense his bladder. Drains in the back are continuing to drain sanguinous fluid. He is receiving BeneFIX dose of 6000 units every 12 hours. We discussed giving her bolus dose approximately 8 hours after his last dose in order to enhance his hemostasis. A stat dose of BeneFIX 6000 units once is requested. Pharmacist was called. Patient's nurse was called. We will monitor clinically improvement in the output of the drain. We will continue to monitor his neurological function. He is factor replacement continues. Her goal ultimately is to keep them above 50%. It is difficult to manage he is C hemophilia since the factor IX activity level does not come back in a timely fashion to make clinical decisions. We have a factor reading of 28% recovery 12 hours after 6000 unit bolus once from a previous admission. He is encouraged to use ice as an adjunct to his pain and hemostasis. His questions were answered to his satisfaction.
[2018-04-10] MEDS ORDERED: FACTOR IX COMPLEX HUMAN 2000 UNIT IV.PUSH ONE (15:00)
--- NOTE | 2018-04-10 18:21 | P.PNNS ---
Subjective Interval history: Pt complains of incisional pain with pain radiating into the ribs right more than left. No numbness or paresthesias in chest or LEs. Pt wants to get oob. <Sherman Gandara - Last Filed: 04/10/18 18:15> Physical Exam Vital signs: Vital Signs 04/09/18 19:00 04/09/18 19:45 04/09/18 20:00 Temperature 97.2 F L 97.2 F L Pulse Rate 61 62 60 Respiratory Rate 19 22 26 H Blood Pressure 167/81 H 167/81 H Pulse Oximetry 98 99 97 04/09/18 20:15 04/09/18 20:30 04/09/18 21:00 Temperature Pulse Rate 58 L 60 54 L Respiratory Rate 19 20 37 H Blood Pressure 141/68 H 142/72 H 186/96 H Pulse Oximetry 97 98 97 04/09/18 21:26 04/09/18 21:44 04/09/18 22:00 Temperature Pulse Rate 56 L 53 L Respiratory Rate 44 H 20 35 H Blood Pressure 167/81 H 150/81 H Pulse Oximetry 98 97 04/09/18 22:54 04/09/18 23:00 04/10/18 00:00 Temperature 98.5 F Pulse Rate 65 58 L Respiratory Rate 26 H 24 14 Blood Pressure 163/101 H 138/70 Pulse Oximetry 98 96 04/10/18 00:02 04/10/18 00:28 04/10/18 01:00 Temperature Pulse Rate 62 58 L Respiratory Rate 16 13 14 Blood Pressure 138/70 139/67 Pulse Oximetry 97 98 04/10/18 01:47 04/10/18 02:00 04/10/18 03:00 Temperature Pulse Rate 56 L 58 L Respiratory Rate 29 H 16 24 Blood Pressure 144/75 H 129/76 Pulse Oximetry 97 96 04/10/18 03:43 04/10/18 04:00 04/10/18 04:53 Temperature 97.6 F Pulse Rate 60 62 Respiratory Rate 29 H 13 18 Blood Pressure 158/103 H Pulse Oximetry 96 04/10/18 05:00 04/10/18 06:00 04/10/18 07:00 Temperature Pulse Rate 58 L 59 L 57 L Respiratory Rate 14 13 19 Blood Pressure 131/74 139/73 155/84 H Pulse Oximetry 97 97 98 04/10/18 07:48 04/10/18 08:00 04/10/18 09:00 Temperature Pulse Rate 68 67 Respiratory Rate 13 30 H 24 Blood Pressure 159/79 H 197/88 H Pulse Oximetry 98 100 04/10/18 10:00 04/10/18 10:05 04/10/18 11:00 Temperature Pulse Rate 68 62 Respiratory Rate 25 H 15 17 Blood Pressure 184/101 H 179/122 H Pulse Oximetry 97 97 04/10/18 11:56 04/10/18 12:00 04/10/18 13:00 Temperature Pulse Rate 64 63 62 Respiratory Rate 10 L 11 L 15 Blood Pressure 151/97 H 148/85 H 132/88 Pulse Oximetry 97 96 97 04/10/18 14:00 04/10/18 15:00 04/10/18 18:03 Temperature Pulse Rate 71 61 Respiratory Rate 26 H 9 L 14 Blood Pressure 174/106 H 144/90 H Pulse Oximetry 98 96 Intake & Output 04/09/18 04/10/18 04/10/18 18:59 06:59 18:59 Intake Total 4300 / 4300 1035 / 1035 2135 / 2135 Output Total 3195 / 3195 2280 / 2280 Balance 1105 / 1105 -1245 / -1245 2134 / 2135 Weight 103.6 kg Intake: IV 1035 / 1035 2135 / 2135 NS + KCl 20 mEq Inj 1,000 ML @ 1000 / 1000 1000 / 1000 100 mls/hr IV.CONT .Q10H NASIR Rx #:[id number] NS Inj 1,000 ML @ 84 mls/hr IV. 1000 / 1000 CONT .[id number] NASIR Rx#:[id number] BeneFIX Inj 6,000 UNIT In Bag/ 35 / 35 35 / 35 Syringe 1 EACH @ 70 mls/hr IV. PUSH Q12H NASIR Rx#:[id number] Anesthesia Amount 4300 / 4300 Output: Stool 0 / 0 Estimated Blood Loss 1800 / 1800 Urine Amount (Catheter) 1350 / 1350 2200 / 2200 Indwelling Urethral Catheter 1350 / 1350 2200 / 2200 Wound Drainage 45 / 45 80 / 80 # 1 Upper Back JOSE Drain 30 / 30 50 / 50 # 2 Lower Back JOSE Drain 15 / 15 30 / 30 - Constitutional no acute distress, average body habitus - Routine HEENT Exam Head: Present: normocephalic, atraumatic Eye: Present: PERRL - Routine Neck Exam Present: trachea midline - Routine Respiratory Exam Present: CTA bilaterally. Absent: respiratory distress, rhonchi, wheezes - Routine Cardiovascular Exam Present: RRR, S1, S2. Absent: murmur - Routine Abdominal Exam Present: soft, normoactive bowel sounds. Absent: tenderness, distended - Routine Extremities Exam Absent: cyanosis - Routine Skin Exam Absent: cyanosis, erythema Comments: Thoracic incision bandage dry. Two JOSE drains in place draining well. - Routine Neurological Exam Present: alert, oriented X3, moving all extremities, normal speech. Absent: sensory deficit, motor deficit, altered mental status - Detailed Neurological Exam: Coma Scale Eye Opening: Spontaneous Verbal Response: Oriented Motor Response: Obey commands [place] Coma Scale Total: 15 - Routine Psychiatric Exam Present: normal affect, good insight, good judgment. Absent: agitated - Urinary Catheter Management Indwelling Urethral Catheter Cath placed during this visit: yes Reason for continuing: Acute urinary retention Insertion date: 04/08/18 Insertion time: 18:04 <Sherman Gandara - Last Filed: 04/10/18 18:15> Vital signs: Vital Signs 04/10/18 10:00 04/10/18 10:05 04/10/18 11:00 Temperature Pulse Rate 68 62 Respiratory Rate 25 H 15 17 Blood Pressure 184/101 H 179/122 H Pulse Oximetry 97 97 04/10/18 11:56 04/10/18 12:00 04/10/18 13:00 Temperature Pulse Rate 64 63 62 Respiratory Rate 10 L 14 15 Blood Pressure 151/97 H 148/85 H 132/88 Pulse Oximetry 97 96 97 04/10/18 14:00 04/10/18 15:00 04/10/18 16:00 Temperature 98.2 F Pulse Rate 71 61 59 L Respiratory Rate 26 H 9 L 10 L Blood Pressure 174/106 H 144/90 H 144/89 H Pulse Oximetry 98 96 97 04/10/18 17:00 04/10/18 18:00 04/10/18 18:03 Temperature Pulse Rate 55 L 65 Respiratory Rate 14 Blood Pressure 158/94 H 174/96 H Pulse Oximetry 98 98 04/10/18 19:00 04/10/18 19:27 04/10/18 20:00 Temperature 99 F Pulse Rate 65 60 Respiratory Rate 19 14 22 Blood Pressure 185/94 H 135/86 Pulse Oximetry 98 97 04/10/18 21:00 04/10/18 22:00 04/10/18 22:21 Temperature Pulse Rate 55 L 57 L Respiratory Rate 21 14 18 Blood Pressure 149/89 H 163/92 H Pulse Oximetry 97 97 04/10/18 23:00 04/10/18 23:47 04/11/18 00:00 Temperature 98.9 F Pulse Rate 60 63 Respiratory Rate 14 15 15 Blood Pressure 166/87 H Pulse Oximetry 92 L 97 04/11/18 00:04 04/11/18 01:00 04/11/18 01:01 Temperature Pulse Rate 61 64 64 Respiratory Rate 15 13 14 Blood Pressure 166/87 H 159/84 H Pulse Oximetry 94 L 97 96 04/11/18 01:02 04/11/18 02:00 04/11/18 02:15 Temperature Pulse Rate 62 Respiratory Rate 15 16 18 Blood Pressure Pulse Oximetry 94 L 04/11/18 02:56 04/11/18 03:00 04/11/18 03:56 Temperature Pulse Rate 56 L 56 L 58 L Respiratory Rate 17 14 15 Blood Pressure 155/99 H 167/99 H Pulse Oximetry 92 L 93 L 93 L 04/11/18 04:00 04/11/18 04:56 04/11/18 05:56 Temperature 99.0 F Pulse Rate 57 L 58 L 53 L Respiratory Rate 13 13 13 Blood Pressure 167/99 H 184/110 H 164/87 H Pulse Oximetry 95 96 94 L 04/11/18 07:56 04/11/18 07:57 04/11/18 08:00 Temperature 98.2 F 98.2 F Pulse Rate 54 L 54 L Respiratory Rate 15 14 15 Blood Pressure 170/90 H 170/90 H Pulse Oximetry 95 95 04/11/18 08:52 04/11/18 09:00 04/11/18 09:08 Temperature Pulse Rate 65 Respiratory Rate 16 20 Blood Pressure 189/90 H Pulse Oximetry 96 96 04/11/18 09:30 Temperature Pulse Rate Respiratory Rate Blood Pressure 152/96 H Pulse Oximetry 96 Intake & Output 04/10/18 04/11/18 04/11/18 18:59 06:59 18:59 Intake Total 2735 / 2735 1755 / 1755 1000 / 1000 Output Total 2260 / 2260 2370 / 2370 Balance 475 / 475 -615 / -615 1000 / 1000 Weight 102.3 kg Intake: IV 2135 / 2135 1035 / 1035 1000 / 1000 NS + KCl 20 mEq Inj 1,000 ML @ 1000 / 1000 1000 / 1000 1000 / 1000 100 mls/hr IV.CONT .Q10H NASRI Rx #:[id number] NS Inj 1,000 ML @ 84 mls/hr IV. 1000 / 1000 CONT .[id number] NASIR Rx#:[id number] BeneFIX Inj 6,000 UNIT In Bag/ 35 / 35 35 / 35 Syringe 1 EACH @ 70 mls/hr IV. 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 s/p Left T4 through 7 complete , and right T4 through 7 partial decompressive laminectomy, evacuation spontaneous epidural hematoma Plan: Continue with JOSE drains. PT oob Continue with pain control Continue with Diaz catheter secondary to neurogenic bladder. <Sherman Gandara - Last Filed: 04/10/18 18:15> - Attending Attestation The exam, history, and the medical decision-making described in the above note were completed with the assistance of the mid-level provider. I reviewed and agree with the findings presented. I attest that I had a [id number] encounter with the patient on the same day, and personally performed and documented my assessment and findings in the medical record. <Dhaval Davila - Last Filed: 04/11/18 09:33>
[2018-04-10] MEDS: Labetalol HCl Inj 100 MG/20 ML Vial IV.PUSH PRN (19:54)
[2018-04-11] MEDS: Sod Chloride 0.9% Inj 1,000 ML IV.CONT SCH ×3 (00:38→23:15)
[2018-04-11] MEDS: HYDROmorphone PF Inj 2 MG/ML Vial IV.PUSH PRN ×8 (01:10→22:08)
[2018-04-11] MEDS: Chlorhexidine Gluconate 2% 1 Pack (2 Cloths) TOPICAL SCH (04:19)
[2018-04-11] MEDS: Labetalol HCl Inj 100 MG/20 ML Vial IV.PUSH PRN (05:13)
[2018-04-11] MEDS: Methadone 10 MG Tablet PO SCH (08:11)
[2018-04-11] MEDS: Senna/Docusate Sodium 8.6/50 MG Tablet PO SCH ×4 (08:16→21:15)
[2018-04-11] MEDS: Famotidine PF Inj 20 MG/2 ML Vial IV.PUSH SCH ×2 (08:16→21:14)
[2018-04-11] MEDS: [UNRECOGNIZED DRUG - MIXTURE] IV.PUSH SCH ×2 (09:14→21:14)
--- NOTE | 2018-04-11 14:03 | P.PNCC ---
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 Hemarthrosis in the past effectively responded to BeneFIX and he received BeneFIX then and he has no elbow related complaints today. During that evaluation however the patient developed pain in the lower thoracic back fairly abruptly. He had not experienced similar pain previously. Patient became somewhat restless and after multiple doses of IV hydromorphone the pain was controlled. Imaging was added on and blood work at that time was grossly unremarkable. There was no fecal urinary incontinence or numbness or tingling in the saddle distribution. Patient remained ambulatory throughout his stay then. He returns today with urinary retention and severe lower thoracic back pain. Patient still remains ambulatory and there is no focal neurologic deficit. MR studies of the cervical thoracic and lumbar spine shows subacute/acute epidural hematoma. Patient has received broad-spectrum antibiotics in the emergency department due to leukocytosis, and is receiving factor IX infusion now. Neurosurgery was consulted by ED attending and recommended to admit patient to [facility]SC at the [facility]. SUBJ 04/09/18: Patient lying in bed still complains about back pain in the thoracic region. LE power 4/5, Knee jerk brisk on Left side. Also patient has urinary retention for last few days. I discussed clinical concern of spinal cord compression with Dr. Varela. He will plan for emergency surgical decompression of ventral thoracic epidural hematoma. Received factor IX infusion. Hematology consult is pending at this time, but I discussed with resource development manager Dr. Fragoso. Patient received 3000 units of factor IX today a.m. at 5, give additional 3000 unit now immediately prior to surgery 04/10/18: Patient underwent left T4 through 7 complete , and right T4 through 7 partial decompressive laminectomy, and evacuation spontaneous epidural hematoma for spinal cord compression. Intraoperatively difficulty controlling bleeding due to hemophilia. Hematology was consulted additional factor IX administered in the OR. 04/11: Alert awake and comfortable. Wiggles toes to command. Hemoglobin stable. Objective Vital Signs / I&O: Vital Signs 04/10/18 14:00 04/10/18 15:00 04/10/18 16:00 Temperature 98.2 F Pulse Rate 71 61 59 L Respiratory Rate 26 H 9 L 10 L Blood Pressure 174/106 H 144/90 H 144/89 H Pulse Oximetry 98 96 97 04/10/18 17:00 04/10/18 18:00 04/10/18 18:03 Temperature Pulse Rate 55 L 65 Respiratory Rate 14 Blood Pressure 158/94 H 174/96 H Pulse Oximetry 98 98 04/10/18 19:00 04/10/18 19:27 04/10/18 20:00 Temperature 99 F Pulse Rate 65 60 Respiratory Rate 19 14 22 Blood Pressure 185/94 H 135/86 Pulse Oximetry 98 97 04/10/18 21:00 04/10/18 22:00 04/10/18 22:21 Temperature Pulse Rate 55 L 57 L Respiratory Rate 21 14 18 Blood Pressure 149/89 H 163/92 H Pulse Oximetry 97 97 04/10/18 23:00 04/10/18 23:47 04/11/18 00:00 Temperature 98.9 F Pulse Rate 60 63 Respiratory Rate 14 15 15 Blood Pressure 166/87 H Pulse Oximetry 92 L 97 04/11/18 00:04 04/11/18 01:00 04/11/18 01:01 Temperature Pulse Rate 61 64 64 Respiratory Rate 15 13 14 Blood Pressure 166/87 H 159/84 H Pulse Oximetry 94 L 97 96 04/11/18 01:02 04/11/18 02:00 04/11/18 02:15 Temperature Pulse Rate 62 Respiratory Rate 15 16 18 Blood Pressure Pulse Oximetry 94 L 04/11/18 02:56 04/11/18 03:00 04/11/18 03:56 Temperature Pulse Rate 56 L 56 L 58 L Respiratory Rate 17 14 15 Blood Pressure 155/99 H 167/99 H Pulse Oximetry 92 L 93 L 93 L 04/11/18 04:00 04/11/18 04:56 04/11/18 05:56 Temperature 99.0 F Pulse Rate 57 L 58 L 53 L Respiratory Rate 13 13 13 Blood Pressure 167/99 H 184/110 H 164/87 H Pulse Oximetry 95 96 94 L 04/11/18 07:56 04/11/18 07:57 04/11/18 08:00 Temperature 98.2 F 98.2 F Pulse Rate 54 L 54 L Respiratory Rate 15 14 15 Blood Pressure 170/90 H 170/90 H Pulse Oximetry 95 95 04/11/18 08:52 04/11/18 09:00 08/10/18 09:08 Temperature Pulse Rate 65 Respiratory Rate 16 20 Blood Pressure 189/90 H Pulse Oximetry 96 96 04/11/18 09:30 04/11/18 11:00 04/11/18 12:00 Temperature 98.4 F Pulse Rate 56 L 55 L Respiratory Rate 11 L 16 Blood Pressure 152/96 H 126/82 125/80 Pulse Oximetry 96 93 L 96 04/11/18 12:54 Temperature Pulse Rate Respiratory Rate 16 Blood Pressure Pulse Oximetry Intake & Output 04/10/18 04/11/18 04/11/18 18:59 06:59 18:59 Intake Total 2735 / 2735 1755 / 1755 1035 / 1035 Output Total 2260 / 2260 2370 / 2370 Balance 475 / 475 -615 / -615 1035 / 1035 Weight 102.3 kg Intake: IV 2135 / 2135 1035 / 1035 1035 / 1035 NS + KCl 20 mEq Inj 1,000 ML @ 1000 / 1000 1000 / 1000 1000 / 1000 100 mls/hr IV.CONT .Q10H NASIR Rx #:[id number] NS Inj 1,000 ML @ 84 mls/hr IV. 1000 / 1000 CONT .[id number] NASIR Rx#:[id number] BeneFIX Inj 6,000 UNIT In Bag/ 35 / 35 35 / 35 35 / 35 Syringe 1 EACH @ 70 mls/hr IV. PUSH Q12H NASIR Rx#:[id number] Oral 600 / 600 720 / 720 Output: Urine Amount (Catheter) 2200 / 2200 2350 / 2350 Indwelling Urethral Catheter 2200 / 2200 2350 / 2350 Wound Drainage 60 / 60 20 / 20 # 1 Upper Back JOSE Drain 40 / 40 10 / 10 # 2 Lower Back JOSE Drain 20 / 20 10 10 Result Diagrams: 04/10/18 06:22 04/10/18 06:22 Objective Remarks: - Constitutional Some distress due to back pain, otherwise doing better - Routine HEENT Exam Head: normocephalic, atraumatic Eye: PERRL ENT: Mucous membranes moist - Routine Neck Exam Supple, full ROM. Airway widely patent. No JVD, carotid bruit - Routine Respiratory Exam Clear, comfortable respiratory pattern. No accessory muscle use, rhonchi, stridor, wheezes - Routine Cardiovascular Exam RRR, S1, S2, no murmur, no JVD. - Routine Abdominal Exam Soft, normoactive bowel sounds. Diaz in place - Routine Extremities Exam Clubbing, edema. Warm, well-perfused. No cyanosis - Routine Skin Exam Intact. No cyanosis, erythema - Routine Neurological Exam Present: alert, oriented X3, 4/5 power bilateral LE. Knee jerk brisk on L side, normal on right. JOSE drain x2 in the back with SS drainage Assessment and Plan - Assessment and Plan Plan: NEURO: Acute Spinal cord compression Thoracic spinal epidural hematoma -s/p Complete Left T4 - 7 complete , and partial right T4 through 7 decompressive laminectomy, evacuation spontaneous epidural hematoma -Intraoperative bleeding controlled with additional factor IX infusion. -Underlying hemophilia B, continue factor per Dr. Fragoso, check factor IX activity -Discussed with Dr. Fragoso -Pain controlled now with IV Dilaudid as needed -Confirmed methadone dose with the methadone clinic. We will see him today. RESP: -DuoNeb PRN, aggressive pulmonary toilet CVS: -Continue maintenance IV fluids -Target systolic blood pressure 130-160 to ensure spinal cord perfusion HEME: Hemophilia B -Factor IX infusion as ordered per hematology -Check factor IX activity -Further recs per hematology/Dr. Fragoso : Acute renal failure -Aggressive IV fluid resuscitation -Strict I's and O's -Monitor trend -Electrolyte replacement per ICU protocol GI: -NPO, start diet when cleared by neurosurgery, IV Famotidine ID: Leukocytosis -Culture negative to date -High risk for epidural abscess formation in hematoma -Follow-up blood cultures ENDO: Hypokalemia -Electrolyte replacement per protocol PROPH: -SCDs/Gerry. IV famotidine -Chemical DVT prophylaxis is contraindicated Overall impression: Stable hemodynamic and respiratory status following emergency decompression of the thoracic epidural hematoma. Transfer to floor when acceptable to the neurosurgery service.
--- NOTE | 2018-04-11 15:39 | P.PNONC ---
Subjective Interval history: Patient lying in bed, resting comfortably. In no acute distress. He states that his left leg feels weaker than the right, he reports there is no change in regards to this from yesterday. He does report that he was able to stand and move to the chair. He is able to move both feet and has normal strength bilaterally. He denies any numbness or tingling. He denies any bleeding. He does have pain at his surgical site. He reports that the neurosurgeon saw him prior to my arrival and stated that he would potentially be removing the upper drain tomorrow. Objective Vital Signs/Intake & Output: Vital Signs 04/10/18 16:00 04/10/18 17:00 04/10/18 18:00 Temperature 98.2 F Pulse Rate 59 L 55 L 65 Respiratory Rate 10 L Blood Pressure 144/89 H 158/94 H 174/96 H Pulse Oximetry 97 98 98 04/10/18 18:03 04/10/18 19:00 04/10/18 19:27 Temperature Pulse Rate 65 Respiratory Rate 14 19 14 Blood Pressure 185/94 H Pulse Oximetry 98 04/10/18 20:00 04/10/18 21:00 04/10/18 22:00 Temperature 99 F Pulse Rate 60 55 L 57 L Respiratory Rate 22 21 14 Blood Pressure 135/86 149/89 H 163/92 H Pulse Oximetry 97 97 97 04/10/18 22:21 04/10/18 23:00 04/10/18 23:47 Temperature Pulse Rate 60 Respiratory Rate 18 14 15 Blood Pressure Pulse Oximetry 92 L 04/11/18 00:00 04/11/18 00:04 04/11/18 01:00 Temperature 98.9 F Pulse Rate 63 61 64 Respiratory Rate 15 15 13 Blood Pressure 166/87 H 166/87 H Pulse Oximetry 97 94 L 97 04/11/18 01:01 04/11/18 01:02 04/11/18 02:00 Temperature Pulse Rate 64 62 Respiratory Rate 14 15 16 Blood Pressure 159/84 H Pulse Oximetry 96 94 L 04/11/18 02:15 04/11/18 02:56 04/11/18 03:00 Temperature Pulse Rate 56 L 56 L Respiratory Rate 18 17 14 Blood Pressure 155/99 H Pulse Oximetry 92 L 93 L 04/11/18 03:56 04/11/18 04:00 04/11/18 04:56 Temperature 99.0 F Pulse Rate 58 L 57 L 58 L Respiratory Rate 15 13 13 Blood Pressure 167/99 H 167/99 H 184/110 H Pulse Oximetry 93 L 95 96 04/11/18 05:56 04/11/18 07:56 04/11/18 07:57 Temperature 98.2 F Pulse Rate 53 L 54 L Respiratory Rate 13 15 14 Blood Pressure 164/87 H 170/90 H Pulse Oximetry 94 L 95 04/11/18 08:00 04/11/18 08:52 04/11/18 09:00 Temperature 98.2 F Pulse Rate 54 L 65 Respiratory Rate 15 16 20 Blood Pressure 170/90 H 189/90 H Pulse Oximetry 95 96 04/11/18 09:08 04/11/18 09:30 04/11/18 11:00 Temperature Pulse Rate 56 L Respiratory Rate 11 L Blood Pressure 152/96 H 126/82 Pulse Oximetry 96 96 93 L 04/11/18 12:00 04/11/18 12:54 Temperature 98.4 F Pulse Rate 55 L Respiratory Rate 16 16 Blood Pressure 125/80 Pulse Oximetry 96 Intake & Output 04/10/18 04/11/18 04/11/18 18:59 06:59 18:59 Intake Total 2735 / 2735 1755 / 1755 1035 / 1035 Output Total 2260 / 2260 2370 / 2370 Balance 475 / 475 -615 / -615 1035 / 1035 Weight 102.3 kg Intake: IV 2135 / 2135 1035 / 1035 1035 / 1035 NS + KCl 20 mEq Inj 1,000 ML @ 1000 / 1000 1000 / 1000 1000 / 1000 100 mls/hr IV.CONT .Q10H NASIR Rx #:[id number] NS Inj 1,000 ML @ 84 mls/hr IV. 1000 / 1000 CONT .[id number] NASIR Rx#:[id number] BeneFIX Inj 6,000 UNIT In Bag/ 35 / 35 35 / 35 35 / 35 Syringe 1 EACH @ 70 mls/hr IV. PUSH Q12H NASIR Rx#:[id number] Oral 600 / 600 720 / 720 Output: Urine Amount (Catheter) 2199 / 0 2350 / 2350 Indwelling Urethral Catheter 2199 / 2199 2350 / 2350 Wound Drainage 60 / 60 20 / 20 # 1 Upper Back JOSE Drain 40 / 40 # 2 Lower Back JOSE Drain 20 / 20 10 / 10 Result Diagrams: 04/11/18 15:17 04/10/18 06:22 Culture Results: Microbiology 04/08/18 17:55 Aerobic Blood Culture - Preliminary Blood - Peripheral No growth in 3 days Anaerobic Blood Culture - Preliminary No growth in 3 days 04/08/18 18:00 Aerobic Blood Culture - Preliminary Blood - Peripheral No growth in 3 days Anaerobic Blood Culture - Preliminary No growth in 3 days 04/08/18 18:06 Urine Culture - Final Catheterized Urine No growth in 48 hours Medications: Active Medications Generic Name Dose Route Start Last Admin Trade Name Freq PRN Reason Stop Dose Admin Albuterol 1 ampul 04/08/18 23:50 04/10/18 04:50 Duoneb Neb (Prn) NEB 1 ampul Q2HR NEB PRN Administration WHEEZING Chlorhexidine Gluconate 3 pack 04/09/18 04:00 04/11/18 04:19 Chlorhexidine 2% Cloth TOPICAL 04/14/18 03:59 Not Given DAILY@0400 NASIR Famotidine 20 mg 04/09/18 09:00 04/11/18 08:16 Pepcid Pf Inj IV.PUSH 20 mg Q12HR NASIR Administration Hydromorphone HCl 2 mg 04/09/18 20:19 04/11/18 12:38 Dilaudid Pf Inj IV.PUSH 2 mg Q2H PRN Administration pain 8-10 Hydromorphone HCl 2 mg 04/09/18 20:19 04/11/18 06:58 Dilaudid Pf Inj IV.PUSH 2 mg Q2H PRN Administration BREAKTHROUGH PAIN Sodium Chloride 1,000 mls @ 84 mls/hr 04/08/18 23:45 04/11/18 10:41 Ns Inj IV.CONT Not Given .[id number] NASIR Potassium Chloride/Sodium Chloride 1,000 mls @ 100 mls/hr 04/09/18 17:15 06/19 09:16 Ns + Kcl 20 Meq Inj IV.CONT 100 mls/hr .Q10H NASIR Administration Factor IX Complex Human 6,000 35 mls @ 70 mls/hr 04/09/18 21:00 04/11/18 10: 00 unit/ Syringe/Bag IV.PUSH 04/12/18 09:29 Infused Q12H NASIR Infusion Labetalol HCl 10 mg 04/09/18 00:45 04/11/18 05:13 Trandate Inj IV.PUSH 10 mg Q3H PRN Administration SBP>160, DBP> 90 Methadone HCl 190 mg 04/09/18 09:00 04/11/18 08:11 Dolophine PO 190 mg DAILY NASIR Administration Metoclopramide HCl 5 mg 04/09/18 00:00 04/11/18 12:37 Reglan Inj IV.PUSH 5 mg Q6HR NASIR Administration Protocol Morphine Sulfate 2 mg 04/08/18 23:50 04/09/18 07:51 Morphine Inj IV.PUSH 2 mg Q2H PRN Administration PAIN SCALE 6 TO 10 Nicotine 1 patch 04/09/18 10:00 04/11/18 08:16 Habitrol 14 Mg Patch.24 Hr T-DERMAL 1 patch DAILY NASIR Administration Senna/Docusate Sodium 1 tab 04/09/18 09:00 04/11/18 08:16 Lindy-Colace PO 1 tab BID NASIR Administration Senna/Docusate Sodium 1 tab 04/09/18 21:00 04/11/18 08:16 Lindy-Colace PO Not Given BID NASIR Sodium Chloride 2 ml 04/09/18 09:00 04/11/18 08:16 Ns Flush IV.FLUSH 2 ml BID NASIR Administration Temazepam 15 mg 04/08/18 23:50 04/09/18 01:24 Restoril PO 15 mg HS PRN Administration INSOMNIA Objective Remarks: GENERAL: Well-nourished, middle-aged male patient, resting comfortably in bed. In no acute distress. SKIN: Warm and dry. Dressings noted to upper medial & mid-medial back dry/ intact. Bilateral drains with sero-sanguinous fluid. HEAD: Normocephalic. EYES: No scleral icterus. No injection or drainage. PERRLA. NECK: Supple, trachea midline. CARDIOVASCULAR: Regular rate and rhythm without murmurs. RESPIRATORY: Breath sounds equal bilaterally. No accessory muscle use. GASTROINTESTINAL: Abdomen soft, non-tender, nondistended. EXTREMITIES: No cyanosis, or edema. MUSCULOSKELETAL: Adequate muscle tone. Moves all extremities, 5/5 strength in all extremities. NEUROLOGICAL: No obvious focal deficit. Awake, alert, and oriented x3. 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 His baseline factor IX activity is less than 1%. 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 Unfortunately he has no factors at home as he does not have insurance. Follow-up in our clinic has been difficult. He presented with back pain symptoms and trouble urinating. Thoracic spine MRI shows elongated mass in the anterior aspect of the epidural space from T5-T9 with moderate spinal stenosis. The patient had decompression surgery by Dr. Varela on 04/09. 1. Hemophilia B. Factor IX activity level is pending. 2. Continue BeneFIX 6000 units every 12 hours. 3. Monitor CBC, monitor for bleeding. 4. CBC pending today. Patient is normotensive. He is asymptomatic. 5. Case management to assist patient with insurance. Updated entry at [id number]. Spoke with the patient's nurse Brianna, she reports that the lab chris the CBC approximately 10 minutes ago. - Attending Statement The exam, history, and the medical decision-making described in the above note were completed with the assistance of the mid-level provider. I reviewed and agree with the findings presented. I attest that I had a [id number] encounter with the patient on the same day, and personally performed and documented my assessment and findings in the medical record. Hemoglobin increasing. Bleeding from the drain site more serous. Dressing pad bleeding have not increased beyond the outline. Discuss plan for drain removal in the morning. Recommend single dose of BeneFIX 4000 units IV push once immediately before any manipulation. Pharmacy was alerted of the BeneFIX need for the next several days. Continue basal twice daily dosing. No other signs of bleeding.
--- NOTE | 2018-04-11 15:39 | P.PNNS ---
Subjective Interval history: No acute events overnight. Mobilizing to a chair. Diaz remains in place. Physical Exam Vital signs: Vital Signs 04/10/18 16:00 04/10/18 17:00 04/10/18 18:00 Temperature 98.2 F Pulse Rate 59 L 55 L 65 Respiratory Rate 10 L Blood Pressure 144/89 H 158/94 H 174/96 H Pulse Oximetry 97 98 98 04/10/18 18:03 04/10/18 19:00 04/10/18 19:27 Temperature Pulse Rate 65 Respiratory Rate 14 19 14 Blood Pressure 185/94 H Pulse Oximetry 98 04/10/18 20:00 04/10/18 21:00 04/10/18 22:00 Temperature 99 F Pulse Rate 60 55 L 57 L Respiratory Rate 22 21 14 Blood Pressure 135/86 149/89 H 163/92 H Pulse Oximetry 97 97 97 04/10/18 22:21 04/10/18 23:00 04/10/18 23:47 Temperature Pulse Rate 60 Respiratory Rate 18 14 15 Blood Pressure Pulse Oximetry 92 L 04/11/18 00:00 04/11/18 00:04 04/11/18 01:00 Temperature 98.9 F Pulse Rate 63 61 64 Respiratory Rate 15 15 13 Blood Pressure 166/87 H 166/87 H Pulse Oximetry 97 94 L 97 04/11/18 01:01 04/11/18 01:02 04/11/18 02:00 Temperature Pulse Rate 64 62 Respiratory Rate 14 15 16 Blood Pressure 159/84 H Pulse Oximetry 96 94 L 04/11/18 02:15 04/11/18 02:56 04/11/18 03:00 Temperature Pulse Rate 56 L 56 L Respiratory Rate 18 17 14 Blood Pressure 155/99 H Pulse Oximetry 92 L 93 L 04/11/18 03:56 04/11/18 04:00 04/11/18 04:56 Temperature 99.0 F Pulse Rate 58 L 57 L 58 L Respiratory Rate 15 13 13 Blood Pressure 167/99 H 167/99 H 184/110 H Pulse Oximetry 93 L 95 96 04/11/18 05:56 04/11/18 07:56 04/11/18 07:57 Temperature 98.2 F Pulse Rate 53 L 54 L Respiratory Rate 13 15 14 Blood Pressure 164/87 H 170/90 H Pulse Oximetry 94 L 95 04/11/18 08:00 04/11/18 08:52 04/11/18 09:00 Temperature 98.2 F Pulse Rate 54 L 65 Respiratory Rate 15 16 20 Blood Pressure 170/90 H 189/90 H Pulse Oximetry 95 96 04/11/18 09:08 04/11/18 09:30 04/11/18 11:00 Temperature Pulse Rate 56 L Respiratory Rate 11 L Blood Pressure 152/96 H 126/82 Pulse Oximetry 96 96 93 L 04/11/18 12:00 04/11/18 12:54 Temperature 98.4 F Pulse Rate 55 L Respiratory Rate 16 16 Blood Pressure 125/80 Pulse Oximetry 96 Intake & Output 04/10/18 04/11/18 04/11/18 18:59 06:59 18:59 Intake Total 2735 / 2735 1755 / 1755 1035 / 1035 Output Total 2260 / 2260 2370 / 2370 Balance 475 / 475 -615 / -615 1035 / 1035 Weight 102.3 kg Intake: IV 2135 / 2135 1035 / 1035 1035 / 1035 NS + KCl 20 mEq Inj 1,000 ML @ 1000 / 1000 1000 / 1000 1000 / 1000 100 mls/hr IV.CONT .Q10H NASIR Rx #:[id number] NS Inj 1,000 ML @ 84 mls/hr IV. 1000 / 1000 CONT .[id number] NASIR Rx#:[id number] BeneFIX Inj 6,000 UNIT In Bag/ 35 / 35 35 / 35 35 / 35 Syringe 1 EACH @ 70 mls/hr IV. PUSH Q12H NASIR Rx#:[id number] Oral 600 / 600 720 / 720 Output: Urine Amount (Catheter) 2200 / 2200 2350 / 2350 Indwelling Urethral Catheter 2200 / 2200 2350 / 2350 Wound Drainage 60 / 60 20 / 20 # 1 Upper Back JOSE Drain 40 / 40 10 / 10 # 2 Lower Back JOSE Drain 20 / 20 10 / 10 Narrative: Opens eyes to voice Alert and oriented x3 Follows commands x4 5/5 strength throughout Two JOSE drains in place Dressing: small amount of ooze midline - Urinary Catheter Management Indwelling Urethral Catheter Cath placed during this visit: yes Reason for continuing: Acute urinary retention Insertion date: 04/08/18 Insertion time: 18:04 Assessment and Plan - Plan Impression: 1. 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 s/p Left T4 through 7 complete , and right T4 through 7 partial decompressive laminectomy, evacuation spontaneous epidural hematoma by Dr. Varela on 04/09/18. Plan: Continue with JOSE drains. Will remove lowest output JOSE drain tomorrow and take down dressing. Appreciate hematology recommendations and management. PT, OOB Continue with pain control. Continue with Diaz catheter secondary to neurogenic bladder. May consider discontinuing tomorrow and evaluating holiness of urinary function.
[2018-04-11 16:39] LABS: Baso % (Auto) 0.4 % (0.0-2.0); Eos # (Auto) 0.1 th/mm3 (0.0-0.4); Eos % (Auto) 1.2 % (0.0-4.0); Hemoglobin 11.1 gm/dL (13.0-17.0); Lymph # (Auto) 2.7 th/mm3 (1.0-4.8); Lymph % (Auto) 28.4 % (9.0-44.0); Mean Corpuscular HGB Conc 35.7 % (32.0-36.0); Mean Corpuscular Volume 89.5 fL (80.0-100.0); Mean Platelet Volume 10.4 fL (7.0-11.0); Mono # (Auto) 1.2 th/mm3 (0.0-0.9); Mono % (Auto) 12.9 % (0.0-8.0); Neut # (Auto) 5.4 th/mm3 (1.8-7.7); Neut % (Auto) 57.1 % (16.0-70.0); Platelet Count 141 th/mm3 (150-450); Red Blood Count 3.46 mil/mm3 (4.50-5.90); Red Cell Distribution Width 13.2 % (11.6-17.2); White Blood Count 9.5 th/mm3 (4.0-11.0)
[2018-04-12] MEDS: HYDROmorphone PF Inj 2 MG/ML Vial IV.PUSH PRN ×8 (00:16→22:58)
[2018-04-12] MEDS: Chlorhexidine Gluconate 2% 1 Pack (2 Cloths) TOPICAL SCH (03:07)
[2018-04-12] MEDS: Famotidine PF Inj 20 MG/2 ML Vial IV.PUSH SCH ×2 (09:20→20:24)
[2018-04-12] MEDS: Methadone 10 MG Tablet PO SCH (09:21)
[2018-04-12] MEDS: Senna/Docusate Sodium 8.6/50 MG Tablet PO SCH ×4 (09:22→20:24)
[2018-04-12] MEDS: [UNRECOGNIZED DRUG - MIXTURE] IV.PUSH SCH ×2 (09:22→21:01)
[2018-04-12] MEDS: FACTOR IX COMPLEX HUMAN 2000 UNIT IV.PUSH SCH (09:23)
--- NOTE | 2018-04-12 09:38 | P.PNNS ---
Subjective Interval history: No acute events overnight. States that he feels he can take deeper breaths this morning with less pain. Physical Exam Vital signs: Vital Signs 04/11/18 11:00 04/11/18 12:00 04/11/18 12:54 Temperature 98.4 F Pulse Rate 56 L 55 L Respiratory Rate 11 L 16 16 Blood Pressure 126/82 125/80 Pulse Oximetry 93 L 96 04/11/18 16:00 04/11/18 17:13 04/11/18 18:58 Temperature 99.0 F Pulse Rate 56 L Respiratory Rate 20 14 16 Blood Pressure 126/81 Pulse Oximetry 98 04/11/18 20:00 04/11/18 20:35 04/11/18 20:44 Temperature 98.8 F Pulse Rate 64 Respiratory Rate 14 22 Blood Pressure 144/84 H Pulse Oximetry 97 93 L 04/11/18 22:38 04/12/18 00:00 04/12/18 00:46 Temperature 99.6 F Pulse Rate 57 L Respiratory Rate 22 25 H 20 Blood Pressure 153/90 H Pulse Oximetry 95 04/12/18 03:02 04/12/18 04:00 04/12/18 05:01 Temperature 98.7 F Pulse Rate 50 L Respiratory Rate 20 17 18 Blood Pressure 140/90 Pulse Oximetry 94 L 04/12/18 07:00 Temperature Pulse Rate Respiratory Rate Blood Pressure Pulse Oximetry 96 Intake & Output 04/11/18 04/12/18 04/12/18 18:59 06:59 18:59 Intake Total 1685 / 1685 2530 / 2530 Output Total 1835 / 1835 1915 / 1915 Balance -150 / -150 615 / 615 Weight 101.7 kg Intake: IV 1035 / 1035 2029 / 2029 NS + KCl 20 mEq Inj 1,000 ML @ 1000 / 1000 2000 / 2000 100 mls/hr IV.CONT .Q10H NASIR Rx #:[id number] BeneFIX Inj 6,000 UNIT In Bag/ 35 / 35 30 / 30 Syringe 1 EACH @ 120 mls/hr IV. PUSH Q12H NASIR Rx#:[id number] Oral 650 / 650 500 / 500 Output: Stool 0 / 0 0 / 0 Urine Amount (Catheter) 1799 / 1799 1899 / 1899 Indwelling Urethral Catheter 1799 / 1799 1899 / 1899 Wound Drainage 35 / 15 / 15 # 1 Upper Back JOSE Drain 20 / 20 5 / 5 # 2 Lower Back JOSE Drain 10 / Narrative: Opens eyes to voice Alert and oriented x3 Follows commands x4 5/5 strength throughout Normal sensation Two JOSE drains in place Dressing: small amount of ooze midline on dressing - Urinary Catheter Management Indwelling Urethral Catheter Cath placed during this visit: yes Reason for continuing: Acute urinary retention Insertion date: 04/08/18 Insertion time: 18:04 Assessment and Plan - Assessment (1) Epidural hematoma Code(s): S06.4X9A - Epidural hemorrhage with loss of consciousness of unspecified duration, initial encounter Status: Acute - Plan Impression: 1. 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 s/p Left T4 through 7 complete , and right T4 through 7 partial decompressive laminectomy, evacuation spontaneous epidural hematoma by Dr. Varela on 04/09/18. Plan: Remove upper JOSE drain this morning immediately following factor IX replacement ( 10,000 units). Spoke with Dr. Fragoso, gum puller. Plan to continue remaining lower JOSE drain for another day or two, depending on output Appreciate hematology recommendations and management. PT, OOB. Goal to walk the hallways with PT today. Continue with pain control. Consider discontinuing martinez catheter today with q4h bladder scans and I/O catheterization PRN.
--- NOTE | 2018-04-12 13:51 | P.PNONC ---
Subjective Interval history: Doing well. Had one drain removed and had no bleeding problems. Has a drain remaining and there is no significant bleeding from the drain. Leg strength is excellent. Objective Vital Signs/Intake & Output: Vital Signs 04/11/18 16:00 04/11/18 17:13 04/11/18 18:58 Temperature 99.0 F Pulse Rate 56 L Respiratory Rate 20 14 16 Blood Pressure 126/81 Pulse Oximetry 98 04/11/18 20:00 04/11/18 20:35 04/11/18 20:44 Temperature 98.8 F Pulse Rate 64 Respiratory Rate 14 22 Blood Pressure 144/84 H Pulse Oximetry 97 93 L 04/11/18 22:38 04/12/18 00:00 04/12/18 00:46 Temperature 99.6 F Pulse Rate 57 L Respiratory Rate 22 25 H 20 Blood Pressure 153/90 H Pulse Oximetry 95 04/12/18 03:02 04/12/18 04:00 04/12/18 05:01 Temperature 98.7 F Pulse Rate 50 L Respiratory Rate 20 17 18 Blood Pressure 140/90 Pulse Oximetry 94 L 04/12/18 07:00 Temperature Pulse Rate Respiratory Rate Blood Pressure Pulse Oximetry 96 Intake & Output 04/11/18 04/12/18 04/12/18 18:59 06:59 18:59 Intake Total 1685 / 1685 2530 / 2530 Output Total 1835 / 1835 191 / 191 Balance -150 / -150 615 / 615 Weight 101.7 kg Intake: IV 1035 / 1035 2029 / 2029 NS + KCl 20 mEq Inj 1,000 ML @ 1000 / 1000 1999 / 1999 100 mls/hr IV.CONT .Q10H NASIR Rx #:[id number] BeneFIX Inj 6,000 UNIT In Bag/ 35 / 35 30 / 30 Syringe 1 EACH @ 120 mls/hr IV. PUSH Q12H NASIR Rx#:[id number] Oral 650 / 650 500 / 500 Other Output: Stool 0 / 0 0 / 0 Urine Amount (Catheter) 1799 Indwelling Urethral Catheter 1799 / 1899 Wound Drainage 35 / 35 # 1 Upper Back JOSE Drain / 5 / 5 # 2 Lower Back JOSE Drain Result Diagrams: 04/11/18 15:17 04/10/18 06:22 Laboratory Results: Laboratory Results - last 24 hr 04/09/18 04/11/18 14:32 15:17 WBC 9.5 RBC 3.46 L Hgb 11.1 L Hct 31.0 L MCV 89.5 MCH 32.0 MCHC 35.7 RDW 13.2 Plt Count 141 L MPV 10.4 Neut % (Auto) 57.1 Lymph % (Auto) 28.4 [place] % (Auto) 12.9 H Eos % (Auto) 1.2 Baso % (Auto) 0.4 Neut # (Auto) 5.4 Lymph # (Auto) 2.7 [place] # (Auto) 1.2 H Eos # (Auto) 0.1 Baso # (Auto) 0.0 WBC Differential . Differential Comment Auto diff final MTS Gel Crossmatch See Detail Culture Results: Microbiology 04/08/18 17:55 Aerobic Blood Culture - Preliminary Blood - Peripheral No growth in 4 days Anaerobic Blood Culture - Preliminary No growth in 4 days 04/08/18 18:00 Aerobic Blood Culture - Preliminary Blood - Peripheral No growth in 4 days Anaerobic Blood Culture - Preliminary No growth in 4 days 04/08/18 18:06 Urine Culture - Final Catheterized Urine No growth in 48 hours Medications: Active Medications Generic Name Dose Route Start Last Admin Trade Name Freq PRN Reason Stop Dose Admin Albuterol 1 ampul 04/08/18 23:50 04/10/18 04:50 Duoneb Neb (Prn) NEB 1 ampul Q2HR NEB PRN Administration WHEEZING Chlorhexidine Gluconate 3 pack 04/09/18 04:00 04/12/18 03:07 Chlorhexidine 2% Cloth TOPICAL 04/14/18 03:59 3 pack DAILY@0400 NASIR Administration Factor IX Complex Human 4,000 unit 04/12/18 09:00 04/12/18 09:23 Benefix Inj IV.PUSH 4,000 unit MEDICAL INSTRUMENT TECHNICIAN NASIR Administration Famotidine 20 mg 04/09/18 09:00 04/12/18 09:20 Pepcid Pf Inj IV.PUSH 20 mg Q12HR NASIR Administration Hydromorphone HCl 2 mg 04/09/18 20:19 04/12/18 07:03 Dilaudid Pf Inj IV.PUSH 2 mg Q2H PRN Administration pain 8-10 Hydromorphone HCl 2 mg 04/09/18 20:19 04/11/18 06:58 Dilaudid Pf Inj IV.PUSH 2 mg Q2H PRN Administration BREAKTHROUGH PAIN Sodium Chloride 1,000 mls @ 84 mls/hr 04/08/18 23:45 04/11/18 23:15 Ns Inj IV.CONT Not Given .[id number] NASIR Potassium Chloride/Sodium Chloride 1,000 mls @ 100 mls/hr 04/09/18 17:15 07/20 04:31 Ns + Kcl 20 Meq Inj IV.CONT 100 mls/hr .Q10H NASIR Administration Factor IX Complex Human 6,000 30 mls @ 120 mls/hr 04/11/18 21:00 04/12/18 09: 22 unit/ Syringe/Bag IV.PUSH 04/15/18 09:29 120 mls/hr Q12H NASIR Administration Labetalol HCl 10 mg 04/09/18 00:45 04/11/18 05:13 Trandate Inj IV.PUSH 10 mg Q3H PRN Administration SBP>160, DBP> 90 Methadone HCl 190 mg 04/09/18 09:00 04/12/18 09:21 Dolophine PO 190 mg DAILY NASIR Administration Metoclopramide HCl 5 mg 04/09/18 00:00 04/12/18 05:13 Reglan Inj IV.PUSH 5 mg Q6HR NASIR Administration Protocol Morphine Sulfate 2 mg 04/08/18 23:50 04/09/18 07:51 Morphine Inj IV.PUSH 2 mg Q2H PRN Administration PAIN SCALE 6 TO 10 Nicotine 1 patch 04/09/18 10:00 04/12/18 09:20 Habitrol 14 Mg Patch.24 Hr T-DERMAL 1 patch DAILY NASIR Administration Senna/Docusate Sodium 1 tab 04/09/18 09:00 04/12/18 09:22 Lindy-Colace PO 1 tab BID NASIR Administration Senna/Docusate Sodium 1 tab 04/09/18 21:00 04/11/18 21:15 Lindy-Colace PO Not Given BID NASIR Sodium Chloride 2 ml 04/09/18 09:00 04/12/18 09:20 Ns Flush IV.FLUSH 2 ml BID NASIR Administration Temazepam 15 mg 04/08/18 23:50 04/09/18 01:24 Restoril PO 15 mg HS PRN Administration INSOMNIA Objective Remarks: GENERAL: Well-nourished, well-developed patient. SKIN: Warm and dry. HEAD: Normocephalic. EYES: No scleral icterus. No injection or drainage. NECK: Supple, trachea midline. No JVD or lymphadenopathy. LYMPHATIC: No adenopathy. CARDIOVASCULAR: Regular rate and rhythm without murmurs. RESPIRATORY: Breath sounds equal bilaterally. No accessory muscle use. GASTROINTESTINAL: Abdomen soft, non-tender, nondistended. Has a drain in the back. Small amount of bloody fluid in the drain. I spoke with his nurse and there is no excessive bleeding. EXTREMITIES: No cyanosis, or edema. MUSCULOSKELETAL: Adequate muscle tone. NEUROLOGICAL: No obvious focal deficit. Awake, alert, and oriented x3. PSYCHIATRIC: Appropriate mood and affect; insight and judgment normal. 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 His baseline factor IX activity is less than 1%. 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 Unfortunately he has no factors at home as he does not have insurance. Follow-up in our clinic has been difficult. He presented with back pain symptoms and trouble urinating. Thoracic spine MRI shows elongated mass in the anterior aspect of the epidural space from T5-T9 with moderate spinal stenosis. The patient had decompression surgery by Dr. Varela on 04/09. 1. Hemophilia B. Factor IX activity level is pending. 2. Continue BeneFIX 6000 units every 12 hours. 3. Monitor CBC, monitor for bleeding. 4: Case management to assist patient with insurance. 5: The patient will continue to receive factor IX 6000 units every 12 hours. One hour prior to removal of the remaining drain on Saturday he should receive an additional 4000 units. We have contacted pharmacy and the BeneFIX is available
--- NOTE | 2018-04-12 13:55 | P.DIET ---
Nutritional Evaluation Type of nutrition evaluation: initial Nutrition screening: [facility] (Poor PO Intake) Subjective Subjective Comments: Improving trend in po intake reported. Objective - Diagnosis Spontaneous Epidural Hematoma (T5-T9 region) - Objective % IBW: 118 (IBW = 190#) Body Weight Used for Calculations: Actual (101.7 kg) Energy Needs - Lower Range (kCal/kg): 28 Energy Needs - Upper Range (kCal/kg): 32 Lower Limit kCal/kg (kCals): 2,848 Upper Limit kCal/kg (kCals): 3,254 Lower Limit Protein Factor (Grams per Kg): 1.2 Upper Limit Protein Factor (Grams per Kg): 1.6 Lower Protein Needs (Protein): 122 Upper Protein Needs (Protein): 163 Fluid Factor (ml/kg): 32 Estimated Fluid Needs (ml): 3,254 Dietitian Reviewed in Medical Record: Current diet, Curent medications, Intake & Output, Labs, Medical history Diet Order: Regular Objective Comments: Hx includes hemophilia factor IX deficiency Assessment Assessment: Pt is at high nutrition risk 2' to dx and reported po intake. He is s/p L T4-7 complete and R T4-7 partial decompressive laminectomy and evac of hematoma on (). He presents at 118% of his IBW with a BMI of 28.8. His po intake has slowly been improving since surgery. Will send Ensure Enlive for added nutrition and monitor supplement acceptance. Each 8 oz serving of Ensure Enlive provides 350 kcals and 20 gms protein. Recommendations: 1. Continue Regular diet 2. Ensure Enlive tid 3. Please record % of meal eaten in EMR (feeding assessment) Dietitian to Monitor: Lab values, Supplement acceptance, Intake & Output, Diet tolerance, PO Intake, Medical course
[2018-04-12] MEDS: Sod Chloride 0.9% Inj 1,000 ML IV.CONT SCH (14:57)
--- NOTE | 2018-04-12 15:15 | P.PNIM ---
Subjective Interval history: The patient says his pain is controlled with methadone for up to 7 hours and then the as needed medications work after that. He states that he has not had a bowel movement yet. He is starting to experience some abdominal discomfort. Discussed with nursing at the bedside. He said he had trouble breathing last night but that has not returned. Physical Exam Vital signs: Vital Signs 04/11/18 16:00 04/11/18 17:13 04/11/18 18:58 Temperature 99.0 F Pulse Rate 56 L Respiratory Rate 20 14 16 Blood Pressure 126/81 Pulse Oximetry 98 04/11/18 20:00 04/11/18 20:35 04/11/18 20:44 Temperature 98.8 F Pulse Rate 64 Respiratory Rate 14 22 Blood Pressure 144/84 H Pulse Oximetry 97 93 L 04/11/18 22:38 04/12/18 00:00 04/12/18 00:46 Temperature 99.6 F Pulse Rate 57 L Respiratory Rate 22 25 H 20 Blood Pressure 153/90 H Pulse Oximetry 95 04/12/18 03:02 04/12/18 04:00 04/12/18 05:01 Temperature 98.7 F Pulse Rate 50 L Respiratory Rate 20 17 18 Blood Pressure 140/90 Pulse Oximetry 94 L 04/12/18 07:00 Temperature Pulse Rate Respiratory Rate Blood Pressure Pulse Oximetry 96 Intake & Output 04/11/18 04/12/18 04/12/18 18:59 06:59 18:59 Intake Total 1685 / 1685 2530 / 2530 20 Output Total 1835 / 1835 1915 / 1915 Balance -150 / -150 615 / 615 20 Weight 101.7 kg Intake: IV 1035 / 1035 2029 / 2029 NS + KCl 20 mEq Inj 1,000 ML @ 1000 / 1000 2000 / 2000 100 mls/hr IV.CONT .Q10H NASIR Rx #:[id number] BeneFIX Inj 6,000 UNIT In Bag/ / 30 / 30 Syringe 1 EACH @ 120 mls/hr IV. PUSH Q12H NASIR Rx#:[id number] Oral 650 / 650 500 / 500 Other 20 20 Output: Stool 0 / 0 0 / 0 Urine Amount (Catheter) 1799 / 1799 190 / 1899 Indwelling Urethral Catheter 1799 / 1799 1899 / 1899 Wound Drainage # 1 Upper Back JOSE Drain 20 / 20 5 5 # 2 Lower Back JOSE Drain Narrative: GEN: Resting comfortably HEENT: NC, AT CARDIAC: RRR LUNGS: CTAB GI: Soft, ND, decreased bowel sounds, mild tenderness EXTREMITIES: No edema NEURO: Alert and oriented x3; Follows commands x4; 5/5 strength throughout; Normal sensation - Urinary Catheter Management Indwelling Urethral Catheter Cath placed during this visit: yes Reason for continuing: Acute urinary retention Insertion date: 04/08/18 Insertion time: 18:04 Results - Labs CBC & Chem 7: 04/11/18 15:17 04/10/18 06:22 Laboratory Results - last 24 hr 04/09/18 04/11/18 14:32 15:17 WBC 9.5 RBC 3.46 L Hgb 11.1 L Hct 31.0 L MCV 89.5 MCH 32.0 MCHC 35.7 RDW 13.2 Plt Count 141 L MPV 10.4 Neut % (Auto) 57.1 Lymph % (Auto) 28.4 [place] % (Auto) 12.9 H Eos % (Auto) 1.2 Baso % (Auto) 0.4 Neut # (Auto) 5.4 Lymph # (Auto) 2.7 [place] # (Auto) 1.2 H Eos # (Auto) 0.1 Baso # (Auto) 0.0 WBC Differential . Differential Comment Auto diff final MTS Gel Crossmatch See Detail Microbiology 04/08/18 17:55 Blood - Peripheral Aerobic Blood Culture - Preliminary No growth in 4 days 04/08/18 17:55 Blood - Peripheral Anaerobic Blood Culture - Preliminary No growth in 4 days 04/08/18 18:00 Blood - Peripheral Aerobic Blood Culture - Preliminary No growth in 4 days 04/08/18 18:00 Blood - Peripheral Anaerobic Blood Culture - Preliminary No growth in 4 days Assessment and Plan - Plan Acute Spinal cord compression Thoracic spinal epidural hematoma -s/p Complete Left T4 - 7 complete , and partial right T4 through 7 decompressive laminectomy, evacuation spontaneous epidural hematoma -Intraoperative bleeding controlled with additional factor IX infusion. -Underlying hemophilia B, continue factor IX per hematology -Pain controlled now with IV Dilaudid as needed -Confirmed methadone dose with the methadone clinic. HTN Well controlled at this time. -Continue maintenance IV fluids -Target systolic blood pressure 130-160 to ensure spinal cord perfusion Hemophilia B -Factor IX infusion as ordered per hematology -Check factor IX activity -Further recs per hematology/Dr. Fragoso Acute renal failure -Aggressive IV fluid resuscitation -Strict I's and O's -Monitor trend -Electrolyte replacement per ICU protocol GI Pt endorses constipation. - suppository ordered. Enema if needed. Leukocytosis -Culture negative to date -High risk for epidural abscess formation in hematoma -Follow-up blood cultures Hypokalemia -Electrolyte replacement per protocol PROPH: -SCDs/Gerry. IV famotidine -Chemical DVT prophylaxis is contraindicated
[2018-04-13] MEDS: HYDROmorphone PF Inj 2 MG/ML Vial IV.PUSH PRN ×9 (01:08→22:36)
[2018-04-13] MEDS: Chlorhexidine Gluconate 2% 1 Pack (2 Cloths) TOPICAL SCH (05:00)
[2018-04-13 05:32] LABS: Baso # (Auto) 0.1 th/mm3 (0.0-0.2); Baso % (Auto) 0.7 % (0.0-2.0); Eos # (Auto) 0.3 th/mm3 (0.0-0.4); Eos % (Auto) 3.3 % (0.0-4.0); Hematocrit 31.5 % (39.0-51.0); Lymph # (Auto) 2.2 th/mm3 (1.0-4.8); Mean Corpuscular HGB Conc 34.8 % (32.0-36.0); Mean Corpuscular Hemoglobin 31.7 pg (27.0-34.0); Mean Corpuscular Volume 90.9 fL (80.0-100.0); Mean Platelet Volume 10.5 fL (7.0-11.0); Mono % (Auto) 11.9 % (0.0-8.0); Neut # (Auto) 4.9 th/mm3 (1.8-7.7); Neut % (Auto) 58.1 % (16.0-70.0); Platelet Count 152 th/mm3 (150-450); Red Blood Count 3.46 mil/mm3 (4.50-5.90); White Blood Count 8.5 th/mm3 (4.0-11.0)
[2018-04-13 06:09] LABS: Alanine Aminotransferase 111 U/L (12-78); Albumin 2.8 g/dL (3.4-5.0); Alkaline Phosphatase 70 U/L (45-117); Anion Gap 8 meq/L (5-15); Aspartate Aminotransferase 154 U/L (15-37); Blood Urea Nitrogen 16 mg/dL (7-18); Calcium 8.3 mg/dL (8.5-10.1); Carbon Dioxide 26.2 meq/L (21.0-32.0); Chloride 103 meq/L (98-107); Glomerular Filtration Rate Greater Than 89 mL/min (>89); Glucose,Random 87 mg/dL (74-106); Magnesium 1.8 mg/dL (1.5-2.5); Sodium 137 meq/L (136-145); Total Protein 6.7 g/dL (6.4-8.2)
[2018-04-13] MEDS: Famotidine PF Inj 20 MG/2 ML Vial IV.PUSH SCH ×2 (08:07→20:31)
[2018-04-13] MEDS: Senna/Docusate Sodium 8.6/50 MG Tablet PO SCH ×3 (08:07→20:31)
[2018-04-13] MEDS: Methadone 10 MG Tablet PO SCH (08:08)
[2018-04-13] MEDS: [UNRECOGNIZED DRUG - MIXTURE] IV.PUSH SCH ×2 (09:58→20:30)
--- NOTE | 2018-04-13 12:16 | P.PNNS ---
Subjective Interval history: Diaz catheter removed. Requiring straight catheterization. Physical Exam Vital signs: Vital Signs 04/12/18 16:00 04/12/18 19:00 04/12/18 20:00 Temperature 99.3 F 99.1 F Pulse Rate 60 62 Respiratory Rate 12 15 20 Blood Pressure 146/95 H 151/78 H Pulse Oximetry 97 97 04/12/18 20:25 04/12/18 20:55 04/12/18 23:28 Temperature Pulse Rate Respiratory Rate 18 22 Blood Pressure Pulse Oximetry 96 04/13/18 00:00 04/13/18 04:00 04/13/18 07:00 Temperature 98.8 F 99.4 F Pulse Rate 55 L 53 L Respiratory Rate 15 17 Blood Pressure 117/61 147/82 H Pulse Oximetry 98 99 96 04/13/18 07:22 04/13/18 08:45 04/13/18 09:30 Temperature Pulse Rate Respiratory Rate 20 18 18 Blood Pressure Pulse Oximetry Intake & Output 04/12/18 04/13/18 04/13/18 18:59 06:59 18:59 Intake Total 1830 / 1830 1380 / 1380 580 / 580 Output Total 1230 / 1230 1630 / 1630 Balance 600 / 600 -250 / -250 580 / 580 Weight 101.8 kg Intake: IV 1030 / 1030 980 / 980 580 / 580 NS + KCl 20 mEq Inj 1,000 ML @ 1000 / 1000 950 / 950 550 / 550 100 mls/hr IV.CONT .Q10H NASIR Rx #:[id number] BeneFIX Inj 6,000 UNIT In Bag/ 30 / 30 30 / 30 30 / 30 Syringe 1 EACH @ 120 mls/hr IV. PUSH Q12H NASIR Rx#:[id number] Oral 780 / 780 400 / 400 Other 20 / 20 Output: Stool 0 / 0 Urine Amount (Catheter) 1225 / 1225 1600 / 1600 Indwelling Urethral Catheter 1225 / 1225 Straight 1600 / 1600 Wound Drainage 5 / 5 30 / 30 # 1 Upper Back JOSE Drain 5 / 5 # 2 Lower Back JOSE Drain 30 / 30 Other: # Bowel Movements 0 0 Narrative: Opens eyes spontaneously PERRL 5/5 strength throughout Normal sensation Incision: clean, dry, intact - Urinary Catheter Management Indwelling Urethral Catheter Cath placed during this visit: yes, but has since been removed by the nurse Reason for continuing: Acute urinary retention Insertion date: 04/08/18 Insertion time: 18:04 Removal date: 04/12/18 Removal time: 15:50 Straight Cath placed during this visit: yes, but has since been removed by the nurse Reason for continuing: Not indwelling catheter Insertion date: 04/13/18 Insertion time: 06:45 Removal date: 04/13/18 Removal time: 07:00 Assessment and Plan - Assessment (1) Epidural hematoma Code(s): S06.4X9A - Epidural hemorrhage with loss of consciousness of unspecified duration, initial encounter Status: Acute - Plan Impression: 1. 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 s/p Left T4 through 7 complete , and right T4 through 7 partial decompressive laminectomy, evacuation spontaneous epidural hematoma by Dr. Varela on 04/09/18. Plan: Remove lower JOSE drain tomorrow AM. Currently receiving factor IX replacement 6000 units Q12H. Per hematology recommendations, he should receive an additional 4000 units just prior to drain removal. Appreciate hematology recommendations and management. PT, OOB. Goal to walk the hallways with PT today. Continue with pain control. Diaz catheter removed 04/12/18. Q6H bladder scans. I/O catheterization PRN. Will continue I/O catheterization indefinitely for bladder training (concern for neurogenic bladder following thoracic epidural hematoma). Flomax ordered this AM. Ok to lay on incision. HLIV
--- NOTE | 2018-04-13 18:16 | P.PNIM ---
Subjective Interval history: The patient states that he is still constipated. He feels like he might have a bowel movement soon. He has not been having much sensation in his bladder and has been requiring straight catheterizations. He has been moving around. He says he has not worked with physical therapy today. Discussed with nursing at the bedside. Physical Exam Vital signs: Vital Signs 04/12/18 19:00 04/12/18 20:00 04/12/18 20:25 Temperature 99.1 F Pulse Rate 62 Respiratory Rate 15 20 Blood Pressure 151/78 H Pulse Oximetry 97 96 04/12/18 20:55 04/12/18 23:28 04/13/18 00:00 Temperature 98.8 F Pulse Rate 55 L Respiratory Rate 18 22 15 Blood Pressure 117/61 Pulse Oximetry 98 04/13/18 04:00 04/13/18 07:00 04/13/18 07:22 Temperature 99.4 F Pulse Rate 53 L Respiratory Rate 17 20 Blood Pressure 147/82 H Pulse Oximetry 99 96 04/13/18 08:00 04/13/18 08:45 04/13/18 09:30 Temperature 98.9 F Pulse Rate 54 L Respiratory Rate 14 18 18 Blood Pressure 141/84 H Pulse Oximetry 97 04/13/18 12:00 04/13/18 15:07 Temperature 98.5 F Pulse Rate 52 L Respiratory Rate 22 14 Blood Pressure 131/82 Pulse Oximetry 92 L Intake & Output 04/12/18 04/13/18 04/13/18 18:59 06:59 18:59 Intake Total 1830 / 1830 1380 / 1380 580 / 580 Output Total 1230 / 1230 1630 / 1630 1000 / 1000 Balance 600 / 600 -250 / -250 -420 / -420 Weight 101.8 kg Intake: IV 1030 / 1030 980 / 980 580 / 580 NS + KCl 20 mEq Inj 1,000 ML @ 1000 / 1000 950 / 950 550 / 550 100 mls/hr IV.CONT .Q10H NASIR Rx #:[id number] BeneFIX Inj 6,000 UNIT In Bag/ 30 / 30 30 / 30 30 / 30 Syringe 1 EACH @ 120 mls/hr IV. PUSH Q12H NASIR Rx#:[id number] Oral 780 / 780 400 / 400 Other 20 / 20 Output: Stool 0 / 0 Urine Amount (Catheter) 1225 / 1225 1600 / 1600 1000 / 1000 Indwelling Urethral Catheter 1225 / 1225 Straight 1600 / 1600 1000 / 1000 Wound Drainage 5 / 5 # 1 Upper Back JOSE Drain # 2 Lower Back JOSE Drain Other: # Bowel Movements 0 0 Narrative: GEN: Resting comfortably HEENT: NC, AT CARDIAC: RRR LUNGS: CTAB GI: Soft, ND, decreased bowel sounds, mild tenderness BACK: Incision appears clean and noninfected. Some tenderness to palpation. EXTREMITIES: No edema NEURO: Alert and oriented x3; Follows commands x4; 5/5 strength throughout; Normal sensation - Urinary Catheter Management Indwelling Urethral Catheter Cath placed during this visit: yes, but has since been removed by the nurse Reason for continuing: Acute urinary retention Insertion date: 04/08/18 Insertion time: 18:04 Removal date: 04/12/18 Removal time: 15:50 Straight Cath placed during this visit: yes, but has since been removed by the nurse Reason for continuing: Not indwelling catheter Insertion date: 04/13/18 Insertion time: 06:45 Removal date: 04/13/18 Removal time: 07:00 Results - Labs CBC & Chem 7: 04/13/18 04:15 04/13/18 04:15 Laboratory Results - last 24 hr 04/13/18 04/13/18 04:15 04:15 WBC 8.5 RBC 3.46 L Hgb 11.0 L Hct 31.5 L MCV 90.9 MCH 31.7 MCHC 34.8 RDW 13.0 Plt Count 152 MPV 10.5 Neut % (Auto) 58.1 Lymph % (Auto) 26.0 [place] % (Auto) 11.9 H Eos % (Auto) 3.3 Baso % (Auto) 0.7 Neut # (Auto) 4.9 Lymph # (Auto) 2.2 [place] # (Auto) 1.0 H Eos # (Auto) 0.3 Baso # (Auto) 0.1 WBC Differential . Differential Comment Auto diff final Sodium 137 Potassium 4.0 Chloride 103 Carbon Dioxide 26.2 Anion Gap 8 BUN 16 Creatinine 0.88 Estimated GFR Greater than 89 Random Glucose 87 Calcium 8.3 L Magnesium 1.8 Total Bilirubin 0.8 Direct Bilirubin 0.4 H Indirect Bilirubin 0.4 AST 154 H ALT 111 H Alkaline Phosphatase 70 Total Protein 6.7 D Albumin 2.8 L Microbiology 04/08/18 17:55 Blood - Peripheral Aerobic Blood Culture - Final No growth in 5 days 04/08/18 17:55 Blood - Peripheral Anaerobic Blood Culture - Final No growth in 5 days 04/08/18 18:00 Blood - Peripheral Aerobic Blood Culture - Final No growth in 5 days 04/08/18 18:00 Blood - Peripheral Anaerobic Blood Culture - Final No growth in 5 days Assessment and Plan - Plan Acute Spinal cord compression Thoracic spinal epidural hematoma -s/p Complete Left T4 - 7 complete , and partial right T4 through 7 decompressive laminectomy, evacuation spontaneous epidural hematoma -Intraoperative bleeding controlled with additional factor IX infusion. -Underlying hemophilia B, continue factor IX per hematology -Pain controlled now with IV Dilaudid as needed -Confirmed methadone dose with the methadone clinic. HTN Well controlled at this time. -Continue maintenance IV fluids -Target systolic blood pressure 130-160 to ensure spinal cord perfusion Hemophilia B -Factor IX infusion as ordered per hematology -Check factor IX activity -Further recs per hematology/Dr. Fragoso Acute renal failure S/p aggressive IV fluid resuscitation. -resolved. Urinary retention Concern for neurogenic bladder. -straight cath as needed. GI Pt endorses constipation. - suppository ordered. Enema if needed. Leukocytosis -Culture negative to date -High risk for epidural abscess formation in hematoma -Follow-up blood cultures Hypokalemia -Electrolyte replacement per protocol Elevated LFTs Unsure of etiology. -follow CMP. PROPH: -SCDs/Gerry. IV famotidine -Chemical DVT prophylaxis is contraindicated
[2018-04-14] MEDS: HYDROmorphone PF Inj 2 MG/ML Vial IV.PUSH PRN ×8 (01:29→21:55)
[2018-04-14 05:46] LABS: Baso % (Auto) 0.5 % (0.0-2.0); Eos # (Auto) 0.3 th/mm3 (0.0-0.4); Eos % (Auto) 3.4 % (0.0-4.0); Hematocrit 30.1 % (39.0-51.0); Hemoglobin 10.7 gm/dL (13.0-17.0); Lymph # (Auto) 2.6 th/mm3 (1.0-4.8); Lymph % (Auto) 26.6 % (9.0-44.0); Mean Corpuscular HGB Conc 35.6 % (32.0-36.0); Mean Corpuscular Hemoglobin 31.8 pg (27.0-34.0); Mean Corpuscular Volume 89.4 fL (80.0-100.0); Mean Platelet Volume 10.5 fL (7.0-11.0); Mono # (Auto) 1.1 th/mm3 (0.0-0.9); Neut # (Auto) 5.8 th/mm3 (1.8-7.7); Neut % (Auto) 58.5 % (16.0-70.0); Platelet Count 191 th/mm3 (150-450); Red Blood Count 3.37 mil/mm3 (4.50-5.90); Red Cell Distribution Width 13.3 % (11.6-17.2); White Blood Count 9.8 th/mm3 (4.0-11.0)
[2018-04-14 06:12] LABS: Anion Gap 11 meq/L (5-15); Aspartate Aminotransferase 154 U/L (15-37); Blood Urea Nitrogen 16 mg/dL (7-18); Calcium 8.3 mg/dL (8.5-10.1); Carbon Dioxide 25.9 meq/L (21.0-32.0); Chloride 99 meq/L (98-107); Glomerular Filtration Rate Greater Than 89 mL/min (>89); Glucose,Random 88 mg/dL (74-106); Potassium 3.7 meq/L (3.5-5.1); Sodium 136 meq/L (136-145)
[2018-04-14 06:16] LABS: Alanine Aminotransferase 132 U/L (12-78); Alkaline Phosphatase 80 U/L (45-117); Total Protein 6.9 g/dL (6.4-8.2)
[2018-04-14] MEDS: Senna/Docusate Sodium 8.6/50 MG Tablet PO SCH ×2 (09:30→20:07)
[2018-04-14] MEDS: Famotidine PF Inj 20 MG/2 ML Vial IV.PUSH SCH ×2 (09:31→20:07)
[2018-04-14] MEDS: Methadone 10 MG Tablet PO SCH (09:31)
[2018-04-14] MEDS: [UNRECOGNIZED DRUG - MIXTURE] IV.PUSH SCH ×2 (09:31→21:56)
--- NOTE | 2018-04-14 10:18 | P.PNONC ---
Subjective Interval history: Patient lying in bed, RN at the bedside administering medications. Patient states "I feel like I am healing" Still unable to urinate, per RN they are straight cathing every 6 hours. One drain remains to mid back region. Patient states neuro planning on removing today. The patient has 4000 units of BeneFIX sap bw consultant to be administered 1 hour prior to drain removal. Bilateral leg strength has returned. Patient reports being able to walk to the bathroom last night. Objective Vital Signs/Intake & Output: Vital Signs 04/13/18 12:00 04/13/18 14:00 04/13/18 15:07 Temperature 98.5 F Pulse Rate 52 L 80 Respiratory Rate 22 14 Blood Pressure 131/82 Pulse Oximetry 92 L 04/13/18 16:00 04/13/18 17:45 04/13/18 18:00 Temperature 98.6 F Pulse Rate 55 L 70 Respiratory Rate 32 H 18 Blood Pressure 106/58 L Pulse Oximetry 92 L 04/13/18 19:01 04/13/18 20:00 04/13/18 20:40 Temperature 99.1 F Pulse Rate 68 Respiratory Rate 20 14 Blood Pressure 117/65 Pulse Oximetry 96 96 04/13/18 21:00 04/13/18 23:06 04/14/18 00:00 Temperature 99.0 F Pulse Rate 66 Respiratory Rate 20 20 17 Blood Pressure 117/74 Pulse Oximetry 97 04/14/18 04:00 04/14/18 04:33 04/14/18 06:30 Temperature 98.6 F Pulse Rate 54 L Respiratory Rate 12 22 20 Blood Pressure 108/64 Pulse Oximetry 95 04/14/18 08:00 Temperature Pulse Rate Respiratory Rate Blood Pressure Pulse Oximetry 96 Intake & Output 04/13/18 04/14/18 04/14/18 18:59 06:59 18:59 Intake Total 1080 / 1080 630 / 630 Output Total 1415 / 1415 3455 / 3455 Balance -335 / -335 -2825 / -2825 Weight 99.1 kg Intake: IV 580 / 580 30 / 30 NS + KCl 20 mEq Inj 1,000 ML @ 550 / 550 0 / 0 100 mls/hr IV.CONT .Q10H NASIR Rx #:[id number] BeneFIX Inj 6,000 UNIT In Bag/ 30 / 30 30 / 30 Syringe 1 EACH @ 120 mls/hr IV. PUSH Q12H NASIR Rx#:[id number] Oral 500 / 500 600 / 600 Output: Estimated Blood Loss 1800 / 1800 Urine Amount (Catheter) 1400 / 1400 1650 / 1650 Straight 1400 / 1400 1650 / 1650 Wound Drainage # 2 Lower Back JOSE Drain Other: # Voids 2 Date of Last Bowel Movement 04/13/18 # Bowel Movements 0 1 Result Diagrams: 04/14/18 04:09 04/14/18 04:09 Laboratory Results: Laboratory Results - last 24 hr 04/14/18 04/14/18 04:09 04:09 WBC 9.8 RBC 3.37 L Hgb 10.7 L Hct 30.1 L MCV 89.4 MCH 31.8 MCHC 35.6 RDW 13.3 Plt Count 191 MPV 10.5 Neut % (Auto) 58.5 Lymph % (Auto) 26.6 [place] % (Auto) 11.0 H Eos % (Auto) 3.4 Baso % (Auto) 0.5 Neut # (Auto) 5.8 Lymph # (Auto) 2.6 [place] # (Auto) 1.1 H Eos # (Auto) 0.3 Baso # (Auto) 0.0 WBC Differential . Differential Comment Auto diff final Sodium 136 Potassium 3.7 Chloride 99 Carbon Dioxide 25.9 Anion Gap 11 BUN 16 Creatinine 0.70 Estimated GFR Greater than 89 Random Glucose 88 Calcium 8.3 L Total Bilirubin 0.6 AST 154 H ALT 132 H Alkaline Phosphatase 80 Total Protein 6.9 Albumin 3.0 L Culture Results: Microbiology 04/08/18 17:55 Aerobic Blood Culture - Final Blood - Peripheral No growth in 5 days Anaerobic Blood Culture - Final No growth in 5 days 04/08/18 18:00 Aerobic Blood Culture - Final Blood - Peripheral No growth in 5 days Anaerobic Blood Culture - Final No growth in 5 days Medications: Active Medications Generic Name Dose Route Start Last Admin Trade Name Freq PRN Reason Stop Dose Admin Al Hydroxide/Mg Hydroxide 30 ml 04/08/18 23:50 04/13/18 08:16 Milk Of Magnesia Liq PO 30 ml Q12H PRN Administration Mild Constipation Albuterol 1 ampul 04/08/18 23:50 04/10/18 04:50 Duoneb Neb (Prn) NEB 1 ampul Q2HR NEB PRN Administration WHEEZING Bisacodyl 10 mg 04/08/18 23:50 04/13/18 18:31 Dulcolax Supp RECTAL 10 mg DAILY PRN Administration SEVERE CONSITIPATION Factor IX Complex Human 4,000 unit 04/12/18 09:00 04/12/18 09:23 Benefix Inj IV.PUSH 4,000 unit DIRECTIONAL DRILLER NASIR Administration Famotidine 20 mg 04/09/18 09:00 04/14/18 09:31 Pepcid Pf Inj IV.PUSH 20 mg Q12HR NASIR Administration Hydromorphone HCl 2 mg 04/09/18 20:19 04/14/18 06:00 Dilaudid Pf Inj IV.PUSH 2 mg Q2H PRN Administration pain 8-10 Hydromorphone HCl 2 mg 04/09/18 20:19 04/11/18 06:58 Dilaudid Pf Inj IV.PUSH 2 mg Q2H PRN Administration BREAKTHROUGH PAIN Factor IX Complex Human 6,000 30 mls @ 120 mls/hr 04/11/18 21:00 04/14/18 10: 07 unit/ Syringe/Bag IV.PUSH 04/17/18 23:59 120 mls/hr Q12H NASIR Infusion Labetalol HCl 10 mg 04/09/18 00:45 04/11/18 05:13 Trandate Inj IV.PUSH 10 mg Q3H PRN Administration SBP>160, DBP> 90 Methadone HCl 190 mg 04/09/18 09:00 04/14/18 09:31 Dolophine PO 190 mg DAILY NASIR Administration Metoclopramide HCl 5 mg 04/09/18 00:00 04/14/18 05:59 Reglan Inj IV.PUSH 5 mg Q6HR NASIR Administration Protocol Morphine Sulfate 2 mg 04/08/18 23:50 04/09/18 07:51 Morphine Inj IV.PUSH 2 mg Q2H PRN Administration PAIN SCALE 6 TO 10 Nicotine 1 patch 04/09/18 10:00 04/14/18 09:31 Habitrol 14 Mg Patch.24 Hr T-DERMAL 1 patch DAILY NASIR Administration Senna/Docusate Sodium 1 tab 04/09/18 21:00 04/14/18 09:30 Lindy-Colace PO 1 tab BID NASIR Administration Sodium Chloride 2 ml 04/09/18 09:00 04/14/18 09:31 Ns Flush IV.FLUSH 2 ml BID NASIR Administration Tamsulosin HCl 0.4 mg 04/13/18 09:00 04/14/18 09:30 Flomax PO 0.4 mg DAILY NASIR Administration Temazepam 15 mg 04/08/18 23:50 04/09/18 01:24 Restoril PO 15 mg HS PRN Administration INSOMNIA Objective Remarks: GENERAL: Well-nourished, middle-aged male patient, In no acute distress. SKIN: Warm and dry. small 2x2 dressing noted to upper medial back, dry/intact. Miguel mid-medial back, no oozing. Drain to mid-back region draining minimal sero-sang fluid. HEAD: Normocephalic. EYES: No scleral icterus. No injection or drainage. PERRLA. NECK: Supple, trachea midline. CARDIOVASCULAR: Regular rate and rhythm without murmurs. RESPIRATORY: Breath sounds equal bilaterally. No accessory muscle use. GASTROINTESTINAL: Abdomen soft, non-tender, nondistended. EXTREMITIES: No cyanosis, or edema. MUSCULOSKELETAL: Adequate muscle tone. Moves all extremities, 5/5 strength in all extremities. NEUROLOGICAL: No obvious focal deficit. Awake, alert, and oriented x3. 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 His baseline factor IX activity is less than 1%. 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 Unfortunately he has no factors at home as he does not have insurance. Follow-up in our clinic has been difficult. He presented with back pain symptoms and trouble urinating. Thoracic spine MRI shows elongated mass in the anterior aspect of the epidural space from T5-T9 with moderate spinal stenosis. The patient had decompression surgery by Dr. Varela on 04/09. 1. Hemophilia B. Factor IX activity level is pending. 2. Continue BeneFIX 6000 units every 12 hours. will continue for 3 additional days. Orders placed and pharmacy notified. 3. One hour prior to removal of the remaining drain, he should receive an additional 4000 units. Pharmacy was contacted yesterday and the BeneFIX is available. 4. continue to monitor for bleeding. 5. Case management to assist patient with insurance. - Attending Statement The exam, history, and the medical decision-making described in the above note were completed with the assistance of the mid-level provider. I reviewed and agree with the findings presented. I attest that I had a [id number] encounter with the patient on the same day, and personally performed and documented my assessment and findings in the medical record. Able to sit up. Denies any other bleeding. Drain was removed over the weekend without any event. Reports the drain was essentially empty at the time of removal. Tolerating the BeneFIX 6000 units every 12 hours. Factor IX activity level still pending. I am estimating that factor IX activity levels are staying about 50%, but repeat factor IX activity level is still pending. The factor level results come back to late in order to make practical clinical decision making in real-time. Surrogate to factor IX activity level is the PT PTT is corrected. Continue to monitor for bleeding. Noted a slight decrease in hemoglobin.
[2018-04-14] MEDS: FACTOR IX COMPLEX HUMAN 2000 UNIT IV.PUSH SCH (12:48)
--- NOTE | 2018-04-14 15:36 | P.PNNS ---
Subjective Interval history: Subjective Interval history: Ambulating with PT, feels left leg subjectively weaker. Requiring straight catheterization. Final drain removed today Physical Exam Vital signs: Vital Signs 04/13/18 16:00 04/13/18 17:45 04/13/18 18:00 Temperature 98.6 F Pulse Rate 55 L 70 Respiratory Rate 32 H 18 Blood Pressure 106/58 L Pulse Oximetry 92 L 04/13/18 19:01 04/13/18 20:00 04/13/18 20:40 Temperature 99.1 F Pulse Rate 68 Respiratory Rate 20 14 Blood Pressure 117/65 Pulse Oximetry 96 96 04/13/18 21:00 04/13/18 23:06 04/14/18 00:00 Temperature 99.0 F Pulse Rate 66 Respiratory Rate 20 20 17 Blood Pressure 117/74 Pulse Oximetry 97 04/14/18 04:00 04/14/18 04:33 04/14/18 06:30 Temperature 98.6 F Pulse Rate 54 L Respiratory Rate 12 22 20 Blood Pressure 108/64 Pulse Oximetry 95 04/14/18 08:00 04/14/18 10:57 04/14/18 12:00 Temperature 98.8 F 98.6 F Pulse Rate 62 77 Respiratory Rate 12 12 14 Blood Pressure 134/83 144/97 H Pulse Oximetry 96 97 Intake & Output 04/13/18 04/14/18 04/14/18 18:59 06:59 18:59 Intake Total 1080 / 1080 630 / 630 Output Total 1415 / 1415 3455 / 3455 Balance -335 / -335 -2825 / -2825 Weight 99.1 kg Intake: IV 580 / 580 30 / 30 NS + KCl 20 mEq Inj 1,000 ML @ 550 / 550 0 / 0 100 mls/hr IV.CONT .Q10H [facility] Rx #:[id number] BeneFIX Inj 6,000 UNIT In Bag/ 30 / 30 30 / 30 Syringe 1 EACH @ 120 mls/hr IV. PUSH Q12H [facility] Rx#:[id number] Oral 500 / 500 600 / 600 Output: Estimated Blood Loss 1800 / 1800 Urine Amount (Catheter) 1400 / 1400 1650 / 1650 Straight 1400 / 1400 1650 / 1650 Wound Drainage 5 / 5 # 2 Lower Back JOSE Drain Other: # Voids 2 Date of Last Bowel Movement 04/13/18 04/13/18 # Bowel Movements 0 1 Narrative: Narrative: Opens eyes spontaneously PERRL 5/5 strength throughout Normal sensation Incision: clean, dry, intact - Urinary Catheter Management Indwelling Urethral Catheter Cath placed during this visit: yes, but has since been removed by the nurse Reason for continuing: Acute urinary retention Insertion date: 04/08/18 Insertion time: 18:04 Removal date: 04/12/18 Removal time: 15:50 Straight Cath placed during this visit: yes, but has since been removed by the nurse Reason for continuing: Not indwelling catheter Insertion date: 04/14/18 Insertion time: 12:00 Removal date: 04/13/18 Removal time: 12:05 Assessment and Plan - Assessment (1) Epidural hematoma Code(s): S06.4X9A - Epidural hemorrhage with loss of consciousness of unspecified duration, initial encounter Status: Acute - Plan Impression: 1. 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 s/p Left T4 through 7 complete , and right T4 through 7 partial decompressive laminectomy, evacuation spontaneous epidural hematoma by Dr. Varela on 04/09/18. Plan: Removed lower JOSE drain today after giving addition 4000 units prior to drain removal Currently receiving factor IX replacement 6000 units Q12H per hematology recommendations Appreciate hematology recommendations and management. PT, OOB. Goal to walk the hallways with PT today. Continue with pain control. Diaz catheter removed 04/12/18. Q6H bladder scans. I/O catheterization PRN. Will continue I/O catheterization indefinitely for bladder training (concern for neurogenic bladder following thoracic epidural hematoma). Flomax ordered this AM. Ok to lay on incision. HLIV
--- NOTE | 2018-04-14 18:09 | P.PNIM ---
Subjective Interval history: The patient was sitting up in bed. He said he was in a lot of pain and was waiting for his pain medication. He did not want his pain medications adjusted as he says his pain is normally controlled relatively well. He had a bowel movement. No other acute concerns. Physical Exam Vital signs: Vital Signs 04/13/18 19:01 04/13/18 20:00 04/13/18 20:40 Temperature 99.1 F Pulse Rate 68 Respiratory Rate 20 14 Blood Pressure 117/65 Pulse Oximetry 96 96 04/13/18 21:00 04/13/18 23:06 04/14/18 00:00 Temperature 99.0 F Pulse Rate 66 Respiratory Rate 20 20 17 Blood Pressure 117/74 Pulse Oximetry 97 04/14/18 04:00 04/14/18 04:33 04/14/18 06:30 Temperature 98.6 F Pulse Rate 54 L Respiratory Rate 12 22 20 Blood Pressure 108/64 Pulse Oximetry 95 04/14/18 08:00 04/14/18 10:57 04/14/18 12:00 Temperature 98.8 F 98.6 F Pulse Rate 62 77 Respiratory Rate 12 12 14 Blood Pressure 134/83 144/97 H Pulse Oximetry 96 97 04/14/18 16:00 Temperature 98.9 F Pulse Rate 62 Respiratory Rate 11 L Blood Pressure 124/72 Pulse Oximetry 95 Intake & Output 04/13/18 04/14/18 04/14/18 18:59 06:59 18:59 Intake Total 1080 / 1080 630 / 630 30 / 30 Output Total 1415 / 1415 3455 / 3455 Balance -335 / -335 -2825 / -2825 30 / 30 Weight 99.1 kg Intake: IV 580 / 580 30 / 30 NS + KCl 20 mEq Inj 1,000 ML @ 550 / 550 0 / 0 100 mls/hr IV.CONT .Q10H [facility] Rx #:[id number] BeneFIX Inj 6,000 UNIT In Bag/ / 30 30 / 30 Syringe 1 EACH @ 120 mls/hr IV. PUSH Q12H [facility] Rx#:[id number] Oral 500 / 500 600 / 600 Output: Estimated Blood Loss 1800 / 1800 Urine Amount (Catheter) 1400 / 1400 1650 / 1650 Straight 1400 / 1400 1650 / 1650 Wound Drainage # 2 Lower Back JOSE Drain 15 / 15 5 / 5 Other: # Voids 2 Date of Last Bowel Movement 04/13/18 04/13/18 # Bowel Movements 0 1 Narrative: GEN: Sitting up in bed HEENT: NC, AT CARDIAC: RRR LUNGS: CTAB GI: Soft, ND, decreased bowel sounds, mild tenderness BACK: Incision appears clean and noninfected. Some tenderness to palpation. EXTREMITIES: No edema NEURO: Alert and oriented x3; Follows commands x4; 5/5 strength throughout; Normal sensation - Urinary Catheter Management Indwelling Urethral Catheter Cath placed during this visit: yes, but has since been removed by the nurse Reason for continuing: Acute urinary retention Insertion date: 04/08/18 Insertion time: 18:04 Removal date: 04/12/18 Removal time: 15:50 Straight Cath placed during this visit: yes, but has since been removed by the nurse Reason for continuing: Not indwelling catheter Insertion date: 04/14/18 Insertion time: 12:00 Removal date: 04/13/18 Removal time: 12:05 Results - Labs CBC & Chem 7: 04/14/18 04:09 04/14/18 04:09 Laboratory Results - last 24 hr 04/14/18 04/14/18 04:09 04:09 WBC 9.8 RBC 3.37 L Hgb 10.7 L Hct 30.1 L MCV 89.4 MCH 31.8 MCHC 35.6 RDW 13.3 Plt Count 191 MPV 10.5 Neut % (Auto) 58.5 Lymph % (Auto) 26.6 [place] % (Auto) 11.0 H Eos % (Auto) 3.4 Baso % (Auto) 0.5 Neut # (Auto) 5.8 Lymph # (Auto) 2.6 [place] # (Auto) 1.1 H Eos # (Auto) 0.3 Baso # (Auto) 0.0 WBC Differential . Differential Comment Auto diff final Sodium 136 Potassium 3.7 Chloride 99 Carbon Dioxide 25.9 Anion Gap 11 BUN 16 Creatinine 0.70 Estimated GFR Greater than 89 Random Glucose 88 Calcium 8.3 L Total Bilirubin 0.6 AST 154 H ALT 132 H Alkaline Phosphatase 80 Total Protein 6.9 Albumin 3.0 L Assessment and Plan - Plan Acute Spinal cord compression Thoracic spinal epidural hematoma -s/p Complete Left T4 - 7 complete , and partial right T4 through 7 decompressive laminectomy, evacuation spontaneous epidural hematoma -Intraoperative bleeding controlled with additional factor IX infusion. -Underlying hemophilia B, continue factor IX per hematology -Pain controlled now with IV Dilaudid as needed -Confirmed methadone dose with the methadone clinic. HTN Well controlled at this time. -Continue maintenance IV fluids -Target systolic blood pressure 130-160 to ensure spinal cord perfusion Hemophilia B -Factor IX infusion as ordered per hematology -Check factor IX activity -Further recs per hematology/Dr. Fragoso Acute renal failure S/p aggressive IV fluid resuscitation. -resolved. Urinary retention Concern for neurogenic bladder. -straight cath as needed. GI Pt endorses constipation. - suppository ordered. Resolved. Leukocytosis -Culture negative to date -High risk for epidural abscess formation in hematoma -Follow-up blood cultures Hypokalemia -Electrolyte replacement per protocol Elevated LFTs Unsure of etiology. -follow CMP. LFTs seem to have stabilized. PROPH: -SCDs/Gerry. IV famotidine -Chemical DVT prophylaxis is contraindicated
[2018-04-15] MEDS: HYDROmorphone PF Inj 2 MG/ML Vial IV.PUSH PRN ×8 (00:23→21:19)
[2018-04-15 04:29] LABS: Baso # (Auto) 0.1 th/mm3 (0.0-0.2); Baso % (Auto) 0.7 % (0.0-2.0); Eos # (Auto) 0.4 th/mm3 (0.0-0.4); Hematocrit 32.8 % (39.0-51.0); Hemoglobin 11.5 gm/dL (13.0-17.0); Lymph % (Auto) 31.8 % (9.0-44.0); Mean Corpuscular HGB Conc 34.9 % (32.0-36.0); Mean Corpuscular Hemoglobin 31.5 pg (27.0-34.0); Mean Corpuscular Volume 90.2 fL (80.0-100.0); Mean Platelet Volume 10.4 fL (7.0-11.0); Mono % (Auto) 10.7 % (0.0-8.0); Neut % (Auto) 52.8 % (16.0-70.0); Platelet Count 208 th/mm3 (150-450); Red Blood Count 3.64 mil/mm3 (4.50-5.90); Red Cell Distribution Width 13.2 % (11.6-17.2); White Blood Count 9.5 th/mm3 (4.0-11.0)
[2018-04-15 04:53] LABS: Alanine Aminotransferase 143 U/L (12-78); Albumin 3.2 g/dL (3.4-5.0); Anion Gap 10 meq/L (5-15); Aspartate Aminotransferase 131 U/L (15-37); Blood Urea Nitrogen 16 mg/dL (7-18); Calcium 8.6 mg/dL (8.5-10.1); Carbon Dioxide 27.6 meq/L (21.0-32.0); Chloride 99 meq/L (98-107); Glomerular Filtration Rate Greater Than 89 mL/min (>89); Glucose,Random 88 mg/dL (74-106); Potassium 3.6 meq/L (3.5-5.1); Sodium 137 meq/L (136-145)
[2018-04-15 04:56] LABS: Alkaline Phosphatase 84 U/L (45-117); Total Protein 7.3 g/dL (6.4-8.2)
[2018-04-15] MEDS: Famotidine PF Inj 20 MG/2 ML Vial IV.PUSH SCH ×2 (08:40→21:18)
[2018-04-15] MEDS: Methadone 10 MG Tablet PO SCH (08:47)
--- NOTE | 2018-04-15 08:59 | P.PNNS ---
Subjective Interval history: No acute events overnight. Physical Exam Vital signs: Vital Signs 04/14/18 10:57 04/14/18 12:00 04/14/18 16:00 Temperature 98.6 F 98.9 F Pulse Rate 77 62 Respiratory Rate 12 14 11 L Blood Pressure 144/97 H 124/72 Pulse Oximetry 97 95 04/14/18 20:00 04/14/18 20:18 04/14/18 20:38 Temperature 99.2 F Pulse Rate 64 Respiratory Rate 14 18 Blood Pressure 131/83 Pulse Oximetry 94 L 99 04/14/18 22:25 04/15/18 00:00 04/15/18 00:53 Temperature 97.9 F Pulse Rate 58 L Respiratory Rate 18 12 20 Blood Pressure 139/88 Pulse Oximetry 97 04/15/18 03:34 04/15/18 04:00 04/15/18 05:31 Temperature 98.9 F Pulse Rate 64 Respiratory Rate 18 14 14 Blood Pressure 126/86 Pulse Oximetry 98 04/15/18 07:26 Temperature Pulse Rate Respiratory Rate 18 Blood Pressure Pulse Oximetry Intake & Output 04/14/18 04/15/18 04/15/18 18:59 06:59 18:59 Intake Total 330 / 330 630 / 630 Output Total 875 / 875 1600 / 1600 Balance -545 / -545 -970 / -970 Weight 101.1 kg Intake: IV 30 / 30 30 / 30 BeneFIX Inj 6,000 UNIT In Bag/ 30 / 30 30 / 30 Syringe 1 EACH @ 120 mls/hr IV. PUSH Q12H [facility] Rx#:[id number] Oral 300 / 300 600 / 600 Output: Stool 0 / 0 0 / 0 Urine Amount (Catheter) 875 / 875 1600 / 1600 Straight 875 / 875 1600 / 1600 Other: # Voids 2 2 Date of Last Bowel Movement 04/13/18 04/13/18 # Bowel Movements 1 Narrative: Opens eyes spontaneously Oriented x3 Follows commands x4 5/5 strength throughout Normal sensation to light touch - Urinary Catheter Management Indwelling Urethral Catheter Cath placed during this visit: yes, but has since been removed by the nurse Reason for continuing: Acute urinary retention Insertion date: 04/08/18 Insertion time: 18:04 Removal date: 04/12/18 Removal time: 15:50 Straight Cath placed during this visit: yes, but has since been removed by the nurse Reason for continuing: Not indwelling catheter Insertion date: 04/15/18 Insertion time: 05:00 Removal date: 04/15/18 Removal time: 05:15 Assessment and Plan - Assessment (1) Epidural hematoma Code(s): S06.4X9A - Epidural hemorrhage with loss of consciousness of unspecified duration, initial encounter Status: Acute - Plan Impression: 1. 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 s/p Left T4 through 7 complete , and right T4 through 7 partial decompressive laminectomy, evacuation spontaneous epidural hematoma by Dr. Varela on 04/09/18. Plan: JOSE drains removed. Currently receiving factor IX replacement 6000 units Q12H per hematology recommendations Appreciate hematology recommendations and management. PT, OOB. Likely will require inpatient rehab. Continue with pain control. Diaz catheter removed 04/12/18. Q6H bladder scans. I/O catheterization PRN. Will continue I/O catheterization indefinitely for bladder training (concern for neurogenic bladder following thoracic epidural hematoma). Encouraged Mr. Alcala to attempt void every time prior to straight catheterization. Ok to lay on incision.
[2018-04-15] MEDS: [UNRECOGNIZED DRUG - MIXTURE] IV.PUSH SCH ×2 (09:21→21:18)
[2018-04-15] MEDS: Senna/Docusate Sodium 8.6/50 MG Tablet PO SCH ×2 (10:41→21:19)
--- NOTE | 2018-04-15 13:46 | P.PNONC ---
Subjective Interval history: Afebrile Patient reports his strength is equal in his bilateral lower extremities Biggest complaint is not being able to urinate Per [employer] he has been straight cathed every 6 hours No bleeding Objective Vital Signs/Intake & Output: Vital Signs 04/14/18 16:00 04/14/18 20:00 04/14/18 20:18 Temperature 98.9 F 99.2 F Pulse Rate 62 64 Respiratory Rate 11 L 14 Blood Pressure 124/72 131/83 Pulse Oximetry 95 94 L 99 04/14/18 20:38 04/14/18 22:25 04/15/18 00:00 Temperature 97.9 F Pulse Rate 58 L Respiratory Rate 18 18 12 Blood Pressure 139/88 Pulse Oximetry 97 04/15/18 00:53 04/15/18 03:34 04/15/18 04:00 Temperature 98.9 F Pulse Rate 64 Respiratory Rate 20 18 14 Blood Pressure 126/86 Pulse Oximetry 98 04/15/18 05:31 04/15/18 07:26 04/15/18 08:00 Temperature 98.5 F Pulse Rate 56 L Respiratory Rate 14 18 16 Blood Pressure 121/76 Pulse Oximetry 95 04/15/18 12:00 Temperature 99.0 F Pulse Rate 55 L Respiratory Rate 13 Blood Pressure 111/71 Pulse Oximetry 96 Intake & Output 04/14/18 04/15/18 04/15/18 18:59 06:59 18:59 Intake Total 330 / 330 630 / 630 Output Total 875 / 875 1600 / 1600 Balance -545 / -545 -970 / -970 Weight 222 lb 14.197 oz Intake: IV 30 / 30 30 / 30 BeneFIX Inj 6,000 UNIT In Bag/ 30 / 30 30 / 30 Syringe 1 EACH @ 120 mls/hr IV. PUSH Q12H [facility] Rx#:[id number] Oral 300 / 300 600 / 600 Output: Stool 0 / 0 0 / 0 Urine Amount (Catheter) 875 / 875 1600 / 1600 Straight 875 / 875 1600 / 1600 Other: # Voids 2 2 Date of Last Bowel Movement 04/13/18 04/13/18 04/13/18 # Bowel Movements 1 Result Diagrams: 04/15/18 03:33 04/15/18 03:33 Laboratory Results: Laboratory Results - last 24 hr 04/15/18 04/15/18 03:33 03:33 WBC 9.5 RBC 3.64 L Hgb 11.5 L Hct 32.8 L MCV 90.2 MCH 31.5 MCHC 34.9 RDW 13.2 Plt Count 208 MPV 10.4 Neut % (Auto) 52.8 Lymph % (Auto) 31.8 [place] % (Auto) 10.7 H Eos % (Auto) 4.0 Baso % (Auto) 0.7 Neut # (Auto) 5.0 Lymph # (Auto) 3.0 [place] # (Auto) 1.0 H Eos # (Auto) 0.4 Baso # (Auto) 0.1 WBC Differential . Differential Comment Auto diff final Sodium 137 Potassium 3.6 Chloride 99 Carbon Dioxide 27.6 Anion Gap 10 BUN 16 Creatinine 0.81 Estimated GFR Greater than 89 Random Glucose 88 Calcium 8.6 Total Bilirubin 0.8 AST 131 H ALT 143 H Alkaline Phosphatase 84 Total Protein 7.3 Albumin 3.2 L Culture Results: Microbiology 04/08/18 17:55 Aerobic Blood Culture - Final Blood - Peripheral No growth in 5 days Anaerobic Blood Culture - Final No growth in 5 days 04/08/18 18:00 Aerobic Blood Culture - Final Blood - Peripheral No growth in 5 days Anaerobic Blood Culture - Final No growth in 5 days Medications: Active Medications Generic Name Dose Route Start Last Admin Trade Name Freq PRN Reason Stop Dose Admin Al Hydroxide/Mg Hydroxide 30 ml 04/08/18 23:50 04/13/18 08:16 Milk Of Magnesia Liq PO 30 ml Q12H PRN Administration Mild Constipation Albuterol 1 ampul 04/08/18 23:50 04/10/18 04:50 Duoneb Neb (Prn) NEB 1 ampul Q2HR NEB PRN Administration WHEEZING Bisacodyl 10 mg 04/08/18 23:50 04/13/18 18:31 Dulcolax Supp RECTAL 10 mg DAILY PRN Administration SEVERE CONSITIPATION Factor IX Complex Human 4,000 unit 04/12/18 09:00 04/14/18 12:48 Benefix Inj IV.PUSH 4,000 unit [employer] [facility] Administration Famotidine 20 mg 04/09/18 09:00 04/15/18 08:40 Pepcid Pf Inj IV.PUSH 20 mg Q12HR [facility] Administration Hydromorphone HCl 2 mg 04/09/18 20:19 04/15/18 06:56 Dilaudid Pf Inj IV.PUSH 2 mg Q2H PRN Administration pain 8-10 Hydromorphone HCl 2 mg 04/09/18 20:19 04/11/18 06:58 Dilaudid Pf Inj IV.PUSH 2 mg Q2H PRN Administration BREAKTHROUGH PAIN Factor IX Complex Human 6,000 30 mls @ 120 mls/hr 04/11/18 21:00 04/15/18 09: 21 unit/ Syringe/Bag IV.PUSH 04/17/18 23:59 120 mls/hr Q12H [facility] Administration Labetalol HCl 10 mg 04/09/18 00:45 04/11/18 05:13 Trandate Inj IV.PUSH 10 mg Q3H PRN Administration SBP>160, DBP> 90 Methadone HCl 190 mg 04/09/18 09:00 04/15/18 08:47 Dolophine PO 190 mg DAILY [facility] Administration Metoclopramide HCl 5 mg 04/09/18 00:00 04/15/18 11:17 Reglan Inj IV.PUSH 5 mg Q6HR [facility] Administration Protocol Morphine Sulfate 2 mg 04/08/18 23:50 04/09/18 07:51 Morphine Inj IV.PUSH 2 mg Q2H PRN Administration PAIN SCALE 6 TO 10 Nicotine 1 patch 04/09/18 10:00 04/15/18 08:40 Habitrol 14 Mg Patch.24 Hr T-DERMAL 1 patch DAILY [facility] Administration Senna/Docusate Sodium 1 tab 04/09/18 21:00 04/15/18 10:41 Lindy-Colace PO Not Given BID [facility] Sodium Chloride 2 ml 04/09/18 09:00 04/15/18 09:22 Ns Flush IV.FLUSH 2 ml BID [facility] Administration Tamsulosin HCl 0.4 mg 04/13/18 09:00 04/15/18 08:39 Flomax PO 0.4 mg DAILY [facility] Administration Temazepam 15 mg 04/08/18 23:50 04/09/18 01:24 Restoril PO 15 mg HS PRN Administration INSOMNIA Objective Remarks: GENERAL: Young male resting in bed in no obvious distress. SKIN: Warm and dry. Adam in place mid-medial back, no oozing. HEAD: Normocephalic. EYES: No scleral icterus. No injection or drainage. PERRLA. NECK: Supple, trachea midline. CARDIOVASCULAR: Regular rate and rhythm without murmurs. RESPIRATORY: Breath sounds equal bilaterally. No accessory muscle use. GASTROINTESTINAL: Abdomen soft, non-tender, nondistended. EXTREMITIES: No cyanosis, or edema. MUSCULOSKELETAL: Adequate muscle tone. Moves all extremities, 5/5 strength in all extremities. NEUROLOGICAL: Slow to speak. Awake, alert, and oriented x3. 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 His baseline factor IX activity is less than 1%. 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 Unfortunately he has no factors at home as he does not have insurance. Follow-up in our clinic has been difficult. He presented with back pain symptoms and trouble urinating. Thoracic spine MRI shows elongated mass in the anterior aspect of the epidural space from T5-T9 with moderate spinal stenosis. The patient had decompression surgery by Dr. Varela on 04/09. 1. Await factor IX activity level 2. Continue BeneFIX at current dosing for another 2 days. He is doing well with current regimen and has had no bleeding episodes. His hemoglobin is improved today. 3. Appreciate case management being involved to assist patient with getting insurance. - Attending Statement The exam, history, and the medical decision-making described in the above note were completed with the assistance of the mid-level provider. I reviewed and agree with the findings presented. I attest that I had a [id number] encounter with the patient on the same day, and personally performed and documented my assessment and findings in the medical record. Several adam were removed today without event. No bleeding noted. No hematoma formation. Discussed at length the need for continued factor infusion with BeneFIX 6000 units every 12 hours for total of 2 weeks to allow for healing post neurosurgical surgery. He has neurologic symptoms at risk such as a urine retention and movement of his lower extremity in light of the location of the hematoma. We discussed his increase annual bleed rate. He has lack sensitivity of feeling his joint bleed in light of his chronic pain medication use with methadone. He is unable to feel early joint bleed and treat appropriately early. He would benefit from secondary prophylaxis with an extended half-life factor. Options include Idelvion, Rebinyn or Alprolix. Anticipate discharge would be possible when we can make arrangements for outpatient factor IX infusion.
--- NOTE | 2018-04-15 17:37 | P.PNIM ---
Subjective Interval history: The pt was resting comfortably. He said his pain was better controlled. He said he did not work with PT. No other concerns. Physical Exam Vital signs: Vital Signs 04/14/18 20:00 04/14/18 20:18 04/14/18 20:38 Temperature 99.2 F Pulse Rate 64 Respiratory Rate 14 18 Blood Pressure 131/83 Pulse Oximetry 94 L 99 04/14/18 22:25 04/15/18 00:00 04/15/18 00:53 Temperature 97.9 F Pulse Rate 58 L Respiratory Rate 18 12 20 Blood Pressure 139/88 Pulse Oximetry 97 04/15/18 03:34 04/15/18 04:00 04/15/18 05:31 Temperature 98.9 F Pulse Rate 64 Respiratory Rate 18 14 14 Blood Pressure 126/86 Pulse Oximetry 98 04/15/18 07:26 04/15/18 08:00 04/15/18 12:00 Temperature 98.5 F 99.0 F Pulse Rate 56 L 55 L Respiratory Rate 18 16 13 Blood Pressure 121/76 111/71 Pulse Oximetry 95 96 Intake & Output 04/14/18 04/15/18 04/15/18 18:59 06:59 18:59 Intake Total 330 / 330 630 / 630 Output Total 875 / 875 1600 / 1600 Balance -545 / -545 -970 / -970 Weight 101.1 kg Intake: IV 30 / 30 30 / 30 BeneFIX Inj 6,000 UNIT In Bag/ 30 / 30 30 / 30 Syringe 1 EACH @ 120 mls/hr IV. PUSH Q12H [facility] Rx#:[id number] Oral 300 / 300 600 / 600 Output: Stool 0 / 0 0 / 0 Urine Amount (Catheter) 875 / 875 1600 / 1600 Straight 875 / 875 1600 / 1600 Other: # Voids 2 2 Date of Last Bowel Movement 04/13/18 04/13/18 04/13/18 # Bowel Movements 1 Narrative: GEN: Comfortable HEENT: NC, AT CARDIAC: RRR LUNGS: CTAB GI: Soft, ND, decreased bowel sounds, nontender BACK: Incision appears clean and noninfected. Some tenderness to palpation EXTREMITIES: No edema NEURO: Alert and oriented x3; Follows commands x4; 5/5 strength throughout; Normal sensation - Urinary Catheter Management Indwelling Urethral Catheter Cath placed during this visit: yes, but has since been removed by the nurse Reason for continuing: Acute urinary retention Insertion date: 04/08/18 Insertion time: 18:04 Removal date: 04/12/18 Removal time: 15:50 Straight Cath placed during this visit: yes, but has since been removed by the nurse Reason for continuing: Not indwelling catheter Insertion date: 04/15/18 Insertion time: 12:00 Removal date: 04/15/18 Removal time: 12:05 Results - Labs CBC & Chem 7: 04/15/18 03:33 04/15/18 03:33 Laboratory Results - last 24 hr 04/15/18 04/15/18 03:33 03:33 WBC 9.5 RBC 3.64 L Hgb 11.5 L Hct 32.8 L MCV 90.2 MCH 31.5 MCHC 34.9 RDW 13.2 Plt Count 208 MPV 10.4 Neut % (Auto) 52.8 Lymph % (Auto) 31.8 [place] % (Auto) 10.7 H Eos % (Auto) 4.0 Baso % (Auto) 0.7 Neut # (Auto) 5.0 Lymph # (Auto) 3.0 [place] # (Auto) 1.0 H Eos # (Auto) 0.4 Baso # (Auto) 0.1 WBC Differential . Differential Comment Auto diff final Sodium 137 Potassium 3.6 Chloride 99 Carbon Dioxide 27.6 Anion Gap 10 BUN 16 Creatinine 0.81 Estimated GFR Greater than 89 Random Glucose 88 Calcium 8.6 Total Bilirubin 0.8 AST 131 H ALT 143 H Alkaline Phosphatase 84 Total Protein 7.3 Albumin 3.2 L Assessment and Plan - Plan Acute Spinal cord compression Thoracic spinal epidural hematoma -s/p Complete Left T4 - 7 complete , and partial right T4 through 7 decompressive laminectomy, evacuation spontaneous epidural hematoma -Intraoperative bleeding controlled with additional factor IX infusion. -Underlying hemophilia B, continue factor IX per hematology -Pain controlled now with IV Dilaudid as needed -Confirmed methadone dose with the methadone clinic. -ordered PT 7 days a week. HTN Well controlled at this time. -Continue maintenance IV fluids -Target systolic blood pressure 130-160 to ensure spinal cord perfusion Hemophilia B -Factor IX infusion as ordered per hematology -Check factor IX activity -Further recs per hematology/Dr. Fragoso Acute renal failure S/p aggressive IV fluid resuscitation. -resolved. Urinary retention Concern for neurogenic bladder. -straight cath as needed. GI Pt endorses constipation. - suppository ordered. Resolved. Hypokalemia -Electrolyte replacement per protocol Elevated LFTs Unsure of etiology. -follow CMP. LFTs seem to have stabilized. PROPH: -SCDs/Gerry. IV famotidine -Chemical DVT prophylaxis is contraindicated
[2018-04-16] MEDS: HYDROmorphone PF Inj 2 MG/ML Vial IV.PUSH PRN ×7 (00:06→20:38)
[2018-04-16 04:32] LABS: Baso # (Auto) 0.1 th/mm3 (0.0-0.2); Baso % (Auto) 0.6 % (0.0-2.0); Eos # (Auto) 0.4 th/mm3 (0.0-0.4); Eos % (Auto) 4.2 % (0.0-4.0); Hematocrit 32.6 % (39.0-51.0); Hemoglobin 11.3 gm/dL (13.0-17.0); Lymph # (Auto) 3.1 th/mm3 (1.0-4.8); Lymph % (Auto) 33.2 % (9.0-44.0); Mean Corpuscular HGB Conc 34.6 % (32.0-36.0); Mean Corpuscular Hemoglobin 31.4 pg (27.0-34.0); Mean Corpuscular Volume 90.9 fL (80.0-100.0); Mean Platelet Volume 10.1 fL (7.0-11.0); Mono % (Auto) 10.5 % (0.0-8.0); Neut # (Auto) 4.8 th/mm3 (1.8-7.7); Neut % (Auto) 51.5 % (16.0-70.0); Platelet Count 228 th/mm3 (150-450); Red Blood Count 3.58 mil/mm3 (4.50-5.90); Red Cell Distribution Width 13.6 % (11.6-17.2); White Blood Count 9.3 th/mm3 (4.0-11.0)
[2018-04-16] MEDS: Methadone 10 MG Tablet PO SCH (08:29)
[2018-04-16] MEDS: Senna/Docusate Sodium 8.6/50 MG Tablet PO SCH ×2 (08:30→21:55)
[2018-04-16] MEDS: Famotidine PF Inj 20 MG/2 ML Vial IV.PUSH SCH ×2 (08:30→21:55)
--- NOTE | 2018-04-16 11:11 | P.PNNS ---
Subjective Interval history: No acute events overnight. Ambulating with PT this AM. Physical Exam Vital signs: Vital Signs 04/15/18 12:00 04/15/18 16:00 04/15/18 19:54 Temperature 99.0 F 99.0 F Pulse Rate 55 L 56 L Respiratory Rate 13 21 18 Blood Pressure 111/71 121/73 Pulse Oximetry 96 94 L 04/15/18 20:00 04/15/18 21:49 04/16/18 00:00 Temperature 98.2 F 98.7 F Pulse Rate 60 61 Respiratory Rate 13 18 18 Blood Pressure 138/89 119/74 Pulse Oximetry 93 L 95 04/16/18 00:36 04/16/18 03:28 04/16/18 04:00 Temperature 98.6 F Pulse Rate 65 Respiratory Rate 18 16 16 Blood Pressure 123/77 Pulse Oximetry 95 04/16/18 07:58 Temperature Pulse Rate Respiratory Rate Blood Pressure Pulse Oximetry 94 L Intake & Output 04/15/18 04/16/18 04/16/18 18:59 06:59 18:59 Intake Total 630 / 630 530 / 530 Output Total 900 / 900 1650 / 1650 Balance -270 / -270 -1120 / -1120 Weight 100.4 kg Intake: IV 30 30 30 / 30 BeneFIX Inj 6,000 UNIT In Bag/ 30 / 30 30 / 30 Syringe 1 EACH @ 120 mls/hr IV. PUSH Q12H [facility] Rx#:[id number] Oral 600 / 600 500 / 500 Output: Stool 0 / 0 Urine Amount (Catheter) 900 / 900 1650 / 1650 Straight 900 / 900 1650 / 1650 Other: # Voids 2 2 Date of Last Bowel Movement 04/13/18 04/13/18 # Bowel Movements 1 Weight On Admission 106.594 kg Narrative: Opens eyes spontaneously Alert and oriented x3 Follows commands x4 5/5 strength throughout Normal sensation Incision: clean, dry, intact; small amount of blood on pillowcase, not concerning - Urinary Catheter Management Indwelling Urethral Catheter Cath placed during this visit: yes, but has since been removed by the nurse Reason for continuing: Acute urinary retention Insertion date: 04/08/18 Insertion time: 18:04 Removal date: 04/12/18 Removal time: 15:50 Straight Cath placed during this visit: yes, but has since been removed by the nurse Reason for continuing: Not indwelling catheter Insertion date: 04/16/18 Insertion time: 06:00 Removal date: 04/15/18 Removal time: 18:20 Assessment and Plan - Assessment (1) Epidural hematoma Code(s): S06.4X9A - Epidural hemorrhage with loss of consciousness of unspecified duration, initial encounter Status: Acute - Plan Impression: 1. 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 s/p Left T4 through 7 complete , and right T4 through 7 partial decompressive laminectomy, evacuation spontaneous epidural hematoma by Dr. Varela on 04/09/18. Plan: Ok to relax neuro checks to q4h (floor status) from our perspective. Currently receiving factor IX replacement 6000 units Q12H per hematology recommendations Appreciate hematology recommendations and management. PT, OOB. Likely will require inpatient rehab. Continue with pain control. Diaz catheter removed 04/12/18. Q6H bladder scans. I/O catheterization PRN. Will continue I/O catheterization indefinitely for bladder training (concern for neurogenic bladder following thoracic epidural hematoma). Encouraged Mr. Alcala to attempt void every time prior to straight catheterization. Ok to lay on incision.
[2018-04-16] MEDS: [UNRECOGNIZED DRUG - MIXTURE] IV.PUSH SCH (12:24)
--- NOTE | 2018-04-16 13:02 | P.PNONC ---
Subjective Interval history: Afebrile Patient sitting up at side of bed in no obvious distress Denies any bleeding Still unable to urinate independently. Reports he feels pressure but is unable to release a stream. Objective Vital Signs/Intake & Output: Vital Signs 04/15/18 16:00 04/15/18 19:54 04/15/18 20:00 Temperature 99.0 F 98.2 F Pulse Rate 56 L 60 Respiratory Rate 21 18 13 Blood Pressure 121/73 138/89 Pulse Oximetry 94 L 93 L 04/15/18 21:49 04/16/18 00:00 04/16/18 00:36 Temperature 98.7 F Pulse Rate 61 Respiratory Rate 18 18 18 Blood Pressure 119/74 Pulse Oximetry 95 04/16/18 03:28 04/16/18 04:00 04/16/18 07:58 Temperature 98.6 F Pulse Rate 65 Respiratory Rate 16 16 Blood Pressure 123/77 Pulse Oximetry 95 94 L 04/16/18 08:00 Temperature 98.4 F Pulse Rate 64 Respiratory Rate 19 Blood Pressure 118/72 Pulse Oximetry 95 Intake & Output 04/15/18 04/16/18 04/16/18 18:59 06:59 18:59 Intake Total 630 / 630 530 / 530 Output Total 900 / 900 1650 / 1650 Balance -270 / -270 -1120 / -1120 Weight 221 lb 5.506 oz Intake: IV 30 / 30 30 / 30 BeneFIX Inj 6,000 UNIT In Bag/ 30 30 30 / 30 Syringe 1 EACH @ 120 mls/hr IV. PUSH Q12H [facility] Rx#:[id number] Oral 600 / 600 500 / 500 Output: Stool 0 / 0 Urine Amount (Catheter) 900 / 900 1650 / 1650 Straight 900 / 900 1650 / 1650 Other: # Voids 2 2 Date of Last Bowel Movement 04/13/18 04/13/18 04/13/18 # Bowel Movements 1 Weight On Admission 235 lb Result Diagrams: 04/17/18 03:52 04/17/18 03:52 Laboratory Results: Laboratory Results - last 24 hr 04/10/18 04/16/18 06:22 03:35 WBC 9.3 RBC 3.58 L Hgb 11.3 L Hct 32.6 L MCV 90.9 MCH 31.4 MCHC 34.6 RDW 13.6 Plt Count 228 MPV 10.1 Neut % (Auto) 51.5 Lymph % (Auto) 33.2 [place] % (Auto) 10.5 H Eos % (Auto) 4.2 H Baso % (Auto) 0.6 Neut # (Auto) 4.8 Lymph # (Auto) 3.1 [place] # (Auto) 1.0 H Eos # (Auto) 0.4 Baso # (Auto) 0.1 WBC Differential . Differential Comment Auto diff final Factor IX Activity 51 L Culture Results: Microbiology 04/08/18 17:55 Aerobic Blood Culture - Final Blood - Peripheral No growth in 5 days Anaerobic Blood Culture - Final No growth in 5 days 04/08/18 18:00 Aerobic Blood Culture - Final Blood - Peripheral No growth in 5 days Anaerobic Blood Culture - Final No growth in 5 days Medications: Active Medications Generic Name Dose Route Start Last Admin Trade Name Freq PRN Reason Stop Dose Admin Al Hydroxide/Mg Hydroxide 30 ml 04/08/18 23:50 04/13/18 08:16 Milk Of Magnesia Liq PO 30 ml Q12H PRN Administration Mild Constipation Albuterol 1 ampul 04/08/18 23:50 04/10/18 04:50 Duoneb Neb (Prn) NEB 1 ampul Q2HR NEB PRN Administration WHEEZING Bisacodyl 10 mg 04/08/18 23:50 04/13/18 18:31 Dulcolax Supp RECTAL 10 mg DAILY PRN Administration SEVERE CONSITIPATION Factor IX Complex Human 4,000 unit 04/12/18 09:00 04/14/18 12:48 Benefix Inj IV.PUSH 4,000 unit LABORATORY ASST NASIR Administration Famotidine 20 mg 04/09/18 09:00 04/16/18 08:30 Pepcid Pf Inj IV.PUSH 20 mg Q12HR NASIR Administration Hydromorphone HCl 2 mg 04/09/18 20:19 04/16/18 11:28 Dilaudid Pf Inj IV.PUSH 2 mg Q2H PRN Administration pain 8-10 Hydromorphone HCl 2 mg 04/09/18 20:19 04/11/18 06:58 Dilaudid Pf Inj IV.PUSH 2 mg Q2H PRN Administration BREAKTHROUGH PAIN Factor IX Complex Human 6,000 30 mls @ 120 mls/hr 04/11/18 21:00 04/16/18 12: 24 unit/ Syringe/Bag IV.PUSH 04/17/18 23:59 120 mls/hr Q12H NASIR Administration Labetalol HCl 10 mg 04/09/18 00:45 04/11/18 05:13 Trandate Inj IV.PUSH 10 mg Q3H PRN Administration SBP>160, DBP> 90 Methadone HCl 190 mg 04/09/18 09:00 04/16/18 08:29 Dolophine PO 190 mg DAILY NASIR Administration Metoclopramide HCl 5 mg 04/09/18 00:00 04/16/18 11:27 Reglan Inj IV.PUSH 5 mg Q6HR NASIR Administration Protocol Morphine Sulfate 2 mg 04/08/18 23:50 04/09/18 07:51 Morphine Inj IV.PUSH 2 mg Q2H PRN Administration PAIN SCALE 6 TO 10 Nicotine 1 patch 04/09/18 10:00 04/16/18 08:30 Habitrol 14 Mg Patch.24 Hr T-DERMAL 1 patch DAILY NASIR Administration Senna/Docusate Sodium 1 tab 04/09/18 21:00 04/16/18 08:30 Lindy-Colace PO 1 tab BID NASIR Administration Sennosides 17.2 mg 04/09/18 17:11 04/15/18 19:24 Senokot PO 17.2 mg Q12H PRN Administration Moderate Constipation Sodium Chloride 2 ml 04/09/18 09:00 04/16/18 08:31 Ns Flush IV.FLUSH 2 ml BID NASIR Administration Tamsulosin HCl 0.4 mg 04/13/18 09:00 04/16/18 08:31 Flomax PO 0.4 mg DAILY NASIR Administration Temazepam 15 mg 04/08/18 23:50 04/09/18 01:24 Restoril PO 15 mg HS PRN Administration INSOMNIA Objective Remarks: GENERAL: Young male sitting up in chair at bedside. He appears comfortable and in no distress. SKIN: Warm and dry. [place] in place mid-medial back, no oozing. HEAD: Normocephalic. EYES: No scleral icterus. No injection or drainage. PERRLA. NECK: Supple, trachea midline. CARDIOVASCULAR: Regular rate and rhythm without murmurs. RESPIRATORY: Breath sounds equal bilaterally. No accessory muscle use. GASTROINTESTINAL: Abdomen soft, non-tender, nondistended. EXTREMITIES: No cyanosis, or edema. MUSCULOSKELETAL: Adequate muscle tone. Moves all extremities, 5/5 strength in all extremities. NEUROLOGICAL: Occasionally slow to speak. Awake, alert, and oriented x3. 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 His baseline factor IX activity is less than 1%. 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 Unfortunately he has no factors at home as he does not have insurance. Follow-up in our clinic has been difficult. He presented with back pain symptoms and trouble urinating. Thoracic spine MRI shows elongated mass in the anterior aspect of the epidural space from T5-T9 with moderate spinal stenosis. The patient had decompression surgery by Dr. Varela on 04/09. 1. Factor IX activity level back at 51. Decreased BeneFIX to 4000 units twice daily. Continue to monitor for bleeding. Monitor CBC. 2. Appreciate case management being involved to assist patient with getting insurance. - Attending Statement Factor IX activity level was discussed. His dose was adjusted. Case was reviewed with LOUISA James.
--- NOTE | 2018-04-16 13:31 | P.PNIM ---
Subjective Interval history: The patient said that he felt like he was healing. He said he worked with physical therapy. He has not had a bowel movement in a few days. He had no acute complaints at this time. Physical Exam Vital signs: Vital Signs 04/15/18 16:00 04/15/18 19:54 04/15/18 20:00 Temperature 99.0 F 98.2 F Pulse Rate 56 L 60 Respiratory Rate 21 18 13 Blood Pressure 121/73 138/89 Pulse Oximetry 94 L 93 L 04/15/18 21:49 04/16/18 00:00 04/16/18 00:36 Temperature 98.7 F Pulse Rate 61 Respiratory Rate 18 18 18 Blood Pressure 119/74 Pulse Oximetry 95 04/16/18 03:28 04/16/18 04:00 04/16/18 07:58 Temperature 98.6 F Pulse Rate 65 Respiratory Rate 16 16 Blood Pressure 123/77 Pulse Oximetry 95 94 L 04/16/18 08:00 Temperature 98.4 F Pulse Rate 64 Respiratory Rate 19 Blood Pressure 118/72 Pulse Oximetry 95 Intake & Output 04/15/18 04/16/18 04/16/18 18:59 06:59 18:59 Intake Total 630 / 630 530 / 530 Output Total 900 / 900 1650 / 1650 Balance -270 / -270 -1120 / -1120 Weight 100.4 kg Intake: IV 30 30 30 / 30 BeneFIX Inj 6,000 UNIT In Bag/ 30 / 30 30 / 30 Syringe 1 EACH @ 120 mls/hr IV. PUSH Q12H [facility] Rx#:[id number] Oral 600 / 600 500 / 500 Output: Stool 0 / 0 Urine Amount (Catheter) 900 / 900 1650 / 1650 Straight 900 / 900 1650 / 1650 Other: # Voids 2 2 Date of Last Bowel Movement 04/13/18 04/13/18 04/13/18 # Bowel Movements 1 Weight On Admission 106.594 kg Narrative: GEN: Comfortable HEENT: NC, AT CARDIAC: RRR LUNGS: CTAB GI: Soft, ND, decreased bowel sounds, nontender BACK: Incision appears clean and noninfected. Some tenderness to palpation EXTREMITIES: No edema NEURO: Alert and oriented x3; Follows commands x4; 5/5 strength throughout; Normal sensation - Urinary Catheter Management Indwelling Urethral Catheter Cath placed during this visit: yes, but has since been removed by the nurse Reason for continuing: Acute urinary retention Insertion date: 04/08/18 Insertion time: 18:04 Removal date: 04/12/18 Removal time: 15:50 Straight Cath placed during this visit: yes, but has since been removed by the nurse Reason for continuing: Not indwelling catheter Insertion date: 04/16/18 Insertion time: 06:00 Removal date: 04/15/18 Removal time: 18:20 Results - Labs CBC & Chem 7: 04/16/18 03:35 04/15/18 03:33 Laboratory Results - last 24 hr 04/10/18 04/16/18 06:22 03:35 WBC 9.3 RBC 3.58 L Hgb 11.3 L Hct 32.6 L MCV 90.9 MCH 31.4 MCHC 34.6 RDW 13.6 Plt Count 228 MPV 10.1 Neut % (Auto) 51.5 Lymph % (Auto) 33.2 [place] % (Auto) 10.5 H Eos % (Auto) 4.2 H Baso % (Auto) 0.6 Neut # (Auto) 4.8 Lymph # (Auto) 3.1 [place] # (Auto) 1.0 H Eos # (Auto) 0.4 Baso # (Auto) 0.1 WBC Differential . Differential Comment Auto diff final Factor IX Activity 51 L Assessment and Plan - Plan Acute Spinal cord compression Thoracic spinal epidural hematoma -s/p Complete Left T4 - 7 complete , and partial right T4 through 7 decompressive laminectomy, evacuation spontaneous epidural hematoma -Intraoperative bleeding controlled with additional factor IX infusion. -Underlying hemophilia B, continue factor IX per hematology -Pain controlled now with IV Dilaudid as needed -Confirmed methadone dose with the methadone clinic. -ordered PT 7 days a week. HTN Well controlled at this time. -Continue maintenance IV fluids -Target systolic blood pressure 130-160 to ensure spinal cord perfusion Hemophilia B -Factor IX infusion as ordered per hematology -Check factor IX activity Acute renal failure S/p aggressive IV fluid resuscitation. -resolved. Urinary retention Concern for neurogenic bladder. Still having difficulty urinating. -straight cath as needed. GI Pt endorses constipation. -add standing Miralax. -supp as needed. Hypokalemia -Electrolyte replacement per protocol Elevated LFTs Unsure of etiology. -follow CMP. LFTs seem to have stabilized. PROPH: -SCDs/Gerry. IV famotidine -Chemical DVT prophylaxis is contraindicated
[2018-04-16] MEDS: Polyethylene Glycol 3350 17 GM Packet PO SCH (18:10)
[2018-04-16] MEDS: [UNRECOGNIZED DRUG - MIXTURE] IV.PUSH SCH (21:21)
[2018-04-17] MEDS: HYDROmorphone PF Inj 2 MG/ML Vial IV.PUSH PRN ×7 (00:26→23:30)
[2018-04-17 04:22] LABS: Baso # (Auto) 0.1 th/mm3 (0.0-0.2); Baso % (Auto) 0.7 % (0.0-2.0); Eos # (Auto) 0.3 th/mm3 (0.0-0.4); Eos % (Auto) 3.8 % (0.0-4.0); Hemoglobin 11.4 gm/dL (13.0-17.0); Lymph # (Auto) 2.7 th/mm3 (1.0-4.8); Lymph % (Auto) 31.4 % (9.0-44.0); Mean Corpuscular HGB Conc 34.5 % (32.0-36.0); Mean Corpuscular Hemoglobin 31.5 pg (27.0-34.0); Mean Corpuscular Volume 91.2 fL (80.0-100.0); Mean Platelet Volume 9.6 fL (7.0-11.0); Mono # (Auto) 1.1 th/mm3 (0.0-0.9); Mono % (Auto) 12.9 % (0.0-8.0); Neut # (Auto) 4.3 th/mm3 (1.8-7.7); Neut % (Auto) 51.2 % (16.0-70.0); Platelet Count 222 th/mm3 (150-450); Red Blood Count 3.61 mil/mm3 (4.50-5.90); Red Cell Distribution Width 13.5 % (11.6-17.2); White Blood Count 8.4 th/mm3 (4.0-11.0)
[2018-04-17 04:44] LABS: Anion Gap 10 meq/L (5-15); Aspartate Aminotransferase 91 U/L (15-37); Blood Urea Nitrogen 18 mg/dL (7-18); Calcium 8.7 mg/dL (8.5-10.1); Carbon Dioxide 29.3 meq/L (21.0-32.0); Chloride 100 meq/L (98-107); Glomerular Filtration Rate Greater Than 89 mL/min (>89); Glucose,Random 82 mg/dL (74-106); Sodium 139 meq/L (136-145)
[2018-04-17 04:47] LABS: Alanine Aminotransferase 114 U/L (12-78); Alkaline Phosphatase 83 U/L (45-117); Total Protein 7.1 g/dL (6.4-8.2)
[2018-04-17 04:49] LABS: Activated Partial Thrombo Time 24.7 sec (24.3-30.1); Prothrombin Time 10.1 sec (9.8-11.6)
[2018-04-17] MEDS: Methadone 10 MG Tablet PO SCH (09:03)
[2018-04-17] MEDS: Famotidine PF Inj 20 MG/2 ML Vial IV.PUSH SCH ×2 (09:03→20:15)
[2018-04-17] MEDS: Polyethylene Glycol 3350 17 GM Packet PO SCH (09:04)
[2018-04-17] MEDS: Senna/Docusate Sodium 8.6/50 MG Tablet PO SCH ×2 (09:04→20:16)
[2018-04-17] MEDS: [UNRECOGNIZED DRUG - MIXTURE] IV.PUSH SCH (09:45)
--- NOTE | 2018-04-17 10:52 | P.PNONC ---
Subjective Interval history: Afebrile Patient remains unable to urinate Per neurology this may take several weeks for this function to return No bleeding Objective Vital Signs/Intake & Output: Vital Signs 04/16/18 12:00 04/16/18 16:00 04/16/18 20:00 Temperature 98.6 F 98.7 F 98.5 F Pulse Rate 64 62 62 Respiratory Rate 19 14 13 Blood Pressure 118/72 112/68 113/67 Pulse Oximetry 95 96 97 04/16/18 21:08 04/17/18 00:00 04/17/18 04:00 Temperature 99.0 F 98.0 F Pulse Rate 60 59 L Respiratory Rate 13 14 17 Blood Pressure 114/72 120/81 Pulse Oximetry 100 04/17/18 08:50 Temperature Pulse Rate Respiratory Rate Blood Pressure Pulse Oximetry 97 Intake & Output 04/16/18 04/17/18 04/17/18 18:59 06:59 18:59 Intake Total 600 / 600 500 / 500 Output Total 575 / 575 1100 / 1100 Balance 25 / 25 -600 / -600 Weight 221 lb 5.506 oz Intake: Oral 600 / 600 500 / 500 Output: Urine Amount (Catheter) 575 / 575 1100 / 1100 Straight 575 / 575 1100 / 1100 Other: # Voids 2 Date of Last Bowel Movement 04/13/18 04/14/18 # Bowel Movements 0 Result Diagrams: 04/17/18 03:52 04/17/18 03:52 Laboratory Results: Laboratory Results - last 24 hr 04/17/18 04/17/18 04/17/18 03:52 03:52 03:52 WBC 8.4 RBC 3.61 L Hgb 11.4 L Hct 33.0 L MCV 91.2 MCH 31.5 MCHC 34.5 RDW 13.5 Plt Count 222 MPV 9.6 Neut % (Auto) 51.2 Lymph % (Auto) 31.4 [place] % (Auto) 12.9 H Eos % (Auto) 3.8 Baso % (Auto) 0.7 Neut # (Auto) 4.3 Lymph # (Auto) 2.7 [place] # (Auto) 1.1 H Eos # (Auto) 0.3 Baso # (Auto) 0.1 WBC Differential . Differential Comment Auto diff final PT 10.1 INR 1.0 APTT 24.7 Sodium 139 Potassium 4.0 Chloride 100 Carbon Dioxide 29.3 Anion Gap 10 BUN 18 Creatinine 0.80 Estimated GFR Greater than 89 Random Glucose 82 Calcium 8.7 Total Bilirubin 0.4 AST 91 H ALT 114 H Alkaline Phosphatase 83 Total Protein 7.1 Albumin 3.0 L Medications: Active Medications Generic Name Dose Route Start Last Admin Trade Name Freq PRN Reason Stop Dose Admin Al Hydroxide/Mg Hydroxide 30 ml 04/08/18 23:50 04/13/18 08:16 Milk Of [place] Liq PO 30 ml Q12H PRN Administration Mild Constipation Albuterol 1 ampul 04/08/18 23:50 04/10/18 04:50 Duoneb Neb (Prn) NEB 1 ampul Q2HR NEB PRN Administration WHEEZING Bisacodyl 10 mg 04/08/18 23:50 04/13/18 18:31 Dulcolax Supp RECTAL 10 mg DAILY PRN Administration SEVERE CONSITIPATION Famotidine 20 mg 04/09/18 09:00 04/17/18 09:03 Pepcid Pf Inj IV.PUSH 20 mg Q12HR NASIR Administration Hydromorphone HCl 2 mg 04/09/18 20:19 04/17/18 04:05 Dilaudid Pf Inj IV.PUSH 2 mg Q2H PRN Administration pain 8-10 Hydromorphone HCl 2 mg 04/09/18 20:19 04/17/18 06:52 Dilaudid Pf Inj IV.PUSH 2 mg Q2H PRN Administration BREAKTHROUGH PAIN Factor IX Complex Human 4,000 0 mls @ 120 mls/hr 04/16/18 21:00 04/17/18 09: 45 unit/ Syringe/Bag IV.PUSH 04/17/18 20:59 120 mls/hr Q12H NASIR Administration Labetalol HCl 10 mg 04/09/18 00:45 04/11/18 05:13 Trandate Inj IV.PUSH 10 mg Q3H PRN Administration SBP>160, DBP> 90 Methadone HCl 190 mg 04/09/18 09:00 04/17/18 09:03 Dolophine PO 190 mg DAILY NASIR Administration Metoclopramide HCl 5 mg 04/09/18 00:00 04/17/18 06:53 Reglan Inj IV.PUSH 5 mg Q6HR NASIR Administration Protocol Morphine Sulfate 2 mg 04/08/18 23:50 08/08/18 07:51 Morphine Inj IV.PUSH 2 mg Q2H PRN Administration PAIN SCALE 6 TO 10 Nicotine 1 patch 04/09/18 10:00 04/17/18 09:04 Habitrol 14 Mg Patch.24 Hr T-DERMAL 1 patch DAILY NASIR Administration Polyethylene Glycol 17 gm 04/16/18 15:00 04/17/18 09:04 Miralax PO 17 gm DAILY NASIR Administration Senna/Docusate Sodium 1 tab 04/09/18 21:00 04/17/18 09:04 Lindy-Colace PO 1 tab BID NASIR Administration Sennosides 17.2 mg 04/09/18 17:11 04/15/18 19:24 Senokot PO 17.2 mg Q12H PRN Administration Moderate Constipation Sodium Chloride 2 ml 04/09/18 09:00 04/17/18 09:04 Ns Flush IV.FLUSH 2 ml BID NASIR Administration Sodium Chloride 2 ml 04/08/18 23:50 04/17/18 04:06 Ns Flush IV.FLUSH 2 ml PRN PRN Administration FLUSH AFTER USING IV ACCESS Tamsulosin HCl 0.4 mg 04/13/18 09:00 04/17/18 09:03 Flomax PO 0.4 mg DAILY NASIR Administration Temazepam 15 mg 04/08/18 23:50 04/09/18 01:24 Restoril PO 15 mg HS PRN Administration INSOMNIA Objective Remarks: GENERAL: Young male sitting up in chair at bedside. He appears comfortable and in no distress. SKIN: Warm and dry. [place] in place mid-medial back, no oozing. HEAD: Normocephalic. EYES: No scleral icterus. No injection or drainage. PERRLA. NECK: Supple, trachea midline. CARDIOVASCULAR: Regular rate and rhythm without murmurs. RESPIRATORY: Breath sounds equal bilaterally. No accessory muscle use. GASTROINTESTINAL: Abdomen soft, non-tender, nondistended. EXTREMITIES: No cyanosis, or edema. MUSCULOSKELETAL: Adequate muscle tone. Moves all extremities, 5/5 strength in all extremities. NEUROLOGICAL: Occasionally slow to speak. Awake, alert, and oriented x3. 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 His baseline factor IX activity is less than 1%. 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 Unfortunately he has no factors at home as he does not have insurance. Follow-up in our clinic has been difficult. He presented with back pain symptoms and trouble urinating. Thoracic spine MRI shows elongated mass in the anterior aspect of the epidural space from T5-T9 with moderate spinal stenosis. The patient had decompression surgery by Dr. Varela on 04/09. 1. Patient tolerating BeneFIX at 4000 units twice daily. He has had no incidents of bleeding. CBC stable. 2. Continue supportive care. - Attending Statement The exam, history, and the medical decision-making described in the above note were completed with the assistance of the mid-level provider. I reviewed and agree with the findings presented. I attest that I had a [id number] encounter with the patient on the same day, and personally performed and documented my assessment and findings in the medical record. Patient seen and examined with mother at bedside. He denies any bleeding. He still has difficulty controlling his urination. Workup continue to transition his factor replacement on an outpatient basis. He continues to require at least 4000 units twice a day for continued healing. Our goal is to maintain his factor activity level around 50% while he heals given that he had neurosurgery and has neurological symptoms at state. I anticipate continuing same intensity of factor replacement around 50% for next week. After which we will transition to once weekly dosing with an extended half-life factor as prophylaxis. Application for Alprolix was initiated as out patient. He should be able to receive the factors in the outpatient clinic upon discharge.
--- NOTE | 2018-04-17 16:32 | P.PNIM ---
Subjective Interval history: The patient said he was having another good day. He was still constipated. He wanted to try something by mouth before trying a suppository. No other acute concerns. He feels like he has good strength in the legs. Physical Exam Vital signs: Vital Signs 04/16/18 20:00 04/16/18 21:08 04/17/18 00:00 Temperature 98.5 F 99.0 F Pulse Rate 62 60 Respiratory Rate 13 13 14 Blood Pressure 113/67 114/72 Pulse Oximetry 97 100 04/17/18 04:00 04/17/18 08:50 Temperature 98.0 F Pulse Rate 59 L Respiratory Rate 17 Blood Pressure 120/81 Pulse Oximetry 97 Intake & Output 04/16/18 04/17/18 04/17/18 18:59 06:59 18:59 Intake Total 600 / 600 500 / 500 Output Total 575 / 575 1100 / 1100 Balance 25 / 25 -600 / -600 Weight 100.4 kg Intake: Oral 600 / 600 500 / 500 Output: Urine Amount (Catheter) 575 / 575 1100 / 1100 Straight 575 / 575 1100 / 1100 Other: # Voids 2 Date of Last Bowel Movement 04/13/18 04/14/18 # Bowel Movements 0 Narrative: GEN: Comfortable HEENT: NC, AT CARDIAC: RRR LUNGS: CTAB GI: Soft, ND, decreased bowel sounds, nontender BACK: Incision appears clean and noninfected. Some tenderness to palpation EXTREMITIES: No edema NEURO: Alert and oriented x3; Follows commands x4; 5/5 strength throughout; Normal sensation - Urinary Catheter Management Indwelling Urethral Catheter Cath placed during this visit: yes, but has since been removed by the nurse Reason for continuing: Acute urinary retention Insertion date: 04/08/18 Insertion time: 18:04 Removal date: 04/12/18 Removal time: 15:50 Straight Cath placed during this visit: yes, but has since been removed by the nurse Reason for continuing: Not indwelling catheter Insertion date: 04/16/18 Insertion time: 18:00 Removal date: 04/15/18 Removal time: 18:05 Results - Labs CBC & Chem 7: 04/17/18 03:52 04/17/18 03:52 Laboratory Results - last 24 hr 04/17/18 04/17/18 04/17/18 03:52 03:52 03:52 WBC 8.4 RBC 3.61 L Hgb 11.4 L Hct 33.0 L MCV 91.2 MCH 31.5 MCHC 34.5 RDW 13.5 Plt Count 222 MPV 9.6 Neut % (Auto) 51.2 Lymph % (Auto) 31.4 [place] % (Auto) 12.9 H Eos % (Auto) 3.8 Baso % (Auto) 0.7 Neut # (Auto) 4.3 Lymph # (Auto) 2.7 [place] # (Auto) 1.1 H Eos # (Auto) 0.3 Baso # (Auto) 0.1 WBC Differential . Differential Comment Auto diff final PT 10.1 INR 1.0 APTT 24.7 Sodium 139 Potassium 4.0 Chloride 100 Carbon Dioxide 29.3 Anion Gap 10 BUN 18 Creatinine 0.80 Estimated GFR Greater than 89 Random Glucose 82 Calcium 8.7 Total Bilirubin 0.4 AST 91 H ALT 114 H Alkaline Phosphatase 83 Total Protein 7.1 Albumin 3.0 L Assessment and Plan - Plan Acute Spinal cord compression Thoracic spinal epidural hematoma -s/p Complete Left T4 - 7 complete , and partial right T4 through 7 decompressive laminectomy, evacuation spontaneous epidural hematoma -Intraoperative bleeding controlled with additional factor IX infusion. -Underlying hemophilia B, continue factor IX per hematology -Pain controlled now with IV Dilaudid as needed -Confirmed methadone dose with the methadone clinic. -ordered PT 7 days a week. HTN Well controlled at this time. -Continue maintenance IV fluids -Target systolic blood pressure 130-160 to ensure spinal cord perfusion Hemophilia B -Factor IX infusion as ordered per hematology -Check factor IX activity Acute renal failure S/p aggressive IV fluid resuscitation. -resolved. Urinary retention Concern for neurogenic bladder. Still having difficulty urinating. -straight cath as needed. GI Pt endorses constipation. -add standing lactulose. -supp as needed. Hypokalemia -Electrolyte replacement per protocol Elevated LFTs Unsure of etiology. -follow CMP. LFTs seem to have stabilized. Check as needed. PROPH: -SCDs/Gerry. IV famotidine -Chemical DVT prophylaxis is contraindicated
--- NOTE | 2018-04-17 21:47 | P.PNNS ---
Subjective Interval history: No events, adam placed in drain sites yesterday Physical Exam Vital signs: Vital Signs 04/17/18 00:00 04/17/18 04:00 04/17/18 08:00 Temperature 99.0 F 98.0 F 98.1 F Pulse Rate 60 59 L 58 L Respiratory Rate 14 17 21 Blood Pressure 114/72 120/81 125/77 Pulse Oximetry 100 97 04/17/18 08:50 04/17/18 12:00 04/17/18 16:00 Temperature 98 F 98.7 F Pulse Rate 62 60 Respiratory Rate 20 14 Blood Pressure 137/87 145/75 H Pulse Oximetry 97 99 99 04/17/18 21:09 Temperature Pulse Rate Respiratory Rate Blood Pressure Pulse Oximetry 97 Intake & Output 04/17/18 04/17/18 04/18/18 06:59 18:59 06:59 Intake Total 500 / 500 4920 / 4920 Output Total 1100 / 1100 600 / 600 Balance -600 / -600 4320 / 4320 Weight 100.4 kg Intake: Oral 500 / 500 600 / 600 Anesthesia Amount 4300 / 4300 Other 20 / 20 Output: Stool 0 / 0 Urine Amount (Catheter) 1100 / 1100 600 / 600 Straight 1100 / 1100 600 / 600 Other: Date of Last Bowel Movement 04/14/18 04/14/18 # Bowel Movements 0 Narrative: Incisions c/d/i EXTREMITIES: No edema NEURO: Alert and oriented x3; Follows commands x4; 5/5 strength throughout; Normal sensation - Urinary Catheter Management Indwelling Urethral Catheter Cath placed during this visit: yes, but has since been removed by the nurse Reason for continuing: Acute urinary retention Insertion date: 04/08/18 Insertion time: 18:04 Removal date: 04/12/18 Removal time: 15:50 Straight Cath placed during this visit: yes, but has since been removed by the nurse Reason for continuing: Not indwelling catheter Insertion date: 04/16/18 Insertion time: 18:00 Removal date: 04/15/18 Removal time: 18:05 Assessment and Plan - Assessment (1) Epidural hematoma Code(s): S06.4X9A - Epidural hemorrhage with loss of consciousness of unspecified duration, initial encounter Status: Acute - Plan Impression: 1. 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 s/p Left T4 through 7 complete , and right T4 through 7 partial decompressive laminectomy, evacuation spontaneous epidural hematoma by Dr. Varela on 04/09/18. Plan: Ok to relax neuro checks to q4h (floor status) from our perspective. Currently receiving factor IX replacement 4000 units Q12H per hematology recommendations Appreciate hematology recommendations and management. PT, OOB. Likely will require inpatient rehab. Continue with pain control. Diaz catheter removed 04/12/18. Q6H bladder scans. I/O catheterization PRN. Will continue I/O catheterization indefinitely for bladder training (concern for neurogenic bladder following thoracic epidural hematoma). Encouraged Mr. Alcala to attempt void every time prior to straight catheterization. Ok to lay on incision. Consider scheduled daily 17gm Miralax for bowel/constipation
[2018-04-18] MEDS: HYDROmorphone PF Inj 2 MG/ML Vial IV.PUSH PRN ×5 (04:25→22:47)
[2018-04-18] MEDS: Senna/Docusate Sodium 8.6/50 MG Tablet PO SCH ×2 (09:24→20:19)
[2018-04-18] MEDS: Methadone 10 MG Tablet PO SCH (09:24)
[2018-04-18] MEDS: Famotidine PF Inj 20 MG/2 ML Vial IV.PUSH SCH ×2 (09:24→20:18)
[2018-04-18] MEDS: Polyethylene Glycol 3350 17 GM Packet PO SCH (09:25)
--- NOTE | 2018-04-18 12:38 | P.PNNS ---
Subjective Interval history: Benefiber discontinued Physical Exam Vital signs: Vital Signs 04/17/18 16:00 04/17/18 20:00 04/17/18 21:09 Temperature 98.7 F 98.7 F Pulse Rate 60 63 Respiratory Rate 14 16 Blood Pressure 145/75 H 131/69 Pulse Oximetry 99 98 97 04/18/18 00:00 04/18/18 04:00 04/18/18 08:00 Temperature 98.5 F 98.6 F Pulse Rate 57 L 54 L 56 L Respiratory Rate 18 15 Blood Pressure 112/65 115/79 Pulse Oximetry 96 96 04/18/18 08:20 Temperature Pulse Rate Respiratory Rate Blood Pressure Pulse Oximetry 98 Intake & Output 04/17/18 04/18/18 04/18/18 18:59 06:59 18:59 Intake Total 4920 / 4920 240 / 240 Output Total 600 / 600 450 / 450 Balance 4320 / 4320 -210 / -210 Weight 102 kg Intake: Oral 600 / 600 240 / 240 Anesthesia Amount 4300 / 4300 Other 20 / 20 Output: Stool 0 / 0 Urine Amount (Catheter) 600 / 600 450 / 450 Straight 600 / 600 450 / 450 Other: Date of Last Bowel Movement 04/14/18 04/14/18 # Bowel Movements 0 Narrative: Incisions c/d/i EXTREMITIES: No edema NEURO: Alert and oriented x3; Follows commands x4; 5/5 strength throughout; Normal sensation - Urinary Catheter Management Indwelling Urethral Catheter Cath placed during this visit: yes, but has since been removed by the nurse Reason for continuing: Acute urinary retention Insertion date: 04/08/18 Insertion time: 18:04 Removal date: 04/12/18 Removal time: 15:50 Straight Cath placed during this visit: yes, but has since been removed by the nurse Reason for continuing: Not indwelling catheter Insertion date: 04/16/18 Insertion time: 18:00 Removal date: 04/15/18 Removal time: 18:05 Assessment and Plan - Assessment (1) Epidural hematoma Code(s): S06.4X9A - Epidural hemorrhage with loss of consciousness of unspecified duration, initial encounter Status: Acute - Plan Impression: 1. 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 s/p Left T4 through 7 complete , and right T4 through 7 partial decompressive laminectomy, evacuation spontaneous epidural hematoma by Dr. Varela on 04/09/18. Plan: Ok to relax neuro checks to q4h (floor status) from our perspective. Currently receiving factor IX replacement 4000 units Q12H per hematology recommendations -- now stopped -- patient can transfer to floor Appreciate hematology recommendations and management. PT, OOB. Likely will require inpatient rehab. Continue with pain control. Diaz catheter removed 04/12/18. Q6H bladder scans. I/O catheterization PRN. Will continue I/O catheterization indefinitely for bladder training (concern for neurogenic bladder following thoracic epidural hematoma). Encouraged Mr. Alcala to attempt void every time prior to straight catheterization. Ok to lay on incision. Consider scheduled daily 17gm Miralax for bowel/constipation Miguel can be dc'd at any time now (day 10-14), surgery was 04/08/18 (Nichole)
[2018-04-18] MEDS ORDERED: FACTOR IX COMPLEX HUMAN 2000 UNIT IV.PUSH STA (14:48)
--- NOTE | 2018-04-18 15:37 | P.PNIM ---
Subjective Interval history: The pt said he continued to get better. He had a bowel movement and was able to urinate a small amount with it as well. His family was at the bedside. He said he'd be following up with hematology as an outpt. Discussed with nursing. Physical Exam Vital signs: Vital Signs 04/17/18 16:00 04/17/18 20:00 04/17/18 21:09 Temperature 98.7 F 98.7 F Pulse Rate 60 63 Respiratory Rate 14 16 Blood Pressure 145/75 H 131/69 Pulse Oximetry 99 98 97 04/18/18 00:00 04/18/18 04:00 04/18/18 08:00 Temperature 98.5 F 98.6 F 98.4 F Pulse Rate 57 L 54 L 56 L Respiratory Rate 18 15 24 Blood Pressure 112/65 115/79 115/81 Pulse Oximetry 96 96 96 04/18/18 08:20 Temperature Pulse Rate Respiratory Rate Blood Pressure Pulse Oximetry 98 Intake & Output 04/17/18 04/18/18 04/18/18 18:59 06:59 18:59 Intake Total 4920 / 4920 240 / 240 Output Total 600 / 600 450 / 450 Balance 4320 / 4320 -210 / -210 Weight 102 kg Intake: Oral 600 / 600 240 / 240 Anesthesia Amount 4300 / 4300 Other 20 / 20 Output: Stool 0 / 0 Urine Amount (Catheter) 600 / 600 450 / 450 Straight 600 / 600 450 / 450 Other: Date of Last Bowel Movement 04/14/18 04/14/18 04/18/18 # Bowel Movements 0 Narrative: GEN: Comfortable HEENT: NC, AT CARDIAC: RRR LUNGS: CTAB GI: Soft, ND, decreased bowel sounds, nontender BACK: Incision appears clean and noninfected. No tenderness to palpation EXTREMITIES: No edema NEURO: Alert and oriented x3; Follows commands x4; 5/5 strength throughout; Normal sensation - Urinary Catheter Management Indwelling Urethral Catheter Cath placed during this visit: yes, but has since been removed by the nurse Reason for continuing: Acute urinary retention Insertion date: 04/08/18 Insertion time: 18:04 Removal date: 04/12/18 Removal time: 15:50 Straight Cath placed during this visit: yes, but has since been removed by the nurse Reason for continuing: Not indwelling catheter Insertion date: 04/16/18 Insertion time: 18:00 Removal date: 04/15/18 Removal time: 18:05 Results - Labs CBC & Chem 7: 04/17/18 03:52 04/17/18 03:52 Assessment and Plan - Plan Acute Spinal cord compression Thoracic spinal epidural hematoma -s/p Complete Left T4 - 7 complete , and partial right T4 through 7 decompressive laminectomy, evacuation spontaneous epidural hematoma -Intraoperative bleeding controlled with additional factor IX infusion. -Underlying hemophilia B, continue factor IX per hematology -Pain controlled now with IV Dilaudid as needed -Confirmed methadone dose with the methadone clinic. -ordered PT 7 days a week. Rehab recommended. Case management consulted. Add OT. HTN Well controlled at this time. -Continue maintenance IV fluids -Target systolic blood pressure 130-160 to ensure spinal cord perfusion Hemophilia B -Factor IX infusion as ordered per hematology -Check factor IX activity Acute renal failure S/p aggressive IV fluid resuscitation. -resolved. Urinary retention Concern for neurogenic bladder. Still having difficulty urinating. -straight cath as needed. -continue Flomax. GI Pt endorses constipation. -add standing lactulose. Had a BM 04/18. -supp as needed. Hypokalemia -Electrolyte replacement per protocol Elevated LFTs Unsure of etiology. -follow CMP. LFTs seem to have stabilized. Check as needed. PROPH: -SCDs/Gerry. IV famotidine -Chemical DVT prophylaxis is contraindicated
--- NOTE | 2018-04-18 19:36 | P.PNONC ---
Subjective Interval history: He had a bowel movement. He is urinating a little bits. He denies any problem bleeding in other joints. Objective Vital Signs/Intake & Output: Vital Signs 04/17/18 20:00 04/17/18 21:09 04/18/18 00:00 Temperature 98.7 F 98.5 F Pulse Rate 63 57 L Respiratory Rate 16 18 Blood Pressure 131/69 112/65 Pulse Oximetry 98 97 96 04/18/18 04:00 04/18/18 08:00 04/18/18 08:20 Temperature 98.6 F 98.4 F Pulse Rate 54 L 56 L Respiratory Rate 15 24 Blood Pressure 115/79 115/81 Pulse Oximetry 96 96 98 04/18/18 12:00 04/18/18 16:00 Temperature 98.6 F 98.1 F Pulse Rate 62 66 Respiratory Rate 15 13 Blood Pressure 128/82 125/80 Pulse Oximetry 95 96 Intake & Output 04/18/18 04/18/18 04/19/18 06:59 18:59 06:59 Intake Total 240 / 240 500 / 500 Output Total 450 / 450 900 / 900 Balance -210 / -210 -400 / -400 Weight 102 kg Intake: Oral 240 / 240 500 / 500 Output: Urine Amount (Catheter) 450 / 450 900 / 900 Straight 450 / 450 900 / 900 Other: # Voids 1 Date of Last Bowel Movement 04/14/18 04/18/18 # Bowel Movements 2 Result Diagrams: 04/17/18 03:52 04/17/18 03:52 Medications: Active Medications Generic Name Dose Route Start Last Admin Trade Name Freq PRN Reason Stop Dose Admin Al Hydroxide/Mg Hydroxide 30 ml 04/08/18 23:50 04/13/18 08:16 Milk Of Magnesia Liq PO 30 ml Q12H PRN Administration Mild Constipation Albuterol 1 ampul 04/08/18 23:50 04/10/18 04:50 Duoneb Neb (Prn) NEB 1 ampul Q2HR NEB PRN Administration WHEEZING Bisacodyl 10 mg 04/08/18 23:50 04/13/18 18:31 Dulcolax Supp RECTAL 10 mg DAILY PRN Administration SEVERE CONSITIPATION Famotidine 20 mg 04/09/18 09:00 04/18/18 09:24 Pepcid Pf Inj IV.PUSH 20 mg Q12HR NASIR Administration Hydromorphone HCl 2 mg 04/09/18 20:19 04/18/18 16:53 Dilaudid Pf Inj IV.PUSH 2 mg Q2H PRN Administration pain 8-10 Hydromorphone HCl 2 mg 04/09/18 20:19 04/17/18 06:52 Dilaudid Pf Inj IV.PUSH 2 mg Q2H PRN Administration BREAKTHROUGH PAIN Labetalol HCl 10 mg 04/09/18 00:45 04/11/18 05:13 Trandate Inj IV.PUSH 10 mg Q3H PRN Administration SBP>160, DBP> 90 Lactulose 30 ml 04/17/18 17:00 04/18/18 09:24 Lactulose Liq PO 30 ml DAILY NASIR Administration Methadone HCl 190 mg 04/09/18 09:00 04/18/18 09:24 Dolophine PO 190 mg DAILY NASIR Administration Metoclopramide HCl 5 mg 04/09/18 00:00 04/18/18 13:59 Reglan Inj IV.PUSH 5 mg Q6HR NASIR Administration Protocol Morphine Sulfate 2 mg 04/08/18 23:50 04/09/18 07:51 Morphine Inj IV.PUSH 2 mg Q2H PRN Administration PAIN SCALE 6 TO 10 Nicotine 1 patch 04/09/18 10:00 04/18/18 09:24 Habitrol 14 Mg Patch.24 Hr T-DERMAL 1 patch DAILY NASIR Administration Polyethylene Glycol 17 gm 04/16/18 15:00 04/18/18 09:25 Miralax PO 17 gm DAILY NASIR Administration Senna/Docusate Sodium 1 tab 04/09/18 21:00 04/18/18 09:24 Lindy-Colace PO 1 tab BID NASIR Administration Sennosides 17.2 mg 04/09/18 17:11 04/15/18 19:24 Senokot PO 17.2 mg Q12H PRN Administration Moderate Constipation Sodium Chloride 2 ml 04/09/18 09:00 04/18/18 09:25 Ns Flush IV.FLUSH 2 ml BID NASIR Administration Sodium Chloride 2 ml 04/08/18 23:50 04/17/18 04:06 Ns Flush IV.FLUSH 2 ml PRN PRN Administration FLUSH AFTER USING IV ACCESS Tamsulosin HCl 0.4 mg 04/13/18 09:00 04/18/18 09:24 Flomax PO 0.4 mg DAILY NASIR Administration Temazepam 15 mg 04/08/18 23:50 04/09/18 01:24 Restoril PO 15 mg HS PRN Administration INSOMNIA Objective Remarks: GENERAL: Young male sitting up in chair at bedside. He appears comfortable and in no distress. SKIN: Warm and dry. [place] in place mid-medial back, no hematoma. HEAD: Normocephalic. EYES: No scleral icterus. No injection or drainage. PERRLA. NECK: Supple, trachea midline. CARDIOVASCULAR: Regular rate and rhythm without murmurs. RESPIRATORY: Breath sounds equal bilaterally. No accessory muscle use. GASTROINTESTINAL: Abdomen soft, non-tender, nondistended. EXTREMITIES: No cyanosis, or edema. MUSCULOSKELETAL: Adequate muscle tone. Moves all extremities, 5/5 strength in all extremities. NEUROLOGICAL: Occasionally slow to speak. Awake, alert, and oriented x3. 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 His baseline factor IX activity is less than 1%. 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 He presented with back pain symptoms and neurologic deficit/trouble urinating. Thoracic spine MRI shows elongated mass in the anterior aspect of the epidural space from T5-T9 with moderate spinal stenosis. The patient had decompression surgery by Dr. Varela on 04/09. 1. He was given prophylaxis prior to surgery and continued on BeneFIX 6000 units twice a day, with additional BeneFIX at 4000 units once during procedure. 8 days after surgery his dose was decreased to BeneFIX 4000 units twice a day. He has no more bleeding. His dose of BeneFIX is continued 6000 units once daily for healing. Our goal is to continue BeneFIX for a total of 2 weeks then proceed with secondary prophylaxis. 2. Outpatient follow-up is being coordinated. Approval for extended half-life factor have been requested. Anticipate discharge after the weekend when extended half-life factors available in clinic. 3. In the meantime patient continues to work with nursing. He has bladder training. He continues to improve. He has continued chronic pain.
[2018-04-19] MEDS: HYDROmorphone PF Inj 2 MG/ML Vial IV.PUSH PRN ×6 (01:28→21:07)
[2018-04-19] MEDS ORDERED: FACTOR IX COMPLEX HUMAN 2000 UNIT IV.PUSH SCH (09:00)
[2018-04-19] MEDS: [UNRECOGNIZED DRUG - MIXTURE] IV.PUSH SCH (09:20)
[2018-04-19] MEDS: Polyethylene Glycol 3350 17 GM Packet PO SCH (09:21)
[2018-04-19] MEDS: Famotidine PF Inj 20 MG/2 ML Vial IV.PUSH SCH ×2 (09:21→21:07)
[2018-04-19] MEDS: Senna/Docusate Sodium 8.6/50 MG Tablet PO SCH ×2 (09:21→21:07)
[2018-04-19] MEDS: Methadone 10 MG Tablet PO SCH (09:22)
--- NOTE | 2018-04-19 11:54 | P.PNONC ---
Subjective Interval history: Awake and alert with no complaints at this time. Scant amount of brownish red discharge on pillow, likely from upper incision. No fluctuance or drainage noted at the site. Patient still unable to urinate, nurses periodically straight cathing. Patient states he feels like it is time to be straight cathed again. Denies any bleeding. Objective Vital Signs/Intake & Output: Vital Signs 04/18/18 12:00 04/18/18 16:00 04/18/18 20:00 Temperature 98.6 F 98.1 F 98.5 F Pulse Rate 62 66 65 Respiratory Rate 15 13 16 Blood Pressure 128/82 125/80 124/75 Pulse Oximetry 95 96 98 04/18/18 21:25 04/19/18 00:00 04/19/18 08:00 Temperature 98.0 F 98.7 F 97.5 F L Pulse Rate 63 62 68 Respiratory Rate 16 17 16 Blood Pressure 130/83 121/69 141/97 H Pulse Oximetry 95 96 97 04/19/18 10:01 Temperature Pulse Rate Respiratory Rate Blood Pressure Pulse Oximetry 98 Intake & Output 04/18/18 04/19/18 04/19/18 18:59 06:59 18:59 Intake Total 500 / 500 720 / 720 Output Total 900 / 900 450 / 450 Balance -400 / -400 270 / 270 Weight 96.5 kg Intake: Oral 500 / 500 720 / 720 Output: Urine Amount (Catheter) 900 / 900 450 / 450 Straight 900 / 900 450 / 450 Other: # Voids 1 Date of Last Bowel Movement 04/18/18 04/18/18 # Bowel Movements 2 Result Diagrams: 04/17/18 03:52 04/17/18 03:52 Medications: Active Medications Generic Name Dose Route Start Last Admin Trade Name Freq PRN Reason Stop Dose Admin Al Hydroxide/Mg Hydroxide 30 ml 04/08/18 23:50 04/13/18 08:16 Milk Of Magnesia Liq PO 30 ml Q12H PRN Administration Mild Constipation Albuterol 1 ampul 04/08/18 23:50 04/10/18 04:50 Duoneb Neb (Prn) NEB 1 ampul Q2HR NEB PRN Administration WHEEZING Bisacodyl 10 mg 04/08/18 23:50 04/13/18 18:31 Dulcolax Supp RECTAL 10 mg DAILY PRN Administration SEVERE CONSITIPATION Famotidine 20 mg 08/08/18 09:00 04/19/18 09:21 Pepcid Pf Inj IV.PUSH 20 mg Q12HR NASIR Administration Hydromorphone HCl 2 mg 04/09/18 20:19 04/19/18 09:23 Dilaudid Pf Inj IV.PUSH 2 mg Q2H PRN Administration pain 8-10 Hydromorphone HCl 2 mg 04/09/18 20:19 04/17/18 06:52 Dilaudid Pf Inj IV.PUSH 2 mg Q2H PRN Administration BREAKTHROUGH PAIN Factor IX Complex Human 6,000 30 mls @ 120 mls/hr 04/19/18 09:00 04/19/18 09: 20 unit/ Syringe/Bag IV.PUSH 120 mls/hr DAILY NASIR Administration Labetalol HCl 10 mg 04/09/18 00:45 04/11/18 05:13 Trandate Inj IV.PUSH 10 mg Q3H PRN Administration SBP>160, DBP> 90 Lactulose 30 ml 04/17/18 17:00 04/19/18 09:21 Lactulose Liq PO 30 ml DAILY NASIR Administration Methadone HCl 190 mg 04/09/18 09:00 04/19/18 09:22 Dolophine PO 190 mg DAILY NASIR Administration Metoclopramide HCl 5 mg 04/09/18 00:00 04/19/18 11:26 Reglan Inj IV.PUSH 5 mg Q6HR NASIR Administration Protocol Morphine Sulfate 2 mg 04/08/18 23:50 04/09/18 07:51 Morphine Inj IV.PUSH 2 mg Q2H PRN Administration PAIN SCALE 6 TO 10 Nicotine 1 patch 04/09/18 10:00 04/19/18 09:21 Habitrol 14 Mg Patch.24 Hr T-DERMAL 1 patch DAILY NASIR Administration Polyethylene Glycol 17 gm 04/16/18 15:00 04/19/18 09:21 Miralax PO 17 gm DAILY NASIR Administration Senna/Docusate Sodium 1 tab 04/09/18 21:00 04/19/18 09:21 Lindy-Colace PO 1 tab BID NAISR Administration Sennosides 17.2 mg 04/09/18 17:11 04/15/18 19:24 Senokot PO 17.2 mg Q12H PRN Administration Moderate Constipation Sodium Chloride 2 ml 04/09/18 09:00 04/19/18 09:22 Ns Flush IV.FLUSH 2 ml BID NASIR Administration Sodium Chloride 2 ml 04/08/18 23:50 04/17/18 04:06 Ns Flush IV.FLUSH 2 ml PRN PRN Administration FLUSH AFTER USING IV ACCESS Tamsulosin HCl 0.4 mg 04/13/18 09:00 04/19/18 09:21 Flomax PO 0.4 mg DAILY NASIR Administration Temazepam 15 mg 04/08/18 23:50 04/09/18 01:24 Restoril PO 15 mg HS PRN Administration INSOMNIA Objective Remarks: GENERAL: Well-nourished, middle-aged male patient, In no acute distress. SKIN: Warm and dry. + Miguel to upper/mid back. No fluctuance, erythema or discharge noted. HEAD: Normocephalic. EYES: No scleral icterus. No injection or drainage. PERRLA. NECK: Supple, trachea midline. CARDIOVASCULAR: Regular rate and rhythm without murmurs. RESPIRATORY: Posterior breath sounds clear, equal bilaterally. No accessory muscle use. GASTROINTESTINAL: Abdomen soft, non-tender, nondistended. EXTREMITIES: No cyanosis, or edema. MUSCULOSKELETAL: Adequate muscle tone. Moves all extremities, 5/5 strength in all extremities. NEUROLOGICAL: No obvious focal deficit. Awake, alert, and oriented x3. 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 His baseline factor IX activity is less than 1%. 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 He presented with back pain symptoms and neurologic deficit/trouble urinating. Thoracic spine MRI shows elongated mass in the anterior aspect of the epidural space from T5-T9 with moderate spinal stenosis. The patient had decompression surgery by Dr. Varela on 04/09. 1. Continue BeneFIX 6000 units once daily. Plan for a total of 2 weeks for healing and then prophylactically. 2. Outpatient follow-up is being coordinated. Approval for extended half-life factor have been requested. Anticipate discharge after the weekend when extended half-life factors available in clinic. 3. Continue bladder training. Straight cath as needed. 4. Continue to monitor for bleeding. - Attending Statement The exam, history, and the medical decision-making described in the above note were completed with the assistance of the mid-level provider. I reviewed and agree with the findings presented. I attest that I had a [id number] encounter with the patient on the same day, and personally performed and documented my assessment and findings in the medical record. Resting comfortably in bed with mother at bedside. He reports that he is ambulating. He reports good BM. He is unable to urinate, is having catheterization. Continue with Benefix.
--- NOTE | 2018-04-19 11:55 | P.PNIM ---
Subjective Interval history: The patient was resting in bed comfortably. His family was at the bedside. He said he was unable to control his urine output and was requiring straight caths every 6 hours. He says the neurosurgeon was in earlier and removed the adam. He said his pain was controlled. No acute concerns. Physical Exam Vital signs: Vital Signs 04/18/18 12:00 04/18/18 16:00 04/18/18 20:00 Temperature 98.6 F 98.1 F 98.5 F Pulse Rate 62 66 65 Respiratory Rate 15 13 16 Blood Pressure 128/82 125/80 124/75 Pulse Oximetry 95 96 98 04/18/18 21:25 04/19/18 00:00 04/19/18 08:00 Temperature 98.0 F 98.7 F 97.5 F L Pulse Rate 63 62 68 Respiratory Rate 16 17 16 Blood Pressure 130/83 121/69 141/97 H Pulse Oximetry 95 96 97 04/19/18 10:01 Temperature Pulse Rate Respiratory Rate Blood Pressure Pulse Oximetry 98 Intake & Output 04/18/18 04/19/18 04/19/18 18:59 06:59 18:59 Intake Total 500 / 500 720 / 720 Output Total 900 / 900 450 / 450 Balance -400 / -400 270 / 270 Weight 96.5 kg Intake: Oral 500 / 500 720 / 720 Output: Urine Amount (Catheter) 900 / 900 450 / 450 Straight 900 / 900 450 / 450 Other: # Voids 1 Date of Last Bowel Movement 04/18/18 04/18/18 # Bowel Movements 2 Narrative: GEN: Comfortable HEENT: NC, AT CARDIAC: RRR LUNGS: CTAB GI: Soft, ND, decreased bowel sounds, nontender BACK: Incision appears clean and noninfected. No tenderness to palpation EXTREMITIES: No edema NEURO: Alert and oriented x3; Follows commands x4; 5/5 strength throughout; Normal sensation - Urinary Catheter Management Indwelling Urethral Catheter Cath placed during this visit: yes, but has since been removed by the nurse Reason for continuing: Acute urinary retention Insertion date: 04/08/18 Insertion time: 18:04 Removal date: 04/12/18 Removal time: 15:50 Straight Cath placed during this visit: yes, but has since been removed by the nurse Reason for continuing: Not indwelling catheter Insertion date: 04/19/18 Insertion time: 05:00 Removal date: 04/19/18 Removal time: 05:00 Results - Labs CBC & Chem 7: 04/17/18 03:52 04/17/18 03:52 Assessment and Plan - Plan Acute Spinal cord compression Thoracic spinal epidural hematoma -s/p Complete Left T4 - 7 complete , and partial right T4 through 7 decompressive laminectomy, evacuation spontaneous epidural hematoma -Intraoperative bleeding controlled with additional factor IX infusion. -Underlying hemophilia B, continue factor IX per hematology -Pain controlled now with IV Dilaudid as needed. Will need to start weaning down. -Confirmed methadone dose with the methadone clinic. -ordered PT 7 days a week. Rehab recommended. Case management consulted. Added OT. HTN Well controlled at this time. -Continue maintenance IV fluids -Target systolic blood pressure 130-160 to ensure spinal cord perfusion Hemophilia B Hematology consult appreciated. -Factor IX infusion as ordered per hematology. Will need it set-up as an outpt. Acute renal failure S/p aggressive IV fluid resuscitation. -resolved. Urinary retention Concern for neurogenic bladder. Still having difficulty urinating. -straight cath as needed. -continue Flomax. GI Pt endorses constipation. -added standing lactulose. -supp as needed. Elevated LFTs Unsure of etiology. -follow CMP. LFTs seem to have stabilized. Check as needed. PROPH: -SCDs/Gerry. IV famotidine -Chemical DVT prophylaxis is contraindicated Discharge Planning: Hematology working on setting up outpt infusions, likely will need rehab, needs pain meds weaned down over the next few days
--- NOTE | 2018-04-19 14:09 | P.PNNS ---
Subjective Interval history: Pain controlled. denies any signs of infection. still with voiding difficulties Physical Exam Vital signs: Vital Signs 04/18/18 16:00 04/18/18 20:00 04/18/18 21:25 Temperature 98.1 F 98.5 F 98.0 F Pulse Rate 66 65 63 Respiratory Rate 13 16 16 Blood Pressure 125/80 124/75 130/83 Pulse Oximetry 96 98 95 04/19/18 00:00 04/19/18 08:00 04/19/18 10:01 Temperature 98.7 F 97.5 F L Pulse Rate 62 68 Respiratory Rate 17 16 Blood Pressure 121/69 141/97 H Pulse Oximetry 96 97 98 Intake & Output 04/18/18 04/19/18 04/19/18 18:59 06:59 18:59 Intake Total 500 / 500 720 / 720 Output Total 900 / 900 450 / 450 Balance -400 / -400 270 / 270 Weight 96.5 kg Intake: Oral 500 / 500 720 / 720 Output: Urine Amount (Catheter) 900 / 900 450 / 450 Straight 900 / 900 450 / 450 Other: # Voids 1 Date of Last Bowel Movement 04/18/18 04/18/18 # Bowel Movements 2 Narrative: E4 AOx3 Follows commands x4 5/5 strength in the upper and lower extremities incision: healed, adam in place. without signs of infection - Urinary Catheter Management Indwelling Urethral Catheter Cath placed during this visit: yes, but has since been removed by the nurse Reason for continuing: Acute urinary retention Insertion date: 04/08/18 Insertion time: 18:04 Removal date: 04/12/18 Removal time: 15:50 Straight Cath placed during this visit: yes, but has since been removed by the nurse Reason for continuing: Not indwelling catheter Insertion date: 04/19/18 Insertion time: 05:00 Removal date: 04/19/18 Removal time: 05:00 Assessment and Plan - Assessment (1) Epidural hematoma Code(s): S06.4X9A - Epidural hemorrhage with loss of consciousness of unspecified duration, initial encounter Status: Acute - Plan Impression: 42 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 Varela -adam removed -ok to bathe patient -activity as tolerated, PT, OOB -continue bladder scans and IO cath prn. will require bladder training
[2018-04-20] MEDS: HYDROmorphone PF Inj 2 MG/ML Vial IV.PUSH PRN ×6 (00:07→21:47)
--- NOTE | 2018-04-20 09:16 | P.PN ---
Subjective Interval history: This is a pleasant 42b y/o Male with histor of spontaneous epidural hematoma status post Left T4 through 7 complete , and right T4 through 7 partial decompressive laminectomy, evacuation spontaneous epidural hematoma, 04/09/18. stable no complaint discussed with nurse Miss Ybarra he has some Urinary retention due to his base pathology, needed for straight bladder catheterizations every six hours, Neurosurgery aware of this issue. No nausea, vomit or diarrhea. Physical Exam Vital signs: Vital Signs 04/19/18 10:01 04/19/18 12:00 04/19/18 16:00 Temperature 98.4 F 98.7 F Pulse Rate 60 60 Respiratory Rate 19 18 Blood Pressure 130/64 126/76 Pulse Oximetry 98 95 93 L 04/19/18 17:31 04/19/18 20:00 04/19/18 23:56 Temperature 98.7 F 98.3 F Pulse Rate 63 60 Respiratory Rate 18 18 Blood Pressure 113/67 111/68 Pulse Oximetry 93 L 97 98 04/20/18 04:00 Temperature 97.8 F Pulse Rate 71 Respiratory Rate 18 Blood Pressure 140/73 Pulse Oximetry 98 Intake & Output 04/19/18 04/20/18 04/20/18 18:59 06:59 18:59 Intake Total 430 / 430 0 / 0 Output Total 1175 / 1175 Balance -745 / -745 0 / 0 Weight 96 kg Intake: IV 30 / 30 0 / 0 BeneFIX Inj 6,000 UNIT In Bag/ 30 / 30 0 / 0 Syringe 1 EACH @ 120 mls/hr IV. PUSH DAILY [facility] Rx#:[id number] Oral 400 / 400 Output: Urine Amount (Catheter) 1175 / 1175 Straight 1175 / 1175 Other: Date of Last Bowel Movement 04/18/18 # Bowel Movements 0 Narrative: GEN: Comfortable HEENT: NC, AT CARDIAC: RRR LUNGS: CTAB GI: Soft, ND, decreased bowel sounds, nontender BACK: Incision appears clean and noninfected. No tenderness to palpation EXTREMITIES: No edema NEURO: Alert and oriented x3; Follows commands x4; 5/5 strength throughout; Normal sensation - Urinary Catheter Management Indwelling Urethral Catheter Cath placed during this visit: yes, but has since been removed by the nurse Reason for continuing: Acute urinary retention Insertion date: 04/08/18 Insertion time: 18:04 Removal date: 04/12/18 Removal time: 15:50 Straight Cath placed during this visit: yes, but has since been removed by the nurse Reason for continuing: Not indwelling catheter Insertion date: 04/19/18 Insertion time: 18:38 Removal date: 04/19/18 Removal time: 18:51 Results - Labs CBC & Chem 7: 04/17/18 03:52 04/17/18 03:52 Laboratory Results - last 24 hr 04/17/18 03:52 Factor IX Activity 102 - Procedures Date of procedure: 04/09/18 Procedure: Left T4 through 7 complete , and right T4 through 7 partial decompressive laminectomy, evacuation spontaneous epidural hematoma Anesthesia: GETA Surgeon: Jassi Varela MD Manager Life: Fernando Romero Estimated blood loss (mL): 1,800 Pathology: none sent Operation and Findings: Indications: 42-year-old male with hemophilia with 5 days of thoracic pain. Developed bladder dysfunction. 718. Preoperative imaging study reveals probable epidural hematoma ventral to thecal sac at the T4-8 levels. Findings: Ventral liquefied epidural hematoma T4-8 levels. Assessment and Plan - Plan Acute Spinal cord compression Thoracic spinal epidural hematoma -s/p Complete Left T4 - 7 complete , and partial right T4 through 7 decompressive laminectomy, evacuation spontaneous epidural hematoma -Intraoperative bleeding controlled with additional factor IX infusion. -Underlying hemophilia B, continue factor IX per hematology -Pain controlled now with IV Dilaudid as needed. Will need to start weaning down. -Confirmed methadone dose with the methadone clinic. -ordered PT 7 days a week. Rehab recommended. Case management consulted. Added OT. HTN Well controlled at this time. -Continue maintenance IV fluids -Target systolic blood pressure 130-160 to ensure spinal cord perfusion Hemophilia B Hematology consult appreciated. -Factor IX infusion as ordered per hematology. Will need it set-up as an outpt. Acute renal failure S/p aggressive IV fluid resuscitation. -resolved. Urinary retention Concern for neurogenic bladder. Still having difficulty urinating. -straight cath as needed. -continue Flomax. GI Pt endorses constipation. -added standing lactulose. -supp as needed. Elevated LFTs asked for Hepatitis profile. PROPH: -SCDs/Gerry. IV famotidine -Chemical DVT prophylaxis is contraindicated Code Status: Full code Discussed Condition With: patient and nurse. Discharge Planning: Hematology working on setting up outpt infusions, likely will need rehab, needs pain meds weaned down over the next few days
[2018-04-20] MEDS: [UNRECOGNIZED DRUG - MIXTURE] IV.PUSH SCH (09:53)
[2018-04-20] MEDS: Polyethylene Glycol 3350 17 GM Packet PO SCH (09:54)
[2018-04-20] MEDS: Famotidine PF Inj 20 MG/2 ML Vial IV.PUSH SCH ×2 (09:54→21:46)
[2018-04-20] MEDS: Senna/Docusate Sodium 8.6/50 MG Tablet PO SCH ×2 (09:54→21:46)
[2018-04-20] MEDS: Methadone 10 MG Tablet PO SCH (09:55)
--- NOTE | 2018-04-20 10:21 | P.PNONC ---
Subjective Interval history: Alert and oriented on approach. Patient reports he got the adam removed from his incisions on his back. He denies any bleeding. Still unable to urinate, requiring intermittent catheterizations. Objective Vital Signs/Intake & Output: Vital Signs 04/19/18 12:00 04/19/18 16:00 04/19/18 17:31 Temperature 98.4 F 98.7 F Pulse Rate 60 60 Respiratory Rate 19 18 Blood Pressure 130/64 126/76 Pulse Oximetry 95 93 L 93 L 04/19/18 20:00 04/19/18 23:56 04/20/18 04:00 Temperature 98.7 F 98.3 F 97.8 F Pulse Rate 63 60 71 Respiratory Rate 18 18 18 Blood Pressure 113/67 111/68 140/73 Pulse Oximetry 97 98 98 04/20/18 08:00 Temperature 98.4 F Pulse Rate 61 Respiratory Rate 19 Blood Pressure 129/83 Pulse Oximetry 97 Intake & Output 04/19/18 04/20/18 04/20/18 18:59 06:59 18:59 Intake Total 430 / 430 0 / 0 Output Total 1175 / 1175 Balance -745 / -745 0 / 0 Weight 96 kg Intake: IV 30 / 30 0 / 0 BeneFIX Inj 6,000 UNIT In Bag/ 30 / 30 0 / 0 Syringe 1 EACH @ 120 mls/hr IV. PUSH DAILY [facility] Rx#:[id number] Oral 400 / 400 Output: Urine Amount (Catheter) 1175 / 1175 Straight 1175 / 1175 Other: Date of Last Bowel Movement 04/18/18 # Bowel Movements 0 Result Diagrams: 04/17/18 03:52 04/17/18 03:52 Laboratory Results: Laboratory Results - last 24 hr 04/17/18 03:52 Factor IX Activity 102 Medications: Active Medications Generic Name Dose Route Start Last Admin Trade Name Freq PRN Reason Stop Dose Admin Al Hydroxide/Mg Hydroxide 30 ml 04/08/18 23:50 04/13/18 08:16 Milk Of Magnesia Liq PO 30 ml Q12H PRN Administration Mild Constipation Albuterol 1 ampul 04/08/18 23:50 04/10/18 04:50 Duoneb Neb (Prn) NEB 1 ampul Q2HR NEB PRN Administration WHEEZING Bisacodyl 10 mg 04/08/18 23:50 08/12/18 18:31 Dulcolax Supp RECTAL 10 mg DAILY PRN Administration SEVERE CONSITIPATION Famotidine 20 mg 04/09/18 09:00 04/20/18 09:54 Pepcid Pf Inj IV.PUSH 20 mg Q12HR [facility] Administration Hydromorphone HCl 2 mg 04/19/18 11:57 04/20/18 09:55 Dilaudid Pf Inj IV.PUSH 2 mg Q3H PRN Administration pain 8-10 Factor IX Complex Human 6,000 30 mls @ 120 mls/hr 04/19/18 09:00 04/20/18 09: 53 unit/ Syringe/Bag IV.PUSH 120 mls/hr DAILY [facility] Administration Labetalol HCl 10 mg 04/09/18 00:45 04/11/18 05:13 Trandate Inj IV.PUSH 10 mg Q3H PRN Administration SBP>160, DBP> 90 Lactulose 30 ml 04/17/18 17:00 04/20/18 09:53 Lactulose Liq PO 30 ml DAILY [facility] Administration Methadone HCl 190 mg 04/09/18 09:00 04/20/18 09:55 Dolophine PO 190 mg DAILY [facility] Administration Metoclopramide HCl 5 mg 04/09/18 00:00 04/20/18 05:46 Reglan Inj IV.PUSH 5 mg Q6HR [facility] Administration Protocol Morphine Sulfate 2 mg 04/08/18 23:50 04/09/18 07:51 Morphine Inj IV.PUSH 2 mg Q2H PRN Administration PAIN SCALE 6 TO 10 Nicotine 1 patch 04/09/18 10:00 04/20/18 09:54 Habitrol 14 Mg Patch.24 Hr T-DERMAL 1 patch DAILY [facility] Administration Polyethylene Glycol 17 gm 04/16/18 15:00 04/20/18 09:54 Miralax PO Not Given DAILY [facility] Senna/Docusate Sodium 1 tab 04/09/18 21:00 04/20/18 09:54 Lindy-Colace PO 1 tab BID [facility] Administration Sennosides 17.2 mg 04/09/18 17:11 04/15/18 19:24 Senokot PO 17.2 mg Q12H PRN Administration Moderate Constipation Sodium Chloride 2 ml 04/09/18 09:00 04/20/18 09:55 Ns Flush IV.FLUSH 2 ml BID [facility] Administration Sodium Chloride 2 ml 04/08/18 23:50 04/17/18 04:06 Ns Flush IV.FLUSH 2 ml PRN PRN Administration FLUSH AFTER USING IV ACCESS Tamsulosin HCl 0.4 mg 04/13/18 09:00 04/20/18 09:54 Flomax PO 0.4 mg DAILY [facility] Administration Temazepam 15 mg 04/08/18 23:50 04/09/18 01:24 Restoril PO 15 mg HS PRN Administration INSOMNIA Objective Remarks: GENERAL: Well-nourished, middle-aged male patient, In no acute distress. SKIN: Warm and dry. Incisions to back, healing, no erythema, fluctuance or drainage noted. HEAD: Normocephalic. EYES: No scleral icterus. No injection or drainage. NECK: Supple, trachea midline. CARDIOVASCULAR: Regular rate and rhythm without murmurs. RESPIRATORY: Posterior breath sounds clear, equal bilaterally. No accessory muscle use. GASTROINTESTINAL: Abdomen soft, non-tender, nondistended. EXTREMITIES: No cyanosis, or edema. MUSCULOSKELETAL: Adequate muscle tone. Moves all extremities, 5/5 strength in all extremities. NEUROLOGICAL: No obvious focal deficit. Awake, alert, and oriented x3. 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 His baseline factor IX activity is less than 1%. 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 He presented with back pain symptoms and neurologic deficit/trouble urinating. Thoracic spine MRI shows elongated mass in the anterior aspect of the epidural space from T5-T9 with moderate spinal stenosis. The patient had decompression surgery by Dr. Varela on 04/09. 1. Continue BeneFIX 6000 units once daily. Plan for a total of 2 weeks for healing and then prophylactically. 2. Outpatient follow-up is being coordinated. Approval for extended half-life factor has been requested. Anticipate discharge after the weekend when extended half-life factors are available in clinic. 3. Continue bladder training. Straight cath as needed. 4. Continue to monitor for bleeding. - Attending Statement The exam, history, and the medical decision-making described in the above note were completed with the assistance of the mid-level provider. I reviewed and agree with the findings presented. I attest that I had a [id number] encounter with the patient on the same day, and personally performed and documented my assessment and findings in the medical record. 42 yoM with hemophlilia admitted with epidural bleed s/p NSGY. [place] removed this weekend. Walking, unable to urinate and undergoing bladder training. Will need close follow up in clinic with Dr. Fragoso on discharge.
[2018-04-20 13:23] LABS: Hepatitis A IgM Antibody Nonreactive (Nonreactive); Hepatitits B Surface Antigen Nonreactive (Nonreactive)
[2018-04-21] MEDS: HYDROmorphone PF Inj 2 MG/ML Vial IV.PUSH PRN ×5 (02:06→23:11)
--- NOTE | 2018-04-21 08:25 | P.PN ---
Subjective Interval history: This is a pleasant 42b y/o Male with histor of spontaneous epidural hematoma status post Left T4 through 7 complete , and right T4 through 7 partial decompressive laminectomy, evacuation spontaneous epidural hematoma, 04/09/18. stable no complaint discussed with nurse Miss Ybarra he has some Urinary retention due to his base pathology, needed for straight bladder catheterizations every six hours, Neurosurgery aware of this issue. 04/21: Stable in his bedroom, in the presence of his mother, no complaint, continue self catheterization for Urinary retention, continue bladder training, will continue BeneFIX 6000 units daily (Factor IX), to complete two weeks, hematology thinking in discharge tomorrow. no nausea, vomit or diarrhea. Physical Exam Vital signs: Vital Signs 04/20/18 12:00 04/20/18 16:00 04/20/18 20:00 Temperature 98.1 F 98.6 F 98.0 F Pulse Rate 68 75 67 Respiratory Rate 17 16 17 Blood Pressure 135/82 131/82 140/83 Pulse Oximetry 96 96 98 04/21/18 00:00 Temperature 97.8 F Pulse Rate 65 Respiratory Rate 17 Blood Pressure 130/91 H Pulse Oximetry 96 Intake & Output 04/20/18 04/21/18 04/21/18 18:59 06:59 18:59 Intake Total 730 / 730 Output Total 800 / 800 600 / 600 Balance -70 / -70 -600 / -600 Intake: IV 30 / 30 BeneFIX Inj 6,000 UNIT In Bag/ 30 / 30 Syringe 1 EACH @ 120 mls/hr IV. PUSH DAILY [facility] Rx#:[id number] Oral 700 / 700 Output: Urine Amount (Catheter) 800 / 800 600 / 600 Straight 800 / 800 600 / 600 Other: Date of Last Bowel Movement 04/18/18 04/20/18 # Bowel Movements 0 Narrative: GEN: Comfortable HEENT: NC, AT CARDIAC: RRR LUNGS: CTAB GI: Soft, ND, decreased bowel sounds, nontender BACK: Incision appears clean and noninfected. No tenderness to palpation EXTREMITIES: No edema NEURO: Alert and oriented x3; Follows commands x4; 5/5 strength throughout; Normal sensation - Urinary Catheter Management Indwelling Urethral Catheter Cath placed during this visit: yes, but has since been removed by the nurse Reason for continuing: Acute urinary retention Insertion date: 04/08/18 Insertion time: 18:04 Removal date: 04/12/18 Removal time: 15:50 Straight Cath placed during this visit: yes, but has since been removed by the nurse Reason for continuing: Not indwelling catheter Insertion date: 04/20/18 Insertion time: 10:07 Removal date: 04/20/18 Removal time: 10:13 Results - Labs CBC & Chem 7: 04/17/18 03:52 04/17/18 03:52 Laboratory Results - last 24 hr 04/20/18 11:15 Hepatitis A IgM Ab Nonreactive Hep Bs Antigen Nonreactive Hep B Core IgM Ab Nonreactive Hep C IgG Ab Reactive H - Procedures Date of procedure: 04/09/18 Procedure: Left T4 through 7 complete , and right T4 through 7 partial decompressive laminectomy, evacuation spontaneous epidural hematoma Anesthesia: GETA Surgeon: Jassi Varela MD Residential Property Consultant: Fernando Romero Estimated blood loss (mL): 1,800 Pathology: none sent Operation and Findings: Indications: 42-year-old male with hemophilia with 5 days of thoracic pain. Developed bladder dysfunction. 718. Preoperative imaging study reveals probable epidural hematoma ventral to thecal sac at the T4-8 levels. Findings: Ventral liquefied epidural hematoma T4-8 levels. Assessment and Plan - Plan Acute Spinal cord compression Thoracic spinal epidural hematoma -s/p Complete Left T4 - 7 complete , and partial right T4 through 7 decompressive laminectomy, evacuation spontaneous epidural hematoma -Intraoperative bleeding controlled with additional factor IX infusion. -Underlying hemophilia B, continue factor IX per hematology -Pain controlled now with IV Dilaudid as needed. Will need to start weaning down. -Confirmed methadone dose with the methadone clinic. -ordered PT 7 days a week. Rehab recommended. Case management consulted. Added OT. discussed with Manager Generation the patient is self pay, not able to provide HHC. HTN Well controlled at this time. -Continue maintenance IV fluids -Target systolic blood pressure 130-160 to ensure spinal cord perfusion Hemophilia B Hematology consult appreciated. -Factor IX infusion as ordered per hematology. Will need it set-up as an outpt. plan for discharge tomorrow. Continue BeneFIX 6000 units daily. and self catheterization due to Urinary retention. Acute renal failure -resolved. Urinary retention Concern for neurogenic bladder. Still having difficulty urinating. -straight cath as needed. -continue Flomax. and Bladder training. Elevated LFTs probable related to Hepatitis C. Positive Screen. PROPH: -SCDs/Gerry. IV famotidine -Chemical DVT prophylaxis is contraindicated Code Status: Full Code Discussed Condition With: Patient and His Sister, MDR and Nurse. Discharge Planning: Scheduled for tomorrow by adaptive physical education specialist.
[2018-04-21] MEDS: Polyethylene Glycol 3350 17 GM Packet PO SCH (09:17)
[2018-04-21] MEDS: Famotidine PF Inj 20 MG/2 ML Vial IV.PUSH SCH ×2 (09:17→21:15)
[2018-04-21] MEDS: Senna/Docusate Sodium 8.6/50 MG Tablet PO SCH ×2 (09:17→21:15)
[2018-04-21] MEDS: Methadone 10 MG Tablet PO SCH (09:18)
[2018-04-21] MEDS: [UNRECOGNIZED DRUG - MIXTURE] IV.PUSH SCH (09:19)
--- NOTE | 2018-04-21 15:09 | P.PNONC ---
Subjective Interval history: Afebrile Patient reports he is still unable to void on his own He is just spoken with someone from the [facility] and they report they will have his factor in the clinic tomorrow He has been nervous to shower independently Objective Vital Signs/Intake & Output: Vital Signs 04/20/18 16:00 04/20/18 20:00 04/21/18 00:00 Temperature 98.6 F 98.0 F 97.8 F Pulse Rate 75 67 65 Respiratory Rate 16 17 17 Blood Pressure 131/82 140/83 130/91 H Pulse Oximetry 96 98 96 04/21/18 08:00 04/21/18 12:00 Temperature 97.6 F 98.1 F Pulse Rate 73 72 Respiratory Rate 19 18 Blood Pressure 136/92 H 127/87 Pulse Oximetry 98 98 Intake & Output 04/20/18 04/21/18 04/21/18 18:59 06:59 18:59 Intake Total 730 / 730 30 / 30 Output Total 800 / 800 600 / 600 550 / 550 Balance -70 / -70 -600 / -600 -520 / -520 Intake: IV 30 30 30 / 30 BeneFIX Inj 6,000 UNIT In Bag/ 30 30 / 30 Syringe 1 EACH @ 120 mls/hr IV. PUSH DAILY [facility] Rx#:[id number] Oral 700 / 700 Output: Urine Amount (Catheter) 800 / 800 600 / 600 550 / 550 Straight 800 / 800 600 / 600 550 / 550 Other: Date of Last Bowel Movement 04/18/18 04/20/18 04/20/18 # Bowel Movements 0 Result Diagrams: 04/17/18 03:52 04/17/18 03:52 Medications: Active Medications Generic Name Dose Route Start Last Admin Trade Name Freq PRN Reason Stop Dose Admin Al Hydroxide/Mg Hydroxide 30 ml 04/08/18 23:50 04/13/18 08:16 Milk Of Magnesia Liq PO 30 ml Q12H PRN Administration Mild Constipation Albuterol 1 ampul 04/08/18 23:50 04/10/18 04:50 Duoneb Neb (Prn) NEB 1 ampul Q2HR NEB PRN Administration WHEEZING Bisacodyl 10 mg 04/08/18 23:50 04/13/18 18:31 Dulcolax Supp RECTAL 10 mg DAILY PRN Administration SEVERE CONSITIPATION Famotidine 20 mg 04/09/18 09:00 04/21/18 09:17 Pepcid Pf Inj IV.PUSH 20 mg Q12HR [facility] Administration Hydromorphone HCl 2 mg 04/19/18 11:57 04/21/18 11:19 Dilaudid Pf Inj IV.PUSH 2 mg Q3H PRN Administration pain 8-10 Factor IX Complex Human 6,000 30 mls @ 120 mls/hr 04/19/18 09:00 04/21/18 10: 17 unit/ Syringe/Bag IV.PUSH Infused DAILY [facility] Infusion Labetalol HCl 10 mg 04/09/18 00:45 04/11/18 05:13 Trandate Inj IV.PUSH 10 mg Q3H PRN Administration SBP>160, DBP> 90 Lactulose 30 ml 04/17/18 17:00 04/21/18 09:18 Lactulose Liq PO 30 ml DAILY [facility] Administration Methadone HCl 190 mg 04/09/18 09:00 04/21/18 09:18 Dolophine PO 190 mg DAILY [facility] Administration Metoclopramide HCl 5 mg 04/09/18 00:00 04/21/18 11:18 Reglan Inj IV.PUSH 5 mg Q6HR [facility] Administration Protocol Morphine Sulfate 2 mg 04/08/18 23:50 04/09/18 07:51 Morphine Inj IV.PUSH 2 mg Q2H PRN Administration PAIN SCALE 6 TO 10 Nicotine 1 patch 04/09/18 10:00 04/21/18 09:27 Habitrol 14 Mg Patch.24 Hr T-DERMAL 1 patch DAILY [facility] Administration Polyethylene Glycol 17 gm 04/16/18 15:00 04/21/18 09:17 Miralax PO Not Given DAILY [facility] Senna/Docusate Sodium 1 tab 04/09/18 21:00 04/21/18 09:17 Lindy-Colace PO 1 tab BID [facility] Administration Sennosides 17.2 mg 04/09/18 17:11 04/15/18 19:24 Senokot PO 17.2 mg Q12H PRN Administration Moderate Constipation Sodium Chloride 2 ml 04/09/18 09:00 04/21/18 09:27 Ns Flush IV.FLUSH 2 ml BID [facility] Administration Sodium Chloride 2 ml 04/08/18 23:50 04/17/18 04:06 Ns Flush IV.FLUSH 2 ml PRN PRN Administration FLUSH AFTER USING IV ACCESS Tamsulosin HCl 0.4 mg 04/13/18 09:00 04/21/18 09:17 Flomax PO 0.4 mg DAILY [facility] Administration Temazepam 15 mg 04/08/18 23:50 04/09/18 01:24 Restoril PO 15 mg HS PRN Administration INSOMNIA Objective Remarks: GENERAL: Young male sitting up in chair at bedside. He appears comfortable and in no distress. SKIN: Warm and dry. Incision to mid medial back. Well approximated. No oozing. HEAD: Normocephalic. EYES: No scleral icterus. No injection or drainage. PERRLA. NECK: Supple, trachea midline. CARDIOVASCULAR: Regular rate and rhythm without murmurs. RESPIRATORY: Breath sounds equal bilaterally. No accessory muscle use. GASTROINTESTINAL: Abdomen soft, non-tender, nondistended. EXTREMITIES: No cyanosis, or edema. MUSCULOSKELETAL: Adequate muscle tone. Moves all extremities, 5/5 strength in all extremities. NEUROLOGICAL: Awake, alert and oriented 3. Moving all extremities. No obvious focal deficit. 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 His baseline factor IX activity is less than 1%. 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 He presented with back pain symptoms and neurologic deficit/trouble urinating. Thoracic spine MRI shows elongated mass in the anterior aspect of the epidural space from T5-T9 with moderate spinal stenosis. The patient had decompression surgery by Dr. Varela on 04/09. 1. Discussed with patient we will need to make sure we have his factor in outpatient clinic prior to discharge. Anticipate delivery tomorrow per patient after conversation with [facility]. 2. Patient will need teaching on self catheterization. Continue bladder training for now. 3. Continue BeneFIX 6000 units once daily. I have contacted pharmacy to discuss potential delay in discharge. - Attending Statement The exam, history, and the medical decision-making described in the above note were completed with the assistance of the mid-level provider. I reviewed and agree with the findings presented. I attest that I had a [id number] encounter with the patient on the same day, and personally performed and documented my assessment and findings in the medical record. All adam have been removed. Suture site is healing well. No bleeding or hematoma. He reports improvement in ability to urinate. He feels he was able to control his urination better today. He denies any hematuria. No trauma with the straight catheter placement. Factor IX through levels achieved were >100% with factor dosing 4000U twice a day. He is pending application for his coagulation factors. Recommend daily infusion of BeneFIX for continued healing process neurosurgical procedure/ decompression. He will need less frequent infusion if an extended half-life factor is approved. Anticipate discharge when outpatient factors could be made available. Hopefully dismiss tomorrow.
--- NOTE | 2018-04-21 18:02 | P.DIET ---
Nutritional Evaluation Type of nutrition evaluation: follow-up Nutrition screening: [facility] (Poor PO Intake) Subjective Subjective Comments: Pt receiving nursing care when visit attempted Objective - Diagnosis Spontaneous Epidural Hematoma (T5-T9 region) - Objective % IBW: 118 (IBW = 190#) Body Weight Used for Calculations: Actual (101.7 kg) Energy Needs - Lower Range (kCal/kg): 28 Energy Needs - Upper Range (kCal/kg): 32 Lower Limit kCal/kg (kCals): 2,848 Upper Limit kCal/kg (kCals): 3,254 Lower Limit Protein Factor (Grams per Kg): 1.2 Upper Limit Protein Factor (Grams per Kg): 1.6 Lower Protein Needs (Protein): 122 Upper Protein Needs (Protein): 163 Fluid Factor (ml/kg): 32 Estimated Fluid Needs (ml): 3,254 Dietitian Reviewed in Medical Record: Current diet, Curent medications, Intake & Output, Labs, Medical history Diet Order: Regular Oral Diet Intake Amount: Good 75-90% Objective Comments: Hx includes hemophilia factor IX deficiency, Hep C LBM 04/19 Feeding - Current PO Supplement Current Supplement: Ensure Enlive Current Frequency of Supplement: Three times a day Current kCals Provided by Supplement: 350 Current Protein Provided by Supplement: 20 Assessment Assessment: Pt continues to be at nutrition risk r/t diagnosis and reported po intake. He is s/p L T4-7 complete and R T4-7 partial decompressive laminectomy and evac of hematoma on (04/09). Recent recorded po intake 100% for meals. Continue Ensure Enlive TID for added nutrition. Wt changes noted. Dietitian following. Recommendations: 1.Continue Ensure Enlive TID for added nutrition 2. Dietitian following Dietitian to Monitor: Lab values, Supplement acceptance, Intake & Output, PO Intake, Medical course
[2018-04-22] MEDS: HYDROmorphone PF Inj 2 MG/ML Vial IV.PUSH PRN ×3 (03:41→12:44)
[2018-04-22 05:05] LABS: Baso % (Auto) 0.6 % (0.0-2.0); Eos # (Auto) 0.3 th/mm3 (0.0-0.4); Eos % (Auto) 4.2 % (0.0-4.0); Hematocrit 34.3 % (39.0-51.0); Hemoglobin 11.9 gm/dL (13.0-17.0); Lymph # (Auto) 2.1 th/mm3 (1.0-4.8); Lymph % (Auto) 32.4 % (9.0-44.0); Mean Corpuscular HGB Conc 34.6 % (32.0-36.0); Mean Corpuscular Hemoglobin 31.3 pg (27.0-34.0); Mean Corpuscular Volume 90.4 fL (80.0-100.0); Mean Platelet Volume 9.7 fL (7.0-11.0); Mono # (Auto) 0.8 th/mm3 (0.0-0.9); Mono % (Auto) 11.8 % (0.0-8.0); Neut # (Auto) 3.3 th/mm3 (1.8-7.7); Platelet Count 211 th/mm3 (150-450); Red Cell Distribution Width 13.3 % (11.6-17.2); White Blood Count 6.5 th/mm3 (4.0-11.0)
[2018-04-22] MEDS ORDERED: [UNRECOGNIZED DRUG - MIXTURE] IV.PUSH SCH (09:00)
[2018-04-22] MEDS: Methadone 10 MG Tablet PO SCH (09:37)
[2018-04-22] MEDS: Polyethylene Glycol 3350 17 GM Packet PO SCH (09:38)
[2018-04-22] MEDS: Famotidine PF Inj 20 MG/2 ML Vial IV.PUSH SCH (09:39)
[2018-04-22] MEDS: Senna/Docusate Sodium 8.6/50 MG Tablet PO SCH (09:39)
--- NOTE | 2018-04-22 11:17 | P.PN ---
Subjective Interval history: This is a pleasant 42b y/o Male with histor of spontaneous epidural hematoma status post Left T4 through 7 complete , and right T4 through 7 partial decompressive laminectomy, evacuation spontaneous epidural hematoma, 04/09/18. stable no complaint discussed with nurse Miss Ybarra he has some Urinary retention due to his base pathology, needed for straight bladder catheterizations every six hours, Neurosurgery aware of this issue. 04/21: Stable in his bedroom, in the presence of his mother, no complaint, continue self catheterization for Urinary retention, continue bladder training, will continue BeneFIX 6000 units daily (Factor IX), to complete two weeks, hematology thinking in discharge tomorrow. 04/22: Seen in his bedroom, walking in the room, improving condition also he had two voids on his own improving Urinary retention, to continue present care and waiting arrangements to be done by helicopter specialist for his Medicine Factor IX as outpatient. No nausea, vomit or diarrhea, his mother present. Physical Exam Vital signs: Vital Signs 04/21/18 12:00 04/21/18 16:00 04/21/18 20:00 Temperature 98.1 F 98.3 F 98.6 F Pulse Rate 72 60 72 Respiratory Rate 18 17 18 Blood Pressure 127/87 120/70 125/77 Pulse Oximetry 98 97 97 04/22/18 00:00 04/22/18 07:48 Temperature 98.5 F 97.9 F Pulse Rate 72 60 Respiratory Rate 17 17 Blood Pressure 127/75 117/81 Pulse Oximetry 97 98 Intake & Output 04/21/18 04/22/18 04/22/18 18:59 06:59 18:59 Intake Total 30 / 30 480 / 480 0 / 0 Output Total 550 / 550 250 / 250 Balance -520 / -520 230 / 230 0 / 0 Intake: IV 30 / 30 0 / 0 BeneFIX Inj 4,000 UNIT In Bag/ 30 30 0 / 0 Syringe 1 EACH @ 80 mls/hr IV. PUSH DAILY [facility] Rx#:[id number] Oral 480 / 480 Output: Urine Amount (Catheter) 550 / 550 250 / 250 Straight 550 / 550 250 / 250 Other: # Voids 2 Date of Last Bowel Movement 04/20/18 Narrative: GEN: Comfortable HEENT: NC, AT CARDIAC: RRR LUNGS: CTAB GI: Soft, ND, decreased bowel sounds, nontender BACK: Incision appears clean and noninfected. No tenderness to palpation EXTREMITIES: No edema NEURO: Alert and oriented x3; Follows commands x4; 5/5 strength throughout; Normal sensation - Urinary Catheter Management Indwelling Urethral Catheter Cath placed during this visit: yes, but has since been removed by the nurse Reason for continuing: Acute urinary retention Insertion date: 04/08/18 Insertion time: 18:04 Removal date: 04/12/18 Removal time: 15:50 Straight Cath placed during this visit: yes, but has since been removed by the nurse Reason for continuing: Not indwelling catheter Insertion date: 04/21/18 Insertion time: 22:00 Removal date: 04/21/18 Removal time: 22:10 Results - Labs CBC & Chem 7: 04/22/18 04:28 04/17/18 03:52 Laboratory Results - last 24 hr 04/22/18 04:28 WBC 6.5 RBC 3.80 L Hgb 11.9 L Hct 34.3 L MCV 90.4 MCH 31.3 MCHC 34.6 RDW 13.3 Plt Count 211 MPV 9.7 Neut % (Auto) 51.0 Lymph % (Auto) 32.4 [place] % (Auto) 11.8 H Eos % (Auto) 4.2 H Baso % (Auto) 0.6 Neut # (Auto) 3.3 Lymph # (Auto) 2.1 [place] # (Auto) 0.8 Eos # (Auto) 0.3 Baso # (Auto) 0.0 WBC Differential . Differential Comment Auto diff final - Procedures Date of procedure: 04/09/18 Procedure: Left T4 through 7 complete , and right T4 through 7 partial decompressive laminectomy, evacuation spontaneous epidural hematoma Anesthesia: GETA Surgeon: Jassi Varela MD Merchandise Presentation Associate: Fernando Romero Estimated blood loss (mL): 1,800 Pathology: none sent Operation and Findings: Indications: 42-year-old male with hemophilia with 5 days of thoracic pain. Developed bladder dysfunction. 718. Preoperative imaging study reveals probable epidural hematoma ventral to thecal sac at the T4-8 levels. Findings: Ventral liquefied epidural hematoma T4-8 levels. Assessment and Plan - Plan Acute Spinal cord compression, Walking in the room improving. Thoracic spinal epidural hematoma -s/p Complete Left T4 - 7 complete , and partial right T4 through 7 decompressive laminectomy, evacuation spontaneous epidural hematoma -Intraoperative bleeding controlled with additional factor IX infusion. -Underlying hemophilia B, continue factor IX per hematology -Pain controlled now with IV Dilaudid as needed. Will need to start weaning down. -Confirmed methadone dose with the methadone clinic. -ordered PT 7 days a week. Rehab recommended. Case management consulted. Added OT. discussed with Safety Spec the patient is self pay, not able to provide HHC. HTN Well controlled at this time. -Continue maintenance IV fluids -Target systolic blood pressure 130-160 to ensure spinal cord perfusion Hemophilia B Hematology consult appreciated. -Factor IX infusion as ordered per hematology. Will need it set-up as an outpt. plan for discharge tomorrow. Continue BeneFIX 6000 units daily. and self catheterization due to Urinary retention. Acute renal failure -resolved. Urinary retention Improving had two voids on himself in am today. Concern for neurogenic bladder. Still having difficulty urinating. -straight cath as needed. -continue Flomax. and Bladder training. Elevated LFTs probable related to Hepatitis C. Positive Screen. PROPH: -SCDs/Gerry. IV famotidine -Chemical DVT prophylaxis is contraindicated Code Status: full code. Discussed Condition With: Patient, his Mother and nurse miss Archibald. Discharge Planning: Scheduled for later today by administrative services specialist.
[2018-04-22 12:02] VITALS: RESP 18; O2SAT 95
--- NOTE | 2018-04-22 13:18 | P.PNONC ---
Subjective Interval history: Patient resting comfortably in bed, his mother is at the bedside. He reports that he was able to urinate this a.m. He has no complaints at this time. Denies any bleeding. Objective Vital Signs/Intake & Output: Vital Signs 04/21/18 16:00 04/21/18 20:00 04/22/18 00:00 Temperature 98.3 F 98.6 F 98.5 F Pulse Rate 60 72 72 Respiratory Rate 17 18 17 Blood Pressure 120/70 125/77 127/75 Pulse Oximetry 97 97 97 04/22/18 07:48 04/22/18 12:00 Temperature 97.9 F 98.1 F Pulse Rate 60 80 Respiratory Rate 17 18 Blood Pressure 117/81 129/79 Pulse Oximetry 98 95 Intake & Output 04/21/18 04/22/18 04/22/18 18:59 06:59 18:59 Intake Total 30 / 30 480 / 480 Output Total 550 / 550 250 / 250 Balance -520 / -520 230 / 230 Intake: IV BeneFIX Inj 4,000 UNIT In Bag/ Syringe 1 EACH @ 80 mls/hr IV. PUSH DAILY [facility] Rx#:[id number] Oral 480 / 480 Output: Urine Amount (Catheter) 550 / 550 250 / 250 Straight 550 / 550 250 / 250 Other: # Voids 2 Date of Last Bowel Movement 04/20/18 Result Diagrams: 04/22/18 04:28 04/17/18 03:52 Laboratory Results: Laboratory Results - last 24 hr 04/22/18 04:28 WBC 6.5 RBC 3.80 L Hgb 11.9 L Hct 34.3 L MCV 90.4 MCH 31.3 MCHC 34.6 RDW 13.3 Plt Count 211 MPV 9.7 Neut % (Auto) 51.0 Lymph % (Auto) 32.4 [place] % (Auto) 11.8 H Eos % (Auto) 4.2 H Baso % (Auto) 0.6 Neut # (Auto) 3.3 Lymph # (Auto) 2.1 [place] # (Auto) 0.8 Eos # (Auto) 0.3 Baso # (Auto) 0.0 WBC Differential . Differential Comment Auto diff final Medications: Active Medications Generic Name Dose Route Start Last Admin Trade Name Freq PRN Reason Stop Dose Admin Al Hydroxide/Mg Hydroxide 30 ml 04/08/18 23:50 04/13/18 08:16 Milk Of Magnesia Liq PO 30 ml Q12H PRN Administration Mild Constipation Albuterol 1 ampul 04/08/18 23:50 04/10/18 04:50 Duoneb Neb (Prn) NEB 1 ampul Q2HR NEB PRN Administration WHEEZING Bisacodyl 10 mg 04/08/18 23:50 04/13/18 18:31 Dulcolax Supp RECTAL 10 mg DAILY PRN Administration SEVERE CONSITIPATION Famotidine 20 mg 04/09/18 09:00 04/22/18 09:39 Pepcid Pf Inj IV.PUSH 20 mg Q12HR NASIR Administration Hydromorphone HCl 2 mg 04/19/18 11:57 04/22/18 12:44 Dilaudid Pf Inj IV.PUSH 2 mg Q3H PRN Administration pain 8-10 Factor IX Complex Human 4,000 20 mls @ 80 mls/hr 04/22/18 09:00 04/22/18 10: 15 unit/ Syringe/Bag IV.PUSH Infused DAILY NASIR Infusion Labetalol HCl 10 mg 04/09/18 00:45 04/11/18 05:13 Trandate Inj IV.PUSH 10 mg Q3H PRN Administration SBP>160, DBP> 90 Lactulose 30 ml 04/17/18 17:00 04/22/18 09:38 Lactulose Liq PO 30 ml DAILY NASIR Administration Methadone HCl 190 mg 04/09/18 09:00 04/22/18 09:37 Dolophine PO 190 mg DAILY NASIR Administration Metoclopramide HCl 5 mg 04/09/18 00:00 04/22/18 12:44 Reglan Inj IV.PUSH 5 mg Q6HR NASIR Administration Protocol Morphine Sulfate 2 mg 04/08/18 23:50 04/09/18 07:51 Morphine Inj IV.PUSH 2 mg Q2H PRN Administration PAIN SCALE 6 TO 10 Nicotine 1 patch 04/09/18 10:00 04/22/18 09:38 Habitrol 14 Mg Patch.24 Hr T-DERMAL 1 patch DAILY NASIR Administration Polyethylene Glycol 17 gm 04/16/18 15:00 04/22/18 09:38 Miralax PO Not Given DAILY [facility]IR Senna/Docusate Sodium 1 tab 04/09/18 21:00 04/22/18 09:39 Lindy-Colace PO 1 tab BID NASIR Administration Sennosides 17.2 mg 04/09/18 17:11 04/15/18 19:24 Senokot PO 17.2 mg Q12H PRN Administration Moderate Constipation Sodium Chloride 2 ml 04/09/18 09:00 04/22/18 09:38 Ns Flush IV.FLUSH 2 ml BID NASIR Administration Sodium Chloride 2 ml 04/08/18 23:50 04/17/18 04:06 Ns Flush IV.FLUSH 2 ml PRN PRN Administration FLUSH AFTER USING IV ACCESS Tamsulosin HCl 0.4 mg 04/13/18 09:00 04/22/18 09:38 Flomax PO 0.4 mg DAILY NASIR Administration Temazepam 15 mg 04/08/18 23:50 04/09/18 01:24 Restoril PO 15 mg HS PRN Administration INSOMNIA Objective Remarks: GENERAL: Well-nourished, middle-aged male patient, In no acute distress. SKIN: Warm and dry. Incisions to back, healing, no erythema, fluctuance or drainage noted. HEAD: Normocephalic. EYES: No scleral icterus. No injection or drainage. NECK: Supple, trachea midline. CARDIOVASCULAR: Regular rate and rhythm without murmurs. RESPIRATORY: Posterior breath sounds clear, equal bilaterally. No accessory muscle use. GASTROINTESTINAL: Abdomen soft, non-tender, nondistended. EXTREMITIES: No cyanosis, or edema. MUSCULOSKELETAL: Adequate muscle tone. Moves all extremities, 5/5 strength in all extremities. NEUROLOGICAL: No obvious focal deficit. Awake, alert, and oriented x3. 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 His baseline factor IX activity is less than 1%. 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 He presented with back pain symptoms and neurologic deficit/trouble urinating. Thoracic spine MRI shows elongated mass in the anterior aspect of the epidural space from T5-T9 with moderate spinal stenosis. The patient had decompression surgery by Dr. Varela on . Once confirmation of factors available at outpatient clinic, the patient will be able to be discharged from a hematology standpoint. Dr. Fragoso is following up with outpatient pharmacy. 2. Continue bladder training and intermittent urinary catheterization. 3. Continue BeneFIX 4000 units once daily. Updated injury: Dr. Fragoso has confirmed factors being available. Patient may be discharged from a hematology standpoint today. Patient to follow-up at the [facility] tomorrow to get his Alprolix. - Attending Statement As discussed. Anticipate discharge in follow-up in hematology clinic tomorrow. Extended half-life factors have been approved on outpatient setting and delivered to clinic. Okay for discharge from hematology standpoint
--- NOTE | 2018-04-22 16:31 | P.DCO ---
- Occupational Therapy Order: Evaluate and treat, Gross motor coordination, Fine motor coordination - Home Health Nursing Order: Medical education, Signs/symptoms of disease process, Medication education-adverse effect, Nursing assessment with vital signs Instructions: May need intermittent urinary bladder catheterization needs Catheters. - Certification I have seen patient Titi Alcala on 04/22/18. My clinical findings support the need for the requested home health care services because: Limited mobility due to disease progression I certify that my clinical findings support that this patient is homebound because: Unsafe to leave home unassisted
[2018-04-22 17:03] VITALS: BP 132/76; PULSE 77; TEMP 98.3
--- NOTE | 2018-06-01 10:09 | P.DS ---
Date of admission: 04/08/18 22:08 Primary care physician: No Primary Care Physician Attending physician on discharge: Antonio Jenkins Anticipated date of discharge: 04/22/18 Brief History from admission: 42-year-old male with hemophilia B was seen at [facility] 2 days ago with a complaint of right elbow pain and swelling. Hemarthrosis in the past effectively responded to BeneFIX and he received BeneFIX then and he has no elbow related complaints today. During that evaluation however the patient developed pain in the lower thoracic back fairly abruptly. He had not experienced similar pain previously. Patient became somewhat restless and after multiple doses of IV hydromorphone the pain was controlled. Imaging was added on and blood work at that time was grossly unremarkable. There was no fecal urinary incontinence or numbness or tingling in the saddle distribution. Patient remained ambulatory throughout his stay then. He returns today with urinary retention and severe lower thoracic back pain. Patient still remains ambulatory and there is no focal neurologic deficit. MR studies of the cervical thoracic and lumbar spine shows subacute/acute epidural hematoma. Patient has received broad-spectrum antibiotics in the emergency department due to leukocytosis, and is receiving factor IX infusion now. Neurosurgery was consulted by ED attending and recommended to admit patient to [facility] at the [facility]. 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 Status: Acute (4) Hepatitis C Status: Chronic (5) Epidural hematoma Status: Acute (6) Upper back pain Status: Acute (7) History of arthroscopy of right knee Status: Acute (8) Hepatitis C Status: Acute DS: Medications - Discharge Medications Prescriptions: famotidine (PF) 20 mg IV.PUSH Q12HR #60 ml nicotine 1 patch TRANSDERMAL DAILY #30 ea tamsulosin 0.4 mg PO DAILY #30 cap DS: Summary Hospital Course: This is a pleasant 42b y/o Male with histor of spontaneous epidural hematoma status post Left T4 through 7 complete , and right T4 through 7 partial decompressive laminectomy, evacuation spontaneous epidural hematoma, 04/09/18. stable no complaint discussed with nurse Miss Ybarra he has some Urinary retention due to his base pathology, needed for straight bladder catheterizations every six hours, Neurosurgery aware of this issue. 04/21: Stable in his bedroom, in the presence of his mother, no complaint, continue self catheterization for Urinary retention, continue bladder training, will continue BeneFIX 6000 units daily (Factor IX), to complete two weeks, hematology thinking in discharge tomorrow. 04/22: Seen in his bedroom, walking in the room, improving condition also he had two voids on his own improving Urinary retention, to continue present care and waiting arrangements to be done by planning specialist for his Medicine Factor IX as outpatient. No nausea, vomit or diarrhea, his mother present. - Urinary Catheter Management Indwelling Urethral Catheter Cath placed during this visit: yes, but has since been removed by the nurse Reason for continuing: Acute urinary retention Insertion date: 04/08/18 Insertion time: 18:04 Removal date: 04/12/18 Removal time: 15:50 Straight Cath placed during this visit: yes, but has since been removed by the nurse Reason for continuing: Not indwelling catheter Insertion date: 04/21/18 Insertion time: 22:00 Removal date: 04/21/18 Removal time: 22:10 Results - Labs CBC & Chem 7: 04/22/18 04:28 04/17/18 03:52 Laboratory Results - last 24 hr 04/22/18 04:28 WBC 6.5 RBC 3.80 L Hgb 11.9 L Hct 34.3 L MCV 90.4 MCH 31.3 MCHC 34.6 RDW 13.3 Plt Count 211 MPV 9.7 Neut % (Auto) 51.0 Lymph % (Auto) 32.4 [place] % (Auto) 11.8 H Eos % (Auto) 4.2 H Baso % (Auto) 0.6 Neut # (Auto) 3.3 Lymph # (Auto) 2.1 [place] # (Auto) 0.8 Eos # (Auto) 0.3 Baso # (Auto) 0.0 WBC Differential . Differential Comment Auto diff final Assessment and Plan - Plan Acute Spinal cord compression, Walking in the room improving. Thoracic spinal epidural hematoma -s/p Complete Left T4 - 7 complete , and partial right T4 through 7 decompressive laminectomy, evacuation spontaneous epidural hematoma -Intraoperative bleeding controlled with additional factor IX infusion. -Underlying hemophilia B, continue factor IX per hematology -Pain controlled now with IV Dilaudid as needed. Will need to start weaning down. -Confirmed methadone dose with the methadone clinic. -ordered PT 7 days a week. Rehab recommended. Case management consulted. Added OT. discussed with Distribution Analyst the patient is self pay, not able to provide HHC. HTN Well controlled at this time. -Continue maintenance IV fluids -Target systolic blood pressure 130-160 to ensure spinal cord perfusion Hemophilia B Hematology consult appreciated. -Factor IX infusion as ordered per hematology. Will need it set-up as an outpt. plan for discharge tomorrow. Continue BeneFIX 6000 units daily. and self catheterization due to Urinary retention. Acute renal failure -resolved. Urinary retention Improving had two voids on himself in am today. Concern for neurogenic bladder. Still having difficulty urinating. -straight cath as needed. -continue Flomax. and Bladder training. Elevated LFTs probable related to Hepatitis C. Positive Screen. PROPH: -SCDs/Gerry. IV famotidine -Chemical DVT prophylaxis is contraindicated Code Status: full code. Discussed Condition With: Patient, his Mother and nurse miss Archibald. Discharge Planning: Scheduled for later today by technology infusion specialist. - Time Spent with Patient Total time spent providing and/or coordinating discharge services: Less than 30 minutes - Quality: VTE Deep Vein Thrombosis/Pulmonary Embolism Present on Admission: No Exam Narrative: GEN: Comfortable HEENT: NC, AT CARDIAC: RRR LUNGS: CTAB GI: Soft, ND, decreased bowel sounds, nontender BACK: Incision appears clean and noninfected. No tenderness to palpation EXTREMITIES: No edema NEURO: Alert and oriented x3; Follows commands x4; 5/5 strength throughout; Normal sensation Results Procedures completed during hospitalization: Date of procedure: 04/09/18 Procedure: Left T4 through 7 complete , and right T4 through 7 partial decompressive laminectomy, evacuation spontaneous epidural hematoma Anesthesia: GETA Surgeon: Jassi Varela MD Certified Home Health Aide: Fernando Romero Estimated blood loss (mL): 1,800 Pathology: none sent Operation and Findings: Indications: 42-year-old male with hemophilia with 5 days of thoracic pain. Developed bladder dysfunction. 718. Preoperative imaging study reveals probable epidural hematoma ventral to thecal sac at the T4-8 levels. Findings: Ventral liquefied epidural hematoma T4-8 levels. - Impressions ITS Impressions Cervical Spine MRI 04/08/18 17:31 CONCLUSION: 1. Intact cervical spine. No epidural hematoma. 2. Minimal degenerative changes. No foraminal or spinal stenosis. Lumbar Spine MRI 04/08/18 17:31 CONCLUSION: 1. Intact lumbar spine. No epidural hematoma. 2. Mild degenerative changes at L3/L4 and L4/L5 as described. Thoracic Spine MRI 04/08/18 17:32 CONCLUSION: Elongated mass in the anterior aspect of the epidural space from T5 to T9 as described and most likely an acute or subacute epidural hematoma. There is moderate spinal stenosis without cord compression or cord signal abnormality. Thoracic Spine X-Ray 04/09/18 00:00 CONCLUSION: Limited localization study as described. Chest X-Ray 04/10/18 06:00 CONCLUSION: Clear lungs. Discharge Plan - Discharge Disposition Patient Disposition: Disch W/Home Health Service - Discharge Condition Condition: Fair - Discharge Order Discharge Orders: Discharge Order (Routine); Ordered 04/22/18 Ordered By: Antonio Jenkins Oncology Clear for Discharge (Routine); Ordered 04/22/18 Ordered By: Naheed Cui - Discharge Details Anticipated Discharge Date: 04/22/18 Discharge Comment: Follow up with primary neurosurgery specialist doctor Jassi Varela - Physicians Team Primary Care Provider: Primary Care Physici,No Attending Provider: Antonio Jenkins Other Providers: Jassi Varela MD ; Mariya Fragoso MD
== END 2018-04-22 18:12 | disposition home health service (06) ==
LOC: PHED 16:29 → PHEDA 22:08 → N03 23:52 → N07 04-18 21:17
PROVIDERS: ADMIT Internal Medicine; ATTEND Internal Medicine